=== PATIENT | female | born 1950 | race Caucasian/White ===

== ENCOUNTER 2020-02-04 10:20 | Emergency (ER) | payer MEDICARE, MEDICAID ==
--- NOTE | 2020-02-04 10:50 | RAD ---
EXAM: Single view of the chest HISTORY: Chest pain COMPARISON: None FINDINGS: Single view of the chest shows a normal sized cardiomediastinal silhouette. There is no desmond dence of consolidation, mass, or pleural effusion. No acute osseous abnormality. IMPRESSION: No evidence of acute cardiopulmonary disease
[2020-02-04] MEDS ORDERED: Fentanyl 100 MCG/2 ML VIAL ONE (10:55)
[2020-02-04 10:56] LABS: #Eosinphils 0.1 thou/uL (0.0-0.7); #Lymphocytes 1.7 thou/uL (1.20-3.40); #Monocytes 0.6 thou/uL (0.11-0.59); #Neutrophils 3.3 thou/uL (1.40-6.50); %Basophils 0.5 % (0.0-1.0); %Eosinophils 1.7 % (0.0-10.0); %Lymphocytes 30.1 % (21.0-51.0); %Monocytes 9.7 % (0.0-10.0); Hemoglobin 11.1 g/dL (12.0-16.0); Mean Corpuscular HGB CONC 30.9 g/dL (32.0-36.0); Mean Corpuscular Hemoglobin 24.7 pg (27.0-31.0); Mean Corpuscular Volume 79.9 fL (78.0-98.0); Mean Platelet Volume 9.3 fL (7.4-10.4); Platelet Count 210 thou/uL (130-400); RBC Distribution Width 16.7 % (11.5-14.5); Red Blood Cell (RBC) Count 4.51 mill/uL (4.20-5.40); White Blood Cell (WBC) Count 5.6 thou/uL (4.8-10.8)
[2020-02-04] MEDS ORDERED: Ondansetron PF 4 MG/2 ML Vial ONE ×2 (10:59→11:54)
[2020-02-04 11:36] LABS: ALT (SGPT) 12 U/L (8-55); AST (SGOT) 12 U/L (5-34); Albumin 3.5 g/dL (3.4-4.8); Alkaline Phosphatase 180 U/L (40-110); Anion Gap 15 mmol/L (10-20); BUN (Urea Nitrogen) 20 mg/dL (9.8-20.1); Bilirubin, Total 0.2 mg/dL (0.2-1.2); Calc. Creatinine Clearance 0 mL/min (70-130); Calcium 9.7 mg/dL (7.8-10.44); Carbon Dioxide 22 mmol/L (23-31); Chloride 109 mmol/L (98-107); Estimated GFR-MDRD 78; Globulin 2.5 g/dL (2.4-3.5); Glucose 137 mg/dL (80-115); Sodium 142 mmol/L (136-145)
[2020-02-04] MEDS ORDERED: Pantoprazole 40 MG VIAL ONE (11:54)
[2020-02-04 12:13] LABS: Lipase 14 U/L (8-78)
[2020-02-04 13:41] LABS: Troponin I Less than 0.010 ng/mL (< 0.028)
== END 2020-02-04 14:50 | disposition left against medical advice (07) ==
LOC: ERS 10:20
DX: I11.0 Hypertensive heart disease with heart failure (principal); I50.9 Heart failure, unspecified; E78.00 Pure hypercholesterolemia, unspecified; E78.5 Hyperlipidemia, unspecified; J44.9 Chronic obstructive pulmonary disease, unspecified; F41.9 Anxiety disorder, unspecified; F32.9 Major depressive disorder, single episode, unspecified; E11.9 Type 2 diabetes mellitus without complications; Z87.442 Personal history of urinary calculi
CPT/HCPCS: 36415; 71045; 80053; 83690; 83880; 84484; 85025; 93005; 96374; 96375; 96376; C9113; J2405; J3010

== ENCOUNTER 2020-04-22 10:59 | Outpatient (CLI) | payer MEDICARE, MEDICAID ==
--- NOTE | 2020-04-22 12:01 | RAD ---
EXAM: XR Shoulder Lt 3 View STANDARD PROVIDED CLINICAL HISTORY: Pain COMPARISON: None FINDINGS: There is no evidence for fracture. Osteophyte formation is seen arising from the humeral head. Mild a cromioclavicular joint degenerative changes are seen. Glenohumeral relationship appears normal. Visualized left lung field appears clear. IMPRESSION: Acromioclavicular and glenohumeral degenerative change.
== END 2020-04-22 11:00 | disposition home or self-care (01) ==
LOC: RAD-FRANK 10:59
PROVIDERS: ATTEND Nurse Practitioner Family
DX: M25.512 Pain in left shoulder (principal); M19.012 Primary osteoarthritis, left shoulder

== ENCOUNTER 2020-06-10 05:35 | Inpatient (IN) | payer MEDICARE, MEDICAID ==
[2020-06-10] MEDS ORDERED: Vancomycin 1 GM/200 ML BAG ONE (05:53)
[2020-06-10] MEDS ORDERED: Sodium Chloride 0.9% 100 ML ONE (05:53)
[2020-06-10] MEDS ORDERED: Cefepime 2 GM VIAL ONE (05:53)
[2020-06-10] MEDS ORDERED: Acetaminophen 500 MG TAB ONE (05:53)
[2020-06-10] MEDS ORDERED: Sodium Chloride 0.9% 1,000 ML IV SCH ×3 (06:00→13:48)
[2020-06-10] MEDS ORDERED: Cefepime 2 GM in Sodium Chloride 0.9% 100 ML IVPB SCH (06:00)
[2020-06-10] MEDS ORDERED: Acetaminophen 500 MG TAB PO SCH (06:00)
[2020-06-10 06:36] LABS: Hemoglobin 10.3 g/dL (12.0-16.0); Mean Corpuscular HGB CONC 32.5 g/dL (32.0-36.0); Mean Corpuscular Hemoglobin 24.3 pg (27.0-31.0); Mean Corpuscular Volume 74.8 fL (78.0-98.0); Mean Platelet Volume 9.3 fL (7.4-10.4); Platelet Count 274 thou/uL (130-400); RBC Distribution Width 16.6 % (11.5-14.5); Red Blood Cell (RBC) Count 4.26 mill/uL (4.20-5.40)
[2020-06-10 06:53] LABS: #Lymphocytes 0.7 thou/uL (1.20-3.40); #Monocytes 0.8 thou/uL (0.11-0.59); #Neutrophils 13.5 thou/uL (1.40-6.50); %Basophils 0.1 % (0.0-1.0); %Eosinophils 0.2 % (0.0-10.0); %Lymphocytes 4.6 % (21.0-51.0); %Monocytes 5.3 % (0.0-10.0); %Neutrophils 89.9 % (42.0-75.0); MDiff Complete? YES; Microcytosis SLIGHT = 6-15 cells (100X) (0-5/hpf); Platelet Morphology Comment Appears Adequate
[2020-06-10 07:00] LABS: ALT (SGPT) 16 U/L (8-55); AST (SGOT) 22 U/L (5-34); Albumin 3.6 g/dL (3.4-4.8); Alkaline Phosphatase 269 U/L (40-110); Anion Gap 17 mmol/L (10-20); BUN (Urea Nitrogen) 13 mg/dL (9.8-20.1); Bilirubin, Total 0.3 mg/dL (0.2-1.2); Calc. Creatinine Clearance 0 mL/min (70-130); Calcium 8.7 mg/dL (7.8-10.44); Carbon Dioxide 18 mmol/L (23-31); Chloride 108 mmol/L (98-107); Globulin 2.7 g/dL (2.4-3.5); Glucose 208 mg/dL (83-110); Potassium 3.2 mmol/L (3.5-5.1); Protein, Total 6.3 g/dL (5.8-8.1); Sodium 140 mmol/L (136-145)
[2020-06-10 07:04] LABS: Actual Bicarbonate (HCO3a) 17.8 mEq/L (22-28); Analyzer IN Cardio ER; Base Excess (BEa) -6.7 mEq/L (-2.0 to +3.0); CO2 Tension 31.9 mmHg (35.0-45.0); Calcium, Ionized (arterial) 1.23 mmol/L (1.12-1.30); Hemoglobin (Hb) 10.7 g/dL (12.0-16.0); O2 Tension (PaO2), arterial 147.1 mmHg (> 70.0); Potassium - ABG Lab 3.22 mmol/L (3.70-5.30); pH, Arterial 7.36 (7.35-7.45)
[2020-06-10 07:07] LABS: Puncture Site LRA
[2020-06-10 07:08] LABS: ALV-art Gradient 169.525 mmHg (0-20)
[2020-06-10 07:16] LABS: CKMB 1.3 ng/mL (0-6.6)
[2020-06-10 07:38] LABS: SARS-CoV-2 NAA Rapid Test Not Detected (NotDetected)
--- NOTE | 2020-06-10 07:42 | RAD ---
Chest one view HISTORY: Dyspnea. COMPARISON: 02/04/2020. FINDINGS: Right cardiac margin is obscured by dense masslike infiltrate. Ill-defined infiltrate also projects to the right suprahilar level. Left lung well-inflated. Pulmonary vasculature are unremarkable. No evidence of pneumothorax. IMPRESSION : Right upper lobe and right middle lobe pneumonia. Appearance more typical for bacterial pneumonia serafin n COVID pneumonitis.
[2020-06-10] MEDS ORDERED: Potassium Chloride 20 MEQ in Premix Bag 1 BAG IVPB SCH (08:30)
[2020-06-10] MEDS ORDERED: Acetaminophen 325 MG TAB PO PRN (09:45)
[2020-06-10] MEDS ORDERED: Ondansetron PF 4 MG/2 ML Vial IVP PRN (09:45)
[2020-06-10] MEDS ORDERED: Dextrose 50% Abboject 50 ML SYRINGE SLOW IVP PRN (09:48)
[2020-06-10] MEDS ORDERED: Dextrose 5% in Water 1,000 ML IV PRN (09:48)
[2020-06-10] MEDS ORDERED: Albuterol Sulfate 2.5 mg/3 ml Neb NEB PRN (09:53)
--- NOTE | 2020-06-10 10:02 | PDOC.HHP ---
Hospitalist HPI MONIQUE History of Present Illness: Patient is 70-year-old female with PMH of chronic CHF, HTN, HLD, DM type II, COPD, chronic anemia, diabetic neuropathy, and anxiety/depression who presents to the ED with shortness of breath. Patient states she has been having shortness of breath for the past 2 months, however her shortness of breath got worse last night. She also reports chronic cough, sometimes she coughs up "melo ck stuff, like an old blood". She has also been having substernal chest pain since last night which she describes it as "like someone laying on my chest", non-radiating and associated with SOB, no chest pain at this time. She has chronic leg swelling, this has not changed. She also had nausea and vomiting this morning. She denies fever or chills. ED Course: Patient was noted to be in significant respiratory distress on arrival of EMS. She was given DuoNeb, Solu-Medrol, magnesium, and was placed on CPAP. On arrival to the ED, patient was tachycardic and febrile. Lab showed WBC: 15, Lactic acid: 5.6, Troponin: 0.059. CXR showed multilobar right-sided pneumonia. Patient was given IV fluid and started on antibiotics. Allergies/Adverse Reactions: Allergy/AdvReac Type Severity Reaction Status Date / Time aspirin Allergy Verified 06/10/20 08:28 pregabalin [From Lyrica] Allergy Verified 06/10/20 08:28 shellfish derived Allergy Verified 06/10/20 08:28 tramadol Allergy Verified 06/10/20 08:28 trazodone Allergy Verified 06/10/20 08:28 Past History: PMH: chronic CHF, HTN, HLD, DM type II, COPD, chronic anemia, diabetic neuropathy, and anxiety/depression Past surgical history: Cholecystectomy, appendectomy, hysterectomy, knee replacement x2 Family history: Father: Cancer mother: CVA Social history: Patient is never smoker. She denies alcohol or drug use. Hospitalist HPI FLOR Constitutional: denies: fever, chills Eyes: denies: vision change ENT: denies: throat pain Respiratory: reports: cough, shortness of breath Cardiovascular: reports: chest pain, edema Gastrointestinal: reports: nausea, vomiting. denies: diarrhea Genitourinary: denies: dysuria, frequency Musculoskeletal: reports: other (leg pain from neuropathy) Skin: denies: rash Other: Negative for DAVIDSON Hospitalist Exam Vitals: Vital Signs (12 hours) Pulse Resp Pulse Ox 06/10/20 09:13 109 H 28 H 99 General Appearance: NAD, awake alert Eye: PERRL ENT: dry oral mucosa ENT - other findings: CPAP in place Neck: supple, no JVD Heart: no murmur Heart - other findings: Regular rhythm, tachycardic Respiratory: tachypneic (Some respiratory distress with exertion, comfortable at rest) Respiratory - other findings: Crackles on the right side otherwise clear to auscultation Gastrointestinal: soft, non-tender, non-distended, normal bowel sounds Extremities: no edema Neurological - other findings: Decreased sensation on all extremities which she states is due to neuropath Musculoskeletal - other findings: Mild decrease in strength on the LE bilaterally but there was poor effort Psychiatric: normal affect, A&O x 3 Hospitalist Results Result Diagrams: 06/10/20 06:21 06/10/20 06:21 Lab results: Laboratory Last Values WBC 15.0 thou/uL (4.8-10.8) H 06/10/20 06:21 RBC 4.26 mill/uL (4.20-5.40) 06/10/20 06:21 Hgb 10.3 g/dL (12.0-16.0) L 06/10/20 06:21 Hct 31.9 % (36.0-47.0) L 06/10/20 06:21 MCV 74.8 fL (78.0-98.0) L 06/10/20 06:21 MCH 24.3 pg (27.0-31.0) L 06/10/20 06:21 MCHC 32.5 g/dL (32.0-36.0) 06/10/20 06:21 RDW 16.6 % (11.5-14.5) H 06/10/20 06:21 Plt Count 274 thou/uL (130-400) 06/10/20 06:21 MPV 9.3 fL (7.4-10.4) 06/10/20 06:21 Neutrophils % 89.9 % (42.0-75.0) H 06/10/20 06:21 Neutrophils % (Manual) Not Reportable 06/10/20 06:21 Lymphocytes % 4.6 % (21.0-51.0) L 06/10/20 06:21 Monocytes % 5.3 % (0.0-10.0) 06/10/20 06:21 Eosinophils % 0.2 % (0.0-10.0) 06/10/20 06:21 Basophils % 0.1 % (0.0-1.0) 06/10/20 06:21 Neutrophils # 13.5 thou/uL (1.40-6.50) H 06/10/20 06:21 Lymphocytes # 0.7 thou/uL (1.20-3.40) L 06/10/20 06:21 Monocytes # 0.8 thou/uL (0.11-0.59) H 06/10/20 06:21 Eosinophils # 0.0 thou/uL (0.0-0.7) 06/10/20 06:21 Basophils # 0.0 thou/uL (0.0-0.2) 06/10/20 06:21 Plt Morphology Comment Appears Adequate 06/10/20 06:21 Microcytosis SLIGHT = 6-15 cells (100X) (0-5/hpf) 06/10/20 06:21 Specimen Type ARTERIAL 06/10/20 06:35 Puncture Site LRA 06/10/20 06:35 Bicarbonate Actual 17.8 mEq/L (22-28) L 06/10/20 06:35 ABG pH 7.36 (7.35-7.45) 06/10/20 06:35 ABG pCO2 31.9 mmHg (35.0-45.0) L 06/10/20 06:35 ABG pO2 147.1 mmHg (> 70.0) H 06/10/20 06:35 ABG O2 Sat (Measured) 98.3 % (94.0-98.0) H 06/10/20 06:35 ABG O2 Content 15.0 vol% (18.0-21.0) L 06/10/20 06:35 ABG Base Excess -6.7 mEq/L (-2.0 to +3.0) L 06/10/20 06:35 ABG Hematocrit 31.0 % (36.0-47.0) L 06/10/20 06:35 ABG Hemoglobin 10.7 g/dL (12.0-16.0) L 06/10/20 06:35 ABG Oxyhemoglobin 97.7 % (94.0-98.0) 06/10/20 06:35 ABG Carboxyhemoglobin 0.0 gm% (0.0-3.0) 06/10/20 06:35 ABG Methemoglobin 0.60 gm% (0.04-1.52) 06/10/20 06:35 ABG Deoxyhemoglobin 1.7 % (0.0-2.9) 06/10/20 06:35 Owen Test Not Reportable 06/10/20 06:35 A-a O2 Gradient 169.525 mmHg (0-20) H 06/10/20 06:35 Sodium 140 mmol/L (135-148) 06/10/20 06:35 Potassium 3.22 mmol/L (3.70-5.30) L 06/10/20 06:35 Chloride 109 mmol/L (98-106) H 06/10/20 06:35 Ionized Calcium 1.23 mmol/L (1.12-1.30) 06/10/20 06:35 Mode of Support BIPAP 06/10/20 06:35 Inspired O2 50 % 06/10/20 06:35 Pressure Support 10 cmH2O 06/10/20 06:35 PEEP or CPAP 5.0 cmH2O 06/10/20 06:35 Sodium 140 mmol/L (136-145) 06/10/20 06:21 Potassium 3.2 mmol/L (3.5-5.1) L 06/10/20 06:21 Chloride 108 mmol/L (98-107) H 06/10/20 06:21 Carbon Dioxide 18 mmol/L (23-31) L 06/10/20 06:21 Anion Gap 17 mmol/L (10-20) 06/10/20 06:21 BUN 13 mg/dL (9.8-20.1) 06/10/20 06:21 Creatinine 0.71 mg/dL (0.6-1.1) 06/10/20 06:21 Estimated GFR (MDRD) 81 06/10/20 06:21 Glucose 208 mg/dL (83-110) H 06/10/20 06:21 Lactic Acid 5.6 mmol/L (0.5-2.2) H* 06/10/20 06:21 Calcium 8.7 mg/dL (7.8-10.44) 06/10/20 06:21 Total Bilirubin 0.3 mg/dL (0.2-1.2) 06/10/20 06:21 AST 22 U/L (5-34) 06/10/20 06:21 ALT 16 U/L (8-55) 06/10/20 06:21 Alkaline Phosphatase 269 U/L (40-110) H 06/10/20 06:21 CK-MB (CK-2) 1.3 ng/mL (0-6.6) 06/10/20 06:21 Troponin I 0.059 ng/mL (< 0.028) H 06/10/20 06:21 B-Natriuretic Peptide 102.6 pg/mL (0-100) H 06/10/20 06:21 Serum Total Protein 6.3 g/dL (5.8-8.1) 06/10/20 06:21 Albumin 3.6 g/dL (3.4-4.8) 06/10/20 06:21 Globulin 2.7 g/dL (2.4-3.5) 06/10/20 06:21 Albumin/Globulin Ratio 1.3 g/dL (1.2-2.2) 06/10/20 06:21 Influenza A RNA INAAT Not Detected (NotDetected) 06/10/20 06:04 Influenza B RNA INAAT Not Detected (NotDetected) 06/10/20 06:04 SARS-CoV-2 Rap RNA(RT-PCR) Not Detected (NotDetected) 06/10/20 06:04 Chest x-ray Status: image reviewed by ne Hospitalist H&P A/P (1) Severe sepsis Code(s): A41.9 - SEPSIS, UNSPECIFIED ORGANISM; R65.20 - SEVERE SEPSIS WITHOUT SEPTIC SHOCK Status: Acute Assessment and Plan: Tachycardic and febrile on arrival. Labs showed leukocytosis and lactic ac idosis. This is likely from her pneumonia seen on CXR. Plan: -f/u blood Cx -sputum Cx -IV fluid with caution due to hx of CHF -cont Cefepime and Vanc (2) Respiratory failure with hypoxia Code(s): J96.91 - RESPIRATORY FAILURE, UNSPECIFIED WITH HYPOXIA Status: Acute Assessment and Plan: Likely due to PNA. Symptom improved on CPAP Plan: -cont CPAP -treat sepsis as above (3) PNA (pneumonia) Code(s): J18.9 - PNEUMONIA, UNSPECIFIED ORGANISM Status: Acute Qualifiers: Pneumonia type: due to unspecified organism Laterality: right Lung location: lower lobe of lung Qualified Code(s): J18.9 - Pneumonia, unspecified organism Assessment and Plan: CXR showed multilobar right-sided PNA. No recent hospitalization. Plan: -management as above (4) Elevated troponin Code(s): R77.8 - OTHER SPECIFIED ABNORMALITIES OF PLASMA PROTEINS Status: Acute Assessment and Plan: This is likely secondary to demand ischemia from severe sepsis, however patient reports chest pain and EKG showed non-specific ST changes on the inferiolateral leads. Plan: -trend troponin -consult cardiology (5) CHF (congestive heart failure) Code(s): I50.9 - HEART FAILURE, UNSPECIFIED Status: Chronic Qualifiers: Heart failure type: unspecified Heart failure chronicity: chronic Quali fied Code(s): I50.9 - Heart failure, unspecified Assessment and Plan: Unspecified, no echo in the chart. Patient takes Lasix. Currently not volume overloaded. Plan: -Hold Lasix for now due to severe sepsis (6) COPD (chronic obstructive pulmonary disease) Status: Chronic Assessment and Plan: No wheezing on exam. Plan: -DuoNeb Q4H (7) DM type 2 (diabetes mellitus, type 2) Status: Chronic Qualifiers: Diabetes mellitus half-way insulin use: without half-way use Diabetes mellitus complication detail: with diabetic retinopathy Assessment and Plan: Patient takes Januvia at home. Plan: -SS insulin ACHS -hold Januvia while patient is NPO (8) HTN (hypertension) Code(s): I10 - ESSENTIAL (PRIMARY) HYPERTENSION Status: Chronic Assessment and Plan: Plan: -Hold home meds for now due to sepsis
[2020-06-10 10:03] LABS: Lactic Acid 5.4 mmol/L (0.5-2.2)
[2020-06-10 10:28] LABS: Troponin I 0.077 ng/mL (< 0.028)
[2020-06-10] MEDS: HumaLOG 300 UNITS/3 ML VIAL SC PRN ×3 (10:44→21:33)
[2020-06-10 13:05] LABS: Troponin I 0.057 ng/mL (< 0.028)
[2020-06-10] MEDS ORDERED: Clopidogrel Bisulfate 75 MG TAB PO SCH (13:45)
--- NOTE | 2020-06-10 15:16 | CON ---
DATE OF CONSULTATION: 06/10/2020 REASON FOR CONSULTATION: Slight increase in troponin (borderline troponin) chest pain in the setting of pneumonia and diabetes. HISTORY OF PRESENT ILLNESS: Ms. Rain is a 70-year-old woman. The patient was admitted to the hospital with shortness of breath and fatigue. She was found to have a high fever here and a right lower lobe pneumonia. The patient states she has been told in the past that she has heart disease. She has been followed by a bone plant supervisor previously. She said she has not seen a marine electrician helper. The patient has chest pain when she coughs and it is lower substernal with a cough. PAST HISTORY: 1. Diabetes for about five years, not on insulin. 2. No history of smoking. SOCIAL HISTORY: No alcohol or tobacco. REVIEW OF SYSTEMS: CONSTITUTIONAL: She feels weak and fatigued. No chest pain of angina, but she does have pain with a cough. PULMONARY: She has a cough. ABDOMEN AND GI: No nausea, vomiting, or diarrhea. SKIN: No rashes. NEUROLOGIC: No unilateral weakness or numbness. PSYCHIATRIC: No unusual depression or anxiety. PERTINENT LABORATORY DATA: The troponin is an indeterminate range, peaking at 0.077. BNP 102.6. White blood cell count 15,000. Chest x-ray shows a right lower lobe pneumonia. COVID serology negative. PHYSICAL EXAMINATION: GENERAL: This is a pleasant woman. She is quite overweight, 5 feet 4 inches tall, 229 pounds, 39.3 BMI. VITAL SIGNS: Blood pressure is 121/63, pulse 100 and it is sinus, temperature now is normal, but previously she was febrile with a temperature in the emergency room of 102.2. DIAGNOSTIC STUDIES: EKG, sinus rhythm, some nonspecific ST changes. ASSESSMENT: 1. Pneumonia. 2. Sepsis with increased lactic acid. 3. Possible underlying coronary disease, probably some element of demand ischemia. 4. Morbid obesity. 5. Diabetes. 6. Unknown cholesterol status. PLAN: 1. Agree with anticoagulation. DVT prophylaxis. 2. We will increase the Lovenox to 30 mg twice a day. 3. Echocardiogram ordered. 4. Cannot take aspirin. We will start clopidogrel. We will follow with you. Job ID: [id number]
[2020-06-10] MEDS: Cefepime 2 GM in Sodium Chloride 0.9% 100 ML IVPB SCH (17:50)
[2020-06-10] MEDS: methylPREDNISolone Sod Succ 40 MG VIAL IVP SCH (18:42)
[2020-06-10] MEDS: Vancomycin 1.5 GRAM/300 ML BAG 1.5 GM in Premix Bag 1 BAG IVPB SCH (18:43)
[2020-06-10] MEDS: Sodium Chloride 0.9% 1,000 ML IV SCH (19:00)
--- NOTE | 2020-06-10 20:31 | CON ---
DATE OF CONSULTATION: 06/10/2020 HISTORY OF PRESENT ILLNESS: Hannah Rain is a 70-year-old female. She recently moved out of the [place] area to . She presented with 2 months of a cough and shortness of breath. She has been told by her pulmonary doctor that she had COPD, but she has never been a smoker. She was told she had asthma when she was young. She also has a history of congestive heart failure. She was admitted with cough and chest congestion. I was consulted to see her. PAST MEDICAL HISTORY: 1. Remarkable for congestive heart failure, unclear whether it is systolic or diastolic. 2. History of hypertension. 3. History of diabetes. 4. History of a diabetic neuropathy. 5. Reported history of COPD with no history of smoking. 6. History of anxiety and depression. 7. History of cholecystectomy. 8. History of an appendectomy. 9. Status post hysterectomy. 10. History of 2 knee replacements. FAMILY HISTORY: Cancer and vascular disease. No history of lung disease in early age. SOCIAL HISTORY: She is a nonsmoker, nondrinker, and nondrug user. REVIEW OF SYSTEMS: Ten-point review of systems otherwise negative. Other than that, she says she has been coughing up black sputum. She denies oneil hemoptysis. PHYSICAL EXAMINATION: She was talking on the cellphone a mile a minute when I walked in the room and then continued to talk a mile a minute after she hung up on the cellphone. VITAL SIGNS: She is afebrile. Heart rate is 100, respiratory rate is in 20, blood pressure 116/59. HEENT: Pupils are equal. Sclerae anicteric. NECK: Supple. LUNGS: Remarkable for crackles at the right base. HEART: Regular rhythm. No S3. ABDOMEN: Soft and nontender. EXTREMITIES: Without clubbing, cyanosis, or edema. LABORATORY DATA: White count 15, hemoglobin 10, and platelets 274. Sodium 140, potassium 3.2, chloride 108, bicarb 18, anion gap is 14, and creatinine is 0.7. Chest radiograph shows a dense right middle lobe/possible lower lobe infiltrate, she may have a little bit of an infiltrate in the right upper lobe. IMPRESSION: 1. Pneumonia. 2. Underlying lung disease, possibly chronic persistent asthma given her lack of smoking. She does not have a history that is suggestive of chronic bronchitis. 3. I would like to have access to any of her medical records. 4. At this point in time, she needs nebulized treatments, steroids, and empiric antimicrobial therapy to cover for multiple pathogens. We will follow the other physicians caring for. TIME SPENT: 70-minute consult,greater than 50% of the time was spent on the unit coordinating care. Job ID: [id number]
[2020-06-10] MEDS ORDERED: Enoxaparin Sodium 30 MG/0.3 ML SYRINGE SC SCH (21:00)
[2020-06-10] MEDS: Famotidine 20 MG TAB PO SCH (21:36)
[2020-06-10] MEDS: Enoxaparin Sodium 40 MG/0.4 ML SYRINGE SC SCH (21:36)
[2020-06-10] MEDS ORDERED: Lidocaine 2% Viscous Solution 10 ML, Aluminum & Magnesium Hydroxide 30 ML SSW SCH (23:45)
[2020-06-11] MEDS: methylPREDNISolone Sod Succ 40 MG VIAL IVP SCH ×5 (00:05→23:19)
[2020-06-11 04:38] LABS: Band 25 % (5-11); Hemoglobin 8.8 g/dL (12.0-16.0); Hypochromia SLIGHT = 6-15 cells (100X) (0-5/hpf); Lymphocytes 6 % (21-51); MDiff Complete? YES; Mean Corpuscular HGB CONC 30.5 g/dL (32.0-36.0); Mean Corpuscular Hemoglobin 22.9 pg (27.0-31.0); Mean Corpuscular Volume 75.2 fL (78.0-98.0); Mean Platelet Volume 9.7 fL (7.4-10.4); Monocytes 11 % (0-10); Neutrophil 58 % (42-75); Platelet Count 272 thou/uL (130-400); Platelet Morphology Comment Appears Adequate; RBC Distribution Width 16.6 % (11.5-14.5); Red Blood Cell (RBC) Count 3.84 mill/uL (4.20-5.40); White Blood Cell (WBC) Count 22.4 thou/uL (4.8-10.8)
[2020-06-11 04:56] LABS: ALT (SGPT) 36 U/L (8-55); AST (SGOT) 59 U/L (5-34); Albumin 3.4 g/dL (3.4-4.8); Alkaline Phosphatase 205 U/L (40-110); Anion Gap 14 mmol/L (10-20); BUN (Urea Nitrogen) 19 mg/dL (9.8-20.1); Bilirubin, Total 0.4 mg/dL (0.2-1.2); Calc. Creatinine Clearance 130 mL/min (70-130); Calcium 9.4 mg/dL (7.8-10.44); Carbon Dioxide 20 mmol/L (23-31); Chloride 109 mmol/L (98-107); Globulin 2.8 g/dL (2.4-3.5); Glucose 188 mg/dL (83-110); Potassium 4.4 mmol/L (3.5-5.1); Protein, Total 6.2 g/dL (5.8-8.1); Sodium 139 mmol/L (136-145)
[2020-06-11] MEDS: Vancomycin 1.5 GRAM/300 ML BAG 1.5 GM in Premix Bag 1 BAG IVPB SCH ×2 (05:22→19:33)
[2020-06-11] MEDS: Cefepime 2 GM in Sodium Chloride 0.9% 100 ML IVPB SCH ×2 (05:23→18:09)
[2020-06-11] MEDS: Sodium Chloride 0.9% 1,000 ML IV SCH (07:20)
--- NOTE | 2020-06-11 08:28 | RAD ---
Portable upright frontal chest radiograph: 06/11/2020 COMPARISON: 06/10/2020 HISTORY: Pneumonia FINDINGS: There is patchy interstitial and alveolar opacity in the right suprahilar region, demonstra ting interval improvement. There is focal airspace disease in the medial right base/infrahilar region, demonstrating improvement as well. Left lung appears clear. No pneumothorax is evident. IMPRESSION: Residual right perihilar/suprahilar/infrahilar interstitial and alveolar opacity with foc al airspace disease in the right base. Findings are improved. Continued follow-up advised to document resolution. Findings suggest infectious pneumonitis or aspiration.
[2020-06-11] MEDS ORDERED: Enoxaparin Sodium 30 MG/0.3 ML SYRINGE SC SCH (09:00)
[2020-06-11] MEDS ORDERED: FLU VACC QS2020-21(65YR UP)/PF 240 MCG/0.7 ML SYRINGE IM ONE (09:00)
[2020-06-11] MEDS ORDERED: Sodium Chloride 0.9% 1,000 ML IV SCH (09:41)
[2020-06-11] MEDS ORDERED: Furosemide 20 MG/2 ML VIAL SLOW IVP SCH (09:45)
[2020-06-11] MEDS ORDERED: Spironolactone 25 MG TAB PO SCH (09:45)
--- NOTE | 2020-06-11 09:59 | PRG ---
DATE OF SERVICE: 06/11/2020 SUBJECTIVE: Ms. Rain feels better today. OBJECTIVE: VITAL SIGNS: Oxygen saturation is 98% on nasal cannula, blood pressure 145/83, pulse 100 and sinus with occasional PACs. LUNGS: Clear anteriorly and laterally. CARDIAC: Normal S1, normal S2, but she is tachycardic for rest. EXTREMITIES: There is moderate edema. DIAGNOSTIC STUDIES: Echocardiogram showed normal left ventricular systolic function with grade 1 diastolic dysfunction. ASSESSMENT: 1. Pneumonia. 2. Grade 1 diastolic dysfunction. 3. Normal left ventricular systolic function. 4. Looks volume overloaded now. PLAN: 1. Add spironolactone. 2. One dose of Lasix. 3. Recheck BNP tomorrow. Job ID: [id number]
[2020-06-11] MEDS: Clopidogrel Bisulfate 75 MG TAB PO SCH (10:36)
[2020-06-11] MEDS: Famotidine 20 MG TAB PO SCH ×2 (10:36→20:03)
[2020-06-11] MEDS: Enoxaparin Sodium 40 MG/0.4 ML SYRINGE SC SCH ×2 (10:37→20:02)
--- NOTE | 2020-06-11 10:53 | PQF ---
CLINICAL DOCUMENTATION CLARIFICATION FORM: Dear Dr. Perales Date: 06/11/20 Please exercise your independent, professional judgment in responding to the clarification form. Clinical indicators are provided on the bottom of this form for your review. Please check appropriate box(es): HEART FAILURE: TYPE: [ ] Systolic / HFrEF [ x] Diastolic / HFpEF [ ] Combined Systolic / Diastolic [ ] Hypertensive Heart and Kidney disease [ ] Hypertensive Heart Disease [ ] Hypertensive Kidney Disease [ ] Other diagnosis [ ] Unable to determine In addition, please specify: Present on Admission (POA): [ ] Yes [ ] No [ ] Unable to determine For continuity of documentation, please document condition throughout progress notes and discharge summary. Thank You. To be completed by CDI/Coding staff for physician review: CLINICAL INDICATORS - SIGNS / SYMPTOMS / LABS / RESULTS AND LOCATION IN EMR H&P: "CHF, CHRONIC- UNSPECIFIED" ECHO REPORT: "EJECTION FRACTION IS VISUALLY ESTIMATED AT 55-60%" "GRADE 1 DIASTOLIC DYSFUNCTION /LEFT ATRIUM IS MODERATELY TO SEVERELY DILATED" BNP 06/10: 102.6 RISKS FACTORS / RESULTS AND LOCATION IN EMR CHRONIC CHF (H&P) HTN (H&P) "SHORTNESS OF BREATH FOR THE PAST 2 MONTHS....REPORTS CHRONIC COUGH" (H&P) TREATMENTS / RESULTS AND LOCATION IN EMR CCU MONITORING CARDIOLOGY CONSULT HOLDING LASIX (SEE NOTE IN H&P) CDS Signature: Evelia Dietrich RN Phone #: [phone] Date: 06/11/20 This is a permanent part of the Medical Record [facility]
[2020-06-11] MEDS: HumaLOG 300 UNITS/3 ML VIAL SC PRN ×2 (12:18→18:02)
--- NOTE | 2020-06-11 15:34 | PDOC.HOSPP ---
- Subjective Encounter Date: 06/11/20 Encounter Time: 15:30 Subjective: f/u for sepsis due to PNA/resp failure on prior BiPAP now on NC @ 2L/min NC. Receiving Cefepime/Vancomycin/Solumedrol. - Objective Vital Signs & Weight: Vital Signs (12 hours) Temp Pulse Resp Pulse Ox 06/11/20 10:53 95 21 H 99 06/11/20 08:00 98.2 F 99 06/11/20 07:47 99 06/11/20 07:45 92 16 99 06/11/20 05:19 98 06/11/20 04:04 98 Weight Admit Weight 229 lb Weight 229 lb Most Recent Monitor Data Heart Rate from ECG 100 NIBP 165/87 NIBP BP-Mean 113 Respiration from ECG 23 SpO2 96 I&O: 06/10/20 06/11/20 06/12/20 06:59 06:59 06:59 Intake Total 1380 1320 Output Total 600 950 Balance 780 370 Result Diagrams: 06/11/20 03:30 06/11/20 03:30 Additional Labs: Accuchecks 06/11/20 06/11/20 06/10/20 11:30 00:24 20:20 POC Glucose 245 H 172 H 271 H 06/10/20 16:15 POC Glucose 207 H Microbiology 06/10/20 06:21 Venous blood - Right Arm Blood Culture - Preliminary Specimen has been received and culture in progress. No Growth to date. 06/10/20 06:10 Venous blood - Right Hand Blood Culture - Preliminary Specimen has been received and culture in progress. No Growth to date. Laboratory Tests 02/04/20 06/10/20 06/10/20 10:44 06:04 06:21 WBC Hgb Neutrophils % Neutrophils % (Manual) Band Neuts % (Manual) AST 22 Alkaline Phosphatase 269 H B-Natriuretic Peptide 171.6 H Vancomycin Trough Influenza A RNA INAAT Not Detected Influenza B RNA INAAT Not Detected SARS-CoV-2 Rap RNA(RT-PCR) Not Detected 06/10/20 06/10/20 06/11/20 06:21 06:21 03:30 WBC 15.0 H Hgb 10.3 L Neutrophils % 89.9 H Neutrophils % (Manual) Band Neuts % (Manual) AST 59 H Alkaline Phosphatase 205 H B-Natriuretic Peptide 102.6 H Vancomycin Trough Influenza A RNA INAAT Influenza B RNA INAAT SARS-CoV-2 Rap RNA(RT-PCR) 06/11/20 06/11/20 03:30 16:52 WBC Hgb Neutrophils % Neutrophils % (Manual) 58 Band Neuts % (Manual) 25 H AST Alkaline Phosphatase B-Natriuretic Peptide Vancomycin Trough 15.0 Influenza A RNA INAAT Influenza B RNA INAAT SARS-CoV-2 Rap RNA(RT-PCR) Radiology Reviewed by me: Yes (PCXR - infiltrates of R-hemithorax) EKG Reviewed by me: Yes (Tele - SR) Hospitalist ROS - Medication Medications: Active Medications Generic Name Dose Route Start Last Admin Trade Name Freq PRN Reason Stop Dose Admin Albuterol/Ipratropium 3 ml 06/10/20 10:30 06/11/20 14:23 Ipratropium/Albuterol Sulfate 3 Ml Neb NEB 3 ml [id number] MIKY Administration Clopidogrel Bisulfate 75 mg 06/11/20 09:00 06/11/20 10:36 Clopidogrel Bisulfate 75 Mg Tab PO 75 mg DAILY MIKY Administration Enoxaparin Sodium 40 mg 06/10/20 21:00 06/11/20 10:37 Enoxaparin Sodium 40 Mg/0.4 Ml Syringe SC 40 mg 0900,2100 MIKY Administration Famotidine 20 mg 06/10/20 21:00 06/11/20 10:36 Famotidine 20 Mg Tab PO 20 mg BID MIKY Administration Cefepime HCl 2 gm/ Sodium 100 mls @ 200 mls/hr 06/10/20 18:00 06/11/20 05:23 Chloride IVPB 100 mls 0600,1800 MIKY Administration Vancomycin HCl 1.5 gm/ Device 300 mls @ 200 mls/hr 06/10/20 18:00 06/11/20 05:22 IVPB 300 mls 0600,1800 MIKY Administration Sodium Chloride 1,000 mls @ 30 mls/hr 06/11/20 09:41 06/11/20 10:37 Normal Saline 0.9% IV 1,000 mls .Q24H MIKY Administration Insulin Human Lispro 0 units 06/10/20 09:48 06/11/20 12:18 Humalog 300 Units/3 Ml Vial SC 3 unit .MILD SLIDING SCALE PRN Administration Mild Correctional Scale Methylprednisolone Sodium Succinate 20 mg 06/10/20 18:00 06/11/20 12:18 Methylprednisolone Sod Succ 40 Mg Vial IVP 20 mg Q6HR MIKY Administration Hospitalist Exam Vitals: Vital Signs (12 hours) Temp Pulse Resp Pulse Ox 06/11/20 10:53 95 21 H 99 06/11/20 08:00 98.2 F 99 06/11/20 07:47 99 06/11/20 07:45 92 16 99 06/11/20 05:19 98 06/11/20 04:04 98 Weight Admit Weight 229 lb Weight 229 lb Most Recent Monitor Data Heart Rate from ECG 100 NIBP 165/87 NIBP BP-Mean 113 Respiration from ECG 23 SpO2 96 General Appearance: NAD, awake alert Eye: PERRL, anicteric sclera ENT: normocephalic atraumatic, no oropharyngeal lesions Neck: supple, symmetric, no JVD, no thyromegaly, no lymphadenopathy Heart: RRR, no gallops, no rubs, normal peripheral pulses Heart - other findings: S1, S2 Respiratory: rhonchi, tachypneic Respiratory - other findings: few scattered coarse sounds, diminished R>L Gastrointestinal: soft, non-tender, non-distended, normal bowel sounds, no palpable masses, no hepatomegaly Gastrointestinal - other findings: obese Extremities: no cyanosis, no clubbing, no edema Skin: normal turgor Neurological: cranial nerve grossly intact, no new deficit Musculoskeletal: normal tone, generalized weakness Psychiatric: normal affect, A&O x 3 Hosp A/P (1) Severe sepsis Code(s): A41.9 - SEPSIS, UNSPECIFIED ORGANISM; R65.20 - SEVERE SEPSIS WITHOUT SEPTIC SHOCK Status: Acute Plan: Suspect due to PNA, continue Cefepime/Vancomycin, monitor clinical progress (2) Acute respiratory failure with hypoxia Code(s): J96.01 - ACUTE RESPIRATORY FAILURE WITH HYPOXIA Status: Acute Plan: Improved, continue low-volume O2 (3) Demand ischemia of myocardium Code(s): I24.8 - OTHER FORMS OF ACUTE ISCHEMIC HEART DISEASE Status: Acute Plan: Continue to treat underlying infection, appreciate Cardiology assistance, Lovenox (4) PNA (pneumonia) Code(s): J18.9 - PNEUMONIA, UNSPECIFIED ORGANISM Status: Acute Qualifiers: Pneumonia type: due to unspecified organism Laterality: right Lung location: lower lobe of lung Qualified Code(s): J18.9 - Pneumonia, unspecified organism Plan: Suspected with gm + cocci, continue Cefepime/Vancomycin (5) DM type 2 (diabetes mellitus, type 2) Status: Chronic Qualifiers: Diabetes mellitus termite exterminator insulin use: without termite exterminator use Diabetes mellitus complication detail: with diabetic retinopathy (6) HTN (hypertension) Code(s): I10 - ESSENTIAL (PRIMARY) HYPERTENSION Status: Chronic - Plan continue antibiotics, respiratory therapy, out of bed/ambulate Consults: Palliative Care Stable currently Continue Cefepime/Vancomycin Continue Lovenox/Plavix OOB with PT Confirm home meds Continue O2 supplementation, ? home O2 AM lab: CMP, CBC, BNP
--- NOTE | 2020-06-11 16:12 | PRG ---
DATE OF SERVICE: 06/11/2020 SUBJECTIVE: Ms. Rain says she is feeling better. OBJECTIVE: VITAL SIGNS: Stable overnight. She has been afebrile, although has only one temperature documented today of 98 this morning. LUNGS: Clear anteriorly. HEART: Regular rhythm. ABDOMEN: Soft. EXTREMITIES: Without edema. She does have stasis changes. LABORATORY DATA: White count 22.4, hemoglobin 8.8, platelets 272. She still has 25% bands on her peripheral smear. Electrolytes are unremarkable. Cultures from yesterday are negative. IMPRESSION: 1. Pneumonia, community-acquired. 2. History of congestive heart failure. Her ejection fraction was normal on echocardiogram done this morning. She does have diastolic dysfunction. We will continue to follow the other physicians caring for her. She is stable to move out of Critical Care. Job ID: [id number]
[2020-06-11 18:46] LABS: Bacteria/HPF None Seen HPF (None Seen); Bilirubin Negative (Negative); Blood, Urine Negative (Negative); Clarity Clear (Clear); Glucose, Urine (Dipstick) Normal (Negative); Ketone, Urine Negative (Negative); Leukocyte Negative Leu/uL (Negative); Nitrite Negative (Negative); Protein, Urine (Dipstick) Negative (Neg-Trace); RBC/HPF 0-3 HPF (0-3); Specific Gravity, Urine 1.016 (1.002-1.036); Squamous Epithelial None Seen HPF (0-3); Urobilinogen Normal mg/dL (Less than 2); WBC/HPF 0-3 HPF (0-3); pH, Urine 5.5 (5.0-9.0)
[2020-06-11 18:59] LABS: Urine Culture Reflex No No
[2020-06-12] MEDS: Nitroglycerin 0.4 MG TAB (25 Tab Bottle) ONE ×2 (03:47→04:17)
[2020-06-12] MEDS: Nitroglycerin 0.4 MG TAB (25 Tab Bottle) SL PRN ×3 (03:47→03:57)
[2020-06-12 04:40] LABS: #Lymphocytes 3.1 thou/uL (1.20-3.40); #Monocytes 0.8 thou/uL (0.11-0.59); #Neutrophils 15.4 thou/uL (1.40-6.50); %Basophils 0.2 % (0.0-1.0); %Eosinophils 0.1 % (0.0-10.0); %Lymphocytes 15.9 % (21.0-51.0); %Monocytes 4.2 % (0.0-10.0); %Neutrophils 79.6 % (42.0-75.0); Hemoglobin 8.7 g/dL (12.0-16.0); Mean Corpuscular HGB CONC 30.6 g/dL (32.0-36.0); Mean Corpuscular Hemoglobin 22.6 pg (27.0-31.0); Mean Corpuscular Volume 73.9 fL (78.0-98.0); Mean Platelet Volume 9.4 fL (7.4-10.4); Platelet Count 313 thou/uL (130-400); RBC Distribution Width 16.5 % (11.5-14.5); Red Blood Cell (RBC) Count 3.86 mill/uL (4.20-5.40); White Blood Cell (WBC) Count 19.3 thou/uL (4.8-10.8)
[2020-06-12 04:55] LABS: ALT (SGPT) 33 U/L (8-55); AST (SGOT) 17 U/L (5-34); Albumin 3.6 g/dL (3.4-4.8); Alkaline Phosphatase 203 U/L (40-110); Anion Gap 16 mmol/L (10-20); BUN (Urea Nitrogen) 22 mg/dL (9.8-20.1); Bilirubin, Total 0.3 mg/dL (0.2-1.2); Calc. Creatinine Clearance 123 mL/min (70-130); Calcium 9.9 mg/dL (7.8-10.44); Carbon Dioxide 18 mmol/L (23-31); Chloride 106 mmol/L (98-107); Globulin 2.7 g/dL (2.4-3.5); Glucose 189 mg/dL (83-110); Magnesium 1.8 mg/dL (1.6-2.6); Protein, Total 6.3 g/dL (5.8-8.1); Sodium 136 mmol/L (136-145)
[2020-06-12] MEDS: methylPREDNISolone Sod Succ 40 MG VIAL IVP SCH ×2 (05:02→08:25)
[2020-06-12] MEDS: Cefepime 2 GM in Sodium Chloride 0.9% 100 ML IVPB SCH (05:03)
[2020-06-12 05:22] LABS: CKMB 0.8 ng/mL (0-6.6)
[2020-06-12] MEDS: Nitroglycerin 2% Ointment 1 INCH/1 GM Packet TOP SCH ×2 (05:42→17:45)
[2020-06-12 06:10] LABS: Troponin I 0.021 ng/mL (< 0.028)
[2020-06-12] MEDS: Vancomycin 1.5 GRAM/300 ML BAG 1.5 GM in Premix Bag 1 BAG IVPB SCH (06:14)
--- NOTE | 2020-06-12 07:54 | RAD ---
RADIOGRAPH CHEST 1 VIEW: DATE: 06/12/2020 TIME: 5:29 AM HISTORY: 70-year-old female with chest pain follow-up pneumonia COMPARISON: 06/11/2020 FINDINGS: Small patchy right upper lung zone suprahilar infiltrate appears smaller. Consolidation at infrahilar right medial base unchanged. No pulmonary edema or pneumothorax. Right perihilar densities unchanged. IMPRESSION: 1. The small right upper lobe infiltrate appears improved. 2. The rest of the right infiltrates are unchanged
[2020-06-12] MEDS ORDERED: hydrALAZINE 20 MG/ML VIAL SLOW IVP PRN (08:21)
[2020-06-12] MEDS: Enoxaparin Sodium 40 MG/0.4 ML SYRINGE SC SCH ×2 (08:21→20:41)
[2020-06-12] MEDS: Nortriptyline HCl 25 MG CAP PO SCH (08:21)
[2020-06-12] MEDS: Levothyroxine Sodium 75 MCG TAB PO SCH (08:21)
[2020-06-12] MEDS: Clopidogrel Bisulfate 75 MG TAB PO SCH (08:23)
[2020-06-12] MEDS: Famotidine 20 MG TAB PO SCH ×2 (08:23→20:36)
[2020-06-12] MEDS: Lorazepam 1 MG TAB PO SCH ×3 (08:23→20:39)
[2020-06-12] MEDS: Spironolactone 25 MG TAB PO SCH ×2 (08:24→12:42)
[2020-06-12] MEDS ORDERED: Spironolactone 25 MG TAB PO SCH (08:45)
[2020-06-12] MEDS ORDERED: Aripiprazole 10 MG TAB PO SCH (09:00)
[2020-06-12] MEDS ORDERED: Amlodipine 5 MG TAB PO SCH (09:00)
[2020-06-12] MEDS ORDERED: Furosemide 40 MG/4 ML VIAL SLOW IVP SCH (09:30)
--- NOTE | 2020-06-12 09:54 | PRG ---
DATE OF SERVICE: 06/12/2020 SUBJECTIVE: Ms. Rain had an episode of chest pressure. It was intense, took 3 nitroglycerin early this morning. EKG was unremarkable. No ischemic changes at that time. The patient was also hypertensive. She is also retaining tremendous amounts of fluid and is hypertensive. She is resting comfortably now, but very upset about the chest pain she had. OBJECTIVE: VITAL SIGNS: Her blood pressure 180/90, pulse is in the 90 range. LUNGS: Clear. CARDIAC: Normal S1, normal S2. ABDOMEN: Obese, nontender. EXTREMITIES: Moderate to severe edema. ASSESSMENT: 1. Chest pressure, possibly cardiac versus gastrointestinal. 2. Volume overload with hypertension. 3. Some element of diastolic heart failure with a BNP now up to 207. PLAN: 1. Give intravenous diuretics. 2. Stop intravenous fluids. 3. Continue spironolactone. 4. We will add aspirin for now. She is able to tolerate 81 mg coated without any problem. She is not truly aspirin allergic. 5. She is on Lovenox. 6. Add NELL inhibitors. 7. Stop amlodipine in view of the edema. Job ID: [id number]
[2020-06-12] MEDS: Aspirin 81 mg Enteric Coated Tablet PO SCH (11:21)
[2020-06-12] MEDS: Lisinopril 5 MG TAB PO SCH ×2 (11:21→20:38)
--- NOTE | 2020-06-12 11:46 | PRG ---
DATE OF SERVICE: 06/12/2020 SUBJECTIVE: Hannah Rain was hypertensive this morning. She also has some chest discomfort. Dr. Daniel is following this. She is not complaining of respiratory distress and her gas exchange certainly remained stable. There has been no other change in her exam. Chest radiograph has surprisingly improved already. IMPRESSION: 1. Pneumonia. 2. Diastolic heart failure. 3. Obesity. 4. Hypertension. 5. Chest discomfort, being followed by Cardiology. We will discontinue cefepime and vancomycin. Microbiology has been reviewed, no cultures are positive. She will be switched to p.o. antimicrobial therapy. She has no antibiotic allergies recorded. We will start her on Augmentin. Job ID: [id number]
--- NOTE | 2020-06-12 13:44 | PDOC.FMACP ---
Advance Care Planning - Problem (1) Palliative care encounter Status: Acute Code(s): Z51.5 - ENCOUNTER FOR PALLIATIVE CARE (2) Acute respiratory failure with hypoxia Status: Acute Code(s): J96.01 - ACUTE RESPIRATORY FAILURE WITH HYPOXIA (3) Severe sepsis Status: Acute Code(s): A41.9 - SEPSIS, UNSPECIFIED ORGANISM; R65.20 - SEVERE SEPSIS WITHOUT SEPTIC SHOCK (4) CHF (congestive heart failure) Status: Chronic Code(s): I50.9 - HEART FAILURE, UNSPECIFIED Qualifiers: Heart failure type: unspecified Heart failure chronicity: chronic Qualified Code(s): I50.9 - Heart failure, unspecified (5) COPD (chronic obstructive pulmonary disease) Status: Chronic - Note Participants: patient, palliative care Summary: Palliative care addressed Advanced Care Planning. The diagnosis, prognosis and goals of care were discussed. Appropriate forms and documentation to accomplish the goals of care were discussed. All questions were answered. MPOA and OOHDNAR completed Confirmed DNAR status. Discussed morbidities and decline. Patient states she lives independently and has a caregiver 3-4 hours a day Monday-Monday. States she believes this is currently adequate. Please refer to palliative care notes in note section. Palliative care will sign off as directives addressed goals discussed, hopeful to return to home setting with continuation of primary health care nurse. Time Spent (mins): 40
--- NOTE | 2020-06-12 13:53 | PDOC.HOSPP ---
- Subjective Encounter Date: 06/12/20 Encounter Time: 09:50 Subjective: Patient is doing well she is sitting in the chair. She does not have any acute complaints. Her white count is coming down her blood pressure is still high. She is off BiPAP transfer from the unit after being treated for pneumonia. - Objective Vital Signs & Weight: Vital Signs (12 hours) Temp Pulse Resp BP BP Pulse Ox 06/12/20 11:50 87 20 96 06/12/20 11:00 98.1 F 93 20 161/77 H 94 L 06/12/20 08:06 99 22 H 97 06/12/20 08:00 98.1 F 96 20 183/92 H 100 06/12/20 04:02 99 F 99 24 H 171/93 H 97 06/12/20 03:23 98 06/12/20 03:21 98 Weight Admit Weight 229 lb Weight 229 lb Most Recent Monitor Data Heart Rate from ECG 100 NIBP 165/87 NIBP BP-Mean 113 Respiration from ECG 23 SpO2 96 I&O: 06/11/20 06/12/20 06/13/20 06:59 06:59 06:59 Intake Total 1380 2200 Output Total 600 1400 Balance 780 800 Result Diagrams: 06/12/20 04:14 06/12/20 04:15 Additional Labs: Accuchecks 06/12/20 06/12/20 06/11/20 11:21 06:17 20:38 POC Glucose 219 H 170 H 200 H 06/11/20 17:01 POC Glucose 241 H Hospitalist ROS - Medication Medications: Active Medications Generic Name Dose Route Start Last Admin Trade Name Jessica PRN Reason Stop Dose Admin Albuterol/Ipratropium 3 ml 06/10/20 10:30 06/12/20 11:50 Ipratropium/Albuterol Sulfate 3 Ml Neb NEB 3 ml [id number] MIKY Administration Aripiprazole 5 mg 06/12/20 09:00 06/12/20 08:21 Aripiprazole 10 Mg Tab PO Not Given DAILY MIKY Aspirin 81 mg 06/12/20 09:00 06/12/20 11:21 Aspirin 81 Mg Enteric Coated Tablet PO 81 mg DAILY MIKY Administration Clopidogrel Bisulfate 75 mg 06/11/20 09:00 06/12/20 08:23 Clopidogrel Bisulfate 75 Mg Tab PO 75 mg DAILY MIKY Administration Enoxaparin Sodium 40 mg 06/10/20 21:00 06/12/20 08:21 Enoxaparin Sodium 40 Mg/0.4 Ml Syringe SC 40 mg 0900,2100 [facility] Administration Famotidine 20 mg 06/10/20 21:00 06/12/20 08:23 Famotidine 20 Mg Tab PO 20 mg BID MIKY Administration Furosemide 40 mg 06/12/20 09:30 06/12/20 11:21 Furosemide 40 Mg/4 Ml Vial SLOW IVP 06/12/20 14:00 40 mg NOW MIKY Administration Insulin Human Lispro 0 units 06/10/20 09:48 06/11/20 18:02 Humalog 300 Units/3 Ml Vial SC 3 unit .MILD SLIDING SCALE PRN Administration Mild Correctional Scale Levothyroxine Sodium 75 mcg 06/12/20 09:00 06/12/20 08:21 Levothyroxine Sodium 75 Mcg Tab PO 75 mcg DAILY [facility] Administration Lisinopril 5 mg 06/12/20 09:00 06/12/20 11:21 Lisinopril 5 Mg Tab PO 5 mg BID MIKY Administration Lorazepam 1 mg 06/12/20 09:00 06/12/20 08:23 Lorazepam 1 Mg Tab PO 1 mg TID MIKY Administration Methylprednisolone Sodium Succinate 20 mg 06/12/20 09:00 06/12/20 08:25 Methylprednisolone Sod Succ 40 Mg Vial IVP 20 mg DAILY MIKY Administration Nitroglycerin 0.4 mg 06/12/20 03:43 06/12/20 03:57 Nitroglycerin 0.4 Mg Tab (25 Tab Bottle) SL 1 tab Q5MIN PRN Administration Chest Pain Nitroglycerin 0.5 inch 06/12/20 06:00 06/12/20 05:42 Nitroglycerin 2% Ointment 1 Inch/1 Gm Packet TOP 0.5 inch 0600,1800 [facility] Administration Nortriptyline HCl 25 mg 06/12/20 09:00 06/12/20 08:21 Nortriptyline Hcl 25 Mg Cap PO 25 mg DAILY MIKY Administration Pantoprazole Sodium 40 mg 06/12/20 09:00 06/12/20 11:21 Pantoprazole 40 Mg Tab PO 40 mg DAILY [facility] Administration Hospitalist Exam Vitals: Vital Signs (12 hours) Temp Pulse Resp BP BP Pulse Ox 06/12/20 11:50 87 20 96 06/12/20 11:00 98.1 F 93 20 161/77 H 94 L 06/12/20 08:06 99 22 H 97 06/12/20 08:00 98.1 F 96 20 183/92 H 100 06/12/20 04:02 99 F 99 24 H 171/93 H 97 06/12/20 03:23 98 06/12/20 03:21 98 Weight Admit Weight 229 lb Weight 229 lb Most Recent Monitor Data Heart Rate from ECG 100 NIBP 165/87 NIBP BP-Mean 113 Respiration from ECG 23 SpO2 96 General Appearance: NAD, awake alert Eye: PERRL ENT: normocephalic atraumatic Neck: supple Heart: RRR, normal peripheral pulses Respiratory: CTAB, normal chest expansion Gastrointestinal: soft, normal bowel sounds Neurological: cranial nerve grossly intact, no focal deficits Psychiatric: A&O x 3 Hosp A/P - Plan Severe sepsis Code(s): A41.9 - SEPSIS, UNSPECIFIED ORGANISM; R65.20 - SEVERE SEPSIS WITHOUT SEPTIC SHOCK Status: Acute Plan: Suspect due to PNA, continue Cefepime/Vancomycin, monitor clinical progress (2) Acute respiratory failure with hypoxia Code(s): J96.01 - ACUTE RESPIRATORY FAILURE WITH HYPOXIA Status: Acute Plan: Improved, continue low-volume O2 (3) Demand ischemia of myocardium Code(s): I24.8 - OTHER FORMS OF ACUTE ISCHEMIC HEART DISEASE Status: Acute Plan: Continue to treat underlying infection, appreciate Cardiology assistance, Lovenox (4) PNA (pneumonia) Code(s): J18.9 - PNEUMONIA, UNSPECIFIED ORGANISM Status: Acute Qualifiers: Pneumonia type: due to unspecified organism Laterality: right Lung location: lower lobe of lung Qualified Code(s): J18.9 - Pneumonia, unspecified organism Plan: Suspected with gm + cocci, continue Cefepime/Vancomycin (5) DM type 2 (diabetes mellitus, type 2) Status: Chronic Qualifiers: Diabetes mellitus 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 If it continues to remain negative then will transition to p.o. Augmentin or fluoroquinolone. Continue Lovenox/Plavix OOB with PT Confirm home meds Continue O2 supplementation, ? home O2 AM lab: CMP, CBC, BNP
[2020-06-12] MEDS: HumaLOG 300 UNITS/3 ML VIAL SC PRN (17:49)
[2020-06-12] MEDS: Amoxicillin/Potassium Clav 875 MG TAB PO SCH (20:37)
--- NOTE | 2020-06-12 20:37 | EKG ---
Test Reason : CP Blood Pressure : / mmHG Vent. Rate : 088 BPM Atrial Rate : 088 BPM P-R Int : 150 ms QRS Dur : 076 ms QT Int : 340 ms P-R-T Axes : 059 017 058 degrees QTc Int : 411 ms Normal sinus rhythm ST abnormality, possible digitalis effect Abnormal ECG When compared with ECG of 10-JUN-2020 06:00, (Unconfirmed) T wave inversion no longer evident in Lateral leads Confirmed by Edison DICKENS ([id number]) on 06/12/2020 8:36:48 PM Referred By: Ronaldo SANTOS Confirmed By:Edison DICKENS
[2020-06-12] MEDS: Aripiprazole 10 MG TAB PO SCH (20:38)
[2020-06-12] MEDS: Gabapentin 300 MG CAP PO SCH (20:39)
[2020-06-12] MEDS: Tetrahydrozoline 0.05% OPTH 15 ML BOT EA EYE SCH (20:41)
[2020-06-13 04:37] LABS: #Lymphocytes 4.2 thou/uL (1.20-3.40); #Monocytes 0.8 thou/uL (0.11-0.59); #Neutrophils 9.4 thou/uL (1.40-6.50); %Basophils 0.3 % (0.0-1.0); %Eosinophils 0.3 % (0.0-10.0); %Monocytes 5.6 % (0.0-10.0); %Neutrophils 64.8 % (42.0-75.0); Hemoglobin 8.6 g/dL (12.0-16.0); Mean Corpuscular HGB CONC 31.5 g/dL (32.0-36.0); Mean Corpuscular Volume 72.9 fL (78.0-98.0); Mean Platelet Volume 9.3 fL (7.4-10.4); Platelet Count 304 thou/uL (130-400); RBC Distribution Width 16.6 % (11.5-14.5); Red Blood Cell (RBC) Count 3.74 mill/uL (4.20-5.40); White Blood Cell (WBC) Count 14.5 thou/uL (4.8-10.8)
[2020-06-13 05:06] LABS: ALT (SGPT) 22 U/L (8-55); AST (SGOT) 14 U/L (5-34); Albumin 3.4 g/dL (3.4-4.8); Alkaline Phosphatase 191 U/L (40-110); Anion Gap 14 mmol/L (10-20); BUN (Urea Nitrogen) 25 mg/dL (9.8-20.1); Bilirubin, Total 0.3 mg/dL (0.2-1.2); Calc. Creatinine Clearance 121 mL/min (70-130); Calcium 9.5 mg/dL (7.8-10.44); Carbon Dioxide 22 mmol/L (23-31); Chloride 104 mmol/L (98-107); Globulin 2.6 g/dL (2.4-3.5); Glucose 167 mg/dL (83-110); Magnesium 1.6 mg/dL (1.6-2.6); Sodium 137 mmol/L (136-145)
[2020-06-13] MEDS: Nitroglycerin 2% Ointment 1 INCH/1 GM Packet TOP SCH ×2 (05:30→18:23)
[2020-06-13] MEDS: Furosemide 20 MG/2 ML VIAL SLOW IVP SCH ×2 (05:30→13:16)
[2020-06-13] MEDS: HumaLOG 300 UNITS/3 ML VIAL SC PRN ×2 (05:39→13:17)
[2020-06-13] MEDS ORDERED: Spironolactone 25 MG TAB PO SCH (08:00)
[2020-06-13] MEDS: Enoxaparin Sodium 40 MG/0.4 ML SYRINGE SC SCH ×2 (08:43→20:31)
[2020-06-13] MEDS: Amoxicillin/Potassium Clav 875 MG TAB PO SCH ×2 (08:44→20:28)
[2020-06-13] MEDS: Aspirin 81 mg Enteric Coated Tablet PO SCH (08:44)
[2020-06-13] MEDS: Alogliptin 6.25 MG TAB PO SCH (08:44)
[2020-06-13] MEDS: Clopidogrel Bisulfate 75 MG TAB PO SCH (08:44)
[2020-06-13] MEDS: Nortriptyline HCl 25 MG CAP PO SCH (08:44)
[2020-06-13] MEDS: Lisinopril 5 MG TAB PO SCH ×2 (08:44→20:31)
[2020-06-13] MEDS: Famotidine 20 MG TAB PO SCH ×2 (08:44→20:31)
[2020-06-13] MEDS: Tetrahydrozoline 0.05% OPTH 15 ML BOT EA EYE SCH ×2 (08:45→20:32)
[2020-06-13] MEDS: Levothyroxine Sodium 75 MCG TAB PO SCH (08:45)
[2020-06-13] MEDS: Gabapentin 300 MG CAP PO SCH ×3 (08:45→20:30)
[2020-06-13] MEDS: Lorazepam 1 MG TAB PO SCH ×3 (08:45→20:31)
[2020-06-13] MEDS: methylPREDNISolone Sod Succ 40 MG VIAL IVP SCH (08:46)
[2020-06-13] MEDS ORDERED: sitaGLIPtin Phosphate 25 MG TAB PO SCH (09:00)
[2020-06-13] MEDS ORDERED: Potassium Chloride 20 MEQ TAB PO SCH (09:30)
[2020-06-13] MEDS ORDERED: Potassium Chloride 10 MEQ/100 ML PREMIX BAG IVPB SCH (09:45)
--- NOTE | 2020-06-13 15:34 | PDOC.CPN ---
- Subjective Date: 06/13/20 Time: 15:33 Interval history: She feel better since she has diuresed more. No more episodes of chest pain. - Review of Systems General: denies: fever/chills, weight/appetite/sleep changes, night sweats, fatigue Respiratory: denies: cough, congestion, shortness of breath, exercise intolerance Cardiovascular: reports: edema. denies: chest pain, palpitation, paroxysmal nocturnal dyspnea, orthopnea Gastrointestinal: denies: nausea, vomiting, diarrhea, constipation, abd pain, GI bleeding Musculoskeletal: denies: pain, tenderness, stiffness, swelling, arthritis/arthralgias Neurological: denies: numbness, syncope, seizure, weakness - Objective Allergies/Adverse Reactions: Allergies Allergy/AdvReac Type Severity Reaction Status Date / Time aspirin Allergy Verified 06/10/20 08:28 pregabalin [From Lyrica] Allergy Verified 06/10/20 08:28 shellfish derived Allergy Verified 06/10/20 08:28 tramadol Allergy Verified 06/10/20 08:28 trazodone Allergy Verified 06/10/20 08:28 Visit Medications: Current Medications Acetaminophen (Acetaminophen 325 Mg Tab) 650 mg PO Q4H PRN PRN Reason: Headache/Fever/Mild Pain (1-3) Albuterol Sulfate (Albuterol Sulfate 2.5 Mg/3 Ml Neb) 2.5 mg NEB Q2H PRN PRN Reason: Wheezing Albuterol/Ipratropium (Ipratropium/Albuterol Sulfate 3 Ml Neb) 3 ml NEB I3IN-YM [facility] Last Admin: 06/13/20 11:24 Dose: 3 ml Documented by: Alogliptin Benzoate (Alogliptin 6.25 Mg Tab) 12.5 mg PO DAILY [facility] Last Admin: 06/13/20 08:44 Dose: 12.5 mg Documented by: Amoxicillin/Clavulanate Potassium (Amoxicillin/Potassium Clav 875 Mg Tab) 875 mg PO Q12HR [facility] Last Admin: 06/13/20 08:44 Dose: 875 mg Documented by: Aripiprazole (Aripiprazole 10 Mg Tab) 5 mg PO 2100 [facility] Last Admin: 06/12/20 20:38 Dose: 5 mg Documented by: Aspirin (Aspirin 81 Mg Enteric Coated Tablet) 81 mg PO DAILY [facility] Last Admin: 06/13/20 08:44 Dose: 81 mg Documented by: Clopidogrel Bisulfate (Clopidogrel Bisulfate 75 Mg Tab) 75 mg PO DAILY [facility] Last Admin: 06/13/20 08:44 Dose: 75 mg Documented by: Dextrose/Water (Dextrose 50% Abboject 50 Ml Syringe) 25 gm SLOW IVP PRN PRN PRN Reason: Hypoglycemia Divalproex Sodium (Divalproex Sodium Er 500 Mg Tablet) 1,500 mg PO HS [facility] Last Admin: 06/12/20 20:58 Dose: 1,500 mg Documented by: Enoxaparin Sodium (Enoxaparin Sodium 40 Mg/0.4 Ml Syringe) 40 mg SC 0900,2100 [facility] Last Admin: 06/13/20 08:43 Dose: 40 mg Documented by: Famotidine (Famotidine 20 Mg Tab) 20 mg PO BID [facility] Last Admin: 06/13/20 08:44 Dose: 20 mg Documented by: Furosemide (Furosemide 20 Mg/2 Ml Vial) 20 mg SLOW IVP 0600,1400 [facility] Last Admin: 06/13/20 13:16 Dose: 20 mg Documented by: Gabapentin (Gabapentin 300 Mg Cap) 600 mg PO TID [facility] Last Admin: 06/13/20 15:10 Dose: 600 mg Documented by: Glucagon (Glucagon 1 Mg/Ml Vial) 1 mg IM PRN PRN PRN Reason: Hypoglycemia Hydralazine HCl (Hydralazine 20 Mg/Ml Vial) 10 mg SLOW IVP Q4H PRN PRN Reason: Blood Pressure Dextrose/Water (D5w) 1,000 mls @ 0 mls/hr IV .Q0M PRN PRN Reason: Hypoglycemia Insulin Human Lispro (Humalog 300 Units/3 Ml Vial) 0 units SC .MILD SLIDING SCALE PRN PRN Reason: Mild Correctional Scale Last Admin: 06/13/20 13:17 Dose: 4 unit Documented by: Levothyroxine Sodium (Levothyroxine Sodium 75 Mcg Tab) 75 mcg PO DAILY [facility] Last Admin: 06/13/20 08:45 Dose: 75 mcg Documented by: Lisinopril (Lisinopril 5 Mg Tab) 5 mg PO BID [facility] Last Admin: 06/13/20 08:44 Dose: 5 mg Documented by: Lorazepam (Lorazepam 1 Mg Tab) 1 mg PO TID [facility] Last Admin: 06/13/20 15:10 Dose: 1 mg Documented by: Methylprednisolone Sodium Succinate (Methylprednisolone Sod Succ 40 Mg Vial) 20 mg IVP DAILY [facility] Last Admin: 06/13/20 08:46 Dose: 20 mg Documented by: Nitroglycerin (Nitroglycerin 0.4 Mg Tab (25 Tab Bottle)) 0.4 mg SL Q5MIN PRN PRN Reason: Chest Pain Last Admin: 06/12/20 03:57 Dose: 1 tab Documented by: Nitroglycerin (Nitroglycerin 2% Ointment 1 Inch/1 Gm Packet) 0.5 inch TOP 0600,1800 [facility] Last Admin: 06/13/20 05:30 Dose: 0.5 inch Documented by: Nortriptyline HCl (Nortriptyline Hcl 25 Mg Cap) 25 mg PO DAILY [facility] Last Admin: 06/13/20 08:44 Dose: 25 mg Documented by: Ondansetron HCl (Ondansetron Pf 4 Mg/2 Ml Vial) 4 mg IVP Q6H PRN PRN Reason: Nausea/Vomiting Pantoprazole Sodium (Pantoprazole 40 Mg Tab) 40 mg PO DAILY [facility] Last Admin: 06/13/20 08:44 Dose: 40 mg Documented by: Tetrahydrozoline HCl (Tetrahydrozoline 0.05% Opth 15 Ml Bot) 2 drop EA EYE BID [facility] Last Admin: 06/13/20 08:45 Dose: 2 drp Documented by: Vital Signs & Weight: Vital Signs Temp Pulse Resp BP BP Pulse Ox 06/13/20 11:24 96 14 96 06/13/20 11:12 98.2 F 104 H 15 121/63 94 L 06/13/20 08:36 73 18 93 L 06/13/20 08:00 98.7 F 83 19 151/76 H 95 Admit Weight 229 lb Weight 225 lb 1.471 oz - Physical Exam General: alert & oriented x3 HEENT: mucus membranes moist Neck: supple neck Cardiac: regular rate and rhythm Lungs: normal breath sounds Neuro: no lateralizing findings Abdomen: active bowel sounds Extremities: 1+ LE edema Skin: clear Musculoskeletal: no pain - Labs Result Diagrams: 06/13/20 04:15 06/13/20 04:15 Troponin/CKMB CK-MB (CK-2) 0.8 ng/mL (0-6.6) 06/12/20 04:14 Troponin I 0.020 ng/mL (< 0.028) 06/12/20 09:24 - Telemetry Sinus rhythms and dysrhythmias: sinus rhythm - Assessment/Plan Assessment/Plan: 1. Acute on chronic diastolic CHF 2. HTN PLAN: - Continue IV lasix at current dose. - Diuresing well. - BP still somewhat labile likely from her level of anxiety mostly.
--- NOTE | 2020-06-13 17:17 | PDOC.BPN ---
- Brief Progress Note [id number] progress
[2020-06-13] MEDS: Aripiprazole 10 MG TAB PO SCH (20:29)
[2020-06-14] MEDS: Furosemide 20 MG/2 ML VIAL SLOW IVP SCH ×2 (06:01→15:03)
[2020-06-14] MEDS: Nitroglycerin 2% Ointment 1 INCH/1 GM Packet TOP SCH ×2 (06:01→17:14)
[2020-06-14 07:19] LABS: #Basophils 0.1 thou/uL (0.0-0.2); #Eosinphils 0.1 thou/uL (0.0-0.7); #Lymphocytes 5.6 thou/uL (1.20-3.40); #Monocytes 0.8 thou/uL (0.11-0.59); #Neutrophils 5.7 thou/uL (1.40-6.50); %Basophils 0.7 % (0.0-1.0); %Eosinophils 0.5 % (0.0-10.0); %Lymphocytes 45.6 % (21.0-51.0); %Monocytes 6.2 % (0.0-10.0); Hemoglobin 11.1 g/dL (12.0-16.0); Mean Corpuscular HGB CONC 30.9 g/dL (32.0-36.0); Mean Corpuscular Hemoglobin 22.7 pg (27.0-31.0); Mean Corpuscular Volume 73.4 fL (78.0-98.0); Mean Platelet Volume 9.6 fL (7.4-10.4); Platelet Count 358 thou/uL (130-400); RBC Distribution Width 16.9 % (11.5-14.5); Red Blood Cell (RBC) Count 4.91 mill/uL (4.20-5.40); White Blood Cell (WBC) Count 12.2 thou/uL (4.8-10.8)
[2020-06-14 07:32] LABS: Anion Gap 19 mmol/L (10-20); BUN (Urea Nitrogen) 25 mg/dL (9.8-20.1); Calc. Creatinine Clearance 100 mL/min (70-130); Calcium 10.1 mg/dL (7.8-10.44); Carbon Dioxide 25 mmol/L (23-31); Chloride 101 mmol/L (98-107); Glucose 161 mg/dL (83-110); Sodium 142 mmol/L (136-145)
--- NOTE | 2020-06-14 07:41 | PRG ---
DATE OF SERVICE: 06/13/2020 SUBJECTIVE: The patient is feeling better with less shortness of breath, less chest tightness. She has been diuresing, but her potassium level today is low at 3.0. PHYSICAL EXAMINATION: VITAL SIGNS: Temperature is 98.5, pulse is 88, blood pressure 140/69, oxygen saturation is 98% on 1 L/minute nasal cannula, respiratory rate is 20. HEAD AND NECK: Normocephalic. Neck is supple. CHEST: Fair bilateral air entry. Few bibasilar crackles. ABDOMEN: Soft, nontender. Bowel sounds present. NEUROLOGIC: Awake, alert, moving extremities. PSYCH: Normal mood. LABORATORY DATA: WBC is 14.5, hemoglobin 8.6, platelets 304. Sodium is 137, potassium 3.0, BUN is 25, creatinine is 0.7. ASSESSMENT AND PLAN: 1. Acute hypoxic respiratory failure, continue on oxygen. 2. Pneumonia/sepsis, improving, the patient was switched to oral Augmentin. 3. Acute on chronic diastolic heart failure, continue with diuresis. 4. Hypertension. The patient is on lisinopril, p.r.n. hydralazine. 5. Appreciate Pulmonary and Cardiology input and recommendations. Job ID: [id number]
[2020-06-14] MEDS: Clopidogrel Bisulfate 75 MG TAB PO SCH (08:44)
[2020-06-14] MEDS: Lisinopril 5 MG TAB PO SCH (08:44)
[2020-06-14] MEDS: Levothyroxine Sodium 75 MCG TAB PO SCH (08:44)
[2020-06-14] MEDS: Alogliptin 6.25 MG TAB PO SCH (08:44)
[2020-06-14] MEDS: Gabapentin 300 MG CAP PO SCH ×3 (08:44→20:37)
[2020-06-14] MEDS: Lorazepam 1 MG TAB PO SCH ×3 (08:45→20:40)
[2020-06-14] MEDS: Nortriptyline HCl 25 MG CAP PO SCH (08:45)
[2020-06-14] MEDS: Famotidine 20 MG TAB PO SCH (08:45)
[2020-06-14] MEDS: Amoxicillin/Potassium Clav 875 MG TAB PO SCH ×2 (08:45→20:35)
[2020-06-14] MEDS: Aspirin 81 mg Enteric Coated Tablet PO SCH (08:45)
[2020-06-14] MEDS: Tetrahydrozoline 0.05% OPTH 15 ML BOT EA EYE SCH ×2 (08:46→20:42)
[2020-06-14] MEDS: methylPREDNISolone Sod Succ 40 MG VIAL IVP SCH (08:46)
[2020-06-14] MEDS ORDERED: Potassium Chloride 20 MEQ TAB PO SCH (09:00)
[2020-06-14] MEDS: Enoxaparin Sodium 40 MG/0.4 ML SYRINGE SC SCH ×2 (10:39→20:38)
[2020-06-14] MEDS: HumaLOG 300 UNITS/3 ML VIAL SC PRN ×2 (12:35→17:17)
--- NOTE | 2020-06-14 15:24 | PDOC.BPN ---
- Brief Progress Note [id number]
--- NOTE | 2020-06-14 15:53 | PRG ---
DATE OF SERVICE: 06/14/2020 CURRENT MEDICATIONS: The patient is on: 1. Zofran. 2. Solu-Medrol 20 mg IV daily. 3. Tylenol p.r.n. 4. Gabapentin. 5. Lisinopril 5 mg p.o. b.i.d. 6. Lovenox 40 mg twice a day. 7. Depakote. 8. Nortriptyline. 9. Abilify. 10. Lorazepam p.r.n. 11. Albuterol. 12. DuoNeb. 13. Alogliptin. 14. Hydralazine p.r.n. 15. Pepcid. 16. Insulin. 17. Lasix 20 mg twice a day IV. 18. Nitroglycerin p.r.n. 19. Aspirin. 20. Augmentin 875 every 12 hours. 21. Plavix. 22. Pantoprazole. 23. Levothyroxine. SUBJECTIVE: The patient is feeling better. She said that the last night her breathing improved and she did not have any issues. Denies chest pain. PHYSICAL EXAMINATION: GENERAL: The patient is awake, not in acute distress. VITAL SIGNS: Blood pressure 133/58, temperature 97.8, pulse is 90, respiratory rate is 22, and oxygen saturation 94%. HEAD AND NECK: Normocephalic and atraumatic. NECK: Supple. CHEST: A few bibasilar crackles. HEART: S1 and S2. Regular. ABDOMEN: Soft and nontender. Bowel sounds present. NEUROLOGIC: Awake, alert, and oriented. No focal deficits. PSYCHIATRIC: Normal mood. LABORATORY DATA: Today, WBC is 12.3, hemoglobin 11.1, and platelets 358. Sodium is 140, potassium is 3.0, BUN is 25, creatinine 0.8, and glucose 161. ASSESSMENT AND PLAN: 1. Acute hypokalemia, will replace potassium. 2. [id number] hypoxic respiratory failure, continue with oxygen to keep saturation more than 92%. 3. Pneumonia?/sepsis, continue with Augmentin. 4. [id number] diastolic heart failure. Continue with diuresis, replace electrolytes, monitor kidney function and urine output. 5. Hypertension. The patient currently is on lisinopril, p.r.n. hydralazine. 6. Continue with gastrointestinal and deep vein thrombosis prophylaxis. Possible discharge in 1 or 2 days if the patient's condition continues to improve. Job ID: [id number]
--- NOTE | 2020-06-14 17:25 | PDOC.CPN ---
- Subjective Date: 06/14/20 Time: 17:24 Interval history: Doing better. Breathing better. Edema improved. - Review of Systems General: denies: fever/chills, weight/appetite/sleep changes, night sweats, fatigue Respiratory: denies: cough, congestion, shortness of breath, exercise intolerance Cardiovascular: denies: chest pain, palpitation, edema, paroxysmal nocturnal dyspnea, orthopnea Gastrointestinal: denies: nausea, vomiting, diarrhea, constipation, abd pain, GI bleeding Musculoskeletal: denies: pain, tenderness, stiffness, swelling, arthritis/arth ralgias Neurological: denies: numbness, syncope, seizure, weakness - Objective Allergies/Adverse Reactions: Allergies Allergy/AdvReac Type Severity Reaction Status Date / Time aspirin Allergy Verified 06/10/20 08:28 pregabalin [From Lyrica] Allergy Verified 06/10/20 08:28 shellfish derived Allergy Verified 06/10/20 08:28 tramadol Allergy Verified 06/10/20 08:28 trazodone Allergy Verified 06/10/20 08:28 Visit Medications: Current Medications Acetaminophen (Acetaminophen 325 Mg Tab) 650 mg PO Q4H PRN PRN Reason: Headache/Fever/Mild Pain (1-3) Albuterol Sulfate (Albuterol Sulfate 2.5 Mg/3 Ml Neb) 2.5 mg NEB Q2H PRN PRN Reason: Wheezing Albuterol/Ipratropium (Ipratropium/Albuterol Sulfate 3 Ml Neb) 3 ml NEB [id number] [facility] Last Admin: 06/14/20 14:24 Dose: 3 ml Documented by: Alogliptin Benzoate (Alogliptin 6.25 Mg Tab) 12.5 mg PO DAILY [facility] Last Admin: 06/14/20 08:44 Dose: 12.5 mg Documented by: Amoxicillin/Clavulanate Potassium (Amoxicillin/Potassium Clav 875 Mg Tab) 875 mg PO Q12HR [facility] Last Admin: 06/14/20 08:45 Dose: 875 mg Documented by: Aripiprazole (Aripiprazole 10 Mg Tab) 5 mg PO 2100 [facility] Last Admin: 06/13/20 20:29 Dose: 5 mg Documented by: Aspirin (Aspirin 81 Mg Enteric Coated Tablet) 81 mg PO DAILY [facility] Last Admin: 06/14/20 08:45 Dose: 81 mg Documented by: Clopidogrel Bisulfate (Clopidogrel Bisulfate 75 Mg Tab) 75 mg PO DAILY [facility] Last Admin: 06/14/20 08:44 Dose: 75 mg Documented by: Dextrose/Water (Dextrose 50% Abboject 50 Ml Syringe) 25 gm SLOW IVP PRN PRN PRN Reason: Hypoglycemia Divalproex Sodium (Divalproex Sodium Er 500 Mg Tablet) 1,500 mg PO HS [facility] Last Admin: 06/14/20 00:12 Dose: 1,500 mg Documented by: Enoxaparin Sodium (Enoxaparin Sodium 40 Mg/0.4 Ml Syringe) 40 mg SC 0900,2100 [facility] Last Admin: 06/14/20 10:39 Dose: 40 mg Documented by: Furosemide (Furosemide 20 Mg/2 Ml Vial) 20 mg SLOW IVP 0600,1400 [facility] Last Admin: 06/14/20 15:03 Dose: 20 mg Documented by: Gabapentin (Gabapentin 300 Mg Cap) 600 mg PO TID [facility] Last Admin: 06/14/20 15:03 Dose: 600 mg Documented by: Glucagon (Glucagon 1 Mg/Ml Vial) 1 mg IM PRN PRN PRN Reason: Hypoglycemia Hydralazine HCl (Hydralazine 20 Mg/Ml Vial) 10 mg SLOW IVP Q4H PRN PRN Reason: Blood Pressure Dextrose/Water (D5w) 1,000 mls @ 0 mls/hr IV .Q0M PRN PRN Reason: Hypoglycemia Insulin Human Lispro (Humalog 300 Units/3 Ml Vial) 0 units SC .MILD SLIDING SCALE PRN PRN Reason: Mild Correctional Scale Last Admin: 06/14/20 17:17 Dose: 3 unit Documented by: Levothyroxine Sodium (Levothyroxine Sodium 75 Mcg Tab) 75 mcg PO DAILY [facility] Last Admin: 06/14/20 08:44 Dose: 75 mcg Documented by: Lisinopril (Lisinopril 5 Mg Tab) 5 mg PO BID [facility] Last Admin: 06/14/20 08:44 Dose: 5 mg Documented by: Lorazepam (Lorazepam 1 Mg Tab) 1 mg PO TID [facility] Last Admin: 06/14/20 15:03 Dose: 1 mg Documented by: Methylprednisolone Sodium Succinate (Methylprednisolone Sod Succ 40 Mg Vial) 20 mg IVP DAILY [facility] Last Admin: 06/14/20 08:46 Dose: 20 mg Documented by: Nitroglycerin (Nitroglycerin 0.4 Mg Tab (25 Tab Bottle)) 0.4 mg SL Q5MIN PRN PRN Reason: Chest Pain Last Admin: 06/12/20 03:57 Dose: 1 tab Documented by: Nitroglycerin (Nitroglycerin 2% Ointment 1 Inch/1 Gm Packet) 0.5 inch TOP 0600,1800 [facility] Last Admin: 06/14/20 17:14 Dose: 0.5 inch Documented by: Nortriptyline HCl (Nortriptyline Hcl 25 Mg Cap) 25 mg PO DAILY [facility] Last Admin: 06/14/20 08:45 Dose: 25 mg Documented by: Ondansetron HCl (Ondansetron Pf 4 Mg/2 Ml Vial) 4 mg IVP Q6H PRN PRN Reason: Nausea/Vomiting Pantoprazole Sodium (Pantoprazole 40 Mg Tab) 40 mg PO DAILY [facility] Last Admin: 06/14/20 08:44 Dose: 40 mg Documented by: Tetrahydrozoline HCl (Tetrahydrozoline 0.05% Opth 15 Ml Bot) 2 drop EA EYE BID [facility] Last Admin: 06/14/20 08:46 Dose: 2 drp Documented by: Vital Signs & Weight: Vital Signs Temp Pulse Resp BP Pulse Ox 06/14/20 15:40 98.0 F 104 H 20 147/74 H 94 L 06/14/20 14:24 78 18 95 06/14/20 11:51 98.0 F 101 H 20 144/67 H 96 06/14/20 10:37 91 20 06/14/20 07:45 97.8 F 90 22 H 133/58 L 94 L 06/14/20 06:41 71 20 95 Admit Weight 229 lb Weight 222 lb 12.8 oz - Physical Exam General: alert & oriented x3 HEENT: mucus membranes moist Neck: supple neck Cardiac: regular rate and rhythm Lungs: clear to auscultation Neuro: grossly intact Abdomen: active bowel sounds Extremities: 1+ LE edema Skin: clear Musculoskeletal: normal range of motion - Labs Result Diagrams: 06/14/20 07:00 06/14/20 07:00 Troponin/CKMB CK-MB (CK-2) 0.8 ng/mL (0-6.6) 06/12/20 04:14 Troponin I 0.020 ng/mL (< 0.028) 06/12/20 09:24 - Telemetry Sinus rhythms and dysrhythmias: sinus rhythm - Assessment/Plan Assessment/Plan: 1. Acute on chronic diastolic CHF 2. HTN PLAN: - Continue diuresis. - BP still somewhat labile likely from her level of anxiety mostly. - Will increase ACEI for better BP control - Dr. Daniel to follow in AM.
[2020-06-14] MEDS ORDERED: Lisinopril 5 MG TAB PO SCH (17:45)
[2020-06-14] MEDS: Aripiprazole 10 MG TAB PO SCH (20:36)
[2020-06-14] MEDS ORDERED: Calcium Carbonate 500 MG ChewTAB PO PRN (21:57)
[2020-06-15 04:38] LABS: #Basophils 0.1 thou/uL (0.0-0.2); #Eosinphils 0.1 thou/uL (0.0-0.7); #Lymphocytes 4.7 thou/uL (1.20-3.40); #Monocytes 0.8 thou/uL (0.11-0.59); #Neutrophils 3.9 thou/uL (1.40-6.50); %Basophils 0.9 % (0.0-1.0); %Eosinophils 0.6 % (0.0-10.0); %Lymphocytes 49.1 % (21.0-51.0); %Monocytes 7.9 % (0.0-10.0); %Neutrophils 41.5 % (42.0-75.0); Hemoglobin 8.9 g/dL (12.0-16.0); Mean Corpuscular HGB CONC 31.1 g/dL (32.0-36.0); Mean Corpuscular Hemoglobin 22.8 pg (27.0-31.0); Mean Corpuscular Volume 73.5 fL (78.0-98.0); Mean Platelet Volume 9.4 fL (7.4-10.4); Platelet Count 324 thou/uL (130-400); RBC Distribution Width 16.9 % (11.5-14.5); White Blood Cell (WBC) Count 9.5 thou/uL (4.8-10.8)
[2020-06-15 04:59] LABS: Anion Gap 17 mmol/L (10-20); BUN (Urea Nitrogen) 28 mg/dL (9.8-20.1); Calc. Creatinine Clearance 108 mL/min (70-130); Calcium 9.6 mg/dL (7.8-10.44); Carbon Dioxide 23 mmol/L (23-31); Chloride 106 mmol/L (98-107); Glucose 156 mg/dL (83-110); Potassium 3.6 mmol/L (3.5-5.1); Sodium 142 mmol/L (136-145)
[2020-06-15] MEDS: Furosemide 20 MG/2 ML VIAL SLOW IVP SCH (06:07)
[2020-06-15] MEDS: Nitroglycerin 2% Ointment 1 INCH/1 GM Packet TOP SCH ×2 (06:12→06:19)
[2020-06-15] MEDS: Nortriptyline HCl 25 MG CAP PO SCH (09:35)
[2020-06-15] MEDS: Lisinopril 5 MG TAB PO SCH ×2 (09:35→20:17)
[2020-06-15] MEDS: Enoxaparin Sodium 40 MG/0.4 ML SYRINGE SC SCH ×2 (09:35→20:16)
[2020-06-15] MEDS: Clopidogrel Bisulfate 75 MG TAB PO SCH (09:35)
[2020-06-15] MEDS: Alogliptin 6.25 MG TAB PO SCH (09:36)
[2020-06-15] MEDS: Aspirin 81 mg Enteric Coated Tablet PO SCH (09:36)
[2020-06-15] MEDS: Levothyroxine Sodium 75 MCG TAB PO SCH (09:37)
[2020-06-15] MEDS: Lorazepam 1 MG TAB PO SCH ×3 (09:37→20:20)
[2020-06-15] MEDS: Amoxicillin/Potassium Clav 875 MG TAB PO SCH ×2 (09:37→20:16)
[2020-06-15] MEDS: Gabapentin 300 MG CAP PO SCH ×3 (09:37→20:18)
--- NOTE | 2020-06-15 09:37 | PDOC.HOSPP ---
- Subjective Encounter Date: 06/15/20 Encounter Time: 10:00 Subjective: Patient doing much better today. She is still requiring a small amount of oxygen especially when she gets up to walk around. Patient earlier was demanding to go home in spite of Dr. Daniel recommending 1 more day of diuresis and oxygen. I did discuss this with the patient at length and she eventually agreed to stay 1 more day. - Objective Vital Signs & Weight: Vital Signs (12 hours) Temp Pulse Resp BP BP Pulse Ox 06/15/20 07:50 98.0 F 88 20 121/60 94 L 06/15/20 04:00 98.2 F 96 20 187/86 H 95 06/15/20 03:52 95 06/14/20 23:53 96 Weight Admit Weight 229 lb Weight 222 lb 12.8 oz Most Recent Monitor Data Heart Rate from ECG 100 NIBP 165/87 NIBP BP-Mean 113 Respiration from ECG 23 SpO2 96 I&O: 06/14/20 06/15/20 06/16/20 06:59 06:59 06:59 Intake Total 2030 1450 Output Total 1100 2450 Balance 930 -1000 Result Diagrams: 06/15/20 03:21 06/15/20 03:21 Additional Labs: Accuchecks 06/15/20 06/14/20 06/14/20 05:51 20:12 11:13 POC Glucose 139 H 166 H 230 H Hospitalist ROS - Review of Systems Constitutional: denies: fever, sweats Respiratory: reports: SOB with excertion. denies: cough, shortness of breath (Not at rest) Cardiovascular: denies: chest pain, palpitations Gastrointestinal: denies: nausea, vomiting, abdominal pain Genitourinary: reports: incontinence (Had one episode of incontinence of the bed this morning which made her upset and was one of the reasons she wanted to leave) - Medication Medications: Active Medications Generic Name Dose Route Start Last Admin Trade Name Freq PRN Reason Stop Dose Admin Albuterol/Ipratropium 3 ml 06/10/20 10:30 06/15/20 07:40 Ipratropium/Albuterol Sulfate 3 Ml Neb NEB 3 ml [id number] [facility] Administration Alogliptin Benzoate 12.5 mg 06/13/20 09:00 06/14/20 08:44 Alogliptin 6.25 Mg Tab PO 12.5 mg DAILY [facility] Administration Amoxicillin/Clavulanate Potassium 875 mg 06/12/20 21:00 06/14/20 20:35 Amoxicillin/Potassium Clav 875 Mg Tab PO 875 mg Q12HR [facility] Administration Aripiprazole 5 mg 06/12/20 21:00 06/14/20 20:36 Aripiprazole 10 Mg Tab PO 5 mg 2100 [facility] Administration Aspirin 81 mg 06/12/20 09:00 06/14/20 08:45 Aspirin 81 Mg Enteric Coated Tablet PO 81 mg DAILY [facility] Administration Clopidogrel Bisulfate 75 mg 06/11/20 09:00 06/14/20 08:44 Clopidogrel Bisulfate 75 Mg Tab PO 75 mg DAILY [facility] Administration Divalproex Sodium 1,500 mg 06/12/20 21:00 06/14/20 20:39 Divalproex Sodium Er 500 Mg Tablet PO 1,500 mg HS [facility] Administration Enoxaparin Sodium 40 mg 06/10/20 21:00 06/14/20 20:38 Enoxaparin Sodium 40 Mg/0.4 Ml Syringe SC 40 mg 0900,2100 [facility] Administration Furosemide 20 mg 06/13/20 06:00 06/15/20 06:07 Furosemide 20 Mg/2 Ml Vial SLOW IVP 20 mg 0600,1400 [facility] Administration Gabapentin 600 mg 06/12/20 21:00 06/14/20 20:37 Gabapentin 300 Mg Cap PO 600 mg TID [facility] Administration Insulin Human Lispro 0 units 06/10/20 09:48 06/14/20 17:17 Humalog 300 Units/3 Ml Vial SC 3 unit .MILD SLIDING SCALE PRN Administration Mild Correctional Scale Levothyroxine Sodium 75 mcg 06/12/20 09:00 06/14/20 08:44 Levothyroxine Sodium 75 Mcg Tab PO 75 mcg DAILY [facility] Administration Lorazepam 1 mg 06/12/20 09:00 06/14/20 20:40 Lorazepam 1 Mg Tab PO 1 mg TID [facility] Administration Methylprednisolone Sodium Succinate 20 mg 06/12/20 09:00 06/14/20 08:46 Methylprednisolone Sod Succ 40 Mg Vial IVP 20 mg DAILY [facility] Administration Nitroglycerin 0.4 mg 06/12/20 03:43 06/12/20 03:57 Nitroglycerin 0.4 Mg Tab (25 Tab Bottle) SL 1 tab Q5MIN PRN Administration Chest Pain Nitroglycerin 0.5 inch 06/12/20 06:00 06/15/20 06:19 Nitroglycerin 2% Ointment 1 Inch/1 Gm Packet TOP 0.5 inch 0600,1800 [facility] Administration Nortriptyline HCl 25 mg 06/12/20 09:00 06/14/20 08:45 Nortriptyline Hcl 25 Mg Cap PO 25 mg DAILY [facility] Administration Pantoprazole Sodium 40 mg 06/12/20 09:00 06/14/20 08:44 Pantoprazole 40 Mg Tab PO 40 mg DAILY [facility] Administration Tetrahydrozoline HCl 2 drop 06/12/20 21:00 06/14/20 20:42 Tetrahydrozoline 0.05% Opth 15 Ml Bot EA EYE Not Given BID [facility] Hospitalist Exam Vitals: Vital Signs (12 hours) Temp Pulse Resp BP BP Pulse Ox 06/15/20 07:50 98.0 F 88 20 121/60 94 L 06/15/20 04:00 98.2 F 96 20 187/86 H 95 06/15/20 03:52 95 06/14/20 23:53 96 Weight Admit Weight 229 lb Weight 222 lb 12.8 oz Most Recent Monitor Data Heart Rate from ECG 100 NIBP 165/87 NIBP BP-Mean 113 Respiration from ECG 23 SpO2 96 General Appearance: NAD, awake alert ENT: moist mucosa Heart: RRR, no murmur, no gallops, no rubs Respiratory: CTAB, no wheezes, no rales, no ronchi Gastrointestinal: soft, non-tender, non-distended, normal bowel sounds Extremities - other findings: Trace edema bilateral lower extremities Musculoskeletal: normal tone, normal strength, no muscle wasting Psychiatric: normal affect, normal behavior, A&O x 3 Hosp A/P - Plan (1) Severe sepsis Code(s): A41.9 - SEPSIS, UNSPECIFIED ORGANISM; R65.20 - SEVERE SEPSIS WITHOUT SEPTIC SHOCK Status: Resolved Plan: Suspect due to PNA, was on Cefepime/Vancomycin now transitioned to Augmentin, monitor clinical progress (2) Acute respiratory failure with hypoxia Code(s): J96.01 - ACUTE RESPIRATORY FAILURE WITH HYPOXIA Status: Acute Plan: Improved, continue low-volume O2 (3) Demand ischemia of myocardium Code(s): I24.8 - OTHER FORMS OF ACUTE ISCHEMIC HEART DISEASE Status: Acute Plan: Continue to treat underlying infection, appreciate Cardiology assistance, Lovenox (4) PNA (pneumonia) Code(s): J18.9 - PNEUMONIA, UNSPECIFIED ORGANISM Status: Acute Qualifiers: Pneumonia type: due to unspecified organism Laterality: right Lung location: lower lobe of lung Qualified Code(s): J18.9 - Pneumonia, unspecified organism Plan: Suspected with gm + cocci, continue Cefepime/Vancomycin (5) DM type 2 (diabetes mellitus, type 2) Status: Chronic Qualifiers: Diabetes mellitus chcf insulin use: without chcf use Diabetes mellitus complication detail: with diabetic retinopathy (6) HTN (hypertension) Code(s): I10 - ESSENTIAL (PRIMARY) HYPERTENSION Status: Chronic - Plan continue antibiotics, respiratory therapy, out of bed/ambulate Consults: Palliative Care (7) Acute on Chronic diastolic congestive heart failure Stable currently Continue Augmentin. Continue Lovenox/Plavix Appreciate Dr. Daniel assistance. OOB with PT Confirm home meds Continue O2 supplementation, try to wean over the course the day Plan on discharging home tomorrow morning.
[2020-06-15] MEDS: Tetrahydrozoline 0.05% OPTH 15 ML BOT EA EYE SCH ×2 (09:38→20:20)
[2020-06-15] MEDS: methylPREDNISolone Sod Succ 40 MG VIAL IVP SCH (09:38)
--- NOTE | 2020-06-15 10:18 | PRG ---
DATE OF SERVICE: 06/15/2020 SUBJECTIVE: Ms. Rain is feeling much better now. The patient states that she wants to go home. She was under the understanding that she would be discharged this morning. She has not had any more chest pain and her breathing is improved. She responded well to the diuretics. OBJECTIVE: VITAL SIGNS: Her blood pressure now 121/60, but earlier this morning it is 180/86, and pulse rate 88. LUNGS: Clear. CARDIAC: Normal S1 and normal S2. ABDOMEN: Soft and nontender. EXTREMITIES: Only minimal edema now. ASSESSMENT: 1. Pneumonia. 2. Diastolic heart failure. 3. Possible underlying coronary artery disease. 4. History of hypercholesterolemia. cholesterol has been very high with a very high LDL, but she was not on statins because of "fatty liver." Her liver looks normal now. PLAN: 1. Resume statins in the form of Crestor. 2. Aspirin. 3. Plavix. 4. Lisinopril 10 mg twice a day. 5. Lasix 20 mg orally twice a day. 6. Isosorbide 30 mg a day. 7. Should get a single dose potassium today. 8. Nitroglycerin if needed. The patient will likely be discharged today. We have recommended that she stay another day, but she said she is not interested and she wants to go home. Job ID: [id number]
[2020-06-15] MEDS ORDERED: Potassium Chloride 20 MEQ TAB PO SCH (10:30)
[2020-06-15] MEDS: HumaLOG 300 UNITS/3 ML VIAL SC PRN ×2 (10:33→17:13)
[2020-06-15] MEDS: Furosemide 20 MG TAB PO SCH (14:45)
--- NOTE | 2020-06-15 14:51 | PRG ---
DATE OF SERVICE: 06/15/2020 SUBJECTIVE: Ms. Rain is hemodynamically stable. She is talking in complete sentences. Walked by room twice and she was talking on a cell phone when I went in the room and she is still talking on the cell phone several more minutes. She has absolutely no dyspnea. OBJECTIVE: VITAL SIGNS: She is afebrile. Heart rate is in 80s, respiratory rate 20, oximetry is 94% to 95% on room air. LUNGS: Unchanged. HEART: Unchanged. ABDOMEN: Unchanged. LABORATORY DATA: White count 9.5, hemoglobin 8.9, platelets 324. Electrolytes are normal. BUN 28, creatinine 0.7. IMPRESSION: 1. Pneumonia, community-acquired, now stable on p.o. medicines. 2. Diastolic heart failure. 3. Possible coronary artery disease. 4. Lipid disorder. 5. Obesity. 6. Deconditioning. 7. History of fatty liver. She can follow up with her primary care physician to document clearing of her chest x-ray in 4 to 6 weeks. Job ID: [id number]
[2020-06-15] MEDS: Nitroglycerin 0.4 MG TAB (25 Tab Bottle) SL PRN ×2 (18:57→19:02)
[2020-06-15] MEDS: Aripiprazole 10 MG TAB PO SCH (20:16)
[2020-06-15] MEDS ORDERED: Rosuvastatin 20 MG TAB PO SCH (21:00)
[2020-06-16 04:49] LABS: Cardiac Risk 4.6 (Less than 4.5)
[2020-06-16] MEDS: HumaLOG 300 UNITS/3 ML VIAL SC PRN (06:19)
[2020-06-16] MEDS: Lisinopril 5 MG TAB PO SCH (09:37)
[2020-06-16] MEDS: Tetrahydrozoline 0.05% OPTH 15 ML BOT EA EYE SCH (09:37)
[2020-06-16] MEDS: Aspirin 81 mg Enteric Coated Tablet PO SCH (09:37)
[2020-06-16] MEDS: Furosemide 20 MG TAB PO SCH (09:38)
[2020-06-16] MEDS: Lorazepam 1 MG TAB PO SCH (09:38)
[2020-06-16] MEDS: Clopidogrel Bisulfate 75 MG TAB PO SCH (09:38)
[2020-06-16] MEDS: Amoxicillin/Potassium Clav 875 MG TAB PO SCH (09:38)
[2020-06-16] MEDS: Alogliptin 6.25 MG TAB PO SCH (09:38)
[2020-06-16] MEDS: Nortriptyline HCl 25 MG CAP PO SCH (09:38)
[2020-06-16] MEDS: Enoxaparin Sodium 40 MG/0.4 ML SYRINGE SC SCH (09:38)
[2020-06-16] MEDS: Gabapentin 300 MG CAP PO SCH (09:38)
[2020-06-16] MEDS: Levothyroxine Sodium 75 MCG TAB PO SCH (09:38)
[2020-06-16] MEDS: methylPREDNISolone Sod Succ 40 MG VIAL IVP SCH (09:39)
--- NOTE | 2020-06-16 10:46 | PRG ---
DATE OF SERVICE: 06/16/2020 SUBJECTIVE: Ms. Rain is feeling better this morning. OBJECTIVE: VITAL SIGNS: She is on 1 L nasal cannula oxygen, her oxygen saturation is 98%. Blood pressure is variable, earlier 122/60, most recent 150/68; pulse 80 and it is regular. LUNGS: Clear. CARDIAC: Normal S1, normal S2. There is no murmur, rub, or gallop. ABDOMEN: Soft, nontender. EXTREMITIES: There is no edema. LABORATORY DATA: Cholesterol this morning was 192, LDL was 92, but she has been in the hospital now for a quite some time. I think if we measured her cholesterol on admission, it would be much higher, has been here about a week. Chest x-ray on the showed improvement in her infiltrate in the right lung. ASSESSMENT: 1. Pneumonia. 2. Diabetes. 3. Diastolic heart failure. 4. Possible underlying coronary artery disease. 5. Mixed hyperlipidemia. 6. Mild hypokalemia. PLAN: 1. She is on aspirin 81 mg a day. She is not allergic to aspirin. She is intolerant to high dose of aspirin. 2. Plavix 75 mg a day. 3. Lasix 20 mg twice a day. 4. Lisinopril 10 mg twice a day. 5. Isosorbide 30 mg a day. 6. Rosuvastatin 20 mg a day. The patient will be asked to see us in the office in 2 weeks with the basic metabolic panel. Job ID: [id number]
[2020-06-16 11:18] VITALS: BP 122/64; TEMP 98.5
[2020-06-16 11:33] VITALS: BMI 38.2
--- NOTE | 2020-06-16 14:38 | PDOC.DS.DS ---
Provider Date of Admission: 06/10/20 07:52 Date of Discharge: 06/16/20 Admitting Provider: Yoan Perales MD Consultations: Cardiology (Dr. Daniel), Pulmonary (Dr. Lopez) Primary Care Physician: LUCIA Thomason Course Hospital Course: This is a 70-year-old white female with a past medical history of chronic diastolic congestive heart failure, hypertension, hyperlipidemia, diabetes mellitus type 2, COPD not on home oxygen who presented to the emergency room with shortness of breath. And and going on for 2 months but worse the night before admission. Also with some cough productive of black stuff. Patient was found to be septic with a severely elevated white blood cell count and lactic acid. She was given IV fluids to treat the sepsis and started on broad-spectrum antibiotics. Patient was diagnosed with pneumonia. Dr. Lopez was consulted. Patient's pneumonia improved with antibiotics and she was eventually transitioned to oral Augmentin. However with fluid resuscitation patient did have exacerbation of her diastolic congestive heart failure. Dr. Daniel was consulted and patient was diuresed with IV Lasix. She was eventually able to be weaned off of her oxygen to room air. Patient was doing well with physical therapy and was eager to be discharged home. She is to follow-up with Dr. Lopez in with Dr. Daniel in their clinics. Pertinent Studies: Echocardiogram Findings: 1. Ejection fraction 55 to 60% 2. Grade 1 diastolic dysfunction Resuscitation Status: 06/12/20 10:00 Resuscitation Status Routine Resuscitation Status: DNAR: NO Resuscitation Discussed with: confirmed with pt Lab Results: 06/15/20 03:21 06/15/20 03:21 Abnormal Lab Results - Last 48 hrs 06/15/20 03:21: BUN 28 H 06/15/20 03:21: RBC 3.90 L, Hgb 8.9 L, Hct 28.7 L, MCV 73.5 L, MCH 22.8 L, MCHC 31.1 L, RDW 16.9 H, Neutrophils % 41.5 L, Lymphocytes # 4.7 H, Monocytes # 0.8 H 06/16/20 04:15: Triglycerides 292 H Microbiology - Entire Visit 06/10/20 06:21 Venous blood - Right Arm Blood Culture - Final NO GROWTH IN 5 DAYS 06/10/20 06:10 Venous blood - Right Hand Blood Culture - Final NO GROWTH IN 5 DAYS Vitals: Vital Signs (12 hours) Temp Pulse Resp BP Pulse Ox 06/16/20 11:17 98.5 F 86 18 122/64 94 L 06/16/20 07:31 98.2 F 83 20 150/68 H 98 06/16/20 03:55 97.9 F 85 17 122/60 96 06/16/20 02:58 95 Weight Admit Weight 229 lb Weight 222 lb 12.8 oz Most Recent Monitor Data Heart Rate from ECG 100 NIBP 165/87 NIBP BP-Mean 113 Respiration from ECG 23 SpO2 96 Physical Exam: The patient was seen and examined on the day of discharge. Problem Assessment: Acute on Chronic diastolic congestive heart failure Severe sepsisresolved Acute respiratory failure with hypoxiaresolved Demand ischemia of myocardium PNA (pneumonia) DM type 2 (diabetes mellitus, type 2) HTN (hypertension) Plan of Treatment: Continue 2 more days of Augmentin. Patient is to follow-up with Dr. Daniel and Dr. Lopez in the clinic. She needs to restrict her fluid intake and take her diuretics daily. Time Spent in discharge related activities (mins): 32 Plan Prescriptions: Amoxicillin/Potassium Clav [Augmentin] 875 mg PO Q12HR #4 tab Rosuvastatin [Crestor] 20 mg PO HS #30 tab Aspirin [Ecotrin Low Strength] 81 mg PO DAILY #30 tab Isosorbide Mononitrate [Imdur ER] 30 mg PO DAILY #30 tab Furosemide [Lasix] 20 mg PO 0900,1400 #60 tab Lisinopril 10 mg PO BID #60 tablet Clopidogrel Bisulfate [Plavix] 75 mg PO DAILY #30 tab Home Medications: Medication Instructions Recorded Confirmed Type Aripiprazole [Abilify] 5 mg PO DAILY 06/11/20 06/11/20 History Divalproex Sodium [Depakote ER] 1,500 mg PO HS 06/11/20 06/11/20 History Gabapentin 600 mg PO TID 06/11/20 06/11/20 History Levothyroxine Sodium 75 mcg PO DAILY 06/11/20 06/11/20 History Lorazepam [Ativan] 1 mg PO TID 06/11/20 06/11/20 History Mirtazapine 45 mg PO HS 06/11/20 06/11/20 History Nortriptyline [Pamelor] 25 mg PO DAILY 06/11/20 06/11/20 History sitaGLIPtin Phosphate [Januvia] 50 mg PO DAILY 06/11/20 06/11/20 History Amoxicillin/Potassium Clav 875 mg PO Q12HR #4 tab 06/16/20 Rx [Augmentin] Aspirin [Ecotrin Low Strength] 81 mg PO DAILY #30 tab 06/16/20 Rx Clopidogrel Bisulfate [Plavix] 75 mg PO DAILY #30 tab 06/16/20 Rx Furosemide [Lasix] 20 mg PO 0900,1400 #60 tab 06/16/20 Rx Isosorbide Mononitrate [Imdur ER] 30 mg PO DAILY #30 tab 06/16/20 Rx Lisinopril 10 mg PO BID #60 tablet 06/16/20 Rx Rosuvastatin [Crestor] 20 mg PO HS #30 tab 06/16/20 Rx Allergies: aspirin Allergy (Verified 06/10/20 08:28) pregabalin [From Lyrica] Allergy (Verified 06/10/20 08:28) shellfish derived Allergy (Verified 06/10/20 08:28) tramadol Allergy (Verified 06/10/20 08:28) trazodone Allergy (Verified 06/10/20 08:28) Activity:: Activity as Tolerated Nourishment:: Diabetic Diet Therapies:: Not Applicable Equipment/Supplies:: Not Applicable IV Therapy:: Not Applicable Referrals: Sandra Silverio FNP [Primary Care Provider] - 7 Days (Please call the office and schedule a follow up appointment. Please discuss need to get a repeat chest xray in 4-6 weeks to make sure your pneumonia has resolved. ) Boo Daniel MD [Active] - 14 Days (Please call the office and schedule a follow up appointment in 2 weeks ) Disposition: HOME Quality CORE MEASURES:: HF, PNE
== END 2020-06-16 13:23 | disposition home or self-care (01) | DRG 871 ==
LOC: ERS 05:35 → EEVIPCON 07:52 → CCU 07:52 → 2NO 06-11 12:58
PROVIDERS: ADMIT Internal Medicine; ATTEND Emergency Medicine
DX: A41.9 Sepsis, unspecified organism (principal); J18.9 Pneumonia, unspecified organism; J96.01 Acute respiratory failure with hypoxia; I50.33 Acute on chronic diastolic (congestive) heart failure; I24.8 Other forms of acute ischemic heart disease; J44.0 Chronic obstructive pulmonary disease with (acute) lower respiratory infection; I11.0 Hypertensive heart disease with heart failure; E11.40 Type 2 diabetes mellitus with diabetic neuropathy, unspecified; F41.9 Anxiety disorder, unspecified; F32.9 Major depressive disorder, single episode, unspecified; E66.01 Morbid (severe) obesity due to excess calories; E11.319 Type 2 diabetes mellitus with unspecified diabetic retinopathy without macular edema; E78.2 Mixed hyperlipidemia; E87.6 Hypokalemia; Z20.822 Contact with and (suspected) exposure to COVID-19; R65.20 Severe sepsis without septic shock; Z88.8 Allergy status to other drugs, medicaments and biological substances; Z91.013 Allergy to seafood; Z90.49 Acquired absence of other specified parts of digestive tract; Z90.710 Acquired absence of both cervix and uterus; Z68.38 Body mass index [BMI] 38.0-38.9, adult
CPT/HCPCS: 0240U; 36415; 36416; 36600; 71045; 80048; 80053; 80061; 80202; 81001; 82553; 82805; 83605; 83735; 83880; 84484; 85025; 87040; 93005; 93010; 93306; 94640; 94660; 96365; 96366; J0692; J1650; J1815; J1940; J2920; J3370; J3480; J3490; J7620

== ENCOUNTER 2020-07-09 12:50 | Emergency (ER) | payer MEDICARE, MEDICAID ==
[2020-07-09 13:37] LABS: #Eosinphils 0.1 thou/uL (0.0-0.7); #Lymphocytes 2.4 thou/uL (1.20-3.40); #Monocytes 0.6 thou/uL (0.11-0.59); #Neutrophils 3.2 thou/uL (1.40-6.50); %Basophils 0.3 % (0.0-1.0); %Eosinophils 1.9 % (0.0-10.0); %Lymphocytes 37.8 % (21.0-51.0); %Monocytes 9.3 % (0.0-10.0); %Neutrophils 50.7 % (42.0-75.0); Hemoglobin 9.6 g/dL (12.0-16.0); Mean Corpuscular HGB CONC 32.2 g/dL (32.0-36.0); Mean Corpuscular Hemoglobin 23.7 pg (27.0-31.0); Mean Corpuscular Volume 73.6 fL (78.0-98.0); Mean Platelet Volume 9.7 fL (7.4-10.4); Platelet Count 267 thou/uL (130-400); RBC Distribution Width 17.1 % (11.5-14.5); Red Blood Cell (RBC) Count 4.04 mill/uL (4.20-5.40); White Blood Cell (WBC) Count 6.3 thou/uL (4.8-10.8)
[2020-07-09 13:59] LABS: ALT (SGPT) Less than 7 U/L (8-55); AST (SGOT) 8 U/L (5-34); Albumin 3.6 g/dL (3.4-4.8); Alkaline Phosphatase 164 U/L (40-110); Anion Gap 17 mmol/L (10-20); BUN (Urea Nitrogen) 38 mg/dL (9.8-20.1); Bilirubin, Total 0.2 mg/dL (0.2-1.2); Calc. Creatinine Clearance 0 mL/min (70-130); Carbon Dioxide 20 mmol/L (23-31); Chloride 106 mmol/L (98-107); Globulin 2.4 g/dL (2.4-3.5); Glucose 153 mg/dL (83-110); Lipase 25 U/L (8-78); Potassium 4.4 mmol/L (3.5-5.1); Sodium 139 mmol/L (136-145)
[2020-07-09 16:53] LABS: Troponin I 0.023 ng/mL (< 0.028)
== END 2020-07-09 17:37 | disposition home or self-care (01) ==
LOC: ERS 12:50
DX: R07.9 Chest pain, unspecified (principal); E11.9 Type 2 diabetes mellitus without complications; I11.0 Hypertensive heart disease with heart failure; I50.9 Heart failure, unspecified; E78.00 Pure hypercholesterolemia, unspecified; J44.9 Chronic obstructive pulmonary disease, unspecified; Z79.82 Long term (current) use of aspirin; Z79.899 Other long term (current) drug therapy
CPT/HCPCS: 36415; 71045; 80053; 83690; 84484; 85025; 93005

== ENCOUNTER 2020-07-23 08:01 | Outpatient (CLI) | payer MEDICARE, MEDICAID | END 2020-07-23 08:02 | disposition home or self-care (01) | LOC: BICRAD 08:01 | PROVIDERS: ATTEND Nurse Practitioner Family | DX: J42 Unspecified chronic bronchitis (principal) | CPT/HCPCS: 71046 ==

== ENCOUNTER 2020-08-25 09:18 | Outpatient (CLI) | payer MEDICARE, MEDICAID | END 2020-08-25 09:19 | disposition home or self-care (01) | LOC: BICRAD 09:18 | PROVIDERS: ATTEND Internal Medicine Critical Care Medicine | DX: R06.00 Dyspnea, unspecified (principal) | CPT/HCPCS: 71046 ==

== ENCOUNTER 2020-09-15 13:47 | Emergency (ER) | payer MEDICARE, OTHER ==
[~2020-09-15 13:47] MED LIST: Iopamidol-370 76% 500 ML 1 ML ONE
[2020-09-15 14:24] LABS: Bacteria/HPF None Seen HPF (None Seen); Bilirubin Negative (Negative); Blood, Urine 1+ (Negative); Clarity Clear (Clear); Glucose, Urine (Dipstick) Normal (Negative); Ketone, Urine Negative (Negative); Leukocyte 25 Leu/uL (Negative); Nitrite Negative (Negative); Protein, Urine (Dipstick) Negative (Neg-Trace); RBC/HPF 0-3 HPF (0-3); Specific Gravity, Urine 1.008 (1.002-1.036); Squamous Epithelial 0-3 HPF (0-3); Urobilinogen Normal mg/dL (Less than 2); pH, Urine 5.5 (5.0-9.0)
[2020-09-15 14:57] LABS: #Eosinphils 0.2 thou/uL (0.0-0.7); #Lymphocytes 2.7 thou/uL (1.20-3.40); #Monocytes 0.6 thou/uL (0.11-0.59); #Neutrophils 3.8 thou/uL (1.40-6.50); %Basophils 0.4 % (0.0-1.0); %Eosinophils 2.5 % (0.0-10.0); %Lymphocytes 37.1 % (21.0-51.0); %Monocytes 8.2 % (0.0-10.0); %Neutrophils 51.9 % (42.0-75.0); Hemoglobin 9.3 g/dL (12.0-16.0); Mean Corpuscular HGB CONC 31.2 g/dL (32.0-36.0); Mean Corpuscular Hemoglobin 22.9 pg (27.0-31.0); Mean Corpuscular Volume 73.3 fL (78.0-98.0); Mean Platelet Volume 10.3 fL (7.4-10.4); Platelet Count 234 thou/uL (130-400); RBC Distribution Width 17.7 % (11.5-14.5); Red Blood Cell (RBC) Count 4.06 mill/uL (4.20-5.40); White Blood Cell (WBC) Count 7.3 thou/uL (4.8-10.8)
[2020-09-15 15:17] LABS: Anion Gap 15 mmol/L (10-20); BUN (Urea Nitrogen) 15 mg/dL (9.8-20.1); Calc. Creatinine Clearance 0 mL/min (70-130); Calcium 9.3 mg/dL (7.8-10.44); Carbon Dioxide 21 mmol/L (23-31); Chloride 108 mmol/L (98-107); Glucose 140 mg/dL (83-110); Lipase 21 U/L (8-78); Potassium 3.7 mmol/L (3.5-5.1); Sodium 140 mmol/L (136-145)
[2020-09-15] MEDS ORDERED: Morphine 4 MG/ML VIAL ONE (15:17)
[2020-09-15 15:19] LABS: Anisocytosis SLIGHT = 6-15 cells (100X) (0-5/hpf); Hypochromia SLIGHT = 6-15 cells (100X) (0-5/hpf); MDiff Complete? YES; Microcytosis SLIGHT = 6-15 cells (100X) (0-5/hpf); Ovalocytes SLIGHT = 2-5 cells (100X) (0-1/hpf); Platelet Morphology Comment Appears Adequate; Polychromasia MODERATE = 3-4 cells (100X) (0-2/hpf)
== END 2020-09-15 17:34 ==
LOC: ERS 13:47
DX: N20.0 Calculus of kidney (principal); K44.9 Diaphragmatic hernia without obstruction or gangrene; E11.9 Type 2 diabetes mellitus without complications; I11.0 Hypertensive heart disease with heart failure; I50.9 Heart failure, unspecified; E78.00 Pure hypercholesterolemia, unspecified; J44.9 Chronic obstructive pulmonary disease, unspecified; Z79.899 Other long term (current) drug therapy; Z79.82 Long term (current) use of aspirin; Z79.02 Long term (current) use of antithrombotics/antiplatelets
CPT/HCPCS: 36415; 74177; 80048; 81003; 81015; 83605; 83690; 85025; 93005; 96372; 96374; J0500; J2270; Q9967

== ENCOUNTER 2020-09-19 15:37 | Emergency (ER) | payer OTHER, MEDICARE, MEDICAID ==
[2020-09-19] MEDS ORDERED: Acetaminophen 500 MG TAB ONE (17:18)
== END 2020-09-19 18:35 | disposition home or self-care (01) ==
LOC: ERS 15:37
DX: S80.02XA Contusion of left knee, initial encounter (principal); S80.01XA Contusion of right knee, initial encounter; M54.5 Low back pain; E11.9 Type 2 diabetes mellitus without complications; I11.0 Hypertensive heart disease with heart failure; I50.9 Heart failure, unspecified; E78.00 Pure hypercholesterolemia, unspecified; J44.9 Chronic obstructive pulmonary disease, unspecified; Z79.899 Other long term (current) drug therapy; W01.0XXA Fall on same level from slipping, tripping and stumbling without subsequent striking against object, initial encounter
CPT/HCPCS: 72040; 72100

== ENCOUNTER 2020-10-17 00:07 | Inpatient (IN) | payer MEDICARE, MEDICAID ==
[2020-10-17 00:53] LABS: #Eosinphils 0.1 thou/uL (0.0-0.7); #Lymphocytes 2.8 thou/uL (1.20-3.40); #Monocytes 0.7 thou/uL (0.11-0.59); #Neutrophils 4.4 thou/uL (1.40-6.50); %Basophils 0.3 % (0.0-1.0); %Eosinophils 1.2 % (0.0-10.0); %Lymphocytes 34.8 % (21.0-51.0); %Monocytes 8.6 % (0.0-10.0); %Neutrophils 55.1 % (42.0-75.0); Hemoglobin 9.1 g/dL (12.0-16.0); Mean Corpuscular HGB CONC 31.8 g/dL (32.0-36.0); Mean Corpuscular Hemoglobin 23.6 pg (27.0-31.0); Mean Corpuscular Volume 74.2 fL (78.0-98.0); Mean Platelet Volume 10.1 fL (7.4-10.4); Platelet Count 220 thou/uL (130-400); RBC Distribution Width 17.8 % (11.5-14.5); Red Blood Cell (RBC) Count 3.84 mill/uL (4.20-5.40)
[2020-10-17 01:18] LABS: ALT (SGPT) 11 U/L (8-55); AST (SGOT) 10 U/L (5-34); Albumin 3.4 g/dL (3.4-4.8); Alkaline Phosphatase 258 U/L (40-110); Anion Gap 18 mmol/L (10-20); BUN (Urea Nitrogen) 9 mg/dL (9.8-20.1); Bilirubin, Total 0.2 mg/dL (0.2-1.2); CK (CPK) 29 U/L (29-168); Calc. Creatinine Clearance 0 mL/min (70-130); Calcium 9.4 mg/dL (7.8-10.44); Carbon Dioxide 21 mmol/L (23-31); Chloride 109 mmol/L (98-107); Globulin 2.6 g/dL (2.4-3.5); Glucose 217 mg/dL (83-110); Potassium 3.8 mmol/L (3.5-5.1); Sodium 144 mmol/L (136-145)
[2020-10-17 01:34] LABS: Bilirubin Negative (Negative); Blood, Urine Negative (Negative); Clarity Clear (Clear); Glucose, Urine (Dipstick) Normal (Negative); Ketone, Urine Trace mg/dL (Negative); Leukocyte 250 Leu/uL (Negative); Nitrite Negative (Negative); Protein, Urine (Dipstick) Negative (Neg-Trace); RBC/HPF 0-3 HPF (0-3); Specific Gravity, Urine 1.012 (1.002-1.036); Squamous Epithelial 0-3 HPF (0-3); Urobilinogen Normal mg/dL (Less than 2); WBC/HPF 21-50 HPF (0-3)
[2020-10-17 01:36] LABS: Bacteria/HPF 1+ HPF (None Seen)
[2020-10-17] MEDS ORDERED: Fentanyl 100 MCG/2 ML VIAL ONE (02:15)
[2020-10-17] MEDS ORDERED: Acetaminophen 500 MG TAB ONE (02:30)
[2020-10-17] MEDS ORDERED: cefTRIAXone\\ROCEPHIN 2 GM VIAL ONE (02:41)
[2020-10-17] MEDS ORDERED: Ondansetron ODT 4 MG TAB PO PRN (03:51)
[2020-10-17] MEDS ORDERED: Dextrose 50% Abboject 50 ML SYRINGE SLOW IVP PRN (03:51)
[2020-10-17] MEDS ORDERED: HumaLOG 300 UNITS/3 ML VIAL SC PRN ×2 (03:51)
[2020-10-17] MEDS ORDERED: Dextrose 5% in Water 1,000 ML IV PRN (03:51)
[2020-10-17 05:38] VITALS: BMI 38.7
[2020-10-17 07:34] LABS: PTT 25.5 sec (22.9-36.1); Prothrombin Time 13.1 sec (12.0-14.7)
[2020-10-17 07:47] LABS: Iron 24 ug/dL (50-170); Iron Binding Capacity, Total 429 mcg/dL (265-497)
[2020-10-17] MEDS: Alogliptin 25 MG TAB PO SCH (08:50)
[2020-10-17] MEDS: cycloSPORINE 0.05% Ophthalmic Droperette EA EYE SCH ×2 (08:50→20:39)
[2020-10-17] MEDS: Acetaminophen 325 MG TAB PO PRN ×3 (08:52→20:46)
[2020-10-17] MEDS ORDERED: Lisinopril 10 MG TAB PO SCH (09:00)
[2020-10-17] MEDS ORDERED: Gabapentin 300 MG CAP PO SCH ×2 (09:00→12:00)
[2020-10-17] MEDS ORDERED: tiZANidine HCl 4 MG TAB PO SCH (09:00)
[2020-10-17] MEDS ORDERED: Torsemide 20 MG TAB PO SCH (09:00)
[2020-10-17] MEDS ORDERED: Iopamidol-370 76% 500 ML 1 ML ONE (09:44)
[2020-10-17] MEDS ORDERED: Lorazepam 0.5 MG TAB PO SCH (10:00)
[2020-10-17] MEDS: Albuterol Sulfate 1.25 MG/3 ML NEB NEB SCH ×4 (10:18→19:33)
[2020-10-17] MEDS ORDERED: Lactated Ringer's 500 ML IV SCH (13:15)
[2020-10-17 14:39] LABS: Hemoglobin 8.1 g/dL (12.0-16.0); Platelet Count 217 thou/uL (130-400)
[2020-10-17 15:03] LABS: ALT (SGPT) 9 U/L (8-55); AST (SGOT) 9 U/L (5-34); Albumin 3.2 g/dL (3.4-4.8); Alkaline Phosphatase 214 U/L (40-110); Anion Gap 18 mmol/L (10-20); BUN (Urea Nitrogen) 12 mg/dL (9.8-20.1); Bilirubin, Total Less than 0.2 mg/dL (0.2-1.2); Calc. Creatinine Clearance 104 mL/min (70-130); Calcium 9.1 mg/dL (7.8-10.44); Carbon Dioxide 23 mmol/L (23-31); Chloride 105 mmol/L (98-107); Globulin 2.2 g/dL (2.4-3.5); Glucose 178 mg/dL (83-110); Magnesium 1.7 mg/dL (1.6-2.6); Potassium 3.8 mmol/L (3.5-5.1); Protein, Total 5.4 g/dL (5.8-8.1); Sodium 142 mmol/L (136-145)
[2020-10-17 15:06] LABS: Anisocytosis SLIGHT = 6-15 cells (100X) (0-5/hpf); Band 20 % (5-11); Eosinophils 2 % (0-10); Hemoglobin 8.1 g/dL (12.0-16.0); Hypochromia SLIGHT = 6-15 cells (100X) (0-5/hpf); Lymphocytes 22 % (21-51); MDiff Complete? YES; Mean Corpuscular Hemoglobin 22.9 pg (27.0-31.0); Mean Corpuscular Volume 76.2 fL (78.0-98.0); Mean Platelet Volume 9.7 fL (7.4-10.4); Microcytosis SLIGHT = 6-15 cells (100X) (0-5/hpf); Monocytes 3 % (0-10); Neutrophil 43 % (42-75); Platelet Count 217 thou/uL (130-400); Platelet Morphology Comment Appears Adequate; Polychromasia MODERATE = 3-4 cells (100X) (0-2/hpf); RBC Distribution Width 17.8 % (11.5-14.5); Reactive Lymphocytes 9 % (0-10); Red Blood Cell (RBC) Count 3.55 mill/uL (4.20-5.40); White Blood Cell (WBC) Count 6.9 thou/uL (4.8-10.8)
[2020-10-17] MEDS ORDERED: Magnesium 2 GM/50 ML 2 GM in Premix Bag 1 BAG IVPB SCH (15:45)
[2020-10-17] MEDS: Gabapentin 300 MG CAP PO SCH ×2 (16:19→20:38)
[2020-10-17] MEDS ORDERED: Piperacillin/Tazobactam 3.375 GM in Sodium Chloride 0.9% 100 ML IVPB SCH (16:30)
[2020-10-17] MEDS ORDERED: Azithromycin 500 MG in Sodium Chloride 0.9% 250 ML 250 ML IVPB SCH (17:00)
[2020-10-17] MEDS ORDERED: Piperacillin/Tazobactam 4.5 GM in Sodium Chloride 0.9% 100 ML IVPB SCH (18:00)
[2020-10-17] MEDS: Mometasone 100 MCG/Formoterol 5 MCG 120 PUFF INHALER INH SCH (19:34)
[2020-10-17] MEDS: Piperacillin/Tazobactam 3.375 GM in Sodium Chloride 0.9% 100 ML IVPB SCH (20:39)
[2020-10-17] MEDS ORDERED: Lantus 1000 UNITS/10 ML VIAL SC SCH (21:00)
[2020-10-17] MEDS ORDERED: Aripiprazole 10 MG TAB PO SCH (21:00)
[2020-10-17] MEDS ORDERED: Mirtazapine 30 MG TAB PO SCH (21:00)
[2020-10-18] MEDS ORDERED: cefTRIAXone\\ROCEPHIN 1 GM in Sodium Chloride 0.9% 100 ML IVPB SCH (03:00)
[2020-10-18] MEDS: Piperacillin/Tazobactam 3.375 GM in Sodium Chloride 0.9% 100 ML IVPB SCH ×2 (04:01→14:10)
[2020-10-18] MEDS ORDERED: Levothyroxine Sodium 100 MCG TAB PO SCH (06:00)
[2020-10-18] MEDS: Albuterol Sulfate 1.25 MG/3 ML NEB NEB SCH ×2 (07:44→11:05)
[2020-10-18] MEDS: Mometasone 100 MCG/Formoterol 5 MCG 120 PUFF INHALER INH SCH (07:44)
[2020-10-18] MEDS ORDERED: Ferrous Fumarate 324 MG TAB PO SCH (08:00)
[2020-10-18] MEDS: Alogliptin 25 MG TAB PO SCH (08:16)
[2020-10-18] MEDS: Gabapentin 300 MG CAP PO SCH (08:16)
[2020-10-18] MEDS: cycloSPORINE 0.05% Ophthalmic Droperette EA EYE SCH (08:18)
[2020-10-18 12:02] VITALS: BP 114/54; TEMP 97.8
[2020-10-18] MEDS ORDERED: Azithromycin 250 MG in Sodium Chloride 0.9% 250 ML 250 ML IVPB SCH (17:00)
== END 2020-10-18 14:15 | disposition left against medical advice (07) | DRG 689 ==
LOC: ERS 00:07 → 2SE 03:08 → OBSVTOIN 10-18 09:41
PROVIDERS: ADMIT Family Medicine; ATTEND Family Medicine
DX: N39.0 Urinary tract infection, site not specified (principal); J96.01 Acute respiratory failure with hypoxia; J69.0 Pneumonitis due to inhalation of food and vomit; S22.32XA Fracture of one rib, left side, initial encounter for closed fracture; I50.32 Chronic diastolic (congestive) heart failure; K92.1 Melena; E78.5 Hyperlipidemia, unspecified; E03.9 Hypothyroidism, unspecified; J44.9 Chronic obstructive pulmonary disease, unspecified; F31.9 Bipolar disorder, unspecified; G43.909 Migraine, unspecified, not intractable, without status migrainosus; G47.33 Obstructive sleep apnea (adult) (pediatric); Z96.653 Presence of artificial knee joint, bilateral; S30.1XXA Contusion of abdominal wall, initial encounter; E11.40 Type 2 diabetes mellitus with diabetic neuropathy, unspecified; I11.0 Hypertensive heart disease with heart failure; D64.9 Anemia, unspecified; I20.8 Other forms of angina pectoris; Z66 Do not resuscitate; S09.90XA Unspecified injury of head, initial encounter; W19.XXXA Unspecified fall, initial encounter; Z88.8 Allergy status to other drugs, medicaments and biological substances; Z91.013 Allergy to seafood; Z79.82 Long term (current) use of aspirin; Z79.4 Long term (current) use of insulin; Z79.51 Long term (current) use of inhaled steroids; Z79.899 Other long term (current) drug therapy; Z90.710 Acquired absence of both cervix and uterus; Z90.49 Acquired absence of other specified parts of digestive tract; Z91.81 History of falling; Y92.002 Bathroom of unspecified non-institutional (private) residence as the place of occurrence of the external cause
CPT/HCPCS: 36415; 36416; 70450; 70486; 70551; 71045; 71250; 72125; 74177; 80053; 81003; 81015; 82550; 82728; 83540; 83550; 83735; 83880; 84443; 84484; 85025; 85060; 85610; 85730; 87040; 87077; 87086; 87186; 93005; 93010; 94640; 94664; 96365; 96367; 96375; 96376; G0378; J0696; J1815; J2543; J3010; J3475; J3490; Q9967

== ENCOUNTER 2020-11-02 14:14 | Emergency (ER) | payer MEDICARE, MEDICAID | END 2020-11-02 17:43 | disposition home or self-care (01) | LOC: ERS 14:14 | DX: R60.0 Localized edema (principal); I11.0 Hypertensive heart disease with heart failure; I50.9 Heart failure, unspecified; E11.9 Type 2 diabetes mellitus without complications; E78.00 Pure hypercholesterolemia, unspecified; J44.9 Chronic obstructive pulmonary disease, unspecified; Z79.82 Long term (current) use of aspirin; Z79.899 Other long term (current) drug therapy | CPT/HCPCS: 36415; 71045; 80053; 81003; 81015; 83880; 84484; 85025; 87086; 93005; 96372; J1885 ==

== ENCOUNTER 2020-12-27 23:03 | Emergency (ER) | payer OTHER, MEDICARE, MEDICAID ==
[2020-12-28 00:01] LABS: #Eosinphils 0.1 thou/uL (0.0-0.7); #Lymphocytes 2.4 thou/uL (1.20-3.40); #Monocytes 0.6 thou/uL (0.11-0.59); #Neutrophils 3.4 thou/uL (1.40-6.50); %Basophils 0.4 % (0.0-1.0); %Eosinophils 2.1 % (0.0-10.0); %Monocytes 9.7 % (0.0-10.0); %Neutrophils 51.9 % (42.0-75.0); Hemoglobin 11.8 g/dL (12.0-16.0); Mean Corpuscular HGB CONC 31.4 g/dL (32.0-36.0); Mean Corpuscular Hemoglobin 25.2 pg (27.0-31.0); Mean Corpuscular Volume 80.2 fL (78.0-98.0); Mean Platelet Volume 10.4 fL (7.4-10.4); Platelet Count 206 thou/uL (130-400); RBC Distribution Width 19.9 % (11.5-14.5); Red Blood Cell (RBC) Count 4.68 mill/uL (4.20-5.40); White Blood Cell (WBC) Count 6.6 thou/uL (4.8-10.8)
[2020-12-28 01:02] LABS: Albumin 3.2 g/dL (3.4-4.8)
[2020-12-28 01:03] LABS: Chloride 107 mmol/L (98-107); Potassium 3.6 mmol/L (3.5-5.1)
[2020-12-28 01:04] LABS: Calcium 9.4 mg/dL (7.8-10.44); Sodium 146 mmol/L (136-145)
[2020-12-28 01:05] LABS: Globulin 2.5 g/dL (2.4-3.5); Glucose 108 mg/dL (83-110); Protein, Total 5.7 g/dL (5.8-8.1)
[2020-12-28 01:06] LABS: Anion Gap 15 mmol/L (10-20); Carbon Dioxide 28 mmol/L (23-31)
[2020-12-28 01:07] LABS: Alkaline Phosphatase 265 U/L (40-110); Bilirubin, Total 0.2 mg/dL (0.2-1.2)
[2020-12-28 01:08] LABS: Calc. Creatinine Clearance 0 mL/min (70-130)
[2020-12-28 01:09] LABS: BUN (Urea Nitrogen) 12 mg/dL (9.8-20.1)
[2020-12-28 01:10] LABS: AST (SGOT) 20 U/L (5-34)
[2020-12-28 01:11] LABS: ALT (SGPT) 17 U/L (8-55)
[2020-12-28] MEDS ORDERED: Acetaminophen 500 MG TAB ONE (01:17)
== END 2020-12-28 02:33 | disposition home or self-care (01) ==
LOC: ERS 23:03
DX: S09.90XA Unspecified injury of head, initial encounter (principal); M54.5 Low back pain; I11.0 Hypertensive heart disease with heart failure; I50.9 Heart failure, unspecified; E11.9 Type 2 diabetes mellitus without complications; E78.00 Pure hypercholesterolemia, unspecified; N20.0 Calculus of kidney; J44.9 Chronic obstructive pulmonary disease, unspecified; W01.10XA Fall on same level from slipping, tripping and stumbling with subsequent striking against unspecified object, initial encounter; Z79.82 Long term (current) use of aspirin; Z79.84 Long term (current) use of oral hypoglycemic drugs; Z79.899 Other long term (current) drug therapy
CPT/HCPCS: 36415; 70450; 71045; 72125; 72131; 80053; 83880; 84484; 85025; 93005

== ENCOUNTER 2021-03-19 12:31 | Inpatient (IN) | payer MEDICARE, MEDICAID ==
[2021-03-19 13:58] LABS: #Eosinphils 0.1 thou/uL (0.0-0.7); #Lymphocytes 1.9 thou/uL (1.20-3.40); #Monocytes 0.6 thou/uL (0.11-0.59); #Neutrophils 4.7 thou/uL (1.40-6.50); %Basophils 0.2 % (0.0-1.0); %Eosinophils 1.1 % (0.0-10.0); %Lymphocytes 26.7 % (21.0-51.0); %Monocytes 7.8 % (0.0-10.0); %Neutrophils 64.3 % (42.0-75.0); Hemoglobin 11.9 g/dL (12.0-16.0); Mean Corpuscular Volume 81.3 fL (78.0-98.0); Mean Platelet Volume 8.5 fL (7.4-10.4); Platelet Count 210 thou/uL (130-400); RBC Distribution Width 15.7 % (11.5-14.5); Red Blood Cell (RBC) Count 4.56 mill/uL (4.20-5.40); White Blood Cell (WBC) Count 7.3 thou/uL (4.8-10.8)
[2021-03-19 14:14] LABS: ALT (SGPT) 14 U/L (8-55); AST (SGOT) 19 U/L (5-34); Albumin 3.5 g/dL (3.4-4.8); Alkaline Phosphatase 261 U/L (40-110); Anion Gap 15 mmol/L (10-20); BUN (Urea Nitrogen) 9 mg/dL (9.8-20.1); Bilirubin, Total 0.2 mg/dL (0.2-1.2); Calc. Creatinine Clearance 0 mL/min (70-130); Calcium 9.3 mg/dL (7.8-10.44); Carbon Dioxide 22 mmol/L (23-31); Chloride 107 mmol/L (98-107); Globulin 2.8 g/dL (2.4-3.5); Glucose 176 mg/dL (83-110); Potassium 3.2 mmol/L (3.5-5.1); Protein, Total 6.3 g/dL (5.8-8.1); Sodium 141 mmol/L (136-145)
[2021-03-19] MEDS ORDERED: Acetaminophen 500 MG TAB ONE (15:25)
[2021-03-19] MEDS ORDERED: Acetaminophen 325 MG TAB PO PRN (16:46)
[2021-03-19] MEDS ORDERED: HumaLOG 300 UNITS/3 ML VIAL SC PRN ×2 (16:46→16:55)
[2021-03-19] MEDS ORDERED: Dextrose 5% in Water 1,000 ML IV PRN (16:46)
[2021-03-19] MEDS ORDERED: Dextrose 50% Abboject 50 ML SYRINGE SLOW IVP PRN (16:46)
[2021-03-19] MEDS ORDERED: Ondansetron ODT 4 MG TAB PO PRN (16:48)
[2021-03-19 17:07] LABS: Magnesium 1.6 mg/dL (1.6-2.6); Phosphorus 3.1 mg/dL (2.3-4.7)
[2021-03-19 17:12] LABS: Troponin I 0.012 ng/mL (< 0.028)
[2021-03-19] MEDS ORDERED: Magnesium Sulfate 2 GM in Sodium Chloride 0.9% 100 ML IVPB SCH (17:30)
[2021-03-19] MEDS ORDERED: Pantoprazole 40 MG VIAL IVP SCH (17:33)
[2021-03-19] MEDS ORDERED: Magnesium 2 GM/50 ML 2 GM in Premix Bag 1 BAG IVPB SCH (18:30)
[2021-03-19] MEDS ORDERED: Potassium Chloride 20 MEQ in Premix Bag 1 BAG IVPB SCH ×2 (18:30)
[2021-03-19] MEDS: Furosemide 40 MG/4 ML VIAL SLOW IVP SCH ×2 (18:41→23:44)
[2021-03-19] MEDS: Pantoprazole 40 MG VIAL IVP SCH ×2 (18:42→20:37)
[2021-03-19] MEDS ORDERED: Albuterol 200 PUFF (6.7GM INHALER) INH SCH (19:00)
[2021-03-19 20:41] LABS: Troponin I 0.224 ng/mL (< 0.028)
[2021-03-19] MEDS: Potassium Chloride 20 MEQ in Premix Bag 1 BAG IVPB SCH ×2 (21:31→23:44)
[2021-03-19 23:02] LABS: SARS-CoV-2 NAA Rapid Test Not Detected (NotDetected)
[2021-03-20] MEDS ORDERED: Clopidogrel Bisulfate 75 MG TAB PO SCH (01:15)
[2021-03-20] MEDS ORDERED: Lorazepam 1 MG TAB PO SCH (01:30)
[2021-03-20 04:25] LABS: #Eosinphils 0.1 thou/uL (0.0-0.7); #Lymphocytes 1.9 thou/uL (1.20-3.40); #Monocytes 0.4 thou/uL (0.11-0.59); #Neutrophils 2.2 thou/uL (1.40-6.50); %Basophils 0.8 % (0.0-1.0); %Eosinophils 1.7 % (0.0-10.0); %Lymphocytes 40.7 % (21.0-51.0); %Monocytes 8.9 % (0.0-10.0); %Neutrophils 47.9 % (42.0-75.0); Hemoglobin 11.7 g/dL (12.0-16.0); Mean Corpuscular HGB CONC 31.8 g/dL (32.0-36.0); Mean Corpuscular Volume 81.8 fL (78.0-98.0); Mean Platelet Volume 8.5 fL (7.4-10.4); Platelet Count 189 thou/uL (130-400); RBC Distribution Width 15.8 % (11.5-14.5); Red Blood Cell (RBC) Count 4.52 mill/uL (4.20-5.40); White Blood Cell (WBC) Count 4.7 thou/uL (4.8-10.8)
[2021-03-20 04:43] LABS: ALT (SGPT) 13 U/L (8-55); AST (SGOT) 15 U/L (5-34); Albumin 3.4 g/dL (3.4-4.8); Alkaline Phosphatase 243 U/L (40-110); Anion Gap 12 mmol/L (10-20); BUN (Urea Nitrogen) 8 mg/dL (9.8-20.1); Bilirubin, Total 0.3 mg/dL (0.2-1.2); Calc. Creatinine Clearance 108 mL/min (70-130); Calcium 9.3 mg/dL (7.8-10.44); Carbon Dioxide 25 mmol/L (23-31); Chloride 107 mmol/L (98-107); Globulin 2.5 g/dL (2.4-3.5); Glucose 135 mg/dL (83-110); Potassium 3.2 mmol/L (3.5-5.1); Protein, Total 5.9 g/dL (5.8-8.1); Sodium 141 mmol/L (136-145)
[2021-03-20 04:46] LABS: Troponin I 0.014 ng/mL (< 0.028)
[2021-03-20] MEDS ORDERED: Aripiprazole 15 MG TAB PO SCH (05:00)
[2021-03-20] MEDS ORDERED: Mometasone 100 MCG/PUFF (1 INHALER) INH SCH (06:30)
[2021-03-20] MEDS ORDERED: Potassium Chloride 20 MEQ in Premix Bag 1 BAG IVPB SCH (07:15)
[2021-03-20 07:29] LABS: Hemoglobin A1c 6.8 % (4.0-6.0)
[2021-03-20 07:54] LABS: Bacteria/HPF None Seen HPF (None Seen); Bilirubin Negative (Negative); Blood, Urine Trace (Negative); Clarity Clear (Clear); Glucose, Urine (Dipstick) Normal (Negative); Ketone, Urine Negative (Negative); Leukocyte 25 Leu/uL (Negative); Nitrite Negative (Negative); Protein, Urine (Dipstick) Negative (Neg-Trace); Specific Gravity, Urine 1.015 (1.002-1.036); Squamous Epithelial 0-3 HPF (0-3); Urobilinogen Normal mg/dL (Less than 2); WBC/HPF 0-3 HPF (0-3); pH, Urine 6.5 (5.0-9.0)
[2021-03-20 07:55] LABS: Urine Culture Reflex Yes Yes
[2021-03-20] MEDS ORDERED: Lorazepam 1 MG TAB PO PRN (07:55)
[2021-03-20] MEDS ORDERED: Non-Formulary Item 1 EACH (Tizanidine Hcl [Tizanidine Hcl] 2 MG Tablet) PO PRN (07:55)
[2021-03-20] MEDS ORDERED: Lorazepam 2 MG/ML VIAL SLOW IVP SCH (08:47)
[2021-03-20] MEDS ORDERED: Alogliptin 25 MG TAB PO SCH (09:00)
[2021-03-20] MEDS ORDERED: Non-Formulary Item 1 EACH (Fluticasone/Umeclidin/Vilanter [Trelegy Ellipta 100-62.5-25] 1 IH SCH (09:00)
[2021-03-20] MEDS ORDERED: Torsemide 20 MG TAB PO SCH (09:00)
[2021-03-20] MEDS ORDERED: Pantoprazole 40 MG VIAL IVP SCH ×2 (09:00)
[2021-03-20] MEDS ORDERED: Lisinopril 10 MG TAB PO SCH (09:00)
[2021-03-20] MEDS ORDERED: cycloSPORINE 0.05% Ophthalmic Droperette EA EYE SCH (09:00)
[2021-03-20] MEDS ORDERED: Gabapentin 300 MG CAP PO SCH (09:00)
[2021-03-20] MEDS ORDERED: PROPOFOL 200 MG/20 ML VIAL ONE (09:45)
[2021-03-20 11:24] VITALS: BMI 37.0
[2021-03-20 12:33] VITALS: BP 183/82; TEMP 97.8
[2021-03-20] MEDS ORDERED: Metoclopramide 10 MG/10 ML UDCUP PO SCH (15:00)
[2021-03-20] MEDS ORDERED: Aripiprazole 10 MG TAB PO SCH (21:00)
[2021-03-21] MEDS ORDERED: Levothyroxine Sodium 125 MCG TAB PO SCH (06:00)
[2021-03-21] MEDS ORDERED: Clopidogrel Bisulfate 75 MG TAB PO SCH (09:00)
[2021-03-21] MEDS ORDERED: Aspirin 81 mg Enteric Coated Tablet PO SCH (09:00)
== END 2021-03-20 12:56 | disposition left against medical advice (07) | DRG 312 ==
LOC: ERS 12:31 → 2SW 16:04 → OBSVTOIN 03-20 12:12
PROVIDERS: ADMIT Family Medicine; ATTEND Family Medicine
PROC: 0DJ08ZZ Inspection of Upper Intestinal Tract, Via Natural or Artificial Opening Endoscopic (ICD-10-PCS; principal; 2021-03-20)
DX: R55 Syncope and collapse (principal); S06.9X9A Unspecified intracranial injury with loss of consciousness of unspecified duration, initial encounter; K92.0 Hematemesis; W18.30XA Fall on same level, unspecified, initial encounter; Z20.822 Contact with and (suspected) exposure to COVID-19; Z60.2 Problems related to living alone; I50.9 Heart failure, unspecified; R07.89 Other chest pain; I11.0 Hypertensive heart disease with heart failure; R29.6 Repeated falls; E11.42 Type 2 diabetes mellitus with diabetic polyneuropathy; Z66 Do not resuscitate; R79.89 Other specified abnormal findings of blood chemistry; Z96.653 Presence of artificial knee joint, bilateral; G43.909 Migraine, unspecified, not intractable, without status migrainosus; E87.6 Hypokalemia; J44.9 Chronic obstructive pulmonary disease, unspecified; F41.9 Anxiety disorder, unspecified; K21.9 Gastro-esophageal reflux disease without esophagitis; E83.42 Hypomagnesemia; R31.9 Hematuria, unspecified; F31.9 Bipolar disorder, unspecified; Z88.6 Allergy status to analgesic agent; Z88.5 Allergy status to narcotic agent; Z87.11 Personal history of peptic ulcer disease; Z90.710 Acquired absence of both cervix and uterus; Z91.041 Radiographic dye allergy status; Z88.8 Allergy status to other drugs, medicaments and biological substances; Z91.013 Allergy to seafood; Z79.899 Other long term (current) drug therapy; Z79.82 Long term (current) use of aspirin; Z79.890 Hormone replacement therapy; Z79.4 Long term (current) use of insulin; Z90.49 Acquired absence of other specified parts of digestive tract; Y92.009 Unspecified place in unspecified non-institutional (private) residence as the place of occurrence of the external cause; Z79.02 Long term (current) use of antithrombotics/antiplatelets; Z87.442 Personal history of urinary calculi
CPT/HCPCS: 36415; 36416; 70450; 70551; 71045; 72125; 80053; 81001; 83036; 83735; 83880; 84100; 84443; 84484; 85025; 87086; 93005; 93010; 93880; 94640; 96374; 96375; 96376; C9113; G0378; J1940; J2704; J3475; J3480; J7620; U0002; U0003; U0005

== ENCOUNTER 2021-03-29 17:58 | Emergency (ER) | payer MEDICARE, MEDICAID ==
[2021-03-29] MEDS ORDERED: Acetaminophen 500 MG TAB ONE (19:02)
== END 2021-03-29 20:45 | disposition home or self-care (01) ==
LOC: ERS 17:58
DX: S80.02XA Contusion of left knee, initial encounter (principal); M25.531 Pain in right wrist; M25.511 Pain in right shoulder; V00.831A Fall from motorized mobility scooter, initial encounter; I11.0 Hypertensive heart disease with heart failure; I50.9 Heart failure, unspecified; E78.00 Pure hypercholesterolemia, unspecified; J44.9 Chronic obstructive pulmonary disease, unspecified; E11.9 Type 2 diabetes mellitus without complications; Z79.82 Long term (current) use of aspirin; Z79.4 Long term (current) use of insulin; Z79.899 Other long term (current) drug therapy
CPT/HCPCS: 99283

== ENCOUNTER 2021-03-31 10:41 | Inpatient (IN) | payer MEDICARE, MEDICAID ==
[2021-03-31 11:36] LABS: #Eosinphils 0.1 thou/uL (0.0-0.7); #Lymphocytes 2.1 thou/uL (1.20-3.40); #Monocytes 0.7 thou/uL (0.11-0.59); #Neutrophils 5.2 thou/uL (1.40-6.50); %Basophils 0.5 % (0.0-1.0); %Eosinophils 0.9 % (0.0-10.0); %Lymphocytes 25.9 % (21.0-51.0); %Neutrophils 63.8 % (42.0-75.0); Hemoglobin 10.8 g/dL (12.0-16.0); Mean Corpuscular HGB CONC 31.7 g/dL (32.0-36.0); Mean Corpuscular Hemoglobin 26.3 pg (27.0-31.0); Mean Corpuscular Volume 82.8 fL (78.0-98.0); Platelet Count 244 thou/uL (130-400); RBC Distribution Width 16.4 % (11.5-14.5); Red Blood Cell (RBC) Count 4.11 mill/uL (4.20-5.40); White Blood Cell (WBC) Count 8.2 thou/uL (4.8-10.8)
[2021-03-31 11:49] LABS: PTT 25.1 sec (22.9-36.1); Prothrombin Time 13.7 sec (12.0-14.7)
[2021-03-31 12:01] LABS: ALT (SGPT) 10 U/L (8-55); AST (SGOT) 14 U/L (5-34); Albumin 3.3 g/dL (3.4-4.8); Alkaline Phosphatase 202 U/L (40-110); Anion Gap 17 mmol/L (10-20); BUN (Urea Nitrogen) 18 mg/dL (9.8-20.1); Bilirubin, Total 0.3 mg/dL (0.2-1.2); Calc. Creatinine Clearance 0 mL/min (70-130); Calcium 8.8 mg/dL (7.8-10.44); Carbon Dioxide 22 mmol/L (23-31); Chloride 105 mmol/L (98-107); Globulin 1.9 g/dL (2.4-3.5); Glucose 151 mg/dL (83-110); Lipase 11 U/L (8-78); Protein, Total 5.2 g/dL (5.8-8.1); Sodium 141 mmol/L (136-145)
[2021-03-31] MEDS ORDERED: Fentanyl 100 MCG/2 ML VIAL ONE ×2 (12:03→16:23)
[2021-03-31 12:09] LABS: Potassium 2.7 mmol/L (3.5-5.1)
[2021-03-31 12:16] LABS: CKMB 1.1 ng/mL (0-6.6)
[2021-03-31] MEDS ORDERED: Magnesium 2 GM/50 ML BAG (IN WATER) ONE (12:54)
[2021-03-31] MEDS ORDERED: Potassium Chloride 20 MEQ TAB ONE (12:54)
[2021-03-31] MEDS ORDERED: Potassium Chloride 20 MEQ/100 ML PREMIX BAG ONE (12:54)
[2021-03-31 13:16] LABS: Magnesium 1.7 mg/dL (1.6-2.6)
[2021-03-31 14:46] LABS: Lactic Acid 2.7 mmol/L (0.5-2.2)
[2021-03-31] MEDS ORDERED: Acetaminophen 325 MG TAB PO PRN (14:48)
[2021-03-31 15:07] LABS: Troponin I 0.014 ng/mL (< 0.028)
[2021-03-31] MEDS ORDERED: Potassium Chloride 20 MEQ TAB PO SCH (17:15)
[2021-03-31 17:28] LABS: SARS-CoV-2 NAA Rapid Test Not Detected (NotDetected)
[2021-03-31 18:25] LABS: Troponin I 0.012 ng/mL (< 0.028)
[2021-03-31 19:16] VITALS: BMI 33.7
[2021-03-31 19:31] LABS: Lactic Acid 3.7 mmol/L (0.5-2.2)
[2021-03-31] MEDS ORDERED: tiZANidine HCl 4 MG TAB PO PRN (19:54)
[2021-03-31] MEDS: Aripiprazole 15 MG TAB PO SCH (20:27)
[2021-03-31] MEDS: cycloSPORINE 0.05% Ophthalmic Droperette EA EYE SCH (20:28)
[2021-03-31] MEDS: Lorazepam 1 MG TAB PO PRN (20:39)
[2021-03-31] MEDS: Albuterol 200 PUFF (6.7GM INHALER) INH SCH (21:49)
[2021-03-31] MEDS: Lantus 1000 UNITS/10 ML VIAL SC SCH (22:43)
[2021-04-01 05:05] LABS: Anion Gap 15 mmol/L (10-20); BUN (Urea Nitrogen) 17 mg/dL (9.8-20.1); Calc. Creatinine Clearance 82 mL/min (70-130); Calcium 9.2 mg/dL (7.8-10.44); Carbon Dioxide 22 mmol/L (23-31); Chloride 107 mmol/L (98-107); Glucose 127 mg/dL (83-110); Potassium 3.6 mmol/L (3.5-5.1); Sodium 140 mmol/L (136-145)
[2021-04-01] MEDS: Levothyroxine Sodium 125 MCG TAB PO SCH (05:49)
[2021-04-01] MEDS: Albuterol 200 PUFF (6.7GM INHALER) INH SCH ×4 (07:08→22:52)
[2021-04-01] MEDS: Mometasone 100 MCG/PUFF (1 INHALER) INH SCH ×2 (07:09→19:04)
[2021-04-01] MEDS: Alogliptin 6.25 MG TAB PO SCH (08:18)
[2021-04-01] MEDS: Clopidogrel Bisulfate 75 MG TAB PO SCH (08:18)
[2021-04-01] MEDS: Aspirin 81 mg Enteric Coated Tablet PO SCH (08:18)
[2021-04-01] MEDS ORDERED: Ibuprofen 600 MG TAB PO PRN (08:24)
[2021-04-01 08:44] LABS: Hemoglobin 10.4 g/dL (12.0-16.0); Platelet Count 234 thou/uL (130-400)
[2021-04-01] MEDS ORDERED: FLU VACC QS2021-22(65YR UP)/PF 240 MCG/0.7 ML SYRINGE IM ONE (09:00)
[2021-04-01] MEDS ORDERED: Non-Formulary Item 1 EACH (Fluticasone/Umeclidin/Vilanter [Trelegy Ellipta 100-62.5-25] 1 IH SCH (09:00)
[2021-04-01] MEDS: Lactated Ringer's 1,000 ML IV SCH (11:21)
[2021-04-01] MEDS: cycloSPORINE 0.05% Ophthalmic Droperette EA EYE SCH ×2 (11:21→22:07)
[2021-04-01] MEDS: Lidocaine 5% Patch TD SCH (11:21)
[2021-04-01] MEDS: Acetaminophen 500 MG TAB PO SCH ×2 (15:10→21:56)
[2021-04-01] MEDS: Lantus 1000 UNITS/10 ML VIAL SC SCH (21:54)
[2021-04-01] MEDS: Aripiprazole 15 MG TAB PO SCH (22:06)
[2021-04-01] MEDS: Transdermal Patch Removal TOP SCH (22:08)
[2021-04-01] MEDS: Lorazepam 1 MG TAB PO PRN (22:21)
[2021-04-02] MEDS: Acetaminophen 500 MG TAB PO SCH ×4 (02:00→20:27)
[2021-04-02] MEDS: Levothyroxine Sodium 125 MCG TAB PO SCH (05:30)
[2021-04-02] MEDS: Albuterol 200 PUFF (6.7GM INHALER) INH SCH ×4 (05:39→18:50)
[2021-04-02] MEDS ORDERED: Ketorolac Tromethamine 30 MG/ML VIAL IVP SCH (06:30)
[2021-04-02] MEDS: Mometasone 100 MCG/PUFF (1 INHALER) INH SCH ×2 (07:43→18:57)
[2021-04-02] MEDS: Gabapentin 300 MG CAP PO SCH ×7 (09:51→20:28)
[2021-04-02] MEDS: Clopidogrel Bisulfate 75 MG TAB PO SCH (09:52)
[2021-04-02] MEDS: Alogliptin 6.25 MG TAB PO SCH (09:52)
[2021-04-02] MEDS: Aspirin 81 mg Enteric Coated Tablet PO SCH (09:52)
[2021-04-02] MEDS: Lorazepam 1 MG TAB PO PRN ×2 (09:59→20:38)
[2021-04-02] MEDS: Lidocaine 5% Patch TD SCH (09:59)
[2021-04-02] MEDS: cycloSPORINE 0.05% Ophthalmic Droperette EA EYE SCH ×2 (10:03→20:29)
[2021-04-02 12:46] LABS: Lactic Acid 2.5 mmol/L (0.5-2.2)
[2021-04-02] MEDS ORDERED: Ketorolac Tromethamine 30 MG/ML VIAL IVP PRN (14:00)
[2021-04-02] MEDS: Lactated Ringer's 1,000 ML IV SCH (16:31)
[2021-04-02] MEDS ORDERED: Acetaminophen 500 MG TAB ONE (20:23)
[2021-04-02] MEDS: Transdermal Patch Removal TOP SCH (20:25)
[2021-04-02] MEDS: Aripiprazole 15 MG TAB PO SCH (20:28)
[2021-04-02] MEDS: Lantus 1000 UNITS/10 ML VIAL SC SCH (20:29)
[2021-04-03] MEDS: Acetaminophen 500 MG TAB PO SCH ×4 (03:10→20:11)
[2021-04-03] MEDS: Levothyroxine Sodium 125 MCG TAB PO SCH (04:08)
[2021-04-03] MEDS: Mometasone 100 MCG/PUFF (1 INHALER) INH SCH ×2 (04:08→19:11)
[2021-04-03] MEDS: Albuterol 200 PUFF (6.7GM INHALER) INH SCH ×2 (08:01→14:08)
[2021-04-03] MEDS: Alogliptin 6.25 MG TAB PO SCH (08:14)
[2021-04-03] MEDS: Aspirin 81 mg Enteric Coated Tablet PO SCH (08:14)
[2021-04-03] MEDS: Lidocaine 5% Patch TD SCH (08:14)
[2021-04-03] MEDS: Gabapentin 300 MG CAP PO SCH ×3 (08:14→20:11)
[2021-04-03] MEDS: Clopidogrel Bisulfate 75 MG TAB PO SCH (08:14)
[2021-04-03] MEDS: cycloSPORINE 0.05% Ophthalmic Droperette EA EYE SCH ×2 (08:15→20:12)
[2021-04-03] MEDS ORDERED: Albuterol 200 PUFF (6.7GM INHALER) INH PRN ×2 (08:31→14:14)
[2021-04-03 11:18] LABS: Lactic Acid 3.2 mmol/L (0.5-2.2)
[2021-04-03] MEDS: Lorazepam 1 MG TAB PO PRN ×2 (14:13→20:11)
[2021-04-03] MEDS: Transdermal Patch Removal TOP SCH (19:59)
[2021-04-03] MEDS: Aripiprazole 15 MG TAB PO SCH (20:11)
[2021-04-03] MEDS: Lantus 1000 UNITS/10 ML VIAL SC SCH (20:12)
[2021-04-04] MEDS: Acetaminophen 500 MG TAB PO SCH ×4 (01:41→20:41)
[2021-04-04] MEDS: Levothyroxine Sodium 125 MCG TAB PO SCH (05:15)
[2021-04-04] MEDS: Ondansetron ODT 4 MG TAB PO PRN ×2 (05:15→15:31)
[2021-04-04] MEDS: Mometasone 100 MCG/PUFF (1 INHALER) INH SCH ×2 (05:26→19:18)
[2021-04-04] MEDS ORDERED: Lisinopril 10 MG TAB PO SCH (09:00)
[2021-04-04] MEDS ORDERED: Lisinopril 5 MG TAB PO SCH ×2 (09:00→21:00)
[2021-04-04] MEDS ORDERED: Ondansetron PF 4 MG/2 ML Vial IVP PRN (09:42)
[2021-04-04] MEDS: Aspirin 81 mg Enteric Coated Tablet PO SCH (09:51)
[2021-04-04] MEDS: Lidocaine 5% Patch TD SCH (09:51)
[2021-04-04] MEDS: Clopidogrel Bisulfate 75 MG TAB PO SCH (09:51)
[2021-04-04] MEDS: Gabapentin 300 MG CAP PO SCH ×3 (09:53→20:34)
[2021-04-04] MEDS: Alogliptin 6.25 MG TAB PO SCH (10:02)
[2021-04-04] MEDS: cycloSPORINE 0.05% Ophthalmic Droperette EA EYE SCH ×2 (12:19→20:44)
[2021-04-04] MEDS: Lactated Ringer's 1,000 ML IV SCH ×3 (12:40→20:32)
[2021-04-04] MEDS: Transdermal Patch Removal TOP SCH (20:52)
[2021-04-04] MEDS: Aripiprazole 15 MG TAB PO SCH (21:33)
[2021-04-04] MEDS: Lantus 1000 UNITS/10 ML VIAL SC SCH (21:35)
[2021-04-05] MEDS: Lactated Ringer's 1,000 ML IV SCH ×2 (02:18→05:59)
[2021-04-05] MEDS: Acetaminophen 500 MG TAB PO SCH (02:18)
[2021-04-05] MEDS: Levothyroxine Sodium 125 MCG TAB PO SCH (05:56)
[2021-04-05] MEDS ORDERED: Acetaminophen 500 MG TAB PO PRN (07:35)
[2021-04-05] MEDS: Mometasone 100 MCG/PUFF (1 INHALER) INH SCH (07:42)
[2021-04-05 08:42] VITALS: TEMP 97.8
[2021-04-05] MEDS: Aspirin 81 mg Enteric Coated Tablet PO SCH (08:56)
[2021-04-05] MEDS: Alogliptin 6.25 MG TAB PO SCH (08:56)
[2021-04-05] MEDS: Gabapentin 300 MG CAP PO SCH ×2 (08:56→15:00)
[2021-04-05] MEDS: Clopidogrel Bisulfate 75 MG TAB PO SCH (08:57)
[2021-04-05] MEDS: Lidocaine 5% Patch TD SCH (08:57)
[2021-04-05] MEDS: cycloSPORINE 0.05% Ophthalmic Droperette EA EYE SCH (08:57)
[2021-04-05] MEDS: Lorazepam 1 MG TAB PO PRN (15:00)
[2021-04-05 15:04] VITALS: BP 150/79
== END 2021-04-05 17:40 | DRG 683 ==
LOC: ERS 10:41 → 2NO 14:09 → T4-B 04-02 15:28
PROVIDERS: ADMIT Student in an Organized Health Care Education/Training Program; ATTEND Student in an Organized Health Care Education/Training Program
DX: N17.9 Acute kidney failure, unspecified (principal); E87.2 Acidosis; Z66 Do not resuscitate; Z20.822 Contact with and (suspected) exposure to COVID-19; I11.0 Hypertensive heart disease with heart failure; I50.9 Heart failure, unspecified; E11.9 Type 2 diabetes mellitus without complications; Z96.653 Presence of artificial knee joint, bilateral; R29.6 Repeated falls; E87.6 Hypokalemia; F31.9 Bipolar disorder, unspecified; K76.0 Fatty (change of) liver, not elsewhere classified; I95.9 Hypotension, unspecified; Z88.6 Allergy status to analgesic agent; Z88.5 Allergy status to narcotic agent; Z91.041 Radiographic dye allergy status; Z91.013 Allergy to seafood; Z79.82 Long term (current) use of aspirin; Z79.51 Long term (current) use of inhaled steroids; Z79.4 Long term (current) use of insulin; Z79.890 Hormone replacement therapy; Z79.899 Other long term (current) drug therapy; Z90.710 Acquired absence of both cervix and uterus; Z90.49 Acquired absence of other specified parts of digestive tract
CPT/HCPCS: 36415; 36416; 70450; 71250; 72125; 74177; 80048; 80053; 82553; 83605; 83690; 83735; 84484; 85014; 85018; 85025; 85049; 85610; 85730; 86850; 86900; 86901; 93005; 94640; 94760; J1815; J1885; J3010; J3475; J3480; J7120; J7620; Q0162; U0002

== ENCOUNTER 2021-04-19 19:57 | Emergency (ER) | payer OTHER, MEDICARE, MEDICAID ==
[2021-04-19] MEDS ORDERED: Fentanyl 100 MCG/2 ML VIAL ONE (21:00)
[2021-04-19 21:34] LABS: #Eosinphils 0.1 thou/uL (0.0-0.7); #Lymphocytes 2.5 thou/uL (1.20-3.40); #Monocytes 0.5 thou/uL (0.11-0.59); #Neutrophils 3.2 thou/uL (1.40-6.50); %Basophils 0.5 % (0.0-1.0); %Eosinophils 0.9 % (0.0-10.0); %Lymphocytes 39.2 % (21.0-51.0); %Monocytes 8.5 % (0.0-10.0); %Neutrophils 50.8 % (42.0-75.0); Hemoglobin 11.6 g/dL (12.0-16.0); Mean Corpuscular HGB CONC 32.1 g/dL (32.0-36.0); Mean Corpuscular Hemoglobin 26.4 pg (27.0-31.0); Mean Corpuscular Volume 82.1 fL (78.0-98.0); Mean Platelet Volume 8.1 fL (7.4-10.4); Platelet Count 237 thou/uL (130-400); RBC Distribution Width 16.5 % (11.5-14.5); Red Blood Cell (RBC) Count 4.38 mill/uL (4.20-5.40); White Blood Cell (WBC) Count 6.4 thou/uL (4.8-10.8)
[2021-04-19 21:55] LABS: ALT (SGPT) 13 U/L (8-55); AST (SGOT) 24 U/L (5-34); Albumin 3.9 g/dL (3.4-4.8); Alkaline Phosphatase 169 U/L (40-110); Anion Gap 13 mmol/L (10-20); BUN (Urea Nitrogen) 13 mg/dL (9.8-20.1); Bilirubin, Total 0.5 mg/dL (0.2-1.2); Calc. Creatinine Clearance 0 mL/min (70-130); Calcium 10.3 mg/dL (7.8-10.44); Carbon Dioxide 27 mmol/L (23-31); Chloride 108 mmol/L (98-107); Globulin 2.7 g/dL (2.4-3.5); Glucose 114 mg/dL (83-110); Potassium 3.1 mmol/L (3.5-5.1); Protein, Total 6.6 g/dL (5.8-8.1); Sodium 145 mmol/L (136-145)
[2021-04-19] MEDS ORDERED: Potassium Chloride 20 MEQ TAB ONE (22:36)
== END 2021-04-19 22:56 | disposition home or self-care (01) ==
LOC: ERS 19:57
DX: S70.02XA Contusion of left hip, initial encounter (principal); E87.6 Hypokalemia; J98.4 Other disorders of lung; I11.0 Hypertensive heart disease with heart failure; I50.9 Heart failure, unspecified; E11.9 Type 2 diabetes mellitus without complications; E78.00 Pure hypercholesterolemia, unspecified; J44.9 Chronic obstructive pulmonary disease, unspecified; Z79.82 Long term (current) use of aspirin; Z79.02 Long term (current) use of antithrombotics/antiplatelets; Z79.899 Other long term (current) drug therapy; W01.0XXA Fall on same level from slipping, tripping and stumbling without subsequent striking against object, initial encounter
CPT/HCPCS: 70450; 72125; 72128; 72131; 80053; 85025; 93005; 96374; J3010

== ENCOUNTER 2021-04-23 04:17 | Emergency (ER) | payer MEDICARE, MEDICAID ==
[2021-04-24] MEDS ORDERED: HYDROmorphone 0.5 MG/0.5 ML SYRINGE ONE (11:06)
[2021-04-24] MEDS ORDERED: Haloperidol Lactate 5 MG/ML VIAL ONE (11:07)
[2021-04-24] MEDS ORDERED: diphenhydrAMINE 25 MG CAP ONE (11:07)
== END 2021-04-23 08:57 | disposition home or self-care (01) ==
LOC: ERS 04:17
DX: S70.02XA Contusion of left hip, initial encounter (principal); S70.01XA Contusion of right hip, initial encounter; S09.90XA Unspecified injury of head, initial encounter; W19.XXXA Unspecified fall, initial encounter; I11.0 Hypertensive heart disease with heart failure; I50.9 Heart failure, unspecified; E11.9 Type 2 diabetes mellitus without complications; E78.00 Pure hypercholesterolemia, unspecified; J44.9 Chronic obstructive pulmonary disease, unspecified; Z79.82 Long term (current) use of aspirin
CPT/HCPCS: 70450; 72192; J1170; J1630

== ENCOUNTER 2021-04-30 22:33 | Emergency (ER) | payer MEDICARE, MEDICAID ==
[2021-04-30 23:13] LABS: #Eosinphils 0.1 thou/uL (0.0-0.7); #Lymphocytes 2.1 thou/uL (1.20-3.40); #Monocytes 0.6 thou/uL (0.11-0.59); #Neutrophils 2.1 thou/uL (1.40-6.50); %Basophils 0.7 % (0.0-1.0); %Eosinophils 1.7 % (0.0-10.0); %Lymphocytes 43.1 % (21.0-51.0); %Monocytes 12.1 % (0.0-10.0); %Neutrophils 42.4 % (42.0-75.0); Hemoglobin 11.7 g/dL (12.0-16.0); Mean Corpuscular HGB CONC 31.3 g/dL (32.0-36.0); Mean Corpuscular Hemoglobin 25.8 pg (27.0-31.0); Mean Corpuscular Volume 82.4 fL (78.0-98.0); Mean Platelet Volume 9.5 fL (7.4-10.4); Platelet Count 169 thou/uL (130-400); RBC Distribution Width 16.2 % (11.5-14.5); Red Blood Cell (RBC) Count 4.55 mill/uL (4.20-5.40)
[2021-04-30 23:22] LABS: INR-International Normal Ratio 1.1; PTT 24.4 sec (22.9-36.1); Prothrombin Time 13.8 sec (12.0-14.7)
[2021-04-30 23:37] LABS: ALT (SGPT) 9 U/L (8-55); AST (SGOT) 28 U/L (5-34); Albumin 3.7 g/dL (3.4-4.8); Alkaline Phosphatase 134 U/L (40-110); Anion Gap 18 mmol/L (10-20); BUN (Urea Nitrogen) 14 mg/dL (9.8-20.1); Bilirubin, Total 0.3 mg/dL (0.2-1.2); CK (CPK) 59 U/L (29-168); Calc. Creatinine Clearance 0 mL/min (70-130); Calcium 10.2 mg/dL (7.8-10.44); Carbon Dioxide 20 mmol/L (23-31); Chloride 107 mmol/L (98-107); Glucose 151 mg/dL (83-110); Lipase 9 U/L (8-78); Potassium 3.4 mmol/L (3.5-5.1); Protein, Total 6.7 g/dL (5.8-8.1); Sodium 142 mmol/L (136-145)
== END 2021-05-01 01:01 ==
LOC: ERS 22:33
DX: S00.03XA Contusion of scalp, initial encounter (principal); W07.XXXA Fall from chair, initial encounter; I11.0 Hypertensive heart disease with heart failure; I50.9 Heart failure, unspecified; E11.9 Type 2 diabetes mellitus without complications; E78.00 Pure hypercholesterolemia, unspecified; J44.9 Chronic obstructive pulmonary disease, unspecified; Z79.82 Long term (current) use of aspirin
CPT/HCPCS: 70450; 71045; 72125; 80053; 82550; 83690; 83880; 84484; 85025; 85610; 85730; 93005

== ENCOUNTER 2021-05-01 17:35 | Emergency (ER) | payer MEDICARE, MEDICAID ==
[2021-05-01 18:35] LABS: Hemoglobin 11.5 g/dL (12.0-16.0); Mean Corpuscular HGB CONC 30.9 g/dL (32.0-36.0); Mean Corpuscular Volume 84.3 fL (78.0-98.0); Mean Platelet Volume 9.7 fL (7.4-10.4); Platelet Count 131 thou/uL (130-400); RBC Distribution Width 16.1 % (11.5-14.5); Red Blood Cell (RBC) Count 4.41 mill/uL (4.20-5.40)
[2021-05-01 18:53] LABS: Band 2 % (5-11); Eosinophils 3 % (0-10); Hypochromia SLIGHT = 6-15 cells (100X) (0-5/hpf); Lymphocytes 42 % (21-51); MDiff Complete? YES; Monocytes 6 % (0-10); Neutrophil 46 % (42-75); Platelet Morphology Comment Appears Adequate; Polychromasia SLIGHT = 2-3 cells (100X) (0-2/hpf); Reactive Lymphocytes 1 % (0-10)
[2021-05-01 18:58] LABS: ALT (SGPT) 9 U/L (8-55); AST (SGOT) 17 U/L (5-34); Albumin 3.6 g/dL (3.4-4.8); Alkaline Phosphatase 128 U/L (40-110); Anion Gap 17 mmol/L (10-20); BUN (Urea Nitrogen) 14 mg/dL (9.8-20.1); Bilirubin, Total 0.4 mg/dL (0.2-1.2); Calc. Creatinine Clearance 0 mL/min (70-130); Calcium 9.7 mg/dL (7.8-10.44); Carbon Dioxide 21 mmol/L (23-31); Chloride 106 mmol/L (98-107); Globulin 2.5 g/dL (2.4-3.5); Glucose 127 mg/dL (83-110); Protein, Total 6.1 g/dL (5.8-8.1); Sodium 141 mmol/L (136-145)
[2021-05-01 19:01] LABS: Potassium 2.9 mmol/L (3.5-5.1)
[2021-05-01] MEDS ORDERED: Potassium Chloride 20 MEQ TAB ONE (19:04)
== END 2021-05-01 18:58 | disposition home or self-care (01) ==
LOC: ERS 17:35
DX: S40.011A Contusion of right shoulder, initial encounter (principal); E87.6 Hypokalemia; W06.XXXA Fall from bed, initial encounter; I11.0 Hypertensive heart disease with heart failure; I50.9 Heart failure, unspecified; E78.00 Pure hypercholesterolemia, unspecified; J44.9 Chronic obstructive pulmonary disease, unspecified; E11.9 Type 2 diabetes mellitus without complications
CPT/HCPCS: 80053; 85025; 93005

== ENCOUNTER 2021-05-02 08:32 | Inpatient (IN) | payer MEDICARE, OTHER ==
[2021-05-02 09:45] LABS: ALT (SGPT) 10 U/L (8-55); AST (SGOT) 18 U/L (5-34); Albumin 3.7 g/dL (3.4-4.8); Alkaline Phosphatase 138 U/L (40-110); Anion Gap 15 mmol/L (10-20); BUN (Urea Nitrogen) 13 mg/dL (9.8-20.1); Bilirubin, Total 0.5 mg/dL (0.2-1.2); CK (CPK) 86 U/L (29-168); Calc. Creatinine Clearance 0 mL/min (70-130); Calcium 10.3 mg/dL (7.8-10.44); Carbon Dioxide 24 mmol/L (23-31); Chloride 107 mmol/L (98-107); Globulin 2.7 g/dL (2.4-3.5); Glucose 114 mg/dL (83-110); Magnesium 1.6 mg/dL (1.6-2.6); Potassium 3.1 mmol/L (3.5-5.1); Protein, Total 6.4 g/dL (5.8-8.1); Sodium 143 mmol/L (136-145)
[2021-05-02] MEDS ORDERED: Acetaminophen 500 MG TAB ONE (10:20)
[2021-05-02 10:39] LABS: Hemoglobin 12.2 g/dL (12.0-16.0); Mean Corpuscular HGB CONC 31.1 g/dL (32.0-36.0); Mean Corpuscular Hemoglobin 25.8 pg (27.0-31.0); Mean Corpuscular Volume 82.9 fL (78.0-98.0); Mean Platelet Volume 9.8 fL (7.4-10.4); Platelet Count 142 thou/uL (130-400); RBC Distribution Width 16.1 % (11.5-14.5); Red Blood Cell (RBC) Count 4.72 mill/uL (4.20-5.40); White Blood Cell (WBC) Count 5.1 thou/uL (4.8-10.8)
[2021-05-02 11:00] LABS: Band 6 % (5-11); Eosinophils 3 % (0-10); Hypochromia SLIGHT = 6-15 cells (100X) (0-5/hpf); Lymphocytes 23 % (21-51); MDiff Complete? YES; Monocytes 13 % (0-10); Neutrophil 40 % (42-75); Platelet Morphology Comment Appears Adequate; Polychromasia SLIGHT = 2-3 cells (100X) (0-2/hpf); Reactive Lymphocytes 15 % (0-10)
[2021-05-02 13:40] LABS: Bilirubin Negative (Negative); Blood, Urine Negative (Negative); Calcium Oxalate Crystals 1+ HPF (None Seen); Clarity Clear (Clear); Glucose, Urine (Dipstick) Normal (Negative); Ketone, Urine 10 mg/dL (Negative); Leukocyte Negative Leu/uL (Negative); Nitrite Negative (Negative); Protein, Urine (Dipstick) 30 mg/dL (Neg-Trace); Specific Gravity, Urine 1.026 (1.002-1.036); Squamous Epithelial None Seen HPF (0-3)
[2021-05-02 13:42] LABS: Bacteria/HPF Rare-Few HPF (None Seen)
[2021-05-02] MEDS ORDERED: Acetaminophen 650 MG Suppository PR PRN (15:38)
[2021-05-02] MEDS ORDERED: Calcium Carbonate 500 MG ChewTAB PO PRN (15:38)
[2021-05-02] MEDS ORDERED: Dextrose 50% Abboject 50 ML SYRINGE SLOW IVP PRN (15:46)
[2021-05-02] MEDS ORDERED: Dextrose 5% in Water 1,000 ML IV PRN (15:46)
[2021-05-02] MEDS ORDERED: HumaLOG 300 UNITS/3 ML VIAL SC PRN ×2 (15:46)
[2021-05-02] MEDS ORDERED: Lorazepam 1 MG TAB PO PRN (16:01)
[2021-05-02] MEDS ORDERED: Potassium Chloride 20 MEQ TAB ONE (16:03)
[2021-05-02 17:14] LABS: Phosphorus 3.1 mg/dL (2.3-4.7)
[2021-05-03] MEDS: Mometasone 100 MCG/PUFF (1 INHALER) INH SCH ×3 (00:24→20:35)
[2021-05-03] MEDS: Albuterol 200 PUFF (6.7GM INHALER) INH SCH ×4 (00:25→20:34)
[2021-05-03 04:13] VITALS: BMI 34.0
[2021-05-03 05:04] LABS: #Eosinphils 0.2 thou/uL (0.0-0.7); #Lymphocytes 1.5 thou/uL (1.20-3.40); #Monocytes 0.6 thou/uL (0.11-0.59); #Neutrophils 1.9 thou/uL (1.40-6.50); %Basophils 0.8 % (0.0-1.0); %Eosinophils 3.8 % (0.0-10.0); %Lymphocytes 35.9 % (21.0-51.0); %Monocytes 13.7 % (0.0-10.0); %Neutrophils 45.9 % (42.0-75.0); Hemoglobin 11.7 g/dL (12.0-16.0); Mean Corpuscular HGB CONC 31.5 g/dL (32.0-36.0); Mean Corpuscular Hemoglobin 26.6 pg (27.0-31.0); Mean Corpuscular Volume 84.3 fL (78.0-98.0); Mean Platelet Volume 9.5 fL (7.4-10.4); Platelet Count 150 thou/uL (130-400); RBC Distribution Width 16.2 % (11.5-14.5); White Blood Cell (WBC) Count 4.1 thou/uL (4.8-10.8)
[2021-05-03] MEDS ORDERED: Ibuprofen 800 MG TAB PO SCH (05:15)
[2021-05-03] MEDS: Aripiprazole 10 MG TAB PO SCH ×2 (05:15→21:30)
[2021-05-03] MEDS: Gabapentin 300 MG CAP PO SCH ×4 (05:15→21:37)
[2021-05-03] MEDS: Torsemide 20 MG TAB PO SCH ×3 (05:16→21:32)
[2021-05-03] MEDS: cycloSPORINE 0.05% Ophthalmic Droperette EA EYE SCH ×3 (05:16→23:54)
[2021-05-03] MEDS: Lantus 1000 UNITS/10 ML VIAL SC SCH ×2 (05:16→21:34)
[2021-05-03 05:23] LABS: Anion Gap 16 mmol/L (10-20); BUN (Urea Nitrogen) 14 mg/dL (9.8-20.1); Calc. Creatinine Clearance 106 mL/min (70-130); Calcium 9.8 mg/dL (7.8-10.44); Carbon Dioxide 21 mmol/L (23-31); Chloride 108 mmol/L (98-107); Glucose 133 mg/dL (83-110); Sodium 142 mmol/L (136-145)
[2021-05-03] MEDS: Levothyroxine 150 MCG TAB PO SCH (05:57)
[2021-05-03] MEDS ORDERED: Levothyroxine Sodium 125 MCG TAB PO SCH (06:00)
[2021-05-03] MEDS ORDERED: Magnesium Sulfate 2 GM in Sodium Chloride 0.9% 100 ML IVPB SCH (07:00)
[2021-05-03] MEDS ORDERED: Magnesium 2 GM/50 ML 2 GM in Premix Bag 1 BAG IVPB SCH (07:00)
[2021-05-03] MEDS ORDERED: Potassium Chloride 20 MEQ TAB PO SCH (07:00)
[2021-05-03] MEDS ORDERED: Non-Formulary Item 1 EACH (Fluticasone/Umeclidin/Vilanter [Trelegy Ellipta 100-62.5-25] 1 IH SCH (09:00)
[2021-05-03] MEDS: Enoxaparin Sodium 40 MG/0.4 ML SYRINGE SC SCH (09:43)
[2021-05-03] MEDS: Lisinopril 10 MG TAB PO SCH (09:44)
[2021-05-03] MEDS: Clopidogrel Bisulfate 75 MG TAB PO SCH (09:44)
[2021-05-03] MEDS: Alogliptin 25 MG TAB PO SCH (09:45)
[2021-05-03] MEDS: Aspirin Chewable 81 MG TAB PO SCH (09:45)
[2021-05-03 13:32] LABS: SARS-CoV-2 PCR by NAA Not Detected (NotDetected)
[2021-05-04] MEDS: Acetaminophen 325 MG TAB PO PRN ×3 (01:37→21:38)
[2021-05-04 05:17] LABS: Anion Gap 16 mmol/L (10-20); BUN (Urea Nitrogen) 17 mg/dL (9.8-20.1); Calc. Creatinine Clearance 74 mL/min (70-130); Calcium 9.2 mg/dL (7.8-10.44); Carbon Dioxide 23 mmol/L (23-31); Chloride 104 mmol/L (98-107); Glucose 126 mg/dL (83-110); Sodium 140 mmol/L (136-145)
[2021-05-04] MEDS: Levothyroxine 150 MCG TAB PO SCH (05:21)
[2021-05-04] MEDS: Albuterol 200 PUFF (6.7GM INHALER) INH SCH ×3 (07:22→19:34)
[2021-05-04] MEDS: Mometasone 100 MCG/PUFF (1 INHALER) INH SCH ×2 (07:24→19:34)
[2021-05-04 07:32] LABS: Magnesium 1.6 mg/dL (1.6-2.6); Phosphorus 3.3 mg/dL (2.3-4.7)
[2021-05-04] MEDS ORDERED: Potassium Chloride 20 MEQ TAB PO SCH ×2 (08:00→15:00)
[2021-05-04] MEDS: Gabapentin 300 MG CAP PO SCH ×3 (08:44→21:39)
[2021-05-04] MEDS: Aspirin Chewable 81 MG TAB PO SCH (08:44)
[2021-05-04] MEDS: Lisinopril 10 MG TAB PO SCH (08:45)
[2021-05-04] MEDS: cycloSPORINE 0.05% Ophthalmic Droperette EA EYE SCH ×2 (08:46→21:39)
[2021-05-04] MEDS: Clopidogrel Bisulfate 75 MG TAB PO SCH (08:46)
[2021-05-04] MEDS: Torsemide 20 MG TAB PO SCH ×2 (08:46→21:39)
[2021-05-04] MEDS: Alogliptin 25 MG TAB PO SCH (08:46)
[2021-05-04] MEDS: Enoxaparin Sodium 40 MG/0.4 ML SYRINGE SC SCH (08:46)
[2021-05-04] MEDS ORDERED: Magnesium Sulfate 2 GM in Sodium Chloride 0.9% 100 ML IVPB SCH (10:45)
[2021-05-04] MEDS ORDERED: Magnesium 2 GM/50 ML 2 GM in Premix Bag 1 BAG IVPB SCH (11:00)
[2021-05-04] MEDS: Lantus 1000 UNITS/10 ML VIAL SC SCH (21:29)
[2021-05-04] MEDS: Aripiprazole 10 MG TAB PO SCH (21:39)
[2021-05-05] MEDS: Levothyroxine 150 MCG TAB PO SCH (05:10)
[2021-05-05 05:48] LABS: Anion Gap 16 mmol/L (10-20); BUN (Urea Nitrogen) 17 mg/dL (9.8-20.1); Calc. Creatinine Clearance 64 mL/min (70-130); Calcium 9.2 mg/dL (7.8-10.44); Carbon Dioxide 23 mmol/L (23-31); Chloride 103 mmol/L (98-107); Glucose 136 mg/dL (83-110); Potassium 3.6 mmol/L (3.5-5.1); Sodium 138 mmol/L (136-145)
[2021-05-05] MEDS: Enoxaparin Sodium 40 MG/0.4 ML SYRINGE SC SCH (10:58)
[2021-05-05] MEDS: cycloSPORINE 0.05% Ophthalmic Droperette EA EYE SCH ×2 (10:58→21:26)
[2021-05-05] MEDS: Lisinopril 10 MG TAB PO SCH (10:58)
[2021-05-05] MEDS: Gabapentin 300 MG CAP PO SCH ×3 (10:59→21:25)
[2021-05-05] MEDS: Alogliptin 25 MG TAB PO SCH (11:01)
[2021-05-05] MEDS: Clopidogrel Bisulfate 75 MG TAB PO SCH (11:01)
[2021-05-05] MEDS: Torsemide 20 MG TAB PO SCH ×2 (11:01→21:26)
[2021-05-05] MEDS: Aspirin Chewable 81 MG TAB PO SCH (11:02)
[2021-05-05] MEDS: Albuterol 200 PUFF (6.7GM INHALER) INH SCH ×3 (18:41→19:54)
[2021-05-05] MEDS: Mometasone 100 MCG/PUFF (1 INHALER) INH SCH ×2 (18:42→19:53)
[2021-05-05] MEDS: Aripiprazole 10 MG TAB PO SCH (21:24)
[2021-05-05 22:30] LABS: Bilirubin Negative (Negative); Blood, Urine Negative (Negative); Clarity Clear (Clear); Glucose, Urine (Dipstick) Normal (Negative); Ketone, Urine Negative (Negative); Leukocyte 75 Leu/uL (Negative); Nitrite Negative (Negative); Protein, Urine (Dipstick) Negative (Neg-Trace); RBC/HPF 0-3 HPF (0-3); Specific Gravity, Urine 1.011 (1.002-1.036); Squamous Epithelial 0-3 HPF (0-3); Urobilinogen Normal mg/dL (Less than 2)
[2021-05-05 22:38] LABS: Bacteria/HPF 1+ HPF (None Seen)
[2021-05-05 22:39] LABS: Urine Culture Reflex Yes Yes
[2021-05-05 22:54] LABS: Creatinine, Urine 64.74 mg/dL (47-110)
[2021-05-06 05:46] LABS: Anion Gap 17 mmol/L (10-20); BUN (Urea Nitrogen) 27 mg/dL (9.8-20.1); Calc. Creatinine Clearance 57 mL/min (70-130); Carbon Dioxide 26 mmol/L (23-31); Chloride 98 mmol/L (98-107); Glucose 169 mg/dL (83-110); Potassium 3.2 mmol/L (3.5-5.1); Sodium 138 mmol/L (136-145)
[2021-05-06] MEDS: Levothyroxine 150 MCG TAB PO SCH (05:48)
[2021-05-06] MEDS: Acetaminophen 325 MG TAB PO PRN (05:50)
[2021-05-06] MEDS ORDERED: Lidocaine 5% Patch TD SCH (06:15)
[2021-05-06] MEDS ORDERED: Potassium Chloride 20 MEQ TAB PO SCH (06:45)
[2021-05-06] MEDS ORDERED: Magnesium 2 GM/50 ML 2 GM in Premix Bag 1 BAG IVPB SCH (07:15)
[2021-05-06] MEDS: Mometasone 100 MCG/PUFF (1 INHALER) INH SCH ×2 (07:23→18:50)
[2021-05-06] MEDS: Enoxaparin Sodium 40 MG/0.4 ML SYRINGE SC SCH (09:38)
[2021-05-06] MEDS: cycloSPORINE 0.05% Ophthalmic Droperette EA EYE SCH ×2 (09:38→20:21)
[2021-05-06] MEDS: Alogliptin 25 MG TAB PO SCH (09:38)
[2021-05-06] MEDS: Aspirin Chewable 81 MG TAB PO SCH (09:39)
[2021-05-06] MEDS: Gabapentin 300 MG CAP PO SCH ×3 (09:39→20:20)
[2021-05-06] MEDS: Clopidogrel Bisulfate 75 MG TAB PO SCH (09:40)
[2021-05-06] MEDS: Torsemide 20 MG TAB PO SCH ×2 (09:40→20:23)
[2021-05-06 09:41] LABS: Magnesium 1.6 mg/dL (1.6-2.6); Phosphorus 4.8 mg/dL (2.3-4.7)
[2021-05-06] MEDS: Albuterol 200 PUFF (6.7GM INHALER) INH SCH ×4 (11:05→19:09)
[2021-05-06] MEDS ORDERED: Lactated Ringer's 1,000 ML IV SCH (12:45)
[2021-05-06] MEDS ORDERED: Benztropine 1 MG TAB PO SCH (13:15)
[2021-05-06] MEDS ORDERED: Transdermal Patch Removal TOP SCH (18:15)
[2021-05-06] MEDS: Aripiprazole 10 MG TAB PO SCH (20:21)
[2021-05-07] MEDS: Levothyroxine 150 MCG TAB PO SCH (05:22)
[2021-05-07] MEDS ORDERED: Benztropine 1 MG TAB PO SCH (09:00)
[2021-05-07] MEDS: Ondansetron PF 4 MG/2 ML Vial IVP PRN ×2 (09:12→15:53)
[2021-05-07] MEDS: Lidocaine 5% Patch TD SCH (09:15)
[2021-05-07] MEDS: Albuterol 200 PUFF (6.7GM INHALER) INH SCH ×4 (09:21→18:30)
[2021-05-07] MEDS: Mometasone 100 MCG/PUFF (1 INHALER) INH SCH ×2 (09:21→18:30)
[2021-05-07] MEDS: Alogliptin 25 MG TAB PO SCH ×2 (09:21→16:03)
[2021-05-07] MEDS: Aspirin Chewable 81 MG TAB PO SCH (09:21)
[2021-05-07] MEDS: Gabapentin 300 MG CAP PO SCH ×3 (09:22→21:08)
[2021-05-07] MEDS: Clopidogrel Bisulfate 75 MG TAB PO SCH ×2 (09:22→17:37)
[2021-05-07] MEDS: Enoxaparin Sodium 40 MG/0.4 ML SYRINGE SC SCH (09:22)
[2021-05-07] MEDS: cycloSPORINE 0.05% Ophthalmic Droperette EA EYE SCH ×3 (09:23→21:04)
[2021-05-07] MEDS: Torsemide 20 MG TAB PO SCH ×3 (09:23→21:10)
[2021-05-07] MEDS ORDERED: Glycerin Adult Supp. (24 ct jar) PR PRN (09:30)
[2021-05-07] MEDS ORDERED: Senokot S 8.6-50 MG TAB PO SCH (10:15)
[2021-05-07] MEDS: Polyethylene Glycol 3350 17 GM Packet PO SCH (10:37)
[2021-05-07 14:31] LABS: #Eosinphils 0.2 thou/uL (0.0-0.7); #Lymphocytes 1.9 thou/uL (1.20-3.40); #Monocytes 0.9 thou/uL (0.11-0.59); #Neutrophils 4.6 thou/uL (1.40-6.50); %Basophils 0.1 % (0.0-1.0); %Eosinophils 2.6 % (0.0-10.0); %Lymphocytes 24.6 % (21.0-51.0); %Monocytes 12.3 % (0.0-10.0); %Neutrophils 60.4 % (42.0-75.0); Hemoglobin 11.8 g/dL (12.0-16.0); Mean Corpuscular HGB CONC 30.4 g/dL (32.0-36.0); Mean Corpuscular Hemoglobin 25.6 pg (27.0-31.0); Mean Platelet Volume 9.1 fL (7.4-10.4); Platelet Count 204 thou/uL (130-400); Red Blood Cell (RBC) Count 4.62 mill/uL (4.20-5.40); White Blood Cell (WBC) Count 7.6 thou/uL (4.8-10.8)
[2021-05-07 14:41] LABS: Anion Gap 16 mmol/L (10-20); BUN (Urea Nitrogen) 35 mg/dL (9.8-20.1); Calc. Creatinine Clearance 71 mL/min (70-130); Calcium 9.8 mg/dL (7.8-10.44); Carbon Dioxide 25 mmol/L (23-31); Chloride 101 mmol/L (98-107); Glucose 133 mg/dL (83-110); Potassium 4.2 mmol/L (3.5-5.1); Sodium 138 mmol/L (136-145)
[2021-05-07] MEDS: Aripiprazole 10 MG TAB PO SCH (21:06)
[2021-05-07] MEDS: Senokot S 8.6-50 MG TAB PO SCH (21:09)
[2021-05-07] MEDS: Transdermal Patch Removal TOP SCH (21:11)
[2021-05-07] MEDS: Ondansetron ODT 4 MG TAB PO PRN (21:26)
[2021-05-08] MEDS: Levothyroxine 150 MCG TAB PO SCH (06:19)
[2021-05-08] MEDS: Mometasone 100 MCG/PUFF (1 INHALER) INH SCH ×2 (07:55→18:50)
[2021-05-08] MEDS: Albuterol 200 PUFF (6.7GM INHALER) INH SCH (07:55)
[2021-05-08] MEDS ORDERED: Glycerin Adult Supp. (24 ct jar) PR SCH (08:00)
[2021-05-08] MEDS: Aspirin Chewable 81 MG TAB PO SCH (08:34)
[2021-05-08] MEDS: Ondansetron ODT 4 MG TAB PO PRN ×2 (08:34→19:28)
[2021-05-08] MEDS: Polyethylene Glycol 3350 17 GM Packet PO SCH (08:34)
[2021-05-08] MEDS: Alogliptin 25 MG TAB PO SCH (08:34)
[2021-05-08] MEDS: Lidocaine 5% Patch TD SCH (08:34)
[2021-05-08] MEDS: Gabapentin 300 MG CAP PO SCH ×3 (08:35→21:26)
[2021-05-08] MEDS: Torsemide 20 MG TAB PO SCH ×2 (08:35→21:26)
[2021-05-08] MEDS: cycloSPORINE 0.05% Ophthalmic Droperette EA EYE SCH ×2 (08:35→21:24)
[2021-05-08] MEDS: Senokot S 8.6-50 MG TAB PO SCH ×2 (08:35→21:26)
[2021-05-08] MEDS: Clopidogrel Bisulfate 75 MG TAB PO SCH (08:35)
[2021-05-08] MEDS: Enoxaparin Sodium 40 MG/0.4 ML SYRINGE SC SCH (08:40)
[2021-05-08] MEDS: Acetaminophen 325 MG TAB PO PRN (13:36)
[2021-05-08] MEDS ORDERED: Menthol/Camphor Lotion 222 ml Bottle TOP PRN (16:25)
[2021-05-08 18:35] LABS: Anion Gap 17 mmol/L (10-20); BUN (Urea Nitrogen) 28 mg/dL (9.8-20.1); Calc. Creatinine Clearance 66 mL/min (70-130); Calcium 9.9 mg/dL (7.8-10.44); Carbon Dioxide 28 mmol/L (23-31); Chloride 95 mmol/L (98-107); Glucose 164 mg/dL (83-110); Potassium 3.7 mmol/L (3.5-5.1); Sodium 136 mmol/L (136-145)
[2021-05-08] MEDS: Aripiprazole 10 MG TAB PO SCH (21:24)
[2021-05-08] MEDS: Transdermal Patch Removal TOP SCH (21:26)
[2021-05-09] MEDS: Levothyroxine 150 MCG TAB PO SCH (05:50)
[2021-05-09 07:13] LABS: Anion Gap 17 mmol/L (10-20); BUN (Urea Nitrogen) 28 mg/dL (9.8-20.1); Calc. Creatinine Clearance 72 mL/min (70-130); Carbon Dioxide 29 mmol/L (23-31); Chloride 94 mmol/L (98-107); Glucose 138 mg/dL (83-110); Potassium 3.4 mmol/L (3.5-5.1); Sodium 137 mmol/L (136-145)
[2021-05-09] MEDS ORDERED: Potassium Chloride 20 MEQ TAB PO SCH (08:00)
[2021-05-09] MEDS: Mometasone 100 MCG/PUFF (1 INHALER) INH SCH ×2 (08:09→18:27)
[2021-05-09] MEDS: Torsemide 20 MG TAB PO SCH ×2 (08:45→20:49)
[2021-05-09] MEDS: Alogliptin 25 MG TAB PO SCH (08:45)
[2021-05-09] MEDS: Gabapentin 300 MG CAP PO SCH ×3 (08:45→20:45)
[2021-05-09] MEDS: Clopidogrel Bisulfate 75 MG TAB PO SCH (08:45)
[2021-05-09] MEDS: Aspirin Chewable 81 MG TAB PO SCH (08:45)
[2021-05-09] MEDS: Senokot S 8.6-50 MG TAB PO SCH ×2 (08:45→20:53)
[2021-05-09] MEDS: Polyethylene Glycol 3350 17 GM Packet PO SCH (08:46)
[2021-05-09] MEDS: cycloSPORINE 0.05% Ophthalmic Droperette EA EYE SCH ×2 (08:46→20:50)
[2021-05-09] MEDS: Lidocaine 5% Patch TD SCH (08:46)
[2021-05-09] MEDS: Diclofenac 1% 100 GM GEL TP SCH ×4 (08:47→20:51)
[2021-05-09] MEDS: Enoxaparin Sodium 40 MG/0.4 ML SYRINGE SC SCH (08:47)
[2021-05-09] MEDS: Acetaminophen 325 MG TAB PO PRN (11:21)
[2021-05-09 14:29] LABS: Magnesium 1.8 mg/dL (1.6-2.6)
[2021-05-09] MEDS ORDERED: Magnesium 2 GM/50 ML 2 GM in Premix Bag 1 BAG IVPB SCH (15:45)
[2021-05-09] MEDS: Aripiprazole 10 MG TAB PO SCH (20:46)
[2021-05-09] MEDS: Transdermal Patch Removal TOP SCH (20:53)
[2021-05-10] MEDS: Levothyroxine 150 MCG TAB PO SCH (05:50)
[2021-05-10] MEDS: Mometasone 100 MCG/PUFF (1 INHALER) INH SCH ×2 (07:38→19:00)
[2021-05-10] MEDS: Torsemide 20 MG TAB PO SCH ×2 (08:29→20:51)
[2021-05-10] MEDS: cycloSPORINE 0.05% Ophthalmic Droperette EA EYE SCH ×2 (08:29→20:51)
[2021-05-10] MEDS: Clopidogrel Bisulfate 75 MG TAB PO SCH (08:29)
[2021-05-10] MEDS: Gabapentin 300 MG CAP PO SCH ×3 (08:29→20:51)
[2021-05-10] MEDS: Alogliptin 25 MG TAB PO SCH (08:29)
[2021-05-10] MEDS: Enoxaparin Sodium 40 MG/0.4 ML SYRINGE SC SCH (08:30)
[2021-05-10] MEDS: Lidocaine 5% Patch TD SCH (08:30)
[2021-05-10] MEDS: Diclofenac 1% 100 GM GEL TP SCH ×4 (08:30→20:52)
[2021-05-10] MEDS: Aspirin Chewable 81 MG TAB PO SCH (08:30)
[2021-05-10] MEDS: Polyethylene Glycol 3350 17 GM Packet PO SCH (08:31)
[2021-05-10] MEDS: Senokot S 8.6-50 MG TAB PO SCH ×2 (08:31→20:51)
[2021-05-10 11:00] LABS: SARS-CoV-2 PCR by NAA Not Detected (NotDetected)
[2021-05-10 11:21] LABS: Magnesium 2.1 mg/dL (1.6-2.6)
[2021-05-10] MEDS: Acetaminophen 325 MG TAB PO PRN (13:33)
[2021-05-10 20:05] VITALS: TEMP 97.9
[2021-05-10] MEDS: Aripiprazole 10 MG TAB PO SCH (20:52)
[2021-05-10] MEDS: Transdermal Patch Removal TOP SCH (21:18)
[2021-05-11] MEDS: Acetaminophen 325 MG TAB PO PRN (05:13)
[2021-05-11] MEDS: Levothyroxine 150 MCG TAB PO SCH (05:14)
[2021-05-11] MEDS: Mometasone 100 MCG/PUFF (1 INHALER) INH SCH (07:55)
[2021-05-11 08:54] VITALS: BP 105/69
[2021-05-11] MEDS: Polyethylene Glycol 3350 17 GM Packet PO SCH (10:26)
[2021-05-11] MEDS: Lidocaine 5% Patch TD SCH (10:37)
[2021-05-11] MEDS: Gabapentin 300 MG CAP PO SCH ×2 (10:37→15:57)
[2021-05-11] MEDS: Alogliptin 25 MG TAB PO SCH (10:38)
[2021-05-11] MEDS: Torsemide 20 MG TAB PO SCH (10:38)
[2021-05-11] MEDS: Aspirin Chewable 81 MG TAB PO SCH (10:38)
[2021-05-11] MEDS: Clopidogrel Bisulfate 75 MG TAB PO SCH (10:38)
[2021-05-11] MEDS: Diclofenac 1% 100 GM GEL TP SCH ×2 (10:39→16:00)
[2021-05-11] MEDS: cycloSPORINE 0.05% Ophthalmic Droperette EA EYE SCH (10:39)
[2021-05-11] MEDS: Senokot S 8.6-50 MG TAB PO SCH (10:40)
[2021-05-11] MEDS: Enoxaparin Sodium 40 MG/0.4 ML SYRINGE SC SCH (11:33)
== END 2021-05-11 22:06 | DRG 74 ==
LOC: ERS 08:32 → ERHOLD 14:57 → 2NO 05-03 03:18 → OBSVTOIN 05-04 13:16 → MSONC 05-05 23:17
PROVIDERS: ADMIT Family Medicine; ATTEND Family Medicine
DX: E11.40 Type 2 diabetes mellitus with diabetic neuropathy, unspecified (principal); I50.32 Chronic diastolic (congestive) heart failure; N17.9 Acute kidney failure, unspecified; N39.0 Urinary tract infection, site not specified; Z20.822 Contact with and (suspected) exposure to COVID-19; Z66 Do not resuscitate; R29.6 Repeated falls; E87.6 Hypokalemia; M17.0 Bilateral primary osteoarthritis of knee; I11.0 Hypertensive heart disease with heart failure; F31.9 Bipolar disorder, unspecified; H91.92 Unspecified hearing loss, left ear; Z96.653 Presence of artificial knee joint, bilateral; R79.89 Other specified abnormal findings of blood chemistry; E03.9 Hypothyroidism, unspecified; J44.9 Chronic obstructive pulmonary disease, unspecified; H04.123 Dry eye syndrome of bilateral lacrimal glands; K21.9 Gastro-esophageal reflux disease without esophagitis; E78.5 Hyperlipidemia, unspecified; R25.1 Tremor, unspecified; E78.00 Pure hypercholesterolemia, unspecified; K59.00 Constipation, unspecified; E83.42 Hypomagnesemia; Z28.21 Immunization not carried out because of patient refusal; Z91.81 History of falling; Z88.8 Allergy status to other drugs, medicaments and biological substances; Z88.6 Allergy status to analgesic agent; Z91.041 Radiographic dye allergy status; Z91.013 Allergy to seafood; Z79.899 Other long term (current) drug therapy; Z79.82 Long term (current) use of aspirin; Z79.4 Long term (current) use of insulin; Z79.84 Long term (current) use of oral hypoglycemic drugs; Z79.51 Long term (current) use of inhaled steroids; Z90.49 Acquired absence of other specified parts of digestive tract; Z90.710 Acquired absence of both cervix and uterus; S00.03XA Contusion of scalp, initial encounter; W07.XXXA Fall from chair, initial encounter
CPT/HCPCS: 36415; 36416; 70450; 71045; 72125; 72170; 80048; 80053; 80164; 81001; 81003; 81015; 82550; 82570; 83036; 83690; 83735; 83880; 84100; 84300; 84439; 84443; 84484; 84540; 85025; 85610; 85730; 87086; 93005; 93010; 96372; 96374; 96376; G0378; J1650; J1815; J2405; J3475; J7120; J7620; Q0162; U0003; U0005

== ENCOUNTER 2021-06-18 20:58 | Emergency (ER) | payer MEDICARE, MEDICAID | END 2021-06-19 00:10 | disposition home or self-care (01) | LOC: ERS 20:58 | DX: R42 Dizziness and giddiness (principal); G20 Parkinson's disease; E11.9 Type 2 diabetes mellitus without complications; I11.0 Hypertensive heart disease with heart failure; I50.9 Heart failure, unspecified; E78.00 Pure hypercholesterolemia, unspecified; J44.9 Chronic obstructive pulmonary disease, unspecified; R29.6 Repeated falls | CPT/HCPCS: 99284 ==

== ENCOUNTER 2021-06-19 13:11 | Emergency (ER) | payer MEDICARE, OTHER ==
[2021-06-19] MEDS ORDERED: Dexamethasone 10 MG/ML VIAL ONE (13:40)
[2021-06-19] MEDS ORDERED: Meclizine HCl 25 MG TAB ONE (13:40)
[2021-06-19 13:56] LABS: #Lymphocytes 3.4 thou/uL (1.20-3.40); #Monocytes 0.5 thou/uL (0.11-0.59); #Neutrophils 4.3 thou/uL (1.40-6.50); %Basophils 0.6 % (0.0-1.0); %Eosinophils 0.3 % (0.0-10.0); %Lymphocytes 41.2 % (21.0-51.0); %Monocytes 5.7 % (0.0-10.0); %Neutrophils 52.1 % (42.0-75.0); Hemoglobin 10.8 g/dL (12.0-16.0); Mean Corpuscular HGB CONC 31.9 g/dL (32.0-36.0); Mean Corpuscular Hemoglobin 27.3 pg (27.0-31.0); Mean Corpuscular Volume 85.4 fL (78.0-98.0); Mean Platelet Volume 7.8 fL (7.4-10.4); Platelet Count 278 thou/uL (130-400); RBC Distribution Width 15.7 % (11.5-14.5); Red Blood Cell (RBC) Count 3.96 mill/uL (4.20-5.40); White Blood Cell (WBC) Count 8.2 thou/uL (4.8-10.8)
[2021-06-19 14:21] LABS: ALT (SGPT) 13 U/L (8-55); AST (SGOT) 10 U/L (5-34); Albumin 3.9 g/dL (3.4-4.8); Alkaline Phosphatase 288 U/L (40-110); Anion Gap 13 mmol/L (10-20); BUN (Urea Nitrogen) 35 mg/dL (9.8-20.1); Bilirubin, Total 0.3 mg/dL (0.2-1.2); CK (CPK) 9 U/L (29-168); Calc. Creatinine Clearance 0 mL/min (70-130); Calcium 10.8 mg/dL (7.8-10.44); Carbon Dioxide 27 mmol/L (23-31); Chloride 104 mmol/L (98-107); Globulin 2.6 g/dL (2.4-3.5); Glucose 115 mg/dL (83-110); Lipase 12 U/L (8-78); Potassium 3.8 mmol/L (3.5-5.1); Protein, Total 6.5 g/dL (5.8-8.1); Sodium 140 mmol/L (136-145)
[2021-06-19 17:52] LABS: Acetaminophen Less than 6.0 mcg/mL (10.0-30.0); Alcohol Less than 10 mg/dL (Less than 10); Salicylate Less than 8.0 mg/dL (15.0-30.0)
[2021-06-19 18:29] LABS: Amphetamine Not Detected (NotDetected); Barbiturates Screen Not Detected (NotDetected); Benzodiazepine Screen Not Detected (NotDetected); Cocaine Metabolite Screen Not Detected (NotDetected); Methadone Not Detected (NotDetected); Methamphetamine Not Detected (NotDetected); Opiate Screen Not Detected (NotDetected); Oxycodone Screen Not Detected (NotDetected); Phencyclidine (PCP) Not Detected (NotDetected); THC/Cannabinoid Screen Not Detected (NotDetected); Tricyclic Screen Not Detected (NotDetected)
[2021-06-19] MEDS ORDERED: Aripiprazole 2 MG TAB PO SCH (20:45)
== END 2021-06-19 19:18 ==
LOC: ERS 13:11
DX: R45.851 Suicidal ideations (principal); R07.89 Other chest pain; R42 Dizziness and giddiness; R29.700 NIHSS score 0; I11.0 Hypertensive heart disease with heart failure; I50.9 Heart failure, unspecified; E11.9 Type 2 diabetes mellitus without complications; E78.00 Pure hypercholesterolemia, unspecified; J44.9 Chronic obstructive pulmonary disease, unspecified; Z87.442 Personal history of urinary calculi; Z79.82 Long term (current) use of aspirin; Z79.84 Long term (current) use of oral hypoglycemic drugs; Z79.899 Other long term (current) drug therapy
CPT/HCPCS: 70450; 80053; 80306; 80307; 82550; 83690; 84484; 85025; 93005; 96374; J1100

== ENCOUNTER 2021-09-03 09:20 | Outpatient (CLI) | payer MEDICARE | END 2021-09-03 09:21 | disposition home or self-care (01) | LOC: ULT 09:20 | PROVIDERS: ATTEND Internal Medicine Cardiovascular Disease | DX: E04.1 Nontoxic single thyroid nodule (principal) | CPT/HCPCS: 76536 ==

== ENCOUNTER 2021-09-17 09:10 | Outpatient (CLI) | payer MEDICARE, OTHER | END 2021-09-17 09:11 | disposition home or self-care (01) | LOC: ULT 09:10 | PROVIDERS: ATTEND Physician Assistant Medical | DX: K76.0 Fatty (change of) liver, not elsewhere classified (principal); K21.9 Gastro-esophageal reflux disease without esophagitis; R13.10 Dysphagia, unspecified; Z86.010 Personal history of colon polyps | CPT/HCPCS: 76705 ==

== ENCOUNTER 2021-10-14 10:44 | Inpatient (IN) | payer OTHER ==
[2021-10-14] MEDS ORDERED: EPINEPHrine 1 MG/10 ML Abboject SYRINGE ONE (11:12)
[2021-10-14] MEDS ORDERED: Piperacillin/Tazobactam 4.5 GM VIAL ONE (11:37)
[2021-10-14] MEDS ORDERED: Vancomycin 1 GM/200 ML BAG ONE (11:37)
[2021-10-14] MEDS ORDERED: Pantoprazole 40 MG VIAL ONE (11:49)
[2021-10-14 11:53] LABS: #Eosinphils 0.1 thou/uL (0.0-0.7); #Lymphocytes 1.8 thou/uL (1.20-3.40); #Monocytes 0.4 thou/uL (0.11-0.59); #Neutrophils 3.9 thou/uL (1.40-6.50); %Basophils 0.5 % (0.0-1.0); %Eosinophils 0.9 % (0.0-10.0); %Monocytes 6.6 % (0.0-10.0); Hemoglobin 7.7 g/dL (12.0-16.0); Mean Corpuscular HGB CONC 31.8 g/dL (32.0-36.0); Mean Corpuscular Hemoglobin 27.7 pg (27.0-31.0); Mean Corpuscular Volume 87.1 fL (78.0-98.0); Mean Platelet Volume 8.3 fL (7.4-10.4); Platelet Count 160 thou/uL (130-400); RBC Distribution Width 15.6 % (11.5-14.5); Red Blood Cell (RBC) Count 2.78 mill/uL (4.20-5.40); White Blood Cell (WBC) Count 6.3 thou/uL (4.8-10.8)
[2021-10-14 12:13] LABS: ALT (SGPT) 63 U/L (8-55); AST (SGOT) 82 U/L (5-34); Albumin 2.2 g/dL (3.4-4.8); Alkaline Phosphatase 259 U/L (40-110); Anion Gap 9 mmol/L (10-20); BUN (Urea Nitrogen) 23 mg/dL (9.8-20.1); Bilirubin, Total 0.2 mg/dL (0.2-1.2); Calc. Creatinine Clearance 0 mL/min (70-130); Calcium 6.9 mg/dL (7.8-10.44); Carbon Dioxide 18 mmol/L (23-31); Chloride 116 mmol/L (98-107); Estimated GFR 94; Globulin 1.3 g/dL (2.4-3.5); Glucose 120 mg/dL (83-110); Lipase 13 U/L (8-78); Potassium 4.3 mmol/L (3.5-5.1); Protein, Total 3.5 g/dL (5.8-8.1); Sodium 139 mmol/L (136-145)
[2021-10-14 12:47] LABS: SARS-CoV-2 NAA Rapid Test Not Detected (NotDetected)
[2021-10-14 12:49] LABS: Bilirubin Negative (Negative); Blood, Urine Negative (Negative); Clarity Clear (Clear); Glucose, Urine (Dipstick) Normal (Negative); Ketone, Urine Negative (Negative); Leukocyte Negative Leu/uL (Negative); Nitrite Negative (Negative); Protein, Urine (Dipstick) Negative (Neg-Trace); Specific Gravity, Urine 1.019 (1.002-1.036); Urobilinogen Normal mg/dL (Less than 2); pH, Urine 5.5 (5.0-9.0)
[2021-10-14] MEDS ORDERED: Dextrose 50% Abboject 50 ML SYRINGE SLOW IVP PRN (13:33)
[2021-10-14] MEDS ORDERED: Dextrose 5% in Water 1,000 ML IV PRN (13:33)
[2021-10-14] MEDS ORDERED: HumaLOG 300 UNITS/3 ML VIAL SC PRN ×2 (13:42→16:22)
[2021-10-14 15:06] LABS: Lactic Acid 1.8 mmol/L (0.5-2.2)
[2021-10-14] MEDS ORDERED: GoLYTELY 4,000 ml Bottle PO SCH (15:30)
[2021-10-14] MEDS ORDERED: Acetaminophen 500 MG TAB ONE (16:05)
[2021-10-14] MEDS ORDERED: Diclofenac 1% 100 GM GEL TP PRN (16:58)
[2021-10-14] MEDS ORDERED: Albuterol 200 PUFF (6.7GM INHALER) INH PRN (19:00)
[2021-10-14 19:07] LABS: Hemoglobin 9.1 g/dL (12.0-16.0)
[2021-10-14 19:45] VITALS: BMI 34.3
[2021-10-14] MEDS: Aripiprazole 10 MG TAB PO SCH (20:53)
[2021-10-14] MEDS: Insulin Glargine 30 UNITS/0.3 ML VIAL SC SCH (20:54)
[2021-10-14] MEDS: Artificial Tear Sol 15 ML BOT EA EYE SCH (20:54)
[2021-10-14] MEDS: Pantoprazole 40 MG VIAL IVP SCH (20:54)
[2021-10-14] MEDS: Transdermal Patch Removal TOP SCH (20:55)
[2021-10-15] MEDS: Lactated Ringer's 1,000 ML IV SCH ×3 (01:48→17:42)
[2021-10-15] MEDS ORDERED: Ondansetron PF 4 MG/2 ML Vial IVP SCH (02:00)
[2021-10-15] MEDS ORDERED: Mirtazapine 30 MG TAB PO SCH (02:00)
[2021-10-15 02:24] LABS: #Basophils 0.1 thou/uL (0.0-0.2); #Eosinphils 0.1 thou/uL (0.0-0.7); #Lymphocytes 2.2 thou/uL (1.20-3.40); #Monocytes 0.6 thou/uL (0.11-0.59); #Neutrophils 3.5 thou/uL (1.40-6.50); %Basophils 1.1 % (0.0-1.0); %Eosinophils 1.6 % (0.0-10.0); %Lymphocytes 33.5 % (21.0-51.0); %Neutrophils 54.9 % (42.0-75.0); Hemoglobin 8.4 g/dL (12.0-16.0); Mean Corpuscular HGB CONC 32.9 g/dL (32.0-36.0); Mean Corpuscular Hemoglobin 28.2 pg (27.0-31.0); Mean Corpuscular Volume 85.7 fL (78.0-98.0); Mean Platelet Volume 9.1 fL (7.4-10.4); Platelet Count 153 thou/uL (130-400); RBC Distribution Width 16.5 % (11.5-14.5); Red Blood Cell (RBC) Count 2.97 mill/uL (4.20-5.40); White Blood Cell (WBC) Count 6.4 thou/uL (4.8-10.8)
[2021-10-15 02:46] LABS: ALT (SGPT) 129 U/L (8-55); AST (SGOT) 205 U/L (5-34); Albumin 2.8 g/dL (3.4-4.8); Alkaline Phosphatase 347 U/L (40-110); Anion Gap 13 mmol/L (10-20); BUN (Urea Nitrogen) 20 mg/dL (9.8-20.1); Bilirubin, Total 0.7 mg/dL (0.2-1.2); Calc. Creatinine Clearance 105 mL/min (70-130); Calcium 8.6 mg/dL (7.8-10.44); Carbon Dioxide 19 mmol/L (23-31); Chloride 113 mmol/L (98-107); Estimated GFR 93; Globulin 1.7 g/dL (2.4-3.5); Glucose 163 mg/dL (83-110); Potassium 4.6 mmol/L (3.5-5.1); Protein, Total 4.5 g/dL (5.8-8.1); Sodium 140 mmol/L (136-145)
[2021-10-15] MEDS ORDERED: Ondansetron PF 4 MG/2 ML Vial IVP PRN (05:26)
[2021-10-15] MEDS: Levothyroxine Sodium 100 MCG TAB PO SCH (05:37)
[2021-10-15] MEDS: Artificial Tear Sol 15 ML BOT EA EYE SCH ×2 (08:26→20:40)
[2021-10-15] MEDS: Pantoprazole 40 MG VIAL IVP SCH ×2 (08:26→20:48)
[2021-10-15] MEDS ORDERED: PHENYLEPHRINE-NS 100 MCG/ML 10 ML SYRINGE ONE (10:26)
[2021-10-15] MEDS ORDERED: PROPOFOL 200 MG/20 ML VIAL ONE (10:26)
[2021-10-15] MEDS ORDERED: Promethazine HCl 25 MG/ML VIAL IVPB PRN (12:46)
[2021-10-15] MEDS ORDERED: Ondansetron HCl/PF 4 MG/2 ML Vial IVP PRN (12:46)
[2021-10-15] MEDS ORDERED: Promethazine HCl 25 MG/ML VIAL IM PRN (12:46)
[2021-10-15] MEDS: Aripiprazole 10 MG TAB PO SCH ×2 (13:51→20:43)
[2021-10-15] MEDS: Lidocaine 5% Patch TD SCH (13:57)
[2021-10-15 14:13] LABS: Hemoglobin 7.7 g/dL (12.0-16.0); Platelet Count 149 thou/uL (130-400)
[2021-10-15] MEDS: Gabapentin 300 MG CAP PO SCH ×2 (15:20→20:47)
[2021-10-15] MEDS: Metoclopramide HCl 10 MG TAB PO SCH (17:43)
[2021-10-15] MEDS: Mometasone 100 MCG/PUFF (1 INHALER) INH SCH (18:44)
[2021-10-15] MEDS ORDERED: Ipratropium/Albuterol Sulfate 4 GM AER IH SCH (19:00)
[2021-10-15] MEDS ORDERED: Albuterol Sulfate 2.5 mg/3 ml Neb NEB PRN (19:06)
[2021-10-15] MEDS ORDERED: Acetaminophen 325 MG TAB PO PRN (20:11)
[2021-10-15] MEDS: Insulin Glargine 30 UNITS/0.3 ML VIAL SC SCH (20:46)
[2021-10-15] MEDS: Mirtazapine 15 MG TAB PO SCH (20:46)
[2021-10-15 20:51] LABS: Hemoglobin 6.2 g/dL (12.0-16.0)
[2021-10-15] MEDS: Transdermal Patch Removal TOP SCH (20:52)
[2021-10-16] MEDS: Lactated Ringer's 1,000 ML IV SCH ×2 (02:33→10:11)
[2021-10-16 03:54] LABS: #Eosinphils 0.2 thou/uL (0.0-0.7); #Monocytes 0.6 thou/uL (0.11-0.59); #Neutrophils 3.9 thou/uL (1.40-6.50); %Basophils 0.5 % (0.0-1.0); %Eosinophils 2.5 % (0.0-10.0); %Lymphocytes 29.8 % (21.0-51.0); %Monocytes 9.2 % (0.0-10.0); Hemoglobin 7.2 g/dL (12.0-16.0); Mean Corpuscular HGB CONC 32.5 g/dL (32.0-36.0); Mean Corpuscular Hemoglobin 28.1 pg (27.0-31.0); Mean Corpuscular Volume 86.7 fL (78.0-98.0); Mean Platelet Volume 8.9 fL (7.4-10.4); Platelet Count 135 thou/uL (130-400); RBC Distribution Width 16.2 % (11.5-14.5); Red Blood Cell (RBC) Count 2.55 mill/uL (4.20-5.40); White Blood Cell (WBC) Count 6.7 thou/uL (4.8-10.8)
[2021-10-16 04:14] LABS: ALT (SGPT) 78 U/L (8-55); AST (SGOT) 54 U/L (5-34); Albumin 2.4 g/dL (3.4-4.8); Alkaline Phosphatase 247 U/L (40-110); Anion Gap 9 mmol/L (10-20); BUN (Urea Nitrogen) 11 mg/dL (9.8-20.1); Bilirubin, Total 0.4 mg/dL (0.2-1.2); Calc. Creatinine Clearance 118 mL/min (70-130); Calcium 8.4 mg/dL (7.8-10.44); Carbon Dioxide 21 mmol/L (23-31); Chloride 115 mmol/L (98-107); Estimated GFR 95; Globulin 1.6 g/dL (2.4-3.5); Glucose 127 mg/dL (83-110); Potassium 4.1 mmol/L (3.5-5.1); Sodium 141 mmol/L (136-145)
[2021-10-16] MEDS: Levothyroxine Sodium 100 MCG TAB PO SCH (05:36)
[2021-10-16] MEDS: Mometasone 100 MCG/PUFF (1 INHALER) INH SCH ×2 (06:52→18:34)
[2021-10-16] MEDS ORDERED: Non-Formulary Item 1 EACH (Fluticasone/Umeclidin/Vilanter [Trelegy Ellipta 100-62.5-25] 1 INH SCH (09:00)
[2021-10-16] MEDS: Aripiprazole 10 MG TAB PO SCH ×2 (09:45→22:54)
[2021-10-16] MEDS: Artificial Tear Sol 15 ML BOT EA EYE SCH ×2 (09:45→22:55)
[2021-10-16] MEDS: Rosuvastatin 20 MG TAB PO SCH (09:46)
[2021-10-16] MEDS: Ezetimibe 10 MG TAB PO SCH (09:46)
[2021-10-16] MEDS: Gabapentin 300 MG CAP PO SCH ×3 (09:46→22:54)
[2021-10-16] MEDS: Metoclopramide HCl 10 MG TAB PO SCH ×2 (09:46→16:57)
[2021-10-16] MEDS: Alogliptin 25 MG TAB PO SCH (09:46)
[2021-10-16] MEDS: Loratadine 10 MG TAB PO SCH (09:46)
[2021-10-16] MEDS: Lidocaine 5% Patch TD SCH (09:47)
[2021-10-16] MEDS: Pantoprazole 40 MG VIAL IVP SCH (09:47)
[2021-10-16 13:33] LABS: Hemoglobin 7.9 g/dL (12.0-16.0)
[2021-10-16] MEDS ORDERED: Furosemide 40 MG/4 ML VIAL SLOW IVP SCH (16:00)
[2021-10-16 21:46] LABS: Hemoglobin 7.3 g/dL (12.0-16.0)
[2021-10-16] MEDS: Insulin Glargine 30 UNITS/0.3 ML VIAL SC SCH (22:53)
[2021-10-16] MEDS: Mirtazapine 15 MG TAB PO SCH (22:53)
[2021-10-16] MEDS: Transdermal Patch Removal TOP SCH (22:53)
[2021-10-17 03:59] LABS: #Eosinphils 0.1 thou/uL (0.0-0.7); #Lymphocytes 1.8 thou/uL (1.20-3.40); #Monocytes 0.5 thou/uL (0.11-0.59); #Neutrophils 4.4 thou/uL (1.40-6.50); %Basophils 0.4 % (0.0-1.0); %Eosinophils 2.1 % (0.0-10.0); %Lymphocytes 25.8 % (21.0-51.0); %Monocytes 7.3 % (0.0-10.0); %Neutrophils 64.4 % (42.0-75.0); Hemoglobin 7.1 g/dL (12.0-16.0); Mean Corpuscular HGB CONC 35.7 g/dL (32.0-36.0); Mean Corpuscular Hemoglobin 29.9 pg (27.0-31.0); Mean Corpuscular Volume 83.7 fL (78.0-98.0); Mean Platelet Volume 8.7 fL (7.4-10.4); Platelet Count 160 thou/uL (130-400); RBC Distribution Width 16.3 % (11.5-14.5); Red Blood Cell (RBC) Count 2.39 mill/uL (4.20-5.40); White Blood Cell (WBC) Count 6.8 thou/uL (4.8-10.8)
[2021-10-17 04:18] LABS: ALT (SGPT) 57 U/L (8-55); AST (SGOT) 29 U/L (5-34); Albumin 2.7 g/dL (3.4-4.8); Alkaline Phosphatase 249 U/L (40-110); Anion Gap 11 mmol/L (10-20); BUN (Urea Nitrogen) 7 mg/dL (9.8-20.1); Bilirubin, Total 0.2 mg/dL (0.2-1.2); Calc. Creatinine Clearance 123 mL/min (70-130); Calcium 8.8 mg/dL (7.8-10.44); Carbon Dioxide 23 mmol/L (23-31); Chloride 112 mmol/L (98-107); Estimated GFR 96; Globulin 1.7 g/dL (2.4-3.5); Glucose 117 mg/dL (83-110); Potassium 3.4 mmol/L (3.5-5.1); Protein, Total 4.4 g/dL (5.8-8.1); Sodium 143 mmol/L (136-145)
[2021-10-17] MEDS: Levothyroxine Sodium 100 MCG TAB PO SCH (06:40)
[2021-10-17] MEDS ORDERED: Potassium Chloride 20 MEQ TAB PO SCH (07:15)
[2021-10-17] MEDS: Mometasone 100 MCG/PUFF (1 INHALER) INH SCH ×2 (07:42→18:42)
[2021-10-17] MEDS ORDERED: Simethicone Chewable 80 MG TAB PO SCH (07:45)
[2021-10-17] MEDS: Lidocaine 5% Patch TD SCH (08:34)
[2021-10-17] MEDS: Artificial Tear Sol 15 ML BOT EA EYE SCH ×2 (08:34→21:59)
[2021-10-17] MEDS: Furosemide 40 MG TAB PO SCH (08:34)
[2021-10-17] MEDS: Aripiprazole 10 MG TAB PO SCH ×2 (08:34→21:51)
[2021-10-17] MEDS: Loratadine 10 MG TAB PO SCH (08:34)
[2021-10-17] MEDS: Rosuvastatin 20 MG TAB PO SCH (08:34)
[2021-10-17] MEDS: Alogliptin 25 MG TAB PO SCH (08:35)
[2021-10-17] MEDS: Metoclopramide HCl 10 MG TAB PO SCH ×2 (08:35→18:12)
[2021-10-17] MEDS: Gabapentin 300 MG CAP PO SCH ×3 (08:35→21:57)
[2021-10-17] MEDS: Ezetimibe 10 MG TAB PO SCH (08:35)
[2021-10-17 13:13] LABS: Hemoglobin 7.7 g/dL (12.0-16.0)
[2021-10-17] MEDS: Ferrous Sulfate 325 MG TAB PO SCH (18:12)
[2021-10-17] MEDS: Mirtazapine 15 MG TAB PO SCH (21:56)
[2021-10-17] MEDS: Insulin Glargine 30 UNITS/0.3 ML VIAL SC SCH (21:58)
[2021-10-17] MEDS: Transdermal Patch Removal TOP SCH (22:00)
[2021-10-18 05:26] LABS: #Eosinphils 0.1 thou/uL (0.0-0.7); #Lymphocytes 1.7 thou/uL (1.20-3.40); #Monocytes 0.5 thou/uL (0.11-0.59); #Neutrophils 3.7 thou/uL (1.40-6.50); %Basophils 0.4 % (0.0-1.0); %Eosinophils 2.2 % (0.0-10.0); %Monocytes 8.3 % (0.0-10.0); %Neutrophils 61.2 % (42.0-75.0); Hemoglobin 6.7 g/dL (12.0-16.0); Mean Corpuscular HGB CONC 32.7 g/dL (32.0-36.0); Mean Corpuscular Hemoglobin 28.2 pg (27.0-31.0); Mean Corpuscular Volume 86.2 fL (78.0-98.0); Mean Platelet Volume 8.7 fL (7.4-10.4); Platelet Count 178 thou/uL (130-400); RBC Distribution Width 16.8 % (11.5-14.5); Red Blood Cell (RBC) Count 2.36 mill/uL (4.20-5.40); White Blood Cell (WBC) Count 6.1 thou/uL (4.8-10.8)
[2021-10-18] MEDS: Levothyroxine Sodium 100 MCG TAB PO SCH (05:39)
[2021-10-18 05:50] LABS: ALT (SGPT) 45 U/L (8-55); AST (SGOT) 30 U/L (5-34); Albumin 2.7 g/dL (3.4-4.8); Alkaline Phosphatase 271 U/L (40-110); Anion Gap 12 mmol/L (10-20); BUN (Urea Nitrogen) 8 mg/dL (9.8-20.1); Bilirubin, Total 0.2 mg/dL (0.2-1.2); Calc. Creatinine Clearance 110 mL/min (70-130); Calcium 8.6 mg/dL (7.8-10.44); Carbon Dioxide 25 mmol/L (23-31); Chloride 109 mmol/L (98-107); Estimated GFR 94; Globulin 1.8 g/dL (2.4-3.5); Glucose 151 mg/dL (83-110); Potassium 3.6 mmol/L (3.5-5.1); Protein, Total 4.5 g/dL (5.8-8.1); Sodium 142 mmol/L (136-145)
[2021-10-18] MEDS: Mometasone 100 MCG/PUFF (1 INHALER) INH SCH (07:45)
[2021-10-18] MEDS: Lidocaine 5% Patch TD SCH (08:55)
[2021-10-18] MEDS: Rosuvastatin 20 MG TAB PO SCH (08:56)
[2021-10-18] MEDS: Alogliptin 25 MG TAB PO SCH (08:56)
[2021-10-18] MEDS: Aripiprazole 10 MG TAB PO SCH (08:56)
[2021-10-18] MEDS: Artificial Tear Sol 15 ML BOT EA EYE SCH (08:56)
[2021-10-18] MEDS: Loratadine 10 MG TAB PO SCH (08:57)
[2021-10-18] MEDS: Gabapentin 300 MG CAP PO SCH (08:57)
[2021-10-18] MEDS: Ferrous Sulfate 325 MG TAB PO SCH (08:57)
[2021-10-18] MEDS: Metoclopramide HCl 10 MG TAB PO SCH (08:57)
[2021-10-18] MEDS: Ezetimibe 10 MG TAB PO SCH (08:57)
[2021-10-18] MEDS: Furosemide 40 MG TAB PO SCH (08:57)
[2021-10-18 09:40] LABS: Hemoglobin 7.4 g/dL (12.0-16.0)
[2021-10-18 12:03] VITALS: TEMP 98.2
[2021-10-18 12:29] VITALS: BP 109/60
[2021-10-18 13:32] LABS: Hemoglobin 7.9 g/dL (12.0-16.0)
== END 2021-10-18 16:20 | disposition home or self-care (01) | DRG 378 ==
LOC: ERS 10:44 → ERHOLD 13:11 → IMCU/EMU 17:41 → NEURO 10-17 20:15
PROVIDERS: ADMIT Student in an Organized Health Care Education/Training Program; ATTEND Family Medicine
PROC: 30233N1 Transfusion of Nonautologous Red Blood Cells into Peripheral Vein, Percutaneous Approach (ICD-10-PCS; principal; 2021-10-14)
PROC: 0W3P8ZZ Control Bleeding in Gastrointestinal Tract, Via Natural or Artificial Opening Endoscopic (ICD-10-PCS; 2021-10-15)
PROC: 0DJD8ZZ Inspection of Lower Intestinal Tract, Via Natural or Artificial Opening Endoscopic (ICD-10-PCS; 2021-10-15)
DX: K92.2 Gastrointestinal hemorrhage, unspecified (principal); E87.2 Acidosis; I13.0 Hypertensive heart and chronic kidney disease with heart failure and stage 1 through stage 4 chronic kidney disease, or unspecified chronic kidney disease; K63.3 Ulcer of intestine; I50.32 Chronic diastolic (congestive) heart failure; Z20.822 Contact with and (suspected) exposure to COVID-19; Z66 Do not resuscitate; E78.00 Pure hypercholesterolemia, unspecified; J44.9 Chronic obstructive pulmonary disease, unspecified; G20 Parkinson's disease; F41.9 Anxiety disorder, unspecified; F32.A Depression, unspecified; I48.91 Unspecified atrial fibrillation; R33.9 Retention of urine, unspecified; E03.9 Hypothyroidism, unspecified; E11.319 Type 2 diabetes mellitus with unspecified diabetic retinopathy without macular edema; K25.9 Gastric ulcer, unspecified as acute or chronic, without hemorrhage or perforation; K31.819 Angiodysplasia of stomach and duodenum without bleeding; K44.9 Diaphragmatic hernia without obstruction or gangrene; N18.30 Chronic kidney disease, stage 3 unspecified; Z88.2 Allergy status to sulfonamides; Z79.01 Long term (current) use of anticoagulants; Z79.899 Other long term (current) drug therapy; Z90.49 Acquired absence of other specified parts of digestive tract; Z88.5 Allergy status to narcotic agent; Z88.8 Allergy status to other drugs, medicaments and biological substances; Z91.041 Radiographic dye allergy status; Z91.013 Allergy to seafood; Z79.82 Long term (current) use of aspirin; Z79.84 Long term (current) use of oral hypoglycemic drugs
CPT/HCPCS: 36415; 36416; 36430; 71045; 74176; 80053; 81003; 83605; 83690; 84484; 85025; 86850; 86900; 86901; 93005; 94640; C1776; C9113; J0171; J1815; J1940; J2405; J2543; J2704; J3370; J7120; J7620; P9016; P9035; U0002

== ENCOUNTER 2021-10-28 10:54 | Outpatient (CLI) | payer OTHER | END 2021-10-28 10:55 | disposition home or self-care (01) | LOC: RAD 10:54 | PROVIDERS: ATTEND Internal Medicine Critical Care Medicine | DX: R06.00 Dyspnea, unspecified (principal) | CPT/HCPCS: 71046 ==

== ENCOUNTER 2021-12-03 12:07 | Observation (INO) | payer OTHER ==
[2021-12-03] MEDS ORDERED: Morphine 4 MG/ML VIAL ONE (12:43)
[2021-12-03 13:15] LABS: #Eosinphils 0.1 thou/uL (0.0-0.7); #Lymphocytes 1.1 thou/uL (1.20-3.40); #Monocytes 0.4 thou/uL (0.11-0.59); #Neutrophils 3.8 thou/uL (1.40-6.50); %Basophils 0.3 % (0.0-1.0); %Eosinophils 1.5 % (0.0-10.0); %Lymphocytes 20.7 % (21.0-51.0); %Monocytes 7.9 % (0.0-10.0); %Neutrophils 69.6 % (42.0-75.0); Hemoglobin 11.1 g/dL (12.0-16.0); Mean Corpuscular HGB CONC 31.4 g/dL (32.0-36.0); Mean Corpuscular Volume 86.2 fL (78.0-98.0); Mean Platelet Volume 9.8 fL (7.4-10.4); Platelet Count 177 thou/uL (130-400); RBC Distribution Width 15.3 % (11.5-14.5); Red Blood Cell (RBC) Count 4.09 mill/uL (4.20-5.40); White Blood Cell (WBC) Count 5.5 thou/uL (4.8-10.8)
[2021-12-03 13:37] LABS: ALT (SGPT) 175 U/L (8-55); AST (SGOT) 364 U/L (5-34); Albumin 3.8 g/dL (3.4-4.8); Alkaline Phosphatase 554 U/L (40-110); Anion Gap 13 mmol/L (10-20); BUN (Urea Nitrogen) 15 mg/dL (9.8-20.1); Bilirubin, Total 0.2 mg/dL (0.2-1.2); Calc. Creatinine Clearance 0 mL/min (70-130); Calcium 9.9 mg/dL (7.8-10.44); Carbon Dioxide 21 mmol/L (23-31); Chloride 111 mmol/L (98-107); Estimated GFR 83; Globulin 2.3 g/dL (2.4-3.5); Glucose 301 mg/dL (83-110); Potassium 3.9 mmol/L (3.5-5.1); Protein, Total 6.1 g/dL (5.8-8.1); Sodium 141 mmol/L (136-145)
[2021-12-03] MEDS ORDERED: Acetaminophen 325 MG TAB PO PRN (14:47)
[2021-12-03] MEDS ORDERED: Ondansetron ODT 4 MG TAB PO PRN (14:47)
[2021-12-03] MEDS ORDERED: Dextrose 5% in Water 1,000 ML IV PRN (15:26)
[2021-12-03] MEDS ORDERED: Dextrose 50% Abboject 50 ML SYRINGE SLOW IVP PRN (15:26)
[2021-12-03] MEDS ORDERED: HumaLOG 300 UNITS/3 ML VIAL SC PRN (15:26)
[2021-12-03] MEDS: Metoclopramide HCl 10 MG TAB PO SCH (17:52)
[2021-12-03] MEDS: Ferrous Sulfate 325 MG TAB PO SCH (17:52)
[2021-12-03 18:20] VITALS: BMI 32.3
[2021-12-03] MEDS ORDERED: Albuterol Sulfate 2.5 mg/3 ml Neb NEB SCH (19:00)
[2021-12-03] MEDS: Aripiprazole 10 MG TAB PO SCH (20:36)
[2021-12-03] MEDS: Gabapentin 300 MG CAP PO SCH (20:38)
[2021-12-03] MEDS ORDERED: Rosuvastatin 20 MG TAB PO SCH (21:00)
[2021-12-03] MEDS ORDERED: Insulin Glargine 30 UNITS/0.3 ML VIAL SC SCH (21:00)
[2021-12-03] MEDS ORDERED: Clopidogrel Bisulfate 75 MG TAB PO SCH (21:00)
[2021-12-03] MEDS ORDERED: Mirtazapine 30 MG TAB PO SCH (21:00)
[2021-12-03] MEDS ORDERED: Artificial Tear Sol 15 ML BOT EA EYE PRN (21:00)
[2021-12-03] MEDS: Mometasone 100 MCG/PUFF (1 INHALER) INH SCH (21:24)
[2021-12-04] MEDS: Nitroglycerin 0.4 MG TAB (25 Tab Bottle) SL PRN ×3 (05:15→05:30)
[2021-12-04] MEDS ORDERED: Levothyroxine Sodium 100 MCG TAB PO SCH (06:00)
[2021-12-04] MEDS: Mometasone 100 MCG/PUFF (1 INHALER) INH SCH (06:50)
[2021-12-04 07:43] LABS: #Eosinphils 0.1 thou/uL (0.0-0.7); #Lymphocytes 2.1 thou/uL (1.20-3.40); #Monocytes 0.3 thou/uL (0.11-0.59); #Neutrophils 2.8 thou/uL (1.40-6.50); %Basophils 0.2 % (0.0-1.0); %Eosinophils 1.5 % (0.0-10.0); %Lymphocytes 39.5 % (21.0-51.0); %Monocytes 6.3 % (0.0-10.0); %Neutrophils 52.5 % (42.0-75.0); Hemoglobin 11.2 g/dL (12.0-16.0); Mean Corpuscular HGB CONC 31.2 g/dL (32.0-36.0); Mean Corpuscular Hemoglobin 26.8 pg (27.0-31.0); Mean Corpuscular Volume 85.8 fL (78.0-98.0); Mean Platelet Volume 9.3 fL (7.4-10.4); Platelet Count 166 thou/uL (130-400); RBC Distribution Width 15.3 % (11.5-14.5); Red Blood Cell (RBC) Count 4.19 mill/uL (4.20-5.40); White Blood Cell (WBC) Count 5.4 thou/uL (4.8-10.8)
[2021-12-04 08:05] LABS: ALT (SGPT) 163 U/L (8-55); AST (SGOT) 219 U/L (5-34); Albumin 3.8 g/dL (3.4-4.8); Alkaline Phosphatase 534 U/L (40-110); Anion Gap 16 mmol/L (10-20); BUN (Urea Nitrogen) 14 mg/dL (9.8-20.1); Bilirubin, Total 0.3 mg/dL (0.2-1.2); Calc. Creatinine Clearance 95 mL/min (70-130); Calcium 9.8 mg/dL (7.8-10.44); Carbon Dioxide 21 mmol/L (23-31); Chloride 109 mmol/L (98-107); Estimated GFR 92; Globulin 2.2 g/dL (2.4-3.5); Glucose 143 mg/dL (83-110); Potassium 4.1 mmol/L (3.5-5.1); Sodium 142 mmol/L (136-145)
[2021-12-04] MEDS ORDERED: Regadenoson 0.4 MG/5 ML SYRINGE ONE (08:27)
[2021-12-04 08:55] LABS: Troponin I Less than 0.010 ng/mL (< 0.028)
[2021-12-04] MEDS ORDERED: Ezetimibe 10 MG TAB PO SCH (09:00)
[2021-12-04] MEDS ORDERED: Alogliptin 25 MG TAB PO SCH (09:00)
[2021-12-04] MEDS ORDERED: Allopurinol 100 MG TAB PO SCH (09:00)
[2021-12-04] MEDS ORDERED: Loratadine 10 MG TAB PO SCH (09:00)
[2021-12-04] MEDS ORDERED: Furosemide 40 MG TAB PO SCH (09:00)
[2021-12-04] MEDS ORDERED: Aspirin 81 mg Enteric Coated Tablet PO SCH (09:00)
[2021-12-04] MEDS ORDERED: Enoxaparin Sodium 40 MG/0.4 ML SYRINGE SC SCH (09:00)
[2021-12-04] MEDS ORDERED: Lisinopril 5 MG TAB PO SCH (09:00)
[2021-12-04] MEDS: Ferrous Sulfate 325 MG TAB PO SCH (13:58)
[2021-12-04] MEDS: Gabapentin 300 MG CAP PO SCH ×2 (14:00→14:16)
[2021-12-04] MEDS: Metoclopramide HCl 10 MG TAB PO SCH (14:00)
[2021-12-04] MEDS: Aripiprazole 10 MG TAB PO SCH (14:17)
[2021-12-04 16:20] VITALS: BP 153/72; TEMP 98.2
== END 2021-12-04 17:43 | disposition home or self-care (01) ==
LOC: ERS 12:07 → 2SW 16:58
PROVIDERS: ADMIT Student in an Organized Health Care Education/Training Program; ATTEND Family Medicine
DX: R07.89 Other chest pain (principal); Z20.822 Contact with and (suspected) exposure to COVID-19; E11.40 Type 2 diabetes mellitus with diabetic neuropathy, unspecified; I11.0 Hypertensive heart disease with heart failure; I50.30 Unspecified diastolic (congestive) heart failure; I48.91 Unspecified atrial fibrillation; I25.10 Atherosclerotic heart disease of native coronary artery without angina pectoris; E03.9 Hypothyroidism, unspecified; J44.9 Chronic obstructive pulmonary disease, unspecified; M10.9 Gout, unspecified; K21.9 Gastro-esophageal reflux disease without esophagitis; K76.0 Fatty (change of) liver, not elsewhere classified; D64.9 Anemia, unspecified; G20 Parkinson's disease; R74.01 Elevation of levels of liver transaminase levels; Z79.02 Long term (current) use of antithrombotics/antiplatelets; Z79.4 Long term (current) use of insulin; Z79.890 Hormone replacement therapy; Z79.899 Other long term (current) drug therapy; Z88.5 Allergy status to narcotic agent; Z88.6 Allergy status to analgesic agent; Z88.8 Allergy status to other drugs, medicaments and biological substances; Z91.013 Allergy to seafood; Z91.041 Radiographic dye allergy status; Z91.048 Other nonmedicinal substance allergy status
CPT/HCPCS: 71045; 78452; 80053 ×2; 82962 ×2; 83880; 84484 ×3; 85025 ×2; 93005; 93017; 94640 ×2; 94760 ×2; 96374; 99285; A9500; G0378 ×3; U0003; U0005; 36415; 36416; J1815; J2270; J2785; J7620

== ENCOUNTER 2021-12-16 08:30 | Inpatient (IN) | payer OTHER ==
[2021-12-16 09:03] LABS: #Basophils 0.1 thou/uL (0.0-0.2); #Eosinphils 0.1 thou/uL (0.0-0.7); #Lymphocytes 3.5 thou/uL (1.20-3.40); #Monocytes 0.5 thou/uL (0.11-0.59); %Basophils 1.2 % (0.0-1.0); %Eosinophils 0.7 % (0.0-10.0); %Lymphocytes 48.5 % (21.0-51.0); %Monocytes 7.3 % (0.0-10.0); %Neutrophils 42.3 % (42.0-75.0); Hemoglobin 12.2 g/dL (12.0-16.0); Mean Corpuscular HGB CONC 31.3 g/dL (32.0-36.0); Mean Corpuscular Hemoglobin 26.8 pg (27.0-31.0); Mean Corpuscular Volume 85.7 fL (78.0-98.0); Mean Platelet Volume 8.7 fL (7.4-10.4); Platelet Count 194 thou/uL (130-400); RBC Distribution Width 14.7 % (11.5-14.5); Red Blood Cell (RBC) Count 4.56 mill/uL (4.20-5.40); White Blood Cell (WBC) Count 7.1 thou/uL (4.8-10.8)
[2021-12-16 09:23] LABS: ALT (SGPT) 176 U/L (8-55); AST (SGOT) 112 U/L (5-34); Albumin 3.7 g/dL (3.4-4.8); Alkaline Phosphatase 362 U/L (40-110); Anion Gap 15 mmol/L (10-20); BUN (Urea Nitrogen) 15 mg/dL (9.8-20.1); Bilirubin, Total 0.3 mg/dL (0.2-1.2); CK (CPK) 18 U/L (29-168); Calc. Creatinine Clearance 0 mL/min (70-130); Calcium 9.6 mg/dL (7.8-10.44); Carbon Dioxide 21 mmol/L (23-31); Chloride 111 mmol/L (98-107); Estimated GFR 95; Globulin 2.2 g/dL (2.4-3.5); Glucose 121 mg/dL (83-110); Lipase 9 U/L (8-78); Potassium 3.4 mmol/L (3.5-5.1); Protein, Total 5.9 g/dL (5.8-8.1); Sodium 144 mmol/L (136-145)
[2021-12-16] MEDS ORDERED: Nitroglycerin 2% Ointment 1 INCH/1 GM Packet ONE (09:29)
[2021-12-16] MEDS ORDERED: Enoxaparin Sodium 80 MG/0.8 ML SYRINGE ONE (09:46)
[2021-12-16] MEDS ORDERED: Dextrose 50% Abboject 50 ML SYRINGE SLOW IVP PRN (11:29)
[2021-12-16] MEDS ORDERED: HumaLOG 300 UNITS/3 ML VIAL SC PRN ×2 (11:29)
[2021-12-16] MEDS ORDERED: Dextrose 5% in Water 1,000 ML IV PRN (11:29)
[2021-12-16] MEDS ORDERED: Potassium Chloride 20 MEQ TAB PO SCH (13:30)
[2021-12-16] MEDS ORDERED: Gabapentin 300 MG CAP PO SCH (15:00)
[2021-12-16] MEDS: Metoclopramide HCl 10 MG TAB PO SCH (17:15)
[2021-12-16] MEDS: Nitroglycerin 0.4 MG TAB (25 Tab Bottle) SL PRN ×2 (17:16→22:21)
[2021-12-16] MEDS: Ferrous Sulfate 325 MG TAB PO SCH (17:16)
[2021-12-16 17:23] VITALS: BMI 31.8
[2021-12-16 18:24] LABS: Troponin I Less than 0.010 ng/mL (< 0.028)
[2021-12-16] MEDS: Mometasone 100 MCG/PUFF (1 INHALER) INH SCH (19:11)
[2021-12-16] MEDS ORDERED: Communication Order-Pharmacy FS SCH (19:15)
[2021-12-16] MEDS: Albuterol Sulfate 2.5 mg/0.5 ml Neb NEB SCH ×2 (19:42→23:13)
[2021-12-16] MEDS ORDERED: Artificial Tear Sol 15 ML BOT EA EYE PRN (21:00)
[2021-12-16] MEDS: Aripiprazole 10 MG TAB PO SCH (22:22)
[2021-12-16] MEDS: Insulin Glargine 30 UNITS/0.3 ML VIAL SC SCH (22:22)
[2021-12-16] MEDS: Metoprolol Tartrate 25 MG TAB PO SCH (22:23)
[2021-12-16] MEDS: predniSONE 50 MG TAB PO SCH (22:23)
[2021-12-16] MEDS: Clopidogrel Bisulfate 75 MG TAB PO SCH (22:23)
[2021-12-16] MEDS: Mirtazapine 15 MG TAB PO SCH (22:23)
[2021-12-16 23:01] LABS: Troponin I 0.011 ng/mL (< 0.028)
[2021-12-16] MEDS ORDERED: Melatonin 3 MG TAB PO SCH (23:30)
[2021-12-16] MEDS ORDERED: Acetaminophen 325 MG TAB PO SCH (23:30)
[2021-12-17] MEDS ORDERED: Lactated Ringer's 1,000 ML IV SCH (00:01)
[2021-12-17] MEDS ORDERED: Sodium Chloride 0.9% 500 ML IV SCH ×2 (00:01→09:45)
[2021-12-17 05:05] LABS: #Lymphocytes 1.2 thou/uL (1.20-3.40); #Monocytes 0.1 thou/uL (0.11-0.59); #Neutrophils 5.2 thou/uL (1.40-6.50); %Basophils 0.1 % (0.0-1.0); %Eosinophils 0.2 % (0.0-10.0); %Lymphocytes 18.8 % (21.0-51.0); %Monocytes 1.6 % (0.0-10.0); %Neutrophils 79.2 % (42.0-75.0); Hemoglobin 12.3 g/dL (12.0-16.0); Mean Corpuscular HGB CONC 31.6 g/dL (32.0-36.0); Mean Corpuscular Hemoglobin 26.9 pg (27.0-31.0); Mean Corpuscular Volume 85.4 fL (78.0-98.0); Mean Platelet Volume 9.2 fL (7.4-10.4); Platelet Count 186 thou/uL (130-400); RBC Distribution Width 14.9 % (11.5-14.5); Red Blood Cell (RBC) Count 4.56 mill/uL (4.20-5.40); White Blood Cell (WBC) Count 6.6 thou/uL (4.8-10.8)
[2021-12-17 05:23] LABS: ALT (SGPT) 222 U/L (8-55); AST (SGOT) 206 U/L (5-34); Albumin 3.8 g/dL (3.4-4.8); Alkaline Phosphatase 430 U/L (40-110); Anion Gap 15 mmol/L (10-20); BUN (Urea Nitrogen) 17 mg/dL (9.8-20.1); Bilirubin, Total 0.3 mg/dL (0.2-1.2); Calc. Creatinine Clearance 96 mL/min (70-130); Calcium 9.7 mg/dL (7.8-10.44); Carbon Dioxide 19 mmol/L (23-31); Chloride 110 mmol/L (98-107); Estimated GFR 92; Globulin 2.4 g/dL (2.4-3.5); Glucose 207 mg/dL (83-110); Potassium 4.3 mmol/L (3.5-5.1); Protein, Total 6.2 g/dL (5.8-8.1); Sodium 140 mmol/L (136-145)
[2021-12-17] MEDS: Lisinopril 5 MG TAB PO SCH (05:41)
[2021-12-17] MEDS: Levothyroxine Sodium 100 MCG TAB PO SCH (05:41)
[2021-12-17] MEDS: Metoprolol Tartrate 25 MG TAB PO SCH ×2 (05:42→21:36)
[2021-12-17] MEDS: Allopurinol 100 MG TAB PO SCH (05:43)
[2021-12-17] MEDS: predniSONE 50 MG TAB PO SCH (05:43)
[2021-12-17] MEDS: Alogliptin 25 MG TAB PO SCH (05:43)
[2021-12-17] MEDS: Metoclopramide HCl 10 MG TAB PO SCH ×2 (05:43→17:25)
[2021-12-17] MEDS: Loratadine 10 MG TAB PO SCH (05:43)
[2021-12-17] MEDS: Rosuvastatin 20 MG TAB PO SCH (05:44)
[2021-12-17] MEDS: Furosemide 40 MG TAB PO SCH (05:44)
[2021-12-17] MEDS: Aripiprazole 10 MG TAB PO SCH ×2 (05:44→21:36)
[2021-12-17] MEDS: Ezetimibe 10 MG TAB PO SCH (05:44)
[2021-12-17] MEDS ORDERED: Acetaminophen 325 MG TAB PO SCH (06:15)
[2021-12-17] MEDS: Albuterol Sulfate 2.5 mg/0.5 ml Neb NEB SCH ×4 (07:28→23:41)
[2021-12-17] MEDS: Mometasone 100 MCG/PUFF (1 INHALER) INH SCH ×2 (07:39→19:03)
[2021-12-17] MEDS ORDERED: Fentanyl 100 MCG/2 ML VIAL ONE (08:35)
[2021-12-17] MEDS ORDERED: Hydrocortisone Sod Succ/PF 100 mg/2 ml Vial ONE (08:36)
[2021-12-17] MEDS ORDERED: Midazolam HCl 2 mg/2 ml Vial ONE (08:36)
[2021-12-17] MEDS ORDERED: Heparin 10,000 UNITS/ 10 ML VIAL ONE (08:36)
[2021-12-17] MEDS ORDERED: diphenhydrAMINE 50 MG/ML VIAL ONE (08:36)
[2021-12-17] MEDS ORDERED: Famotidine/PF 20 mg/2ml Vial ONE (08:37)
[2021-12-17] MEDS ORDERED: Nitroglycerin 100MG/250ML BOT 0 ML ONE (08:37)
[2021-12-17] MEDS ORDERED: Lidocaine 1% 50ML VIAL ONE (08:37)
[2021-12-17] MEDS ORDERED: Enoxaparin Sodium 40 MG/0.4 ML SYRINGE SC SCH (09:00)
[2021-12-17] MEDS ORDERED: Sodium Chloride 0.9% 200 ML IV PRN (09:36)
[2021-12-17] MEDS: Ferrous Sulfate 325 MG TAB PO SCH ×2 (11:57→17:26)
[2021-12-17 13:44] LABS: #Lymphocytes 1.2 thou/uL (1.20-3.40); #Monocytes 0.1 thou/uL (0.11-0.59); #Neutrophils 8.3 thou/uL (1.40-6.50); %Basophils 0.3 % (0.0-1.0); %Eosinophils 0.1 % (0.0-10.0); %Lymphocytes 12.4 % (21.0-51.0); %Monocytes 0.8 % (0.0-10.0); %Neutrophils 86.5 % (42.0-75.0); Mean Corpuscular HGB CONC 31.1 g/dL (32.0-36.0); Mean Corpuscular Hemoglobin 26.3 pg (27.0-31.0); Mean Corpuscular Volume 84.6 fL (78.0-98.0); Mean Platelet Volume 9.3 fL (7.4-10.4); Platelet Count 212 thou/uL (130-400); Red Blood Cell (RBC) Count 4.94 mill/uL (4.20-5.40); White Blood Cell (WBC) Count 9.6 thou/uL (4.8-10.8)
[2021-12-17 13:51] LABS: PTT 23.4 sec (22.9-36.1)
[2021-12-17] MEDS ORDERED: Fentanyl 100 MCG/2 ML VIAL SLOW IVP SCH (14:30)
[2021-12-17] MEDS ORDERED: Iopamidol 370 76% 100 ML VIAL ONE (15:06)
[2021-12-17] MEDS: Mirtazapine 15 MG TAB PO SCH (21:35)
[2021-12-17] MEDS: Insulin Glargine 30 UNITS/0.3 ML VIAL SC SCH (21:36)
[2021-12-17] MEDS: Clopidogrel Bisulfate 75 MG TAB PO SCH (21:36)
[2021-12-17] MEDS ORDERED: Acetaminophen 325 MG TAB PO PRN (21:39)
[2021-12-18 05:16] LABS: #Lymphocytes 3.3 thou/uL (1.20-3.40); #Monocytes 0.7 thou/uL (0.11-0.59); %Basophils 0.2 % (0.0-1.0); %Eosinophils 0.2 % (0.0-10.0); %Lymphocytes 32.9 % (21.0-51.0); %Monocytes 7.1 % (0.0-10.0); %Neutrophils 59.6 % (42.0-75.0); Hemoglobin 10.4 g/dL (12.0-16.0); Mean Corpuscular HGB CONC 32.1 g/dL (32.0-36.0); Mean Corpuscular Hemoglobin 27.4 pg (27.0-31.0); Mean Corpuscular Volume 85.4 fL (78.0-98.0); Mean Platelet Volume 9.1 fL (7.4-10.4); Platelet Count 186 thou/uL (130-400); Red Blood Cell (RBC) Count 3.79 mill/uL (4.20-5.40)
[2021-12-18 05:43] LABS: ALT (SGPT) 135 U/L (8-55); AST (SGOT) 48 U/L (5-34); Albumin 3.4 g/dL (3.4-4.8); Alkaline Phosphatase 315 U/L (40-110); Anion Gap 12 mmol/L (10-20); BUN (Urea Nitrogen) 18 mg/dL (9.8-20.1); Bilirubin, Total 0.2 mg/dL (0.2-1.2); Calc. Creatinine Clearance 90 mL/min (70-130); Calcium 9.6 mg/dL (7.8-10.44); Carbon Dioxide 23 mmol/L (23-31); Chloride 109 mmol/L (98-107); Estimated GFR 87; Glucose 210 mg/dL (83-110); Potassium 3.4 mmol/L (3.5-5.1); Protein, Total 5.4 g/dL (5.8-8.1); Sodium 141 mmol/L (136-145)
[2021-12-18] MEDS: Levothyroxine Sodium 100 MCG TAB PO SCH (06:09)
[2021-12-18] MEDS: Albuterol Sulfate 2.5 mg/0.5 ml Neb NEB SCH (07:16)
[2021-12-18] MEDS: Mometasone 100 MCG/PUFF (1 INHALER) INH SCH (07:16)
[2021-12-18] MEDS: Ferrous Sulfate 325 MG TAB PO SCH (10:55)
[2021-12-18] MEDS: Furosemide 40 MG TAB PO SCH (10:56)
[2021-12-18] MEDS: Loratadine 10 MG TAB PO SCH (10:56)
[2021-12-18] MEDS: Ezetimibe 10 MG TAB PO SCH (10:56)
[2021-12-18] MEDS: Allopurinol 100 MG TAB PO SCH (10:56)
[2021-12-18] MEDS: Metoprolol Tartrate 25 MG TAB PO SCH (10:56)
[2021-12-18] MEDS: Alogliptin 25 MG TAB PO SCH (10:56)
[2021-12-18] MEDS: Lisinopril 5 MG TAB PO SCH (10:56)
[2021-12-18] MEDS: Aripiprazole 10 MG TAB PO SCH (10:56)
[2021-12-18] MEDS: Metoclopramide HCl 10 MG TAB PO SCH (10:56)
[2021-12-18] MEDS: Rosuvastatin 20 MG TAB PO SCH (10:58)
[2021-12-18 12:28] VITALS: TEMP 99.3
[2021-12-18 12:30] VITALS: BP 132/62
== END 2021-12-18 15:25 | disposition home or self-care (01) | DRG 442 ==
LOC: ERS 08:30 → ERHOLD 09:54 → 2NO 15:29 → OBSVTOIN 12-18 11:54
PROVIDERS: ADMIT Student in an Organized Health Care Education/Training Program; ATTEND Student in an Organized Health Care Education/Training Program
PROC: 4A023N7 Measurement of Cardiac Sampling and Pressure, Left Heart, Percutaneous Approach (ICD-10-PCS; principal; 2021-12-18)
PROC: B2111ZZ Fluoroscopy of Multiple Coronary Arteries using Low Osmolar Contrast (ICD-10-PCS; 2021-12-18)
PROC: B2151ZZ Fluoroscopy of Left Heart using Low Osmolar Contrast (ICD-10-PCS; 2021-12-18)
DX: K72.00 Acute and subacute hepatic failure without coma (principal); L76.32 Postprocedural hematoma of skin and subcutaneous tissue following other procedure; F41.9 Anxiety disorder, unspecified; Z66 Do not resuscitate; Z20.822 Contact with and (suspected) exposure to COVID-19; K21.9 Gastro-esophageal reflux disease without esophagitis; E87.6 Hypokalemia; R74.01 Elevation of levels of liver transaminase levels; J44.9 Chronic obstructive pulmonary disease, unspecified; E11.40 Type 2 diabetes mellitus with diabetic neuropathy, unspecified; E11.51 Type 2 diabetes mellitus with diabetic peripheral angiopathy without gangrene; I10 Essential (primary) hypertension; D64.9 Anemia, unspecified; M10.9 Gout, unspecified; F31.9 Bipolar disorder, unspecified; E03.9 Hypothyroidism, unspecified; Z96.659 Presence of unspecified artificial knee joint; E78.5 Hyperlipidemia, unspecified; E11.42 Type 2 diabetes mellitus with diabetic polyneuropathy; Y84.0 Cardiac catheterization as the cause of abnormal reaction of the patient, or of later complication, without mention of misadventure at the time of the procedure; Z28.21 Immunization not carried out because of patient refusal; Z88.8 Allergy status to other drugs, medicaments and biological substances; Z88.6 Allergy status to analgesic agent; Z91.041 Radiographic dye allergy status; Z88.5 Allergy status to narcotic agent; Z91.013 Allergy to seafood; Z79.899 Other long term (current) drug therapy; Z79.02 Long term (current) use of antithrombotics/antiplatelets; Z79.51 Long term (current) use of inhaled steroids; Z79.890 Hormone replacement therapy; Z79.84 Long term (current) use of oral hypoglycemic drugs; Z90.49 Acquired absence of other specified parts of digestive tract; Z90.710 Acquired absence of both cervix and uterus; Z82.3 Family history of stroke; Z80.42 Family history of malignant neoplasm of prostate; Z80.1 Family history of malignant neoplasm of trachea, bronchus and lung; Z80.0 Family history of malignant neoplasm of digestive organs
CPT/HCPCS: 36415; 36416; 71045; 76705; 80053; 82550; 83690; 83880; 84484; 85025; 85610; 85730; 93005; 93010; 93306; 93458; 93970; 93976; 94640; 94760; 96372; 96374; 99152; C1769; G0378; J1200; J1644; J1650; J1720; J1815; J2250; J3010; J3490; J7030; J7120; J7512; J7620; Q9967; S0028; U0003; U0005

== ENCOUNTER 2021-12-31 08:31 | Outpatient (CLI) | payer OTHER ==
[2021-12-31] MEDS ORDERED: Magnevist 469MG/ML 20 ML VIAL ONE (09:28)
== END 2021-12-31 08:32 | disposition home or self-care (01) ==
LOC: MRI 08:31
PROVIDERS: ATTEND Physician Assistant Medical
DX: R89.0 Abnormal level of enzymes in specimens from other organs, systems and tissues (principal); R74.01 Elevation of levels of liver transaminase levels; K44.9 Diaphragmatic hernia without obstruction or gangrene; N28.1 Cyst of kidney, acquired; K86.89 Other specified diseases of pancreas
CPT/HCPCS: 74183; A9579

== ENCOUNTER 2022-02-14 07:45 | Outpatient (CLI) | payer OTHER | END 2022-02-14 07:46 | disposition home or self-care (01) | LOC: BICMAMMO 07:45 | PROVIDERS: ATTEND Student in an Organized Health Care Education/Training Program | DX: N63.20 Unspecified lump in the left breast, unspecified quadrant (principal); R92.8 Other abnormal and inconclusive findings on diagnostic imaging of breast | CPT/HCPCS: 76642; 77066; G0279 ==

== ENCOUNTER 2022-04-02 11:51 | Observation (INO) | payer OTHER ==
[2022-04-02 12:41] LABS: #Lymphocytes 1.1 thou/uL (1.20-3.40); #Monocytes 0.5 thou/uL (0.11-0.59); #Neutrophils 2.4 thou/uL (1.40-6.50); %Eosinophils 0.3 % (0.0-10.0); %Neutrophils 59.7 % (42.0-75.0); Hemoglobin 11.7 g/dL (12.0-16.0); Mean Corpuscular HGB CONC 32.4 g/dL (32.0-36.0); Mean Corpuscular Hemoglobin 27.9 pg (27.0-31.0); Mean Corpuscular Volume 86.1 fl (78.0-98.0); Mean Platelet Volume 9.4 fL (7.4-10.4); Platelet Count 126 10x3/uL (130-400); RBC Distribution Width 16.1 % (11.5-14.5); Red Blood Cell (RBC) Count 4.18 mill/uL (4.20-5.40); White Blood Cell (WBC) Count 4.1 10x3/uL (4.8-10.8)
[2022-04-02 13:02] LABS: ALT (SGPT) 134 U/L (8-55); AST (SGOT) 81 U/L (5-34); Albumin 3.7 g/dL (3.4-4.8); Alkaline Phosphatase 415 U/L (40-110); Anion Gap 13 mmol/L (10-20); BUN (Urea Nitrogen) 11 mg/dL (9.8-20.1); Bilirubin, Total 0.4 mg/dL (0.2-1.2); CK (CPK) 30 U/L (29-168); Calc. Creatinine Clearance 0 mL/min (70-130); Calcium 9.3 mg/dL (7.8-10.44); Carbon Dioxide 25 mmol/L (23-31); Chloride 106 mmol/L (98-107); Estimated GFR 76; Globulin 2.2 g/dL (2.4-3.5); Glucose 119 mg/dL (83-110); Lipase 10 U/L (8-78); Protein, Total 5.9 g/dL (5.8-8.1); Sodium 141 mmol/L (136-145)
[2022-04-02 13:24] LABS: CKMB 0.5 ng/mL (0-6.6)
[2022-04-02] MEDS ORDERED: Acetaminophen 500 MG TAB ONE (13:30)
[2022-04-02 13:57] LABS: Bilirubin Negative (Negative); Blood, Urine Negative (Negative); Clarity Clear (Clear); Glucose, Urine (Dipstick) Normal (Negative); Ketone, Urine Trace mg/dL (Negative); Leukocyte Negative Leu/uL (Negative); Nitrite Negative (Negative); Protein, Urine (Dipstick) 10 mg/dL (Neg-Trace); Specific Gravity, Urine 1.019 (1.002-1.036); Urobilinogen Normal mg/dL (Less than 2); pH, Urine 5.5 (5.0-9.0)
[2022-04-02] MEDS ORDERED: Ondansetron PF 4 MG/2 ML Vial ONE (16:07)
[2022-04-02] MEDS ORDERED: Ondansetron ODT 4 MG TAB PO PRN (16:13)
[2022-04-02] MEDS ORDERED: Acetaminophen 325 MG TAB PO PRN (16:13)
[2022-04-02] MEDS ORDERED: Furosemide 40 MG/4 ML VIAL SLOW IVP SCH ×2 (16:15→16:30)
[2022-04-02] MEDS ORDERED: Dextrose 50% Abboject 50 ML SYRINGE SLOW IVP PRN (16:42)
[2022-04-02] MEDS ORDERED: Dextrose 5% in Water 1,000 ML IV PRN (16:42)
[2022-04-02] MEDS ORDERED: HumaLOG 300 UNITS/3 ML VIAL SC PRN ×2 (16:42)
[2022-04-02] MEDS ORDERED: Potassium Chloride 20 MEQ TAB PO SCH (16:45)
[2022-04-02 17:18] LABS: Magnesium 1.1 mg/dL (1.6-2.6); Phosphorus 2.1 mg/dL (2.3-4.7)
[2022-04-02] MEDS ORDERED: Azithromycin 250 MG TAB PO SCH (17:45)
[2022-04-02] MEDS ORDERED: Artificial Tear Sol 15 ML BOT EA EYE PRN (18:26)
[2022-04-02] MEDS ORDERED: predniSONE 20 MG TAB PO SCH (18:30)
[2022-04-02 20:50] LABS: Troponin I 0.033 ng/mL (< 0.028)
[2022-04-02 20:54] VITALS: BMI 28.8
[2022-04-02] MEDS ORDERED: Clopidogrel Bisulfate 75 MG TAB PO SCH (21:00)
[2022-04-02] MEDS ORDERED: Mirtazapine 30 MG TAB PO SCH (21:00)
[2022-04-02] MEDS ORDERED: Electrolyte Replacement Protocol 1 EACH FS SCH (21:06)
[2022-04-02] MEDS: Ezetimibe 10 MG TAB PO SCH (21:11)
[2022-04-02] MEDS: Gabapentin 300 MG CAP PO SCH (21:12)
[2022-04-02] MEDS: Metoprolol Tartrate 25 MG TAB PO SCH (21:13)
[2022-04-02] MEDS: Magnesium 2 GM/50 ML(in water) 2 GM in Premix Bag 1 BAG IVPB SCH (22:17)
[2022-04-02] MEDS: Mometasone 100 MCG/PUFF (1 INHALER) INH SCH (22:53)
[2022-04-03] MEDS: Magnesium 2 GM/50 ML(in water) 2 GM in Premix Bag 1 BAG IVPB SCH (00:19)
[2022-04-03] MEDS ORDERED: Levothyroxine Sodium 100 MCG TAB PO SCH (06:00)
[2022-04-03] MEDS ORDERED: PROTEASE PO SCH (08:00)
[2022-04-03] MEDS ORDERED: Ferrous Sulfate 325 MG TAB PO SCH (08:00)
[2022-04-03] MEDS ORDERED: AMYLASE PO SCH (08:00)
[2022-04-03] MEDS ORDERED: LIPASE PO SCH (08:00)
[2022-04-03] MEDS ORDERED: Enoxaparin Sodium 40 MG/0.4 ML SYRINGE SC SCH (09:00)
[2022-04-03] MEDS ORDERED: Alogliptin 25 MG TAB PO SCH (09:00)
[2022-04-03] MEDS ORDERED: Rosuvastatin 20 MG TAB PO SCH (09:00)
[2022-04-03] MEDS ORDERED: Loratadine 10 MG TAB PO SCH (09:00)
[2022-04-03] MEDS ORDERED: Allopurinol 100 MG TAB PO SCH (09:00)
[2022-04-03] MEDS ORDERED: predniSONE 20 MG TAB PO SCH (09:00)
[2022-04-03] MEDS ORDERED: Non-Formulary Item 1 EACH (Oxybutynin Chloride [Oxybutynin Chloride Er] 15 MG Tab.Er.24) PO SCH (09:00)
[2022-04-03] MEDS ORDERED: Azithromycin 250 MG TAB PO SCH (09:00)
[2022-04-03] MEDS ORDERED: Non-Formulary Item 1 EACH (Fluticasone/Umeclidin/Vilanter [Trelegy Ellipta 100-62.5-25] 1 INH SCH (09:00)
[2022-04-03] MEDS ORDERED: Aripiprazole 10 MG TAB PO SCH (09:00)
[2022-04-03] MEDS: Gabapentin 300 MG CAP PO SCH (09:24)
[2022-04-03] MEDS: Ezetimibe 10 MG TAB PO SCH (09:26)
[2022-04-03] MEDS: Metoprolol Tartrate 25 MG TAB PO SCH (09:27)
[2022-04-03 09:29] LABS: #Lymphocytes 0.8 thou/uL (1.20-3.40); #Monocytes 0.2 thou/uL (0.11-0.59); #Neutrophils 2.5 thou/uL (1.40-6.50); %Eosinophils 0.3 % (0.0-10.0); %Lymphocytes 22.5 % (21.0-51.0); %Monocytes 5.5 % (0.0-10.0); %Neutrophils 71.7 % (42.0-75.0); Hemoglobin 12.1 g/dL (12.0-16.0); Mean Corpuscular HGB CONC 32.4 g/dL (32.0-36.0); Mean Corpuscular Hemoglobin 28.5 pg (27.0-31.0); Mean Corpuscular Volume 87.8 fl (78.0-98.0); Mean Platelet Volume 10.2 fL (7.4-10.4); Platelet Count 135 10x3/uL (130-400); RBC Distribution Width 16.3 % (11.5-14.5); Red Blood Cell (RBC) Count 4.27 mill/uL (4.20-5.40); White Blood Cell (WBC) Count 3.5 10x3/uL (4.8-10.8)
[2022-04-03] MEDS: Mometasone 100 MCG/PUFF (1 INHALER) INH SCH (09:29)
[2022-04-03 09:47] LABS: ALT (SGPT) 126 U/L (8-55); AST (SGOT) 88 U/L (5-34); Alkaline Phosphatase 425 U/L (40-110); Anion Gap 14 mmol/L (10-20); BUN (Urea Nitrogen) 14 mg/dL (9.8-20.1); Bilirubin, Total 0.4 mg/dL (0.2-1.2); Calc. Creatinine Clearance 78 mL/min (70-130); Calcium 9.8 mg/dL (7.8-10.44); Carbon Dioxide 26 mmol/L (23-31); Chloride 108 mmol/L (98-107); Estimated GFR 79; Globulin 2.5 g/dL (2.4-3.5); Glucose 211 mg/dL (83-110); Potassium 3.6 mmol/L (3.5-5.1); Protein, Total 6.5 g/dL (5.8-8.1); Sodium 144 mmol/L (136-145)
[2022-04-03 10:06] LABS: Phosphorus 2.6 mg/dL (2.3-4.7)
[2022-04-03] MEDS ORDERED: Magnesium 2 GM/50 ML(in water) 2 GM in Premix Bag 1 BAG IVPB SCH (12:00)
[2022-04-03 12:41] VITALS: BP 121/63; TEMP 97.6
== END 2022-04-03 14:54 | disposition home or self-care (01) ==
LOC: ERS 11:51 → 2SW 15:51
PROVIDERS: ADMIT Family Medicine; ATTEND Family Medicine
DX: U07.1 COVID-19 (principal); J12.82 Pneumonia due to coronavirus disease 2019; R77.8 Other specified abnormalities of plasma proteins; E87.6 Hypokalemia; J44.9 Chronic obstructive pulmonary disease, unspecified; I11.0 Hypertensive heart disease with heart failure; I50.31 Acute diastolic (congestive) heart failure; D64.9 Anemia, unspecified; E11.40 Type 2 diabetes mellitus with diabetic neuropathy, unspecified; E03.9 Hypothyroidism, unspecified; M10.9 Gout, unspecified; E11.51 Type 2 diabetes mellitus with diabetic peripheral angiopathy without gangrene; K21.9 Gastro-esophageal reflux disease without esophagitis; R74.01 Elevation of levels of liver transaminase levels; I25.10 Atherosclerotic heart disease of native coronary artery without angina pectoris; K86.2 Cyst of pancreas; E78.00 Pure hypercholesterolemia, unspecified; G20 Parkinson's disease; Z79.02 Long term (current) use of antithrombotics/antiplatelets; Z79.4 Long term (current) use of insulin; Z79.84 Long term (current) use of oral hypoglycemic drugs; Z79.890 Hormone replacement therapy; Z79.899 Other long term (current) drug therapy; Z88.5 Allergy status to narcotic agent; Z88.8 Allergy status to other drugs, medicaments and biological substances; Z91.013 Allergy to seafood; Z91.041 Radiographic dye allergy status; Z91.048 Other nonmedicinal substance allergy status
CPT/HCPCS: 51701; 71045; 80053 ×2; 81003; 82550; 82553; 82962; 83690; 83735 ×2; 83880; 84100 ×2; 84484 ×2; 85025 ×2; 87804 ×2; 93005; 96374; 96375; 99285; G0378 ×3; U0003; U0005; 36415; 36416; J1650; J1815; J1940; J2405; J3475; J7512

== ENCOUNTER 2022-05-05 10:53 | Observation (INO) | payer OTHER ==
[2022-05-05] MEDS ORDERED: Fentanyl 100 MCG/2 ML VIAL ONE ×2 (11:32→14:26)
[2022-05-05 11:51] LABS: #Lymphocytes 1.9 thou/uL (1.20-3.40); #Monocytes 0.6 thou/uL (0.11-0.59); #Neutrophils 4.2 thou/uL (1.40-6.50); %Basophils 0.5 % (0.0-1.0); %Eosinophils 0.3 % (0.0-10.0); %Lymphocytes 27.8 % (21.0-51.0); %Monocytes 9.2 % (0.0-10.0); %Neutrophils 62.2 % (42.0-75.0); Hemoglobin 10.4 g/dL (12.0-16.0); Mean Corpuscular HGB CONC 31.5 g/dL (32.0-36.0); Mean Corpuscular Hemoglobin 27.6 pg (27.0-31.0); Mean Corpuscular Volume 87.7 fl (78.0-98.0); Mean Platelet Volume 8.4 fL (7.4-10.4); Platelet Count 224 10x3/uL (130-400); RBC Distribution Width 14.4 % (11.5-14.5); Red Blood Cell (RBC) Count 3.78 mill/uL (4.20-5.40); White Blood Cell (WBC) Count 6.7 10x3/uL (4.8-10.8)
[2022-05-05 12:10] LABS: ALT (SGPT) 60 U/L (8-55); AST (SGOT) 145 U/L (5-34); Albumin 2.7 g/dL (3.4-4.8); Alkaline Phosphatase 439 U/L (40-110); Anion Gap 13 mmol/L (10-20); BUN (Urea Nitrogen) 10 mg/dL (9.8-20.1); Bilirubin, Total 0.3 mg/dL (0.2-1.2); Calc. Creatinine Clearance 0 mL/min (70-130); Calcium 9.2 mg/dL (7.8-10.44); Carbon Dioxide 27 mmol/L (23-31); Chloride 104 mmol/L (98-107); Estimated GFR 81; Globulin 2.7 g/dL (2.4-3.5); Glucose 294 mg/dL (83-110); Potassium 2.7 mmol/L (3.5-5.1); Protein, Total 5.4 g/dL (5.8-8.1); Sodium 141 mmol/L (136-145)
[2022-05-05 12:33] LABS: CKMB 0.7 ng/mL (0-6.6)
[2022-05-05] MEDS ORDERED: Potassium Chloride 20 MEQ TAB ONE (14:26)
[2022-05-05] MEDS ORDERED: Nitroglycerin 2% Ointment 1 INCH/1 GM Packet ONE (15:02)
[2022-05-05] MEDS ORDERED: Potassium Chloride 20 MEQ/100 ML PREMIX BAG ONE ×2 (15:02)
[2022-05-05 15:42] LABS: Troponin I 0.025 ng/mL (< 0.028)
[2022-05-05] MEDS ORDERED: Dextrose 5% in Water 1,000 ML IV PRN (16:02)
[2022-05-05] MEDS ORDERED: Dextrose 50% Abboject 50 ML SYRINGE SLOW IVP PRN (16:02)
[2022-05-05] MEDS ORDERED: HumaLOG 300 UNITS/3 ML VIAL SC PRN ×2 (16:04)
[2022-05-05] MEDS ORDERED: Nitroglycerin 0.4 MG TAB (25 Tab Bottle) SL PRN (16:38)
[2022-05-05 16:45] VITALS: BMI 29.2
[2022-05-05] MEDS ORDERED: SUMAtriptan Succinate 50 MG TAB PO PRN (17:15)
[2022-05-05] MEDS ORDERED: Artificial Tear Sol 15 ML BOT EA EYE PRN (17:17)
[2022-05-05 17:39] LABS: Hemoglobin A1c 6.9 % (4.0-6.0)
[2022-05-05] MEDS: Ferrous Sulfate 325 MG TAB PO SCH (17:40)
[2022-05-05 17:51] LABS: Cardiac Risk 2.9 (Less than 4.5)
[2022-05-05 18:18] LABS: Troponin I 0.022 ng/mL (< 0.028)
[2022-05-05] MEDS: Metoprolol Tartrate 25 MG TAB PO SCH (20:25)
[2022-05-05] MEDS: Gabapentin 300 MG CAP PO SCH (20:25)
[2022-05-05] MEDS: Ibuprofen 100 MG/5 ML UDCUP PO PRN (20:35)
[2022-05-05] MEDS ORDERED: Clopidogrel Bisulfate 75 MG TAB PO SCH (21:00)
[2022-05-05] MEDS ORDERED: Mirtazapine 30 MG TAB PO SCH (21:00)
[2022-05-05] MEDS ORDERED: Rosuvastatin 20 MG TAB PO SCH (21:00)
[2022-05-05] MEDS ORDERED: Insulin Glargine 30 UNITS/0.3 ML VIAL SC SCH (21:00)
[2022-05-06] MEDS: Ibuprofen 100 MG/5 ML UDCUP PO PRN (02:18)
[2022-05-06 04:56] LABS: #Eosinphils 0.1 thou/uL (0.0-0.7); #Lymphocytes 2.3 thou/uL (1.20-3.40); #Monocytes 0.5 thou/uL (0.11-0.59); #Neutrophils 2.7 thou/uL (1.40-6.50); %Basophils 0.9 % (0.0-1.0); %Lymphocytes 40.4 % (21.0-51.0); %Monocytes 9.1 % (0.0-10.0); %Neutrophils 47.7 % (42.0-75.0); Hemoglobin 9.2 g/dL (12.0-16.0); Mean Corpuscular HGB CONC 32.6 g/dL (32.0-36.0); Mean Corpuscular Hemoglobin 28.3 pg (27.0-31.0); Mean Corpuscular Volume 86.8 fl (78.0-98.0); Mean Platelet Volume 8.3 fL (7.4-10.4); Platelet Count 202 10x3/uL (130-400); RBC Distribution Width 14.5 % (11.5-14.5); Red Blood Cell (RBC) Count 3.26 mill/uL (4.20-5.40); White Blood Cell (WBC) Count 5.7 10x3/uL (4.8-10.8)
[2022-05-06 05:23] LABS: ALT (SGPT) 76 U/L (8-55); AST (SGOT) 195 U/L (5-34); Albumin 2.4 g/dL (3.4-4.8); Alkaline Phosphatase 439 U/L (40-110); Anion Gap 9 mmol/L (10-20); BUN (Urea Nitrogen) 10 mg/dL (9.8-20.1); Bilirubin, Total 0.3 mg/dL (0.2-1.2); Calc. Creatinine Clearance 89 mL/min (70-130); Calcium 8.9 mg/dL (7.8-10.44); Carbon Dioxide 28 mmol/L (23-31); Chloride 108 mmol/L (98-107); Estimated GFR 92; Globulin 2.5 g/dL (2.4-3.5); Glucose 126 mg/dL (83-110); Potassium 3.1 mmol/L (3.5-5.1); Protein, Total 4.9 g/dL (5.8-8.1); Sodium 142 mmol/L (136-145)
[2022-05-06] MEDS ORDERED: Levothyroxine Sodium 100 MCG TAB PO SCH (06:00)
[2022-05-06] MEDS ORDERED: Potassium Chloride 20 MEQ TAB PO SCH (08:30)
[2022-05-06] MEDS ORDERED: Ibuprofen 100 MG/5 ML UDCUP PO SCH (08:45)
[2022-05-06] MEDS ORDERED: Aspirin Chewable 81 MG TAB PO SCH (09:00)
[2022-05-06] MEDS ORDERED: Allopurinol 100 MG TAB PO SCH (09:00)
[2022-05-06] MEDS ORDERED: Ezetimibe 10 MG TAB PO SCH (09:00)
[2022-05-06] MEDS ORDERED: Aripiprazole 10 MG TAB PO SCH (09:00)
[2022-05-06] MEDS ORDERED: Alogliptin 25 MG TAB PO SCH (09:00)
[2022-05-06] MEDS ORDERED: Non-Formulary Item 1 EACH (Famotidine [Famotidine] 10 MG Tablet) PO SCH (09:00)
[2022-05-06] MEDS ORDERED: Oxybutynin ER 5 MG TAB PO SCH (09:00)
[2022-05-06] MEDS ORDERED: Lidocaine 5% Patch TD SCH (09:00)
[2022-05-06] MEDS ORDERED: Furosemide 40 MG TAB PO SCH (09:00)
[2022-05-06] MEDS ORDERED: Lisinopril 5 MG TAB PO SCH (09:00)
[2022-05-06] MEDS: Ferrous Sulfate 325 MG TAB PO SCH (09:25)
[2022-05-06] MEDS: Gabapentin 300 MG CAP PO SCH ×2 (09:31→15:02)
[2022-05-06] MEDS: Metoprolol Tartrate 25 MG TAB PO SCH (09:33)
[2022-05-06] MEDS ORDERED: Ibuprofen 200 MG TAB PO SCH (12:00)
[2022-05-06 12:05] VITALS: BP 105/61; TEMP 98.6
[2022-05-06] MEDS ORDERED: Transdermal Patch Removal TOP SCH (21:00)
[2022-05-07] MEDS ORDERED: Levothyroxine Sodium 88 MCG TAB PO SCH (06:00)
== END 2022-05-06 17:15 | disposition home or self-care (01) ==
LOC: ERS 10:53 → 2SW 14:42
PROVIDERS: ADMIT Family Medicine; ATTEND Family Medicine
DX: M94.0 Chondrocostal junction syndrome [Tietze] (principal); E87.6 Hypokalemia; E11.42 Type 2 diabetes mellitus with diabetic polyneuropathy; K21.9 Gastro-esophageal reflux disease without esophagitis; I13.0 Hypertensive heart and chronic kidney disease with heart failure and stage 1 through stage 4 chronic kidney disease, or unspecified chronic kidney disease; E11.22 Type 2 diabetes mellitus with diabetic chronic kidney disease; N18.9 Chronic kidney disease, unspecified; I50.30 Unspecified diastolic (congestive) heart failure; E03.9 Hypothyroidism, unspecified; G25.0 Essential tremor; M19.90 Unspecified osteoarthritis, unspecified site; R32 Unspecified urinary incontinence; M10.9 Gout, unspecified; R74.01 Elevation of levels of liver transaminase levels; K86.2 Cyst of pancreas; I25.10 Atherosclerotic heart disease of native coronary artery without angina pectoris; J44.9 Chronic obstructive pulmonary disease, unspecified; E78.00 Pure hypercholesterolemia, unspecified; Z86.14 Personal history of Methicillin resistant Staphylococcus aureus infection; Z79.02 Long term (current) use of antithrombotics/antiplatelets; Z79.4 Long term (current) use of insulin; Z79.82 Long term (current) use of aspirin; Z79.84 Long term (current) use of oral hypoglycemic drugs; Z79.899 Other long term (current) drug therapy; Z88.5 Allergy status to narcotic agent; Z88.8 Allergy status to other drugs, medicaments and biological substances; Z91.013 Allergy to seafood; Z91.041 Radiographic dye allergy status; Z91.048 Other nonmedicinal substance allergy status; Z20.822 Contact with and (suspected) exposure to COVID-19
CPT/HCPCS: 71045; 80053; 80061; 82553; 82962 ×2; 83036; 83690; 84439; 84484 ×2; 85025; 93005; 94640 ×2; 94760; 96372; 96374; 96375; 96376; 99285; G0378 ×3; U0003; U0005; 36415; 36416; 84443; J1650; J1815; J3010; J3480; J7611

== ENCOUNTER 2022-05-12 09:14 | Outpatient (CLI) | payer OTHER | END 2022-05-12 09:15 | disposition home or self-care (01) | LOC: MRI 09:14 | PROVIDERS: ATTEND Internal Medicine | DX: K86.2 Cyst of pancreas (principal); R79.89 Other specified abnormal findings of blood chemistry; R11.0 Nausea | CPT/HCPCS: 74183 ==

== ENCOUNTER 2022-05-25 09:24 | Observation (INO) | payer OTHER ==
[2022-05-25 10:12] LABS: #Eosinphils 0.1 thou/uL (0.0-0.7); #Lymphocytes 1.9 thou/uL (1.20-3.40); #Monocytes 0.3 thou/uL (0.11-0.59); #Neutrophils 3.6 thou/uL (1.40-6.50); %Basophils 0.7 % (0.0-1.0); %Eosinophils 1.1 % (0.0-10.0); %Lymphocytes 31.3 % (21.0-51.0); %Monocytes 5.7 % (0.0-10.0); %Neutrophils 61.2 % (42.0-75.0); Hemoglobin 12.1 g/dL (12.0-16.0); Mean Corpuscular HGB CONC 33.5 g/dL (32.0-36.0); Mean Corpuscular Hemoglobin 29.2 pg (27.0-31.0); Mean Corpuscular Volume 87.1 fl (78.0-98.0); Mean Platelet Volume 9.4 fL (7.4-10.4); Platelet Count 187 10x3/uL (130-400); RBC Distribution Width 14.5 % (11.5-14.5); Red Blood Cell (RBC) Count 4.13 mill/uL (4.20-5.40); White Blood Cell (WBC) Count 5.9 10x3/uL (4.8-10.8)
[2022-05-25] MEDS ORDERED: Nitroglycerin 2% Ointment 1 INCH/1 GM Packet ONE (10:19)
[2022-05-25] MEDS ORDERED: Acetaminophen 500 MG TAB ONE (10:19)
[2022-05-25 10:35] LABS: ALT (SGPT) 224 U/L (8-55); AST (SGOT) 246 U/L (5-34); Albumin 4.1 g/dL (3.4-4.8); Alkaline Phosphatase 693 U/L (40-110); Anion Gap 15 mmol/L (10-20); BUN (Urea Nitrogen) 16 mg/dL (9.8-20.1); Bilirubin, Total 0.4 mg/dL (0.2-1.2); Calc. Creatinine Clearance 0 mL/min (70-130); Calcium 10.9 mg/dL (7.8-10.44); Carbon Dioxide 21 mmol/L (23-31); Chloride 107 mmol/L (98-107); Estimated GFR 71; Globulin 3.2 g/dL (2.4-3.5); Glucose 241 mg/dL (83-110); Potassium 3.1 mmol/L (3.5-5.1); Protein, Total 7.3 g/dL (5.8-8.1); Sodium 140 mmol/L (136-145)
[2022-05-25] MEDS ORDERED: Potassium Bicarbonate/Cit Ac 25 MEQ TAB ONE (11:09)
[2022-05-25] MEDS ORDERED: Ondansetron PF 4 MG/2 ML Vial IVP PRN (14:45)
[2022-05-25] MEDS ORDERED: Acetaminophen 325 MG TAB PO PRN (14:45)
[2022-05-25] MEDS ORDERED: Ondansetron ODT 4 MG TAB SL PRN (14:45)
[2022-05-25 14:47] VITALS: BMI 28.7
[2022-05-25] MEDS ORDERED: Iopamidol-370 76% 500 ML 1 ML ONE (15:07)
[2022-05-25] MEDS ORDERED: Ondansetron ODT 4 MG TAB PO PRN (15:15)
[2022-05-25] MEDS ORDERED: Nitroglycerin 0.4 MG TAB (25 Tab Bottle) SL PRN (15:17)
[2022-05-25 15:20] LABS: Troponin I 0.012 ng/mL (< 0.028)
[2022-05-25 15:27] LABS: Troponin I Less than 0.010 ng/mL (< 0.028)
[2022-05-25 16:04] LABS: Bilirubin Negative (Negative); Blood, Urine 3+ (Negative); CAUTI Indications for Culture Dysuria,urgency,freq; Clarity Clear (Clear); Glucose, Urine (Dipstick) Normal (Negative); Ketone, Urine Negative (Negative); Leukocyte 500 Leu/uL (Negative); Nitrite Negative (Negative); Protein, Urine (Dipstick) 10 mg/dL (Neg-Trace); Squamous Epithelial 0-3 HPF (0-3); Urobilinogen Normal mg/dL (Less than 2); pH, Urine 5.5 (5.0-9.0)
[2022-05-25 16:07] LABS: Specific Gravity, Urine Greater than 1.046 (1.002-1.036)
[2022-05-25 16:12] LABS: Bacteria/HPF 2+ HPF (None Seen); WBC/HPF 21-50 HPF (0-3)
[2022-05-25 16:13] LABS: Urine Culture Reflex Yes Yes
[2022-05-25 16:17] LABS: Magnesium 1.4 mg/dL (1.6-2.6); Phosphorus 2.3 mg/dL (2.3-4.7)
[2022-05-25] MEDS: Acetaminophen 325 MG TAB PO PRN ×2 (17:44→21:55)
[2022-05-25] MEDS ORDERED: Magnesium 2 GM/50 ML(in water) 2 GM in Premix Bag 1 BAG IVPB SCH (18:15)
[2022-05-25] MEDS: Ipratropium/Albuterol 3 ML NEB NEB SCH (18:16)
[2022-05-25] MEDS ORDERED: cefTRIAXone\\ROCEPHIN 1 GM in Sodium Chloride 0.9% 100 ML IVPB SCH (20:00)
[2022-05-25] MEDS ORDERED: Insulin Glargine 30 UNITS/0.3 ML VIAL SC SCH (21:00)
[2022-05-25] MEDS ORDERED: Mirtazapine 15 MG TAB PO SCH (21:00)
[2022-05-25] MEDS: Artificial Tear Sol 15 ML BOT EA EYE SCH (21:40)
[2022-05-25] MEDS: Gabapentin 300 MG CAP PO SCH (21:48)
[2022-05-25] MEDS: Metoprolol Tartrate 25 MG TAB PO SCH (21:48)
[2022-05-25] MEDS: Aripiprazole 10 MG TAB PO SCH (21:48)
[2022-05-26] MEDS: Ipratropium/Albuterol 3 ML NEB NEB SCH ×3 (00:23→14:18)
[2022-05-26] MEDS ORDERED: Levothyroxine Sodium 88 MCG TAB PO SCH (06:00)
[2022-05-26 06:12] LABS: ALT (SGPT) 149 U/L (8-55); AST (SGOT) 157 U/L (5-34); Albumin 3.2 g/dL (3.4-4.8); Alkaline Phosphatase 537 U/L (40-110); Anion Gap 13 mmol/L (10-20); BUN (Urea Nitrogen) 15 mg/dL (9.8-20.1); Bilirubin, Total 0.3 mg/dL (0.2-1.2); Calc. Creatinine Clearance 76 mL/min (70-130); Calcium 9.9 mg/dL (7.8-10.44); Carbon Dioxide 21 mmol/L (23-31); Chloride 109 mmol/L (98-107); Estimated GFR 83; Globulin 2.7 g/dL (2.4-3.5); Glucose 111 mg/dL (83-110); Magnesium 1.8 mg/dL (1.6-2.6); Phosphorus 3.1 mg/dL (2.3-4.7); Potassium 4.1 mmol/L (3.5-5.1); Protein, Total 5.9 g/dL (5.8-8.1); Sodium 139 mmol/L (136-145)
[2022-05-26] MEDS ORDERED: Mometasone 100 MCG/PUFF (1 INHALER) INH SCH (06:30)
[2022-05-26 08:02] LABS: #Eosinphils 0.1 thou/uL (0.0-0.7); #Lymphocytes 1.9 thou/uL (1.20-3.40); #Monocytes 0.4 thou/uL (0.11-0.59); #Neutrophils 2.7 thou/uL (1.40-6.50); %Basophils 0.4 % (0.0-1.0); %Eosinophils 1.6 % (0.0-10.0); %Lymphocytes 37.5 % (21.0-51.0); %Monocytes 7.8 % (0.0-10.0); %Neutrophils 52.7 % (42.0-75.0); Hemoglobin 11.2 g/dL (12.0-16.0); Mean Corpuscular HGB CONC 32.5 g/dL (32.0-36.0); Mean Corpuscular Hemoglobin 29.1 pg (27.0-31.0); Mean Corpuscular Volume 89.4 fl (78.0-98.0); Platelet Count 180 10x3/uL (130-400); RBC Distribution Width 14.5 % (11.5-14.5); Red Blood Cell (RBC) Count 3.87 mill/uL (4.20-5.40)
[2022-05-26] MEDS: Acetaminophen 325 MG TAB PO PRN (08:11)
[2022-05-26] MEDS ORDERED: Lisinopril 5 MG TAB PO SCH (09:00)
[2022-05-26] MEDS ORDERED: Magnesium Oxide 400 MG TAB PO SCH (09:00)
[2022-05-26] MEDS ORDERED: Furosemide 40 MG TAB PO SCH (09:00)
[2022-05-26] MEDS ORDERED: Clopidogrel Bisulfate 75 MG TAB PO SCH (09:00)
[2022-05-26] MEDS ORDERED: Oxybutynin ER 5 MG TAB PO SCH (09:00)
[2022-05-26] MEDS ORDERED: Rosuvastatin 20 MG TAB PO SCH (09:00)
[2022-05-26] MEDS ORDERED: Allopurinol 100 MG TAB PO SCH (09:00)
[2022-05-26] MEDS ORDERED: Alogliptin 25 MG TAB PO SCH (09:00)
[2022-05-26] MEDS ORDERED: Aspirin Chewable 81 MG TAB PO SCH (09:00)
[2022-05-26] MEDS ORDERED: Ezetimibe 10 MG TAB PO SCH (09:00)
[2022-05-26] MEDS: Metoprolol Tartrate 25 MG TAB PO SCH (09:27)
[2022-05-26] MEDS: Gabapentin 300 MG CAP PO SCH ×2 (09:28→15:04)
[2022-05-26] MEDS: Artificial Tear Sol 15 ML BOT EA EYE SCH (09:29)
[2022-05-26] MEDS: Aripiprazole 10 MG TAB PO SCH (09:29)
[2022-05-26 11:53] VITALS: TEMP 98.1
[2022-05-26 16:09] VITALS: BP 101/57
== END 2022-05-26 15:51 | disposition home or self-care (01) ==
LOC: ERS 09:24 → 2SW 14:09
PROVIDERS: ADMIT Family Medicine; ATTEND Family Medicine
DX: M94.0 Chondrocostal junction syndrome [Tietze] (principal); R74.01 Elevation of levels of liver transaminase levels; K86.2 Cyst of pancreas; N28.1 Cyst of kidney, acquired; E87.6 Hypokalemia; E11.40 Type 2 diabetes mellitus with diabetic neuropathy, unspecified; J44.9 Chronic obstructive pulmonary disease, unspecified; I13.0 Hypertensive heart and chronic kidney disease with heart failure and stage 1 through stage 4 chronic kidney disease, or unspecified chronic kidney disease; E11.22 Type 2 diabetes mellitus with diabetic chronic kidney disease; N18.9 Chronic kidney disease, unspecified; I50.9 Heart failure, unspecified; D63.1 Anemia in chronic kidney disease; E03.9 Hypothyroidism, unspecified; M10.9 Gout, unspecified; E11.51 Type 2 diabetes mellitus with diabetic peripheral angiopathy without gangrene; K21.9 Gastro-esophageal reflux disease without esophagitis; K44.9 Diaphragmatic hernia without obstruction or gangrene; E78.00 Pure hypercholesterolemia, unspecified; N39.0 Urinary tract infection, site not specified; Z86.16 Personal history of COVID-19; Z79.02 Long term (current) use of antithrombotics/antiplatelets; Z79.4 Long term (current) use of insulin; Z79.82 Long term (current) use of aspirin; Z79.84 Long term (current) use of oral hypoglycemic drugs; Z79.890 Hormone replacement therapy; Z79.899 Other long term (current) drug therapy; Z88.5 Allergy status to narcotic agent; Z88.8 Allergy status to other drugs, medicaments and biological substances; Z91.013 Allergy to seafood; Z91.048 Other nonmedicinal substance allergy status; Z20.822 Contact with and (suspected) exposure to COVID-19
CPT/HCPCS: 71045; 71275; 76705; 80053 ×2; 81001; 82962; 83735 ×2; 84100 ×2; 84484 ×2; 85025 ×2; 87086; 93005; 94640; 94760; U0003; U0005; 36415; 36416; 87077; 96365; 96372; 96375; G0378; J0696; J1650; J1815; J3475; J3490; J7620; Q9967

== ENCOUNTER 2022-06-18 10:51 | Emergency (ER) | payer OTHER ==
[2022-06-18 12:38] LABS: #Basophils 0.1 thou/uL (0.0-0.2); #Eosinphils 0.1 thou/uL (0.0-0.7); #Lymphocytes 2.7 thou/uL (1.20-3.40); #Monocytes 0.7 thou/uL (0.11-0.59); #Neutrophils 3.7 thou/uL (1.40-6.50); %Basophils 0.8 % (0.0-1.0); %Eosinophils 1.2 % (0.0-10.0); %Lymphocytes 37.5 % (21.0-51.0); %Neutrophils 50.6 % (42.0-75.0); Mean Corpuscular HGB CONC 32.6 g/dL (32.0-36.0); Mean Corpuscular Hemoglobin 29.4 pg (27.0-31.0); Mean Platelet Volume 9.1 fL (7.4-10.4); Platelet Count 153 10x3/uL (130-400); RBC Distribution Width 14.6 % (11.5-14.5); Red Blood Cell (RBC) Count 3.73 mill/uL (4.20-5.40); White Blood Cell (WBC) Count 7.3 10x3/uL (4.8-10.8)
[2022-06-18 12:43] LABS: ALT (SGPT) 175 U/L (8-55); AST (SGOT) 115 U/L (5-34); Albumin 3.5 g/dL (3.4-4.8); Alkaline Phosphatase 334 U/L (40-110); Anion Gap 12 mmol/L (10-20); BUN (Urea Nitrogen) 24 mg/dL (9.8-20.1); Bilirubin, Total 0.2 mg/dL (0.2-1.2); Calc. Creatinine Clearance 0 mL/min (70-130); Calcium 9.3 mg/dL (7.8-10.44); Carbon Dioxide 21 mmol/L (23-31); Chloride 109 mmol/L (98-107); Estimated GFR 68; Globulin 2.2 g/dL (2.4-3.5); Glucose 133 mg/dL (83-110); Lipase 27 U/L (8-78); Potassium 3.4 mmol/L (3.5-5.1); Protein, Total 5.7 g/dL (5.8-8.1); Sodium 139 mmol/L (136-145)
[2022-06-18] MEDS ORDERED: Ondansetron ODT 8 MG TAB ONE (13:08)
[2022-06-18] MEDS ORDERED: Acetaminophen 500 MG TAB ONE (13:08)
[2022-06-18 15:48] LABS: Troponin I 0.023 ng/mL (< 0.028)
== END 2022-06-18 16:13 | disposition home or self-care (01) ==
LOC: ERS 10:51
DX: R07.89 Other chest pain (principal); I11.0 Hypertensive heart disease with heart failure; I50.9 Heart failure, unspecified; E11.9 Type 2 diabetes mellitus without complications; E78.00 Pure hypercholesterolemia, unspecified; J44.9 Chronic obstructive pulmonary disease, unspecified; G20 Parkinson's disease; Z79.82 Long term (current) use of aspirin; Z79.84 Long term (current) use of oral hypoglycemic drugs; Z79.899 Other long term (current) drug therapy
CPT/HCPCS: 36415; 71045; 80053; 83690; 83880; 84484; 85025; 93005; 96360; 96361; Q0162

== ENCOUNTER 2022-08-05 07:37 | Day surgery (SDC) | payer OTHER, MEDICAID ==
[2022-08-05 07:36] LABS: #Basophils 0.1 thou/uL (0.0-0.2); #Lymphocytes 2.5 thou/uL (1.20-3.40); #Monocytes 0.5 thou/uL (0.11-0.59); #Neutrophils 3.4 thou/uL (1.40-6.50); %Basophils 1.1 % (0.0-1.0); %Eosinophils 0.8 % (0.0-10.0); %Lymphocytes 38.1 % (21.0-51.0); %Monocytes 6.9 % (0.0-10.0); %Neutrophils 53.1 % (42.0-75.0); Mean Corpuscular HGB CONC 32.5 g/dL (32.0-36.0); Mean Corpuscular Hemoglobin 28.9 pg (27.0-31.0); Mean Corpuscular Volume 88.8 fl (78.0-98.0); Mean Platelet Volume 8.5 fL (7.4-10.4); Platelet Count 134 10x3/uL (130-400); RBC Distribution Width 14.2 % (11.5-14.5); Red Blood Cell (RBC) Count 4.17 mill/uL (4.20-5.40); White Blood Cell (WBC) Count 6.4 10x3/uL (4.8-10.8)
[2022-08-05] MEDS ORDERED: fentaNYL 50 mcg/mL 1 mL Vial ONE (07:39)
[2022-08-05] MEDS ORDERED: Midazolam HCl 2 mg/2 ml Vial ONE (07:39)
[2022-08-05] MEDS ORDERED: Sodium Bicarbonate 2.5 MEQ/5 ML VIAL ONE (07:40)
[2022-08-05] MEDS ORDERED: Lidocaine 1% PF 5 ML VIAL ONE (07:40)
[2022-08-05 07:52] LABS: INR-International Normal Ratio 0.9; Prothrombin Time 12.2 sec (12.0-14.7)
[2022-08-05 07:53] LABS: PTT 26.4 sec (22.9-36.1)
[2022-08-05 11:40] VITALS: BP 122/57; TEMP 97.5; BMI 29.1
== END 2022-08-05 13:10 | disposition home or self-care (01) ==
LOC: ULT 07:37
PROVIDERS: ATTEND Internal Medicine
PROC: 0FB23ZX Excision of Left Lobe Liver, Percutaneous Approach, Diagnostic (ICD-10-PCS; principal; 2022-08-05)
DX: K74.01 Hepatic fibrosis, early fibrosis (principal); K83.1 Obstruction of bile duct; K75.9 Inflammatory liver disease, unspecified; G47.33 Obstructive sleep apnea (adult) (pediatric); J45.909 Unspecified asthma, uncomplicated; I13.0 Hypertensive heart and chronic kidney disease with heart failure and stage 1 through stage 4 chronic kidney disease, or unspecified chronic kidney disease; E11.22 Type 2 diabetes mellitus with diabetic chronic kidney disease; N18.9 Chronic kidney disease, unspecified; I50.9 Heart failure, unspecified; I48.91 Unspecified atrial fibrillation; K21.9 Gastro-esophageal reflux disease without esophagitis; M19.90 Unspecified osteoarthritis, unspecified site; E78.00 Pure hypercholesterolemia, unspecified; Z79.02 Long term (current) use of antithrombotics/antiplatelets; Z79.4 Long term (current) use of insulin; Z79.82 Long term (current) use of aspirin; Z79.84 Long term (current) use of oral hypoglycemic drugs; Z79.890 Hormone replacement therapy; Z79.899 Other long term (current) drug therapy; Z88.5 Allergy status to narcotic agent; Z88.8 Allergy status to other drugs, medicaments and biological substances; Z91.013 Allergy to seafood; Z91.048 Other nonmedicinal substance allergy status
CPT/HCPCS: 36415; 47000; 76942; 85025; 85610; 85730; 88307; 88313; J2250; J3010

== ENCOUNTER 2022-08-06 11:23 | Emergency (ER) | payer OTHER ==
[~2022-08-06 11:23] MED LIST changes: -Iopamidol-370 76% 500 ML 1 ML ONE; +Iopamidol-370 76% 500 ML MDV (1 ML CHARGE) ONE
[2022-08-06] MEDS ORDERED: Morphine 4 MG/ML VIAL ONE (12:25)
[2022-08-06 13:53] LABS: #Lymphocytes 1.5 thou/uL (1.20-3.40); #Monocytes 0.3 thou/uL (0.11-0.59); #Neutrophils 2.5 thou/uL (1.40-6.50); %Basophils 0.6 % (0.0-1.0); %Eosinophils 0.8 % (0.0-10.0); %Monocytes 5.8 % (0.0-10.0); %Neutrophils 57.9 % (42.0-75.0); Hemoglobin 11.5 g/dL (12.0-16.0); Mean Corpuscular HGB CONC 34.1 g/dL (32.0-36.0); Mean Corpuscular Hemoglobin 30.5 pg (27.0-31.0); Mean Corpuscular Volume 89.3 fl (78.0-98.0); Mean Platelet Volume 9.4 fL (7.4-10.4); Platelet Count 139 10x3/uL (130-400); RBC Distribution Width 14.2 % (11.5-14.5); Red Blood Cell (RBC) Count 3.78 mill/uL (4.20-5.40); White Blood Cell (WBC) Count 4.4 10x3/uL (4.8-10.8)
[2022-08-06 14:16] LABS: ALT (SGPT) 251 U/L (8-55); AST (SGOT) 164 U/L (5-34); Albumin 3.7 g/dL (3.4-4.8); Alkaline Phosphatase 384 U/L (40-110); Anion Gap 13 mmol/L (10-20); BUN (Urea Nitrogen) 18 mg/dL (9.8-20.1); Bilirubin, Total 0.2 mg/dL (0.2-1.2); CK (CPK) 29 U/L (29-168); Calc. Creatinine Clearance 0 mL/min (70-130); Calcium 10.4 mg/dL (7.8-10.44); Carbon Dioxide 21 mmol/L (23-31); Chloride 111 mmol/L (98-107); Estimated GFR 81; Globulin 2.4 g/dL (2.4-3.5); Glucose 215 mg/dL (83-110); Lipase 25 U/L (8-78); Potassium 3.2 mmol/L (3.5-5.1); Protein, Total 6.1 g/dL (5.8-8.1); Sodium 142 mmol/L (136-145)
== END 2022-08-06 15:39 | disposition home or self-care (01) ==
LOC: ERS 11:23
DX: R07.9 Chest pain, unspecified (principal); G89.18 Other acute postprocedural pain; I11.0 Hypertensive heart disease with heart failure; I50.9 Heart failure, unspecified; E11.9 Type 2 diabetes mellitus without complications; E78.5 Hyperlipidemia, unspecified; J44.9 Chronic obstructive pulmonary disease, unspecified; Z79.899 Other long term (current) drug therapy; Z79.84 Long term (current) use of oral hypoglycemic drugs
CPT/HCPCS: 36415; 71045; 74177; 80053; 82550; 83690; 83880; 84484; 85025; 93005; 96374; J2270; Q9967

== ENCOUNTER 2022-08-25 05:41 | Inpatient (IN) | payer OTHER ==
[2022-08-25 06:27] LABS: #Monocytes 1.1 thou/uL (0.11-0.59); #Neutrophils 8.6 thou/uL (1.40-6.50); %Basophils 0.3 % (0.0-1.0); %Eosinophils 0.2 % (0.0-10.0); %Lymphocytes 13.9 % (21.0-51.0); %Monocytes 9.9 % (0.0-10.0); Mean Corpuscular HGB CONC 30.5 g/dL (32.0-36.0); Mean Corpuscular Hemoglobin 26.6 pg (27.0-31.0); Mean Corpuscular Volume 87.2 fl (78.0-98.0); Mean Platelet Volume 10.3 fL (7.4-10.4); Platelet Count 188 10x3/uL (130-400); RBC Distribution Width 14.6 % (11.5-14.5); Red Blood Cell (RBC) Count 4.14 mill/uL (4.20-5.40); White Blood Cell (WBC) Count 11.4 10x3/uL (4.8-10.8)
[2022-08-25] MEDS ORDERED: Acetaminophen 500 MG TAB ONE (06:28)
[2022-08-25] MEDS ORDERED: Ipratropium/Albuterol 3 ML NEB ONE (06:39)
[2022-08-25 06:48] LABS: ALT (SGPT) 126 U/L (8-55); AST (SGOT) 63 U/L (5-34); Albumin 3.6 g/dL (3.4-4.8); Alkaline Phosphatase 335 U/L (40-110); Anion Gap 16 mmol/L (10-20); BUN (Urea Nitrogen) 17 mg/dL (9.8-20.1); Bilirubin, Total 0.4 mg/dL (0.2-1.2); Calc. Creatinine Clearance 0 mL/min (70-130); Calcium 10.6 mg/dL (7.8-10.44); Carbon Dioxide 21 mmol/L (23-31); Chloride 109 mmol/L (98-107); Estimated GFR 75; Globulin 3.4 g/dL (2.4-3.5); Glucose 105 mg/dL (83-110); Potassium 4.1 mmol/L (3.5-5.1); Sodium 142 mmol/L (136-145)
[2022-08-25 06:52] LABS: Bacteria/HPF 2+ HPF (None Seen); Bilirubin Negative (Negative); Blood, Urine 1+ (Negative); Clarity Clear (Clear); Glucose, Urine (Dipstick) Normal (Negative); Ketone, Urine Negative (Negative); Leukocyte 25 Leu/uL (Negative); Nitrite Negative (Negative); Protein, Urine (Dipstick) Negative (Neg-Trace); RBC/HPF 0-3 HPF (0-3); Specific Gravity, Urine 1.006 (1.002-1.036); Squamous Epithelial None Seen HPF (0-3); Urobilinogen Normal mg/dL (Less than 2)
[2022-08-25] MEDS ORDERED: cefTRIAXone (ROCEPHIN) 1 GM VIAL ONE (06:58)
[2022-08-25] MEDS ORDERED: Sodium Chloride 0.9% 100 ML ONE (06:58)
[2022-08-25] MEDS ORDERED: Azithromycin 500 MG VIAL ONE (07:13)
[2022-08-25] MEDS: Acetaminophen 325 MG TAB PO PRN ×2 (11:06→16:24)
[2022-08-25] MEDS ORDERED: Dextrose 50% Abboject 50 ML SYRINGE SLOW IVP PRN (11:26)
[2022-08-25] MEDS ORDERED: Dextrose 5% in Water 1,000 ML IV PRN (11:26)
[2022-08-25] MEDS ORDERED: Ipratropium/Albuterol 3 ML NEB NEB PRN (11:31)
[2022-08-25 12:50] LABS: Troponin I 0.024 ng/mL (< 0.028)
[2022-08-25] MEDS: HumaLOG 300 UNITS/3 ML VIAL SC PRN ×2 (13:19→21:24)
[2022-08-25] MEDS ORDERED: Ipratropium/Albuterol 3 ML NEB NEB SCH (14:30)
[2022-08-25] MEDS: Cefepime 2 GM in Sodium Chloride 0.9% 100 ML IVPB SCH ×2 (15:37→21:23)
[2022-08-25] MEDS: Benzonatate 100 MG CAP PO PRN (16:24)
[2022-08-25] MEDS ORDERED: predniSONE 20 MG TAB PO SCH (16:30)
[2022-08-25] MEDS ORDERED: Ketorolac Tromethamine 30 MG/ML VIAL IVP SCH (19:00)
[2022-08-25] MEDS: guaiFENesin ER 600 MG TAB PO SCH (19:44)
[2022-08-26] MEDS: Acetaminophen 325 MG TAB PO PRN (05:01)
[2022-08-26] MEDS: Benzonatate 100 MG CAP PO PRN (05:01)
[2022-08-26] MEDS: HumaLOG 300 UNITS/3 ML VIAL SC PRN ×3 (05:03→20:33)
[2022-08-26] MEDS: Cefepime 2 GM in Sodium Chloride 0.9% 100 ML IVPB SCH ×3 (05:03→22:30)
[2022-08-26 06:15] LABS: #Monocytes 0.2 thou/uL (0.11-0.59); #Neutrophils 7.4 thou/uL (1.40-6.50); %Basophils 0.2 % (0.0-1.0); %Lymphocytes 9.7 % (21.0-51.0); %Monocytes 2.3 % (0.0-10.0); %Neutrophils 86.5 % (42.0-75.0); Hemoglobin 11.3 g/dL (12.0-16.0); Mean Corpuscular HGB CONC 31.6 g/dL (32.0-36.0); Mean Corpuscular Hemoglobin 27.1 pg (27.0-31.0); Mean Corpuscular Volume 85.9 fl (78.0-98.0); Mean Platelet Volume 11.1 fL (7.4-10.4); Platelet Count 195 10x3/uL (130-400); RBC Distribution Width 14.8 % (11.5-14.5); Red Blood Cell (RBC) Count 4.17 mill/uL (4.20-5.40); White Blood Cell (WBC) Count 8.6 10x3/uL (4.8-10.8)
[2022-08-26 06:44] LABS: ALT (SGPT) 93 U/L (8-55); AST (SGOT) 36 U/L (5-34); Albumin 3.3 g/dL (3.4-4.8); Alkaline Phosphatase 326 U/L (40-110); Anion Gap 12 mmol/L (10-20); BUN (Urea Nitrogen) 24 mg/dL (9.8-20.1); Bilirubin, Total 0.2 mg/dL (0.2-1.2); Calc. Creatinine Clearance 64 mL/min (70-130); Calcium 10.3 mg/dL (7.8-10.44); Carbon Dioxide 23 mmol/L (23-31); Chloride 105 mmol/L (98-107); Estimated GFR 62; Globulin 2.9 g/dL (2.4-3.5); Potassium 4.1 mmol/L (3.5-5.1); Protein, Total 6.2 g/dL (5.8-8.1); Sodium 136 mmol/L (136-145)
[2022-08-26 07:00] LABS: Glucose 417 mg/dL (83-110)
[2022-08-26] MEDS: predniSONE 20 MG TAB PO SCH (08:30)
[2022-08-26] MEDS: guaiFENesin ER 600 MG TAB PO SCH ×2 (08:31→20:32)
[2022-08-26] MEDS ORDERED: Non-Formulary Item 1 EACH (Lipase/Protease/Amylase [Creon Dr 36,000 Units] 1 CAPSULE Caps PO SCH (09:15)
[2022-08-26] MEDS ORDERED: Pancrelipase DR 12,000 1 CAP PO PRN (09:20)
[2022-08-26] MEDS: Pancrelipase DR 12,000 1 CAP PO SCH ×2 (11:26→17:08)
[2022-08-26] MEDS: Gabapentin 300 MG CAP PO SCH ×2 (14:38→20:31)
[2022-08-26] MEDS: Ipratropium/Albuterol 3 ML NEB NEB SCH (18:51)
[2022-08-26] MEDS: Mirtazapine 30 MG Soltab PO SCH (20:31)
[2022-08-26] MEDS: Aripiprazole 15 MG TAB PO SCH (20:32)
[2022-08-26] MEDS: cycloSPORINE 0.05% Ophthalmic Droperette EA EYE SCH (20:43)
[2022-08-26] MEDS ORDERED: Non-Formulary Item 1 EACH (Insulin Glargine,Hum.Rec.Anlog [Basaglar Kwikpen U-100] 100 UN SQ SCH (21:00)
[2022-08-26] MEDS ORDERED: Insulin Glargine 30 UNITS/0.3 ML VIAL SC SCH (21:00)
[2022-08-26] MEDS ORDERED: cycloSPORINE 0.05% Ophthalmic Droperette EA EYE SCH (21:00)
[2022-08-26] MEDS: Mometasone 100 MCG HFA INHALER (RT USE) INH SCH (22:29)
[2022-08-27] MEDS: Ipratropium/Albuterol 3 ML NEB NEB SCH ×4 (01:59→18:30)
[2022-08-27] MEDS: HumaLOG 300 UNITS/3 ML VIAL SC PRN ×4 (05:01→20:07)
[2022-08-27] MEDS: Levothyroxine Sodium 88 MCG TAB PO SCH (05:02)
[2022-08-27] MEDS: Cefepime 2 GM in Sodium Chloride 0.9% 100 ML IVPB SCH (05:02)
[2022-08-27 05:08] VITALS: BMI 30.4
[2022-08-27] MEDS: Mometasone 100 MCG HFA INHALER (RT USE) INH SCH ×2 (06:29→18:32)
[2022-08-27 07:16] LABS: #Monocytes 0.6 thou/uL (0.11-0.59); #Neutrophils 7.3 thou/uL (1.40-6.50); %Basophils 0.2 % (0.0-1.0); %Lymphocytes 24.5 % (21.0-51.0); %Monocytes 5.7 % (0.0-10.0); %Neutrophils 67.4 % (42.0-75.0); Hemoglobin 10.6 g/dL (12.0-16.0); Mean Corpuscular HGB CONC 31.9 g/dL (32.0-36.0); Mean Corpuscular Hemoglobin 27.2 pg (27.0-31.0); Mean Corpuscular Volume 85.1 fl (78.0-98.0); Mean Platelet Volume 10.9 fL (7.4-10.4); Platelet Count 232 10x3/uL (130-400); RBC Distribution Width 14.6 % (11.5-14.5); White Blood Cell (WBC) Count 10.8 10x3/uL (4.8-10.8)
[2022-08-27 07:55] LABS: ALT (SGPT) 63 U/L (8-55); AST (SGOT) 14 U/L (5-34); Albumin 3.1 g/dL (3.4-4.8); Alkaline Phosphatase 269 U/L (40-110); Anion Gap 9 mmol/L (10-20); BUN (Urea Nitrogen) 24 mg/dL (9.8-20.1); Bilirubin, Total Less than 0.2 mg/dL (0.2-1.2); Calc. Creatinine Clearance 76 mL/min (70-130); Calcium 11.2 mg/dL (7.8-10.44); Carbon Dioxide 22 mmol/L (23-31); Chloride 109 mmol/L (98-107); Estimated GFR 77; Globulin 2.6 g/dL (2.4-3.5); Glucose 253 mg/dL (83-110); Potassium 3.2 mmol/L (3.5-5.1); Protein, Total 5.7 g/dL (5.8-8.1); Sodium 137 mmol/L (136-145)
[2022-08-27] MEDS ORDERED: Non-Formulary Item 1 EACH (Esomeprazole Magnesium [Nexium] 40 MG Cap) PO SCH (08:00)
[2022-08-27] MEDS ORDERED: Potassium Chloride 20 MEQ TAB PO SCH (08:15)
[2022-08-27] MEDS: Alogliptin 25 MG TAB PO SCH (08:48)
[2022-08-27] MEDS: guaiFENesin ER 600 MG TAB PO SCH ×2 (08:49→20:04)
[2022-08-27] MEDS: Loratadine 10 MG TAB PO SCH (08:49)
[2022-08-27] MEDS: Pancrelipase DR 12,000 1 CAP PO SCH ×3 (08:49→17:38)
[2022-08-27] MEDS: Rosuvastatin 20 MG TAB PO SCH (08:49)
[2022-08-27] MEDS: Lisinopril 5 MG TAB PO SCH (08:49)
[2022-08-27] MEDS: Ezetimibe 10 MG TAB PO SCH (08:49)
[2022-08-27] MEDS: Aspirin Chewable 81 MG TAB PO SCH (08:49)
[2022-08-27] MEDS: Gabapentin 300 MG CAP PO SCH ×3 (08:50→20:04)
[2022-08-27] MEDS: Ferrous Sulfate 325 MG TAB PO SCH (08:50)
[2022-08-27] MEDS: Clopidogrel Bisulfate 75 MG TAB PO SCH (08:50)
[2022-08-27] MEDS: Furosemide 40 MG TAB PO SCH (08:50)
[2022-08-27] MEDS: predniSONE 20 MG TAB PO SCH (08:51)
[2022-08-27] MEDS: Allopurinol 100 MG TAB PO SCH (08:51)
[2022-08-27] MEDS: Aripiprazole 15 MG TAB PO SCH ×2 (08:51→20:03)
[2022-08-27] MEDS: cycloSPORINE 0.05% Ophthalmic Droperette EA EYE SCH ×2 (08:54→21:09)
[2022-08-27] MEDS ORDERED: Lisinopril 10 MG TAB PO SCH (09:00)
[2022-08-27] MEDS ORDERED: Non-Formulary Item 1 EACH (Levothyroxine Sodium [Levothyroxine] 88 MCG Capsule) PO SCH (09:00)
[2022-08-27] MEDS ORDERED: Non-Formulary Item 1 EACH (Oxybutynin Chloride [Oxybutynin Chloride Er] 15 MG Tab.Er.24) PO SCH (09:00)
[2022-08-27] MEDS ORDERED: Non-Formulary Item 1 EACH (Ferrous Sulfate [Ferrous Sulfate] 325 MG Tab) PO SCH (09:00)
[2022-08-27] MEDS ORDERED: Oxybutynin ER 5 MG TAB PO SCH ×2 (09:00→09:15)
[2022-08-27] MEDS ORDERED: Non-Formulary Item 1 EACH (Fluticasone/Umeclidin/Vilanter [Trelegy Ellipta 100-62.5-25] 1 INH SCH (09:00)
[2022-08-27] MEDS ORDERED: predniSONE 20 MG TAB PO SCH (09:30)
[2022-08-27] MEDS: Mirtazapine 30 MG Soltab PO SCH (20:04)
[2022-08-27] MEDS: Amoxicillin/Potassium Clav 875 MG TAB PO SCH (20:04)
[2022-08-27 20:09] VITALS: TEMP 97.6
[2022-08-27] MEDS ORDERED: Insulin Glargine 30 UNITS/0.3 ML VIAL SC SCH (21:00)
[2022-08-28] MEDS: Ipratropium/Albuterol 3 ML NEB NEB SCH ×2 (00:28→06:33)
[2022-08-28] MEDS: Levothyroxine Sodium 88 MCG TAB PO SCH (05:46)
[2022-08-28] MEDS: Mometasone 100 MCG HFA INHALER (RT USE) INH SCH (06:35)
[2022-08-28 06:48] LABS: #Monocytes 0.6 thou/uL (0.11-0.59); #Neutrophils 5.5 thou/uL (1.40-6.50); %Basophils 0.3 % (0.0-1.0); %Eosinophils 0.2 % (0.0-10.0); %Lymphocytes 31.4 % (21.0-51.0); %Monocytes 5.9 % (0.0-10.0); %Neutrophils 56.6 % (42.0-75.0); Hemoglobin 10.1 g/dL (12.0-16.0); Mean Corpuscular HGB CONC 31.6 g/dL (32.0-36.0); Mean Corpuscular Hemoglobin 27.1 pg (27.0-31.0); Mean Corpuscular Volume 85.8 fl (78.0-98.0); Mean Platelet Volume 10.3 fL (7.4-10.4); Platelet Count 249 10x3/uL (130-400); RBC Distribution Width 14.7 % (11.5-14.5); Red Blood Cell (RBC) Count 3.73 mill/uL (4.20-5.40); White Blood Cell (WBC) Count 9.7 10x3/uL (4.8-10.8)
[2022-08-28 06:54] LABS: Manual Diff?? NO
[2022-08-28 07:29] LABS: ALT (SGPT) 66 U/L (8-55); AST (SGOT) 33 U/L (5-34); Albumin 3.1 g/dL (3.4-4.8); Alkaline Phosphatase 259 U/L (40-110); Anion Gap 12 mmol/L (10-20); BUN (Urea Nitrogen) 30 mg/dL (9.8-20.1); Bilirubin, Total 0.2 mg/dL (0.2-1.2); Calc. Creatinine Clearance 79 mL/min (70-130); Calcium 10.6 mg/dL (7.8-10.44); Carbon Dioxide 24 mmol/L (23-31); Chloride 108 mmol/L (98-107); Estimated GFR 80; Globulin 2.6 g/dL (2.4-3.5); Glucose 146 mg/dL (83-110); Potassium 3.5 mmol/L (3.5-5.1); Protein, Total 5.7 g/dL (5.8-8.1); Sodium 140 mmol/L (136-145)
[2022-08-28 07:54] VITALS: BP 153/85
[2022-08-28] MEDS ORDERED: predniSONE 20 MG TAB PO SCH (08:00)
[2022-08-28] MEDS: Pancrelipase DR 12,000 1 CAP PO SCH (08:48)
[2022-08-28] MEDS: Aspirin Chewable 81 MG TAB PO SCH (08:48)
[2022-08-28] MEDS: Alogliptin 25 MG TAB PO SCH (08:49)
[2022-08-28] MEDS: Rosuvastatin 20 MG TAB PO SCH (08:49)
[2022-08-28] MEDS: Gabapentin 300 MG CAP PO SCH (08:49)
[2022-08-28] MEDS: guaiFENesin ER 600 MG TAB PO SCH (08:49)
[2022-08-28] MEDS: Allopurinol 100 MG TAB PO SCH (08:49)
[2022-08-28] MEDS: Ferrous Sulfate 325 MG TAB PO SCH (08:49)
[2022-08-28] MEDS: Clopidogrel Bisulfate 75 MG TAB PO SCH (08:49)
[2022-08-28] MEDS: Lisinopril 5 MG TAB PO SCH (08:49)
[2022-08-28] MEDS: Amoxicillin/Potassium Clav 875 MG TAB PO SCH (08:49)
[2022-08-28] MEDS: Loratadine 10 MG TAB PO SCH (08:49)
[2022-08-28] MEDS: Ezetimibe 10 MG TAB PO SCH (08:49)
[2022-08-28] MEDS: Furosemide 40 MG TAB PO SCH (08:50)
[2022-08-28] MEDS: Aripiprazole 15 MG TAB PO SCH (08:51)
[2022-08-28] MEDS ORDERED: Azithromycin 250 MG TAB PO SCH (09:00)
[2022-08-28] MEDS ORDERED: Oxybutynin ER 5 MG TAB PO SCH (09:00)
[2022-08-28] MEDS ORDERED: Insulin Glargine 30 UNITS/0.3 ML VIAL SC SCH (21:00)
== END 2022-08-28 10:22 | disposition home or self-care (01) | DRG 871 ==
LOC: ERS 05:41 → T4-A 08:31 → OBSVTOIN 11:00
PROVIDERS: ADMIT Family Medicine; ATTEND Family Medicine
DX: A41.9 Sepsis, unspecified organism (principal); J18.9 Pneumonia, unspecified organism; J44.0 Chronic obstructive pulmonary disease with (acute) lower respiratory infection; N39.0 Urinary tract infection, site not specified; I13.0 Hypertensive heart and chronic kidney disease with heart failure and stage 1 through stage 4 chronic kidney disease, or unspecified chronic kidney disease; F31.9 Bipolar disorder, unspecified; K21.9 Gastro-esophageal reflux disease without esophagitis; G20 Parkinson's disease; E03.9 Hypothyroidism, unspecified; N18.31 Chronic kidney disease, stage 3a; F41.1 Generalized anxiety disorder; M10.9 Gout, unspecified; E11.40 Type 2 diabetes mellitus with diabetic neuropathy, unspecified; Z96.653 Presence of artificial knee joint, bilateral; E11.22 Type 2 diabetes mellitus with diabetic chronic kidney disease; E11.65 Type 2 diabetes mellitus with hyperglycemia; I50.9 Heart failure, unspecified; D63.1 Anemia in chronic kidney disease; Z88.5 Allergy status to narcotic agent; Z88.8 Allergy status to other drugs, medicaments and biological substances; Z91.013 Allergy to seafood; Z79.51 Long term (current) use of inhaled steroids; Z79.899 Other long term (current) drug therapy; Z79.890 Hormone replacement therapy; Z79.4 Long term (current) use of insulin; Z79.82 Long term (current) use of aspirin; Z90.710 Acquired absence of both cervix and uterus; Z90.49 Acquired absence of other specified parts of digestive tract
CPT/HCPCS: 36415; 36416; 71045; 80053; 81003; 81015; 83605; 83880; 84145; 84484; 85025; 87040; 87077; 87086; 87149; 87186; 87635; 93005; 94640; 94644; 96365; 96367; 96372; G0378; J0456; J0692; J0696; J1650; J1815; J1885; J3490; J7512; J7611; J7620

== ENCOUNTER 2022-08-29 06:31 | Emergency (ER) | payer OTHER ==
[2022-08-29 07:20] LABS: #Basophils 0.1 thou/uL (0.0-0.2); #Eosinphils 0.1 thou/uL (0.0-0.7); #Monocytes 0.8 thou/uL (0.11-0.59); #Neutrophils 8.1 thou/uL (1.40-6.50); %Basophils 0.7 % (0.0-1.0); %Eosinophils 0.8 % (0.0-10.0); %Lymphocytes 24.1 % (21.0-51.0); %Monocytes 5.9 % (0.0-10.0); %Neutrophils 64.1 % (42.0-75.0); Hemoglobin 10.9 g/dL (12.0-16.0); Mean Corpuscular HGB CONC 31.1 g/dL (32.0-36.0); Mean Corpuscular Hemoglobin 26.9 pg (27.0-31.0); Mean Corpuscular Volume 86.4 fl (78.0-98.0); Mean Platelet Volume 10.2 fL (7.4-10.4); Platelet Count 275 10x3/uL (130-400); RBC Distribution Width 14.6 % (11.5-14.5); Red Blood Cell (RBC) Count 4.05 mill/uL (4.20-5.40); White Blood Cell (WBC) Count 12.7 10x3/uL (4.8-10.8)
[2022-08-29 07:37] LABS: ALT (SGPT) 163 U/L (8-55); AST (SGOT) 168 U/L (5-34); Albumin 3.2 g/dL (3.4-4.8); Alkaline Phosphatase 303 U/L (40-110); Anion Gap 14 mmol/L (10-20); BUN (Urea Nitrogen) 31 mg/dL (9.8-20.1); Bilirubin, Total 0.2 mg/dL (0.2-1.2); Calc. Creatinine Clearance 0 mL/min (70-130); Calcium 10.1 mg/dL (7.8-10.44); Carbon Dioxide 20 mmol/L (23-31); Chloride 109 mmol/L (98-107); Estimated GFR 88; Globulin 2.6 g/dL (2.4-3.5); Glucose 84 mg/dL (83-110); Lipase 17 U/L (8-78); Potassium 3.6 mmol/L (3.5-5.1); Protein, Total 5.8 g/dL (5.8-8.1); Sodium 139 mmol/L (136-145)
[2022-08-29] MEDS ORDERED: Azithromycin 250 MG TAB ONE (08:36)
[2022-08-29] MEDS ORDERED: Amoxicillin/Potassium Clav 875 MG TAB ONE (08:44)
[2022-08-29 08:53] LABS: Bilirubin Negative (Negative); Blood, Urine Negative (Negative); Clarity Clear (Clear); Glucose, Urine (Dipstick) Normal (Negative); Ketone, Urine Negative (Negative); Leukocyte Negative Leu/uL (Negative); Nitrite Negative (Negative); Protein, Urine (Dipstick) Negative (Neg-Trace); Specific Gravity, Urine 1.016 (1.002-1.036); Urobilinogen Normal mg/dL (Less than 2); pH, Urine 5.5 (5.0-9.0)
== END 2022-08-29 12:16 ==
LOC: ERS 06:31
DX: J18.9 Pneumonia, unspecified organism (principal); E11.9 Type 2 diabetes mellitus without complications; I11.0 Hypertensive heart disease with heart failure; I50.9 Heart failure, unspecified; J44.9 Chronic obstructive pulmonary disease, unspecified; D72.829 Elevated white blood cell count, unspecified; Z79.899 Other long term (current) drug therapy
CPT/HCPCS: 36416; 80053; 81003; 82010; 83690; 84484; 85025; 93005

== ENCOUNTER 2022-10-06 09:32 | Outpatient (CLI) | payer OTHER | END 2022-10-06 09:33 | disposition home or self-care (01) | LOC: BICRAD 09:32 | PROVIDERS: ATTEND Student in an Organized Health Care Education/Training Program | DX: M25.551 Pain in right hip (principal); M16.0 Bilateral primary osteoarthritis of hip ==

== ENCOUNTER 2022-11-21 15:06 | Inpatient (IN) | payer OTHER ==
[2022-11-21 15:59] LABS: #Eosinphils 0.1 thou/uL (0.0-0.7); #Monocytes 0.5 thou/uL (0.11-0.59); #Neutrophils 2.9 thou/uL (1.40-6.50); %Basophils 0.5 % (0.0-1.0); %Eosinophils 1.2 % (0.0-10.0); %Lymphocytes 39.8 % (21.0-51.0); %Monocytes 8.3 % (0.0-10.0); %Neutrophils 49.7 % (42.0-75.0); Hematocrit 35.6 % (36.0-47.0); Hemoglobin 11.5 g/dL (12.0-16.0); Mean Corpuscular HGB CONC 32.3 g/dL (32.0-36.0); Mean Corpuscular Hemoglobin 28.9 pg (27.0-31.0); Mean Corpuscular Volume 89.4 fl (78.0-98.0); Platelet Count 184 10x3/uL (130-400); RBC Distribution Width 16.2 % (11.5-14.5); Red Blood Cell (RBC) Count 3.98 mill/uL (4.20-5.40); White Blood Cell (WBC) Count 5.8 10x3/uL (4.8-10.8)
[2022-11-21 16:25] LABS: ALT (SGPT) 62 U/L (8-55); AST (SGOT) 32 U/L (5-34); Albumin 3.8 g/dL (3.4-4.8); Alkaline Phosphatase 173 U/L (40-110); Anion Gap 15 mmol/L (10-20); BUN (Urea Nitrogen) 37 mg/dL (9.8-20.1); Bilirubin, Total 0.2 mg/dL (0.2-1.2); Calc. Creatinine Clearance 0 mL/min (70-130); Calcium 10.2 mg/dL (7.8-10.44); Carbon Dioxide 20 mmol/L (23-31); Chloride 104 mmol/L (98-107); Estimated GFR 37; Globulin 2.6 g/dL (2.4-3.5); Glucose 202 mg/dL (83-110); Lipase 23 U/L (8-78); Potassium 4.2 mmol/L (3.5-5.1); Protein, Total 6.4 g/dL (5.8-8.1); Sodium 135 mmol/L (136-145)
[2022-11-21] MEDS ORDERED: HYDROcodone/Acetaminophen 5/325 mg Tablet ONE (16:30)
[2022-11-21] MEDS ORDERED: Ondansetron ODT 4 MG TAB PO PRN (19:07)
[2022-11-21] MEDS ORDERED: Ondansetron PF 4 MG/2 ML Vial IVP PRN (19:07)
[2022-11-21] MEDS ORDERED: Dextrose 5% in Water 1,000 ML IV PRN (19:54)
[2022-11-21] MEDS ORDERED: Glucagon 1 MG/ML KIT IM PRN (19:54)
[2022-11-21] MEDS ORDERED: Dextrose 50% Abboject 50 ML SYRINGE SLOW IVP PRN (19:54)
[2022-11-21] MEDS ORDERED: HumaLOG 300 UNITS/3 ML VIAL SC PRN ×2 (19:54→21:43)
[2022-11-21] MEDS ORDERED: Insulin Glargine 30 UNITS/0.3 ML VIAL SC SCH (21:00)
[2022-11-21] MEDS ORDERED: fentaNYL 50 mcg/mL 1 mL Vial SLOW IVP PRN (21:10)
[2022-11-21 21:18] VITALS: BMI 31.4
[2022-11-21] MEDS: Mirtazapine 30 MG TAB PO SCH (21:30)
[2022-11-21] MEDS: Gabapentin 300 MG CAP PO SCH ×2 (21:30→22:19)
[2022-11-21] MEDS: Artificial Tear Sol 15 ML BOT EA EYE SCH (22:18)
[2022-11-21] MEDS: Albuterol 200 PUFF (6.7GM INHALER) INH SCH (22:19)
[2022-11-21] MEDS: Mometasone 100 MCG/PUFF (1 INHALER) INH SCH (22:20)
[2022-11-21] MEDS: HYDROcodone/Acetaminophen 5/325 mg Tablet PO PRN (22:24)
[2022-11-21] MEDS ORDERED: Calcium Carbonate 500 MG ChewTAB PO PRN (22:43)
[2022-11-21] MEDS ORDERED: Aripiprazole 10 MG TAB PO SCH (23:00)
[2022-11-21 23:37] LABS: Creatinine, Urine 91.76 mg/dL (47-110)
[2022-11-21 23:45] LABS: Bilirubin Negative (Negative); Blood, Urine Negative (Negative); CAUTI Indications for Culture Dysuria,urgency,freq; Clarity Clear (Clear); Glucose, Urine (Dipstick) Normal (Negative); Ketone, Urine Negative (Negative); Leukocyte 25 Leu/uL (Negative); Nitrite Negative (Negative); Protein, Urine (Dipstick) Negative (Neg-Trace); RBC/HPF 0-3 HPF (0-3); Specific Gravity, Urine 1.018 (1.002-1.036); Urobilinogen Normal mg/dL (Less than 2)
[2022-11-21 23:46] LABS: Bacteria/HPF None Seen HPF (None Seen); Squamous Epithelial 0-3 HPF (0-3)
[2022-11-21 23:54] LABS: Urine Culture Reflex No No
[2022-11-22] MEDS ORDERED: Furosemide 40 MG/4 ML VIAL SLOW IVP SCH (03:45)
[2022-11-22] MEDS: Levothyroxine Sodium 88 MCG TAB PO SCH (05:01)
[2022-11-22] MEDS: Albuterol 200 PUFF (6.7GM INHALER) INH SCH (05:01)
[2022-11-22] MEDS: Ipratropium/Albuterol 3 ML NEB NEB SCH ×3 (07:23→18:40)
[2022-11-22] MEDS: Mometasone 100 MCG/PUFF (1 INHALER) INH SCH ×2 (07:25→18:42)
[2022-11-22 07:27] LABS: ALT (SGPT) 55 U/L (8-55); AST (SGOT) 40 U/L (5-34); Albumin 3.7 g/dL (3.4-4.8); Alkaline Phosphatase 154 U/L (40-110); Anion Gap 16 mmol/L (10-20); BUN (Urea Nitrogen) 40 mg/dL (9.8-20.1); Bilirubin, Total 0.3 mg/dL (0.2-1.2); Calc. Creatinine Clearance 44 mL/min (70-130); Calcium 10.1 mg/dL (7.8-10.44); Carbon Dioxide 22 mmol/L (23-31); Chloride 105 mmol/L (98-107); Estimated GFR 38; Globulin 2.9 g/dL (2.4-3.5); Glucose 93 mg/dL (83-110); Potassium 4.6 mmol/L (3.5-5.1); Protein, Total 6.6 g/dL (5.8-8.1); Sodium 138 mmol/L (136-145)
[2022-11-22] MEDS: Alogliptin 25 MG TAB PO SCH (08:16)
[2022-11-22] MEDS: Pancrelipase DR 12,000 1 CAP PO SCH ×3 (08:16→17:07)
[2022-11-22] MEDS: Ezetimibe 10 MG TAB PO SCH (08:17)
[2022-11-22] MEDS: Ferrous Sulfate 325 MG TAB PO SCH (08:17)
[2022-11-22] MEDS: Allopurinol 100 MG TAB PO SCH (08:17)
[2022-11-22] MEDS: Oxybutynin ER 5 MG TAB PO SCH (08:17)
[2022-11-22] MEDS: Lisinopril 5 MG TAB PO SCH (08:18)
[2022-11-22] MEDS: Gabapentin 300 MG CAP PO SCH ×3 (08:18→20:46)
[2022-11-22] MEDS: Artificial Tear Sol 15 ML BOT EA EYE SCH ×2 (08:19→20:46)
[2022-11-22] MEDS ORDERED: Furosemide 40 MG TAB PO SCH (09:00)
[2022-11-22] MEDS ORDERED: Non-Formulary Item 1 EACH (Fluticasone/Umeclidin/Vilanter [Trelegy Ellipta 100-62.5-25] 1 INH SCH (09:00)
[2022-11-22] MEDS ORDERED: Aripiprazole 10 MG TAB PO SCH (09:00)
[2022-11-22] MEDS ORDERED: Nitrofurantoin Monohyd/M-Cryst 100 MG CAP PO SCH (09:00)
[2022-11-22] MEDS: HYDROcodone/Acetaminophen 5/325 mg Tablet PO PRN (10:35)
[2022-11-22] MEDS ORDERED: Lactated Ringer's 1,000 ML IV SCH (11:30)
[2022-11-22] MEDS: Mirtazapine 30 MG TAB PO SCH (20:44)
[2022-11-22] MEDS: Aripiprazole 10 MG TAB PO SCH (20:46)
[2022-11-22] MEDS: Lactated Ringer's 1,000 ML IV SCH (20:52)
[2022-11-23] MEDS: Levothyroxine Sodium 88 MCG TAB PO SCH (05:03)
[2022-11-23] MEDS: Lactated Ringer's 1,000 ML IV SCH ×3 (05:07→23:30)
[2022-11-23] MEDS: Ipratropium/Albuterol 3 ML NEB NEB SCH ×3 (07:10→18:51)
[2022-11-23] MEDS: Mometasone 100 MCG/PUFF (1 INHALER) INH SCH ×2 (07:13→18:53)
[2022-11-23 07:30] LABS: ALT (SGPT) 38 U/L (8-55); AST (SGOT) 21 U/L (5-34); Albumin 3.3 g/dL (3.4-4.8); Alkaline Phosphatase 141 U/L (40-110); Anion Gap 12 mmol/L (10-20); BUN (Urea Nitrogen) 42 mg/dL (9.8-20.1); Bilirubin, Total 0.2 mg/dL (0.2-1.2); Calc. Creatinine Clearance 50 mL/min (70-130); Calcium 9.9 mg/dL (7.8-10.44); Carbon Dioxide 24 mmol/L (23-31); Chloride 106 mmol/L (98-107); Estimated GFR 44; Globulin 2.3 g/dL (2.4-3.5); Glucose 91 mg/dL (83-110); Potassium 4.5 mmol/L (3.5-5.1); Protein, Total 5.6 g/dL (5.8-8.1); Sodium 137 mmol/L (136-145)
[2022-11-23] MEDS ORDERED: Iopamidol-370 76% 500 ML MDV (1 ML CHARGE) ONE (09:50)
[2022-11-23] MEDS: Allopurinol 100 MG TAB PO SCH (10:46)
[2022-11-23] MEDS: Ferrous Sulfate 325 MG TAB PO SCH (10:46)
[2022-11-23] MEDS: Pancrelipase DR 12,000 1 CAP PO SCH ×3 (10:46→21:04)
[2022-11-23] MEDS: Artificial Tear Sol 15 ML BOT EA EYE SCH ×2 (10:47→20:57)
[2022-11-23] MEDS: Ezetimibe 10 MG TAB PO SCH (10:47)
[2022-11-23] MEDS: Alogliptin 25 MG TAB PO SCH (10:47)
[2022-11-23] MEDS: Oxybutynin ER 5 MG TAB PO SCH (10:47)
[2022-11-23] MEDS: Gabapentin 300 MG CAP PO SCH ×3 (10:47→20:56)
[2022-11-23] MEDS: Aripiprazole 10 MG TAB PO SCH (20:55)
[2022-11-23] MEDS: Mirtazapine 30 MG TAB PO SCH (20:55)
[2022-11-24] MEDS: HYDROcodone/Acetaminophen 5/325 mg Tablet PO PRN (03:00)
[2022-11-24 05:13] LABS: #Eosinphils 0.1 thou/uL (0.0-0.7); #Monocytes 0.5 thou/uL (0.11-0.59); #Neutrophils 2.6 thou/uL (1.40-6.50); %Basophils 0.2 % (0.0-1.0); %Eosinophils 1.7 % (0.0-10.0); %Lymphocytes 32.5 % (21.0-51.0); %Monocytes 9.7 % (0.0-10.0); %Neutrophils 55.5 % (42.0-75.0); Hematocrit 36.9 % (36.0-47.0); Hemoglobin 11.4 g/dL (12.0-16.0); Mean Corpuscular HGB CONC 30.9 g/dL (32.0-36.0); Mean Corpuscular Hemoglobin 28.6 pg (27.0-31.0); Mean Corpuscular Volume 92.7 fl (78.0-98.0); Mean Platelet Volume 9.7 fL (7.4-10.4); Platelet Count 181 10x3/uL (130-400); RBC Distribution Width 16.4 % (11.5-14.5); Red Blood Cell (RBC) Count 3.98 mill/uL (4.20-5.40); White Blood Cell (WBC) Count 4.6 10x3/uL (4.8-10.8)
[2022-11-24 05:45] LABS: ALT (SGPT) 35 U/L (8-55); AST (SGOT) 24 U/L (5-34); Albumin 3.5 g/dL (3.4-4.8); Alkaline Phosphatase 142 U/L (40-110); Anion Gap 12 mmol/L (10-20); BUN (Urea Nitrogen) 26 mg/dL (9.8-20.1); Bilirubin, Total 0.2 mg/dL (0.2-1.2); Calc. Creatinine Clearance 73 mL/min (70-130); Calcium 10.4 mg/dL (7.8-10.44); Carbon Dioxide 23 mmol/L (23-31); Chloride 109 mmol/L (98-107); Estimated GFR 70; Globulin 2.4 g/dL (2.4-3.5); Glucose 111 mg/dL (83-110); Potassium 4.4 mmol/L (3.5-5.1); Protein, Total 5.9 g/dL (5.8-8.1); Sodium 140 mmol/L (136-145)
[2022-11-24] MEDS: Mometasone 100 MCG/PUFF (1 INHALER) INH SCH ×2 (06:28→18:24)
[2022-11-24] MEDS: Ipratropium/Albuterol 3 ML NEB NEB SCH ×3 (06:32→18:22)
[2022-11-24] MEDS: Levothyroxine Sodium 88 MCG TAB PO SCH (06:59)
[2022-11-24] MEDS: Lactated Ringer's 1,000 ML IV SCH ×2 (06:59→18:46)
[2022-11-24] MEDS ORDERED: Aspirin Chewable 81 MG TAB PO SCH (09:00)
[2022-11-24] MEDS: Pancrelipase DR 12,000 1 CAP PO SCH ×3 (09:08→22:56)
[2022-11-24] MEDS: Ezetimibe 10 MG TAB PO SCH (09:09)
[2022-11-24] MEDS: Alogliptin 25 MG TAB PO SCH (09:09)
[2022-11-24] MEDS: Allopurinol 100 MG TAB PO SCH (09:09)
[2022-11-24] MEDS: Oxybutynin ER 5 MG TAB PO SCH (09:09)
[2022-11-24] MEDS: Ferrous Sulfate 325 MG TAB PO SCH (09:10)
[2022-11-24] MEDS: Clopidogrel Bisulfate 75 MG TAB PO SCH (09:11)
[2022-11-24] MEDS: Gabapentin 300 MG CAP PO SCH ×3 (09:11→22:48)
[2022-11-24] MEDS: Artificial Tear Sol 15 ML BOT EA EYE SCH ×2 (14:16→22:49)
[2022-11-24] MEDS: Mirtazapine 30 MG TAB PO SCH (22:48)
[2022-11-24] MEDS: Aripiprazole 10 MG TAB PO SCH (22:48)
[2022-11-25] MEDS: Lactated Ringer's 1,000 ML IV SCH ×2 (04:12→07:41)
[2022-11-25] MEDS: Ipratropium/Albuterol 3 ML NEB NEB SCH ×2 (06:26→12:21)
[2022-11-25] MEDS: Mometasone 100 MCG/PUFF (1 INHALER) INH SCH (06:26)
[2022-11-25] MEDS: Levothyroxine Sodium 88 MCG TAB PO SCH (07:41)
[2022-11-25] MEDS ORDERED: Aspirin 81 mg Enteric Coated Tablet PO SCH (09:00)
[2022-11-25] MEDS ORDERED: PROPOFOL 200 MG/20 ML VIAL ONE (10:23)
[2022-11-25] MEDS: Pancrelipase DR 12,000 1 CAP PO SCH ×2 (12:06→12:09)
[2022-11-25] MEDS: Allopurinol 100 MG TAB PO SCH (12:06)
[2022-11-25] MEDS: Alogliptin 25 MG TAB PO SCH (12:06)
[2022-11-25] MEDS: Ezetimibe 10 MG TAB PO SCH (12:09)
[2022-11-25] MEDS: Ferrous Sulfate 325 MG TAB PO SCH (12:09)
[2022-11-25] MEDS: Lisinopril 5 MG TAB PO SCH (12:09)
[2022-11-25] MEDS: Gabapentin 300 MG CAP PO SCH ×2 (12:10→15:15)
[2022-11-25] MEDS: Oxybutynin ER 5 MG TAB PO SCH (12:11)
[2022-11-25] MEDS: Artificial Tear Sol 15 ML BOT EA EYE SCH (12:11)
[2022-11-25] MEDS: Clopidogrel Bisulfate 75 MG TAB PO SCH (12:11)
[2022-11-25 14:18] LABS: Cardiac Risk 3.6 (Less than 4.5)
[2022-11-25 15:37] VITALS: TEMP 98.6
[2022-11-25 16:13] VITALS: BP 132/83
== END 2022-11-25 16:14 | disposition home or self-care (01) | DRG 392 ==
LOC: ERS 15:06 → T4-A 17:12 → ERHOLD 19:05 → T4-A 20:06 → OBSVTOIN 11-22 16:23 → 2SE 11-23 15:30
PROVIDERS: ADMIT Family Medicine; ATTEND Family Medicine
PROC: 4A10X4Z Monitoring of Central Nervous Electrical Activity, External Approach (ICD-10-PCS; 2022-11-24)
PROC: 0D738ZZ Dilation of Lower Esophagus, Via Natural or Artificial Opening Endoscopic (ICD-10-PCS; principal; 2022-11-25)
PROC: 0DB78ZX Excision of Stomach, Pylorus, Via Natural or Artificial Opening Endoscopic, Diagnostic (ICD-10-PCS; 2022-11-25)
DX: K22.2 Esophageal obstruction (principal); N17.9 Acute kidney failure, unspecified; I50.32 Chronic diastolic (congestive) heart failure; J44.9 Chronic obstructive pulmonary disease, unspecified; K21.9 Gastro-esophageal reflux disease without esophagitis; F31.9 Bipolar disorder, unspecified; G20 Parkinson's disease; E78.5 Hyperlipidemia, unspecified; E03.9 Hypothyroidism, unspecified; N18.31 Chronic kidney disease, stage 3a; M10.9 Gout, unspecified; E11.40 Type 2 diabetes mellitus with diabetic neuropathy, unspecified; E11.22 Type 2 diabetes mellitus with diabetic chronic kidney disease; F41.1 Generalized anxiety disorder; Z96.653 Presence of artificial knee joint, bilateral; R13.10 Dysphagia, unspecified; N20.0 Calculus of kidney; I95.9 Hypotension, unspecified; G43.909 Migraine, unspecified, not intractable, without status migrainosus; Z88.5 Allergy status to narcotic agent; Z91.013 Allergy to seafood; Z91.09 Other allergy status, other than to drugs and biological substances; Z90.710 Acquired absence of both cervix and uterus; Z90.49 Acquired absence of other specified parts of digestive tract; Z98.890 Other specified postprocedural states; Z79.51 Long term (current) use of inhaled steroids; Z79.899 Other long term (current) drug therapy; Z79.82 Long term (current) use of aspirin; Z79.4 Long term (current) use of insulin
CPT/HCPCS: 36415; 36416; 70450; 70496; 74176; 80053; 80061; 81001; 82570; 83605; 83690; 83880; 84540; 85025; 87086; 88305; 88342; 93005; 93010; 94640; 95712; 95819; 95957; 96374; 96375; G0378; J1815; J1940; J2704; J3010; J7120; J7620; Q9967

== ENCOUNTER 2022-11-27 12:52 | Emergency (ER) | payer OTHER ==
[2022-11-27 13:37] LABS: #Basophils 0.1 thou/uL (0.0-0.2); #Eosinphils 0.1 thou/uL (0.0-0.7); #Monocytes 0.4 thou/uL (0.11-0.59); #Neutrophils 5.1 thou/uL (1.40-6.50); %Basophils 0.6 % (0.0-1.0); %Eosinophils 0.9 % (0.0-10.0); %Lymphocytes 28.7 % (21.0-51.0); %Monocytes 5.2 % (0.0-10.0); %Neutrophils 63.6 % (42.0-75.0); Hemoglobin 9.6 g/dL (12.0-16.0); Mean Corpuscular Hemoglobin 28.7 pg (27.0-31.0); Mean Corpuscular Volume 95.5 fl (78.0-98.0); Mean Platelet Volume 10.1 fL (7.4-10.4); Platelet Count 191 10x3/uL (130-400); RBC Distribution Width 16.2 % (11.5-14.5); Red Blood Cell (RBC) Count 3.35 mill/uL (4.20-5.40); White Blood Cell (WBC) Count 8.1 10x3/uL (4.8-10.8)
[2022-11-27 14:01] LABS: ALT (SGPT) 21 U/L (8-55); AST (SGOT) 17 U/L (5-34); Albumin 3.9 g/dL (3.4-4.8); Alkaline Phosphatase 134 U/L (40-110); Anion Gap 17 mmol/L (10-20); BUN (Urea Nitrogen) 57 mg/dL (9.8-20.1); Bilirubin, Total 0.2 mg/dL (0.2-1.2); Calc. Creatinine Clearance 0 mL/min (70-130); Calcium 9.4 mg/dL (7.8-10.44); Carbon Dioxide 17 mmol/L (23-31); Chloride 107 mmol/L (98-107); Estimated GFR 29; Globulin 1.8 g/dL (2.4-3.5); Glucose 135 mg/dL (83-110); Magnesium 1.4 mg/dL (1.6-2.6); Potassium 4.1 mmol/L (3.5-5.1); Protein, Total 5.7 g/dL (5.8-8.1); Sodium 137 mmol/L (136-145)
[2022-11-27 15:39] LABS: Bacteria/HPF None Seen HPF (None Seen); Bilirubin Negative (Negative); Blood, Urine Negative (Negative); CAUTI Indications for Culture Alt mental st,lethar; Clarity Clear (Clear); Glucose, Urine (Dipstick) Normal (Negative); Ketone, Urine Negative (Negative); Leukocyte 25 Leu/uL (Negative); Nitrite Negative (Negative); Protein, Urine (Dipstick) Negative (Neg-Trace); RBC/HPF 0-3 HPF (0-3); Specific Gravity, Urine 1.013 (1.002-1.036); Urobilinogen Normal mg/dL (Less than 2); WBC/HPF 0-3 HPF (0-3); pH, Urine 5.5 (5.0-9.0)
[2022-11-27 15:41] LABS: Urine Culture Reflex No No
[2022-11-27] MEDS ORDERED: Acetaminophen 325 MG TAB ONE (16:25)
== END 2022-11-27 17:19 | disposition home or self-care (01) ==
LOC: ERS 12:52
DX: R53.1 Weakness (principal); E86.0 Dehydration; E11.9 Type 2 diabetes mellitus without complications; I11.0 Hypertensive heart disease with heart failure; I50.9 Heart failure, unspecified; E78.5 Hyperlipidemia, unspecified; J44.9 Chronic obstructive pulmonary disease, unspecified; Z79.899 Other long term (current) drug therapy
CPT/HCPCS: 36415; 70450; 71045; 80053; 81001; 83605; 83735; 84484; 85025; 93005; 94760; 96360; 96361

== ENCOUNTER 2022-11-28 10:51 | Inpatient (IN) | payer OTHER ==
[2022-11-28 12:55] LABS: #Eosinphils 0.1 thou/uL (0.0-0.7); #Monocytes 0.4 thou/uL (0.11-0.59); #Neutrophils 3.1 thou/uL (1.40-6.50); %Basophils 0.7 % (0.0-1.0); %Eosinophils 1.5 % (0.0-10.0); %Lymphocytes 38.3 % (21.0-51.0); %Neutrophils 52.8 % (42.0-75.0); Hematocrit 29.5 % (36.0-47.0); Hemoglobin 8.9 g/dL (12.0-16.0); Mean Corpuscular HGB CONC 30.2 g/dL (32.0-36.0); Mean Corpuscular Volume 96.1 fl (78.0-98.0); Mean Platelet Volume 10.3 fL (7.4-10.4); Platelet Count 188 10x3/uL (130-400); RBC Distribution Width 16.3 % (11.5-14.5); Red Blood Cell (RBC) Count 3.07 mill/uL (4.20-5.40); White Blood Cell (WBC) Count 5.9 10x3/uL (4.8-10.8)
[2022-11-28 13:24] LABS: Magnesium 1.5 mg/dL (1.6-2.6)
[2022-11-28 13:27] LABS: ALT (SGPT) 19 U/L (8-55); AST (SGOT) 21 U/L (5-34); Albumin 3.5 g/dL (3.4-4.8); Alkaline Phosphatase 126 U/L (40-110); Anion Gap 15 mmol/L (10-20); BUN (Urea Nitrogen) 47 mg/dL (9.8-20.1); Bilirubin, Total 0.2 mg/dL (0.2-1.2); Calc. Creatinine Clearance 0 mL/min (70-130); Calcium 9.7 mg/dL (7.8-10.44); Carbon Dioxide 17 mmol/L (23-31); Chloride 113 mmol/L (98-107); Estimated GFR 44; Globulin 2.2 g/dL (2.4-3.5); Glucose 84 mg/dL (83-110); Potassium 3.7 mmol/L (3.5-5.1); Protein, Total 5.7 g/dL (5.8-8.1); Sodium 141 mmol/L (136-145)
[2022-11-28] MEDS ORDERED: Magnesium Oxide 400 MG TAB PO SCH (15:30)
[2022-11-28] MEDS ORDERED: HumaLOG 300 UNITS/3 ML VIAL SC PRN (16:30)
[2022-11-28] MEDS ORDERED: Dextrose 5% in Water 1,000 ML IV PRN (16:30)
[2022-11-28] MEDS ORDERED: Glucagon 1 MG/ML KIT IM PRN (16:30)
[2022-11-28] MEDS ORDERED: Dextrose 50% Abboject 50 ML SYRINGE SLOW IVP PRN (16:30)
[2022-11-28] MEDS ORDERED: Albuterol 200 PUFF (6.7GM INHALER) INH SCH (19:00)
[2022-11-28] MEDS: Ipratropium/Albuterol 3 ML NEB NEB SCH (19:06)
[2022-11-28] MEDS: Mometasone 100 MCG HFA INHALER (RT USE) INH SCH (19:07)
[2022-11-28 19:18] VITALS: BMI 32.3
[2022-11-28] MEDS: Mirtazapine 15 MG Soltab PO SCH (20:45)
[2022-11-28] MEDS: Gabapentin 300 MG CAP PO SCH (20:46)
[2022-11-28] MEDS: Aripiprazole 10 MG TAB PO SCH (20:46)
[2022-11-28] MEDS: Acetaminophen 325 MG TAB PO PRN (20:46)
[2022-11-28] MEDS: Insulin Glargine 30 UNITS/0.3 ML VIAL SC SCH (20:47)
[2022-11-28] MEDS ORDERED: Heparin 5,000 UNITS/ML VIAL SC SCH (21:00)
[2022-11-28] MEDS ORDERED: Artificial Tear Sol 15 ML BOT EA EYE PRN (21:00)
[2022-11-29] MEDS: Ipratropium/Albuterol 3 ML NEB NEB SCH ×4 (00:39→18:26)
[2022-11-29] MEDS: Levothyroxine Sodium 88 MCG TAB PO SCH (05:30)
[2022-11-29 05:58] LABS: #Eosinphils 0.1 thou/uL (0.0-0.7); #Monocytes 0.3 thou/uL (0.11-0.59); #Neutrophils 3.6 thou/uL (1.40-6.50); %Basophils 0.4 % (0.0-1.0); %Eosinophils 1.1 % (0.0-10.0); %Lymphocytes 27.9 % (21.0-51.0); %Monocytes 5.9 % (0.0-10.0); %Neutrophils 64.3 % (42.0-75.0); Hematocrit 26.6 % (36.0-47.0); Hemoglobin 8.3 g/dL (12.0-16.0); Mean Corpuscular HGB CONC 31.2 g/dL (32.0-36.0); Mean Corpuscular Hemoglobin 28.8 pg (27.0-31.0); Mean Platelet Volume 9.9 fL (7.4-10.4); Platelet Count 183 10x3/uL (130-400); RBC Distribution Width 16.4 % (11.5-14.5); Red Blood Cell (RBC) Count 2.88 mill/uL (4.20-5.40); White Blood Cell (WBC) Count 5.6 10x3/uL (4.8-10.8)
[2022-11-29 06:04] LABS: Mean Corpuscular Volume 92.4 fl (78.0-98.0)
[2022-11-29 06:46] LABS: ALT (SGPT) 17 U/L (8-55); AST (SGOT) 18 U/L (5-34); Albumin 3.2 g/dL (3.4-4.8); Alkaline Phosphatase 122 U/L (40-110); Anion Gap 11 mmol/L (10-20); BUN (Urea Nitrogen) 28 mg/dL (9.8-20.1); Bilirubin, Total Less than 0.2 mg/dL (0.2-1.2); Calc. Creatinine Clearance 60 mL/min (70-130); Calcium 9.4 mg/dL (7.8-10.44); Carbon Dioxide 20 mmol/L (23-31); Chloride 113 mmol/L (98-107); Estimated GFR 54; Globulin 1.9 g/dL (2.4-3.5); Glucose 124 mg/dL (83-110); Potassium 3.9 mmol/L (3.5-5.1); Protein, Total 5.1 g/dL (5.8-8.1); Sodium 140 mmol/L (136-145)
[2022-11-29] MEDS: Mometasone 100 MCG HFA INHALER (RT USE) INH SCH ×2 (07:07→18:28)
[2022-11-29] MEDS: Alogliptin 25 MG TAB PO SCH (08:39)
[2022-11-29] MEDS: Oxybutynin ER 5 MG TAB PO SCH (08:39)
[2022-11-29] MEDS: Pancrelipase DR 12,000 1 CAP PO SCH ×3 (08:39→17:24)
[2022-11-29] MEDS: Ferrous Sulfate 325 MG TAB PO SCH (08:40)
[2022-11-29] MEDS: Clopidogrel Bisulfate 75 MG TAB PO SCH (08:40)
[2022-11-29] MEDS: Furosemide 40 MG TAB PO SCH (08:40)
[2022-11-29] MEDS: Ezetimibe 10 MG TAB PO SCH (08:40)
[2022-11-29] MEDS: Allopurinol 100 MG TAB PO SCH (08:40)
[2022-11-29] MEDS: Aspirin Chewable 81 MG TAB PO SCH (08:40)
[2022-11-29] MEDS: Gabapentin 300 MG CAP PO SCH ×2 (08:41→15:28)
[2022-11-29] MEDS: Lisinopril 5 MG TAB PO SCH (12:57)
[2022-11-29] MEDS: Acetaminophen 325 MG TAB PO PRN ×2 (15:24→20:16)
[2022-11-29] MEDS ORDERED: Diclofenac 1% 100 GM GEL TP PRN (17:34)
[2022-11-29] MEDS: Aripiprazole 10 MG TAB PO SCH (20:14)
[2022-11-29] MEDS: Mirtazapine 15 MG Soltab PO SCH (20:15)
[2022-11-29] MEDS: Gabapentin 400 MG CAP PO SCH (20:16)
[2022-11-29] MEDS: Insulin Glargine 30 UNITS/0.3 ML VIAL SC SCH (20:23)
[2022-11-30] MEDS: Ipratropium/Albuterol 3 ML NEB NEB SCH ×5 (00:56→22:21)
[2022-11-30] MEDS: Levothyroxine Sodium 88 MCG TAB PO SCH (05:42)
[2022-11-30] MEDS: Acetaminophen 325 MG TAB PO PRN ×2 (05:45→21:51)
[2022-11-30] MEDS: Mometasone 100 MCG HFA INHALER (RT USE) INH SCH ×2 (07:13→19:01)
[2022-11-30] MEDS: Pancrelipase DR 12,000 1 CAP PO SCH ×3 (08:43→17:50)
[2022-11-30] MEDS: Alogliptin 25 MG TAB PO SCH (08:43)
[2022-11-30] MEDS: Furosemide 40 MG TAB PO SCH (08:44)
[2022-11-30] MEDS: Aspirin Chewable 81 MG TAB PO SCH (08:44)
[2022-11-30] MEDS: Allopurinol 100 MG TAB PO SCH (08:44)
[2022-11-30] MEDS: Gabapentin 400 MG CAP PO SCH ×3 (08:44→21:51)
[2022-11-30] MEDS: Oxybutynin ER 5 MG TAB PO SCH (08:45)
[2022-11-30] MEDS: Ferrous Sulfate 325 MG TAB PO SCH (08:45)
[2022-11-30] MEDS: Clopidogrel Bisulfate 75 MG TAB PO SCH (08:46)
[2022-11-30] MEDS: Ezetimibe 10 MG TAB PO SCH (08:46)
[2022-11-30] MEDS: Lisinopril 5 MG TAB PO SCH (08:46)
[2022-11-30] MEDS ORDERED: Ondansetron ORAL SOLN. 4 MG/5 ML UDCUP PO PRN (21:01)
[2022-11-30] MEDS: Ondansetron PF 4 MG/2 ML Vial IVP PRN (21:08)
[2022-11-30] MEDS: Mirtazapine 15 MG Soltab PO SCH (21:50)
[2022-11-30] MEDS: Aripiprazole 10 MG TAB PO SCH (21:51)
[2022-11-30] MEDS: Insulin Glargine 30 UNITS/0.3 ML VIAL SC SCH (21:52)
[2022-12-01] MEDS: Ondansetron PF 4 MG/2 ML Vial IVP PRN (05:49)
[2022-12-01] MEDS: Levothyroxine Sodium 88 MCG TAB PO SCH (05:49)
[2022-12-01] MEDS: Ipratropium/Albuterol 3 ML NEB NEB SCH ×2 (07:10→12:15)
[2022-12-01] MEDS: Mometasone 100 MCG HFA INHALER (RT USE) INH SCH (07:11)
[2022-12-01] MEDS: Alogliptin 25 MG TAB PO SCH (08:27)
[2022-12-01] MEDS: Allopurinol 100 MG TAB PO SCH (08:27)
[2022-12-01] MEDS: Pancrelipase DR 12,000 1 CAP PO SCH ×2 (08:27→12:31)
[2022-12-01] MEDS: Clopidogrel Bisulfate 75 MG TAB PO SCH (08:28)
[2022-12-01] MEDS: Aspirin Chewable 81 MG TAB PO SCH (08:28)
[2022-12-01] MEDS: Gabapentin 400 MG CAP PO SCH ×2 (08:29→14:58)
[2022-12-01] MEDS: Ferrous Sulfate 325 MG TAB PO SCH (08:29)
[2022-12-01] MEDS: Ezetimibe 10 MG TAB PO SCH (08:29)
[2022-12-01] MEDS: Lisinopril 5 MG TAB PO SCH (08:30)
[2022-12-01] MEDS: Oxybutynin ER 5 MG TAB PO SCH (08:30)
[2022-12-01] MEDS: Furosemide 40 MG TAB PO SCH (08:30)
[2022-12-01 12:06] VITALS: BP 104/66; TEMP 97.9
[2022-12-01] MEDS ORDERED: Aripiprazole 10 MG TAB PO SCH (21:00)
== END 2022-12-01 16:16 | DRG 948 ==
LOC: ERS 10:51 → T4-B 15:31 → OBSVTOIN 12-01 12:22
PROVIDERS: ADMIT Student in an Organized Health Care Education/Training Program; ATTEND Student in an Organized Health Care Education/Training Program
DX: R53.1 Weakness (principal); J44.9 Chronic obstructive pulmonary disease, unspecified; K21.9 Gastro-esophageal reflux disease without esophagitis; E11.40 Type 2 diabetes mellitus with diabetic neuropathy, unspecified; F31.9 Bipolar disorder, unspecified; G43.909 Migraine, unspecified, not intractable, without status migrainosus; G20 Parkinson's disease; E78.5 Hyperlipidemia, unspecified; E03.9 Hypothyroidism, unspecified; N18.31 Chronic kidney disease, stage 3a; M10.9 Gout, unspecified; F41.1 Generalized anxiety disorder; I50.9 Heart failure, unspecified; Z96.653 Presence of artificial knee joint, bilateral; D63.1 Anemia in chronic kidney disease; R79.89 Other specified abnormal findings of blood chemistry; E83.42 Hypomagnesemia; E11.22 Type 2 diabetes mellitus with diabetic chronic kidney disease; E86.0 Dehydration; Z88.5 Allergy status to narcotic agent; Z88.2 Allergy status to sulfonamides; Z91.013 Allergy to seafood; Z90.49 Acquired absence of other specified parts of digestive tract; Z90.710 Acquired absence of both cervix and uterus; Z91.048 Other nonmedicinal substance allergy status; Z91.09 Other allergy status, other than to drugs and biological substances; Z79.51 Long term (current) use of inhaled steroids; Z79.82 Long term (current) use of aspirin; Z79.4 Long term (current) use of insulin; Z79.899 Other long term (current) drug therapy
CPT/HCPCS: 36415; 36416; 70450; 71045; 80053; 81001; 83605; 83735; 84443; 84484; 85025; 93005; 94640; 94760; 96360; 96361; 96372; 96374; 96376; G0378; J1650; J1815; J2405; J7620

== ENCOUNTER 2022-12-03 05:19 | Inpatient (IN) | payer OTHER ==
[2022-12-03] MEDS ORDERED: Piperacillin/Tazobactam 4.5 GM VIAL ONE (06:13)
[2022-12-03 06:21] LABS: #Monocytes 0.7 thou/uL (0.11-0.59); #Neutrophils 6.6 thou/uL (1.40-6.50); %Basophils 0.2 % (0.0-1.0); %Lymphocytes 11.2 % (21.0-51.0); %Monocytes 8.7 % (0.0-10.0); %Neutrophils 78.9 % (42.0-75.0); Hematocrit 28.5 % (36.0-47.0); Mean Corpuscular HGB CONC 31.6 g/dL (32.0-36.0); Mean Corpuscular Volume 91.9 fl (78.0-98.0); Mean Platelet Volume 10.6 fL (7.4-10.4); Platelet Count 150 10x3/uL (130-400); RBC Distribution Width 16.7 % (11.5-14.5); White Blood Cell (WBC) Count 8.4 10x3/uL (4.8-10.8)
[2022-12-03] MEDS ORDERED: Morphine 4 MG/ML VIAL ONE (06:29)
[2022-12-03 06:45] LABS: ALT (SGPT) 222 U/L (8-55); AST (SGOT) 213 U/L (5-34); Albumin 3.4 g/dL (3.4-4.8); Alkaline Phosphatase 183 U/L (40-110); Anion Gap 14 mmol/L (10-20); BUN (Urea Nitrogen) 30 mg/dL (9.8-20.1); Bilirubin, Total 0.7 mg/dL (0.2-1.2); Calc. Creatinine Clearance 0 mL/min (70-130); Calcium 9.8 mg/dL (7.8-10.44); Carbon Dioxide 19 mmol/L (23-31); Chloride 106 mmol/L (98-107); Estimated GFR 55; Globulin 2.5 g/dL (2.4-3.5); Glucose 168 mg/dL (83-110); Potassium 3.4 mmol/L (3.5-5.1); Protein, Total 5.9 g/dL (5.8-8.1); Sodium 136 mmol/L (136-145)
[2022-12-03 06:54] LABS: Troponin I 0.041 ng/mL (< 0.028)
[2022-12-03] MEDS ORDERED: Vancomycin 1 GM/200 ML (FROZEN) BAG ONE (08:15)
[2022-12-03 09:14] LABS: SARS-CoV-2 NAA Rapid Test Not Detected (NotDetected)
[2022-12-03 10:31] LABS: ALT (SGPT) 195 U/L (8-55); AST (SGOT) 175 U/L (5-34); Albumin 3.3 g/dL (3.4-4.8); Alkaline Phosphatase 171 U/L (40-110); Anion Gap 15 mmol/L (10-20); BUN (Urea Nitrogen) 30 mg/dL (9.8-20.1); Bilirubin, Total 0.7 mg/dL (0.2-1.2); Calc. Creatinine Clearance 0 mL/min (70-130); Calcium 9.2 mg/dL (7.8-10.44); Carbon Dioxide 18 mmol/L (23-31); Chloride 107 mmol/L (98-107); Estimated GFR 49; Globulin 2.2 g/dL (2.4-3.5); Glucose 162 mg/dL (83-110); Potassium 3.6 mmol/L (3.5-5.1); Protein, Total 5.5 g/dL (5.8-8.1); Sodium 136 mmol/L (136-145)
[2022-12-03 11:26] LABS: Bacteria/HPF None Seen HPF (None Seen); Bilirubin Negative (Negative); Blood, Urine Negative (Negative); CAUTI Indications for Culture Alt mental st,lethar; Clarity Clear (Clear); Glucose, Urine (Dipstick) Normal (Negative); Ketone, Urine Negative (Negative); Leukocyte Negative Leu/uL (Negative); Nitrite Negative (Negative); Protein, Urine (Dipstick) Negative (Neg-Trace); RBC/HPF 0-3 HPF (0-3); Specific Gravity, Urine 1.049 (1.002-1.036); Squamous Epithelial 0-3 HPF (0-3); Urobilinogen Normal mg/dL (Less than 2); WBC/HPF 0-3 HPF (0-3); pH, Urine 5.5 (5.0-9.0)
[2022-12-03 11:32] LABS: Urine Culture Reflex No No
[2022-12-03] MEDS ORDERED: Iopamidol-370 76% 500 ML MDV (1 ML CHARGE) ONE (11:58)
[2022-12-03] MEDS ORDERED: Iopamidol 370 76% 100 ML VIAL ONE (11:58)
[2022-12-03 14:43] LABS: Troponin I 0.035 ng/mL (< 0.028)
[2022-12-03] MEDS ORDERED: Dextrose 5% in Water 1,000 ML IV PRN (15:03)
[2022-12-03] MEDS ORDERED: Glucagon 1 MG/ML KIT IM PRN (15:03)
[2022-12-03] MEDS ORDERED: Dextrose 50% Abboject 50 ML SYRINGE SLOW IVP PRN (15:03)
[2022-12-03] MEDS ORDERED: Artificial Tear Sol 15 ML BOT EA EYE PRN (15:25)
[2022-12-03 16:58] VITALS: BMI 31.5
[2022-12-03 17:15] LABS: Troponin I 0.015 ng/mL (< 0.028)
[2022-12-03] MEDS ORDERED: Albuterol 200 PUFF (6.7GM INHALER) INH SCH (18:00)
[2022-12-03] MEDS: Gabapentin 300 MG CAP PO SCH ×2 (18:29→21:40)
[2022-12-03] MEDS: Pancrelipase DR 12,000 1 CAP PO SCH (18:29)
[2022-12-03] MEDS: Ipratropium/Albuterol 3 ML NEB NEB SCH (18:45)
[2022-12-03] MEDS: Mometasone 100 MCG HFA INHALER (RT USE) INH SCH (18:46)
[2022-12-03] MEDS ORDERED: predniSONE 20 MG TAB PO SCH (20:45)
[2022-12-03] MEDS ORDERED: Insulin Glargine 30 UNITS/0.3 ML VIAL SC SCH (21:00)
[2022-12-03] MEDS: Ondansetron PF 4 MG/2 ML Vial IVP PRN (21:36)
[2022-12-03] MEDS: Acetaminophen 325 MG TAB PO PRN (21:39)
[2022-12-03] MEDS: Aripiprazole 10 MG TAB PO SCH (21:40)
[2022-12-03] MEDS: Mirtazapine 15 MG Soltab PO SCH (21:40)
[2022-12-03] MEDS: Lactated Ringer's 1,000 ML IV SCH (22:58)
[2022-12-03] MEDS ORDERED: Ibuprofen 600 MG TAB PO SCH (23:15)
[2022-12-04] MEDS: Ipratropium/Albuterol 3 ML NEB NEB SCH ×4 (00:24→18:52)
[2022-12-04] MEDS: Acetaminophen 325 MG TAB PO PRN ×4 (02:32→20:08)
[2022-12-04] MEDS: Lidocaine 4% Patch TD SCH (02:33)
[2022-12-04] MEDS ORDERED: Lactated Ringer's 1,000 ML IV SCH (03:15)
[2022-12-04] MEDS: VANCOMYCIN 1.25 GM/250 ML BAG 1.25 GM in Premix Bag 1 BAG IVPB SCH (03:33)
[2022-12-04] MEDS: Levothyroxine Sodium 88 MCG TAB PO SCH (05:18)
[2022-12-04] MEDS: Lactated Ringer's 1,000 ML IV SCH ×3 (05:18→23:46)
[2022-12-04] MEDS: Mometasone 100 MCG HFA INHALER (RT USE) INH SCH ×2 (07:04→18:53)
[2022-12-04] MEDS: Lactated Ringer's 500 ML IV SCH ×2 (07:45→08:00)
[2022-12-04] MEDS ORDERED: Vancomycin HCl 1.25 GM in Sodium Chloride 0.9% 250 ML 300 ML IVPB SCH (09:00)
[2022-12-04] MEDS ORDERED: Lidocaine 4% Patch TD SCH (09:00)
[2022-12-04 09:51] LABS: #Monocytes 0.2 thou/uL (0.11-0.59); #Neutrophils 3.7 thou/uL (1.40-6.50); %Basophils 0.2 % (0.0-1.0); %Neutrophils 79.3 % (42.0-75.0); Hematocrit 27.5 % (36.0-47.0); Hemoglobin 8.8 g/dL (12.0-16.0); Mean Corpuscular Hemoglobin 28.9 pg (27.0-31.0); Mean Corpuscular Volume 90.5 fl (78.0-98.0); RBC Distribution Width 16.2 % (11.5-14.5); Red Blood Cell (RBC) Count 3.04 mill/uL (4.20-5.40); White Blood Cell (WBC) Count 4.6 10x3/uL (4.8-10.8)
[2022-12-04 10:02] LABS: ALT (SGPT) 129 U/L (8-55); AST (SGOT) 62 U/L (5-34); Alkaline Phosphatase 141 U/L (40-110); Anion Gap 17 mmol/L (10-20); BUN (Urea Nitrogen) 32 mg/dL (9.8-20.1); Bilirubin, Total 0.4 mg/dL (0.2-1.2); Calc. Creatinine Clearance 60 mL/min (70-130); Calcium 9.6 mg/dL (7.8-10.44); Carbon Dioxide 17 mmol/L (23-31); Chloride 102 mmol/L (98-107); Estimated GFR 55; Globulin 2.4 g/dL (2.4-3.5); Glucose 391 mg/dL (83-110); Potassium 3.8 mmol/L (3.5-5.1); Protein, Total 5.4 g/dL (5.8-8.1); Sodium 132 mmol/L (136-145)
[2022-12-04] MEDS: Alogliptin 6.25 MG TAB PO SCH (10:30)
[2022-12-04] MEDS: Aripiprazole 10 MG TAB PO SCH ×2 (10:31→20:05)
[2022-12-04] MEDS: Clopidogrel Bisulfate 75 MG TAB PO SCH (10:31)
[2022-12-04] MEDS: Azithromycin 250 MG TAB PO SCH (10:31)
[2022-12-04] MEDS: Ezetimibe 10 MG TAB PO SCH (10:32)
[2022-12-04] MEDS: Furosemide 40 MG TAB PO SCH (10:32)
[2022-12-04] MEDS: Ferrous Sulfate 325 MG TAB PO SCH (10:32)
[2022-12-04] MEDS: Gabapentin 300 MG CAP PO SCH ×3 (10:32→20:05)
[2022-12-04] MEDS: Lisinopril 5 MG TAB PO SCH (10:33)
[2022-12-04] MEDS: Oxybutynin ER 5 MG TAB PO SCH (10:33)
[2022-12-04] MEDS: Allopurinol 100 MG TAB PO SCH (10:36)
[2022-12-04] MEDS: Pancrelipase DR 12,000 1 CAP PO SCH ×3 (10:39→17:50)
[2022-12-04] MEDS: HumaLOG 300 UNITS/3 ML VIAL SC PRN ×4 (13:20→20:09)
[2022-12-04] MEDS: Transdermal Patch Removal TOP SCH (16:19)
[2022-12-04] MEDS: Insulin Glargine 30 UNITS/0.3 ML VIAL SC SCH (20:06)
[2022-12-04] MEDS: Mirtazapine 15 MG Soltab PO SCH (20:06)
[2022-12-04] MEDS ORDERED: Transdermal Patch Removal TOP SCH (21:00)
[2022-12-04] MEDS: Ibuprofen 600 MG TAB PO PRN (22:17)
[2022-12-05] MEDS: Ipratropium/Albuterol 3 ML NEB NEB SCH ×5 (00:30→23:52)
[2022-12-05] MEDS ORDERED: Lactated Ringer's 500 ML IV SCH (01:15)
[2022-12-05] MEDS: Acetaminophen 325 MG TAB PO PRN ×2 (01:34→05:41)
[2022-12-05] MEDS: Lidocaine 4% Patch TD SCH (01:37)
[2022-12-05] MEDS: VANCOMYCIN 1.25 GM/250 ML BAG 1.25 GM in Premix Bag 1 BAG IVPB SCH (02:59)
[2022-12-05] MEDS: Levothyroxine Sodium 88 MCG TAB PO SCH (05:42)
[2022-12-05] MEDS: HumaLOG 300 UNITS/3 ML VIAL SC PRN (05:42)
[2022-12-05 05:56] LABS: #Monocytes 0.5 thou/uL (0.11-0.59); #Neutrophils 4.5 thou/uL (1.40-6.50); %Basophils 0.3 % (0.0-1.0); %Lymphocytes 12.6 % (21.0-51.0); %Neutrophils 78.1 % (42.0-75.0); Hematocrit 27.8 % (36.0-47.0); Hemoglobin 8.7 g/dL (12.0-16.0); Mean Corpuscular HGB CONC 31.3 g/dL (32.0-36.0); Mean Corpuscular Hemoglobin 29.3 pg (27.0-31.0); Mean Platelet Volume 11.6 fL (7.4-10.4); Platelet Count 124 10x3/uL (130-400); RBC Distribution Width 16.2 % (11.5-14.5); Red Blood Cell (RBC) Count 2.97 mill/uL (4.20-5.40); White Blood Cell (WBC) Count 5.7 10x3/uL (4.8-10.8)
[2022-12-05 06:07] LABS: Mean Corpuscular Volume 93.6 fl (78.0-98.0)
[2022-12-05 06:15] LABS: Anion Gap 15 mmol/L (10-20); BUN (Urea Nitrogen) 33 mg/dL (9.8-20.1); Calc. Creatinine Clearance 68 mL/min (70-130); Calcium 10.8 mg/dL (7.8-10.44); Carbon Dioxide 18 mmol/L (23-31); Chloride 108 mmol/L (98-107); Estimated GFR 61; Glucose 223 mg/dL (83-110); Potassium 3.4 mmol/L (3.5-5.1); Sodium 138 mmol/L (136-145)
[2022-12-05] MEDS: Mometasone 100 MCG HFA INHALER (RT USE) INH SCH ×2 (07:38→18:15)
[2022-12-05] MEDS: Oxybutynin ER 5 MG TAB PO SCH (09:06)
[2022-12-05] MEDS: Alogliptin 6.25 MG TAB PO SCH (09:06)
[2022-12-05] MEDS: Pancrelipase DR 12,000 1 CAP PO SCH ×3 (09:06→18:34)
[2022-12-05] MEDS: Ezetimibe 10 MG TAB PO SCH (09:06)
[2022-12-05] MEDS: Clopidogrel Bisulfate 75 MG TAB PO SCH (09:06)
[2022-12-05] MEDS: Gabapentin 300 MG CAP PO SCH ×3 (09:07→21:40)
[2022-12-05] MEDS: Ibuprofen 600 MG TAB PO PRN ×2 (09:07→21:41)
[2022-12-05] MEDS: Azithromycin 250 MG TAB PO SCH (09:07)
[2022-12-05] MEDS: Allopurinol 100 MG TAB PO SCH (09:07)
[2022-12-05] MEDS: Furosemide 40 MG TAB PO SCH (09:07)
[2022-12-05] MEDS: Lisinopril 5 MG TAB PO SCH (09:07)
[2022-12-05] MEDS: Ferrous Sulfate 325 MG TAB PO SCH (09:08)
[2022-12-05] MEDS: Aripiprazole 10 MG TAB PO SCH ×2 (09:08→21:40)
[2022-12-05] MEDS: Lactated Ringer's 1,000 ML IV SCH ×2 (09:08→18:34)
[2022-12-05] MEDS ORDERED: Potassium Chloride 20 MEQ TAB PO SCH (09:15)
[2022-12-05] MEDS: Ondansetron PF 4 MG/2 ML Vial IVP PRN (11:27)
[2022-12-05] MEDS: Lorazepam 1 MG TAB PO PRN (14:25)
[2022-12-05] MEDS: Transdermal Patch Removal TOP SCH (14:28)
[2022-12-05] MEDS: Insulin Glargine 30 UNITS/0.3 ML VIAL SC SCH (21:40)
[2022-12-05] MEDS: Mirtazapine 15 MG Soltab PO SCH (21:41)
[2022-12-06 05:09] LABS: Vancomycin, Trough 10.1 ug/mL
[2022-12-06] MEDS: Lactated Ringer's 1,000 ML IV SCH ×2 (05:16→22:28)
[2022-12-06] MEDS: Lidocaine 4% Patch TD SCH ×2 (05:17→05:55)
[2022-12-06] MEDS: VANCOMYCIN 1.25 GM/250 ML BAG 1.25 GM in Premix Bag 1 BAG IVPB SCH (05:39)
[2022-12-06] MEDS: Levothyroxine Sodium 88 MCG TAB PO SCH (05:51)
[2022-12-06] MEDS: VANCOMYCIN 1.75 GM/500 ML BAG 1.75 GM in Premix Bag 1 BAG IVPB SCH (05:51)
[2022-12-06] MEDS: Acetaminophen 325 MG TAB PO PRN (05:53)
[2022-12-06 07:30] LABS: Hematocrit 24.8 % (36.0-47.0); Hemoglobin 7.9 g/dL (12.0-16.0); Mean Corpuscular HGB CONC 31.9 g/dL (32.0-36.0); Mean Corpuscular Hemoglobin 28.8 pg (27.0-31.0); Mean Corpuscular Volume 90.5 fl (78.0-98.0); Mean Platelet Volume 11.5 fL (7.4-10.4); Platelet Count 105 10x3/uL (130-400); RBC Distribution Width 16.2 % (11.5-14.5); Red Blood Cell (RBC) Count 2.74 mill/uL (4.20-5.40); White Blood Cell (WBC) Count 6.8 10x3/uL (4.8-10.8)
[2022-12-06 07:41] LABS: Delete Auto Diff?? YES; Manual Diff?? YES
[2022-12-06] MEDS: Mometasone 100 MCG HFA INHALER (RT USE) INH SCH ×2 (07:48→18:09)
[2022-12-06] MEDS: Ipratropium/Albuterol 3 ML NEB NEB SCH ×4 (07:49→23:34)
[2022-12-06 07:51] LABS: ALT (SGPT) 68 U/L (8-55); AST (SGOT) 26 U/L (5-34); Albumin 2.7 g/dL (3.4-4.8); Alkaline Phosphatase 152 U/L (40-110); Anion Gap 11 mmol/L (10-20); BUN (Urea Nitrogen) 28 mg/dL (9.8-20.1); Bilirubin, Total 0.5 mg/dL (0.2-1.2); Calc. Creatinine Clearance 79 mL/min (70-130); Calcium 10.7 mg/dL (7.8-10.44); Carbon Dioxide 24 mmol/L (23-31); Chloride 110 mmol/L (98-107); Estimated GFR 73; Globulin 2.5 g/dL (2.4-3.5); Glucose 128 mg/dL (83-110); Potassium 3.7 mmol/L (3.5-5.1); Protein, Total 5.2 g/dL (5.8-8.1); Sodium 141 mmol/L (136-145)
[2022-12-06] MEDS: Lorazepam 1 MG TAB PO PRN ×2 (08:38→22:15)
[2022-12-06] MEDS: Ibuprofen 600 MG TAB PO PRN ×2 (08:38→21:46)
[2022-12-06] MEDS: Alogliptin 6.25 MG TAB PO SCH (08:38)
[2022-12-06] MEDS: Oxybutynin ER 5 MG TAB PO SCH (08:39)
[2022-12-06] MEDS: Allopurinol 100 MG TAB PO SCH (08:39)
[2022-12-06] MEDS: Gabapentin 300 MG CAP PO SCH ×3 (08:39→21:44)
[2022-12-06] MEDS: Furosemide 40 MG TAB PO SCH (08:40)
[2022-12-06] MEDS: Azithromycin 250 MG TAB PO SCH (08:40)
[2022-12-06] MEDS: Ferrous Sulfate 325 MG TAB PO SCH (08:40)
[2022-12-06] MEDS: Lisinopril 5 MG TAB PO SCH (08:41)
[2022-12-06] MEDS: Clopidogrel Bisulfate 75 MG TAB PO SCH (08:42)
[2022-12-06] MEDS: Pancrelipase DR 12,000 1 CAP PO SCH ×3 (08:53→16:10)
[2022-12-06] MEDS: Ezetimibe 10 MG TAB PO SCH (08:53)
[2022-12-06] MEDS: Aripiprazole 10 MG TAB PO SCH ×2 (08:56→21:44)
[2022-12-06] MEDS ORDERED: HYDROcodone/Acetaminophen 7.5/325 mg Tablet PO SCH (09:30)
[2022-12-06 09:46] LABS: Band 13 % (5-11); CellaVision Operator ID LAB.GE; Large Platelets 4.9 % (0-5); Lymphocytes 10 % (21-51); Monocytes 6 % (0-10); Neutrophil 72 % (42-75); Platelet Adequacy Comment Platelets Decreased; Polychromasia SLIGHT = 2-3 cells HPF (0-2); Total Cell Count 102
[2022-12-06] MEDS: Transdermal Patch Removal TOP SCH (15:52)
[2022-12-06] MEDS: Insulin Glargine 30 UNITS/0.3 ML VIAL SC SCH (21:45)
[2022-12-06] MEDS: Mirtazapine 15 MG Soltab PO SCH (21:45)
[2022-12-07] MEDS: Lidocaine 4% Patch TD SCH (06:10)
[2022-12-07] MEDS: Levothyroxine Sodium 88 MCG TAB PO SCH (06:10)
[2022-12-07] MEDS: VANCOMYCIN 1.75 GM/500 ML BAG 1.75 GM in Premix Bag 1 BAG IVPB SCH (06:36)
[2022-12-07] MEDS: Mometasone 100 MCG HFA INHALER (RT USE) INH SCH ×2 (06:56→18:37)
[2022-12-07] MEDS: Ipratropium/Albuterol 3 ML NEB NEB SCH ×4 (06:56→23:20)
[2022-12-07] MEDS: Pancrelipase DR 12,000 1 CAP PO SCH ×4 (08:15→17:15)
[2022-12-07] MEDS: Furosemide 40 MG TAB PO SCH (08:19)
[2022-12-07] MEDS: Ferrous Sulfate 325 MG TAB PO SCH (08:21)
[2022-12-07] MEDS: Alogliptin 6.25 MG TAB PO SCH ×2 (09:16→17:16)
[2022-12-07] MEDS: Gabapentin 300 MG CAP PO SCH ×3 (09:16→20:26)
[2022-12-07] MEDS: Lisinopril 5 MG TAB PO SCH (09:17)
[2022-12-07] MEDS: Allopurinol 100 MG TAB PO SCH (09:18)
[2022-12-07] MEDS: Oxybutynin ER 5 MG TAB PO SCH (09:18)
[2022-12-07] MEDS: Ezetimibe 10 MG TAB PO SCH (09:18)
[2022-12-07] MEDS: HYDROcodone/Acetaminophen 5/325 mg Tablet PO PRN ×2 (09:27→17:13)
[2022-12-07] MEDS ORDERED: PROPOFOL 20 ML ONE (13:46)
[2022-12-07] MEDS: Aripiprazole 10 MG TAB PO SCH ×2 (17:17→20:26)
[2022-12-07] MEDS: Clopidogrel Bisulfate 75 MG TAB PO SCH (17:19)
[2022-12-07] MEDS: Transdermal Patch Removal TOP SCH (17:23)
[2022-12-07 17:37] LABS: #Monocytes 0.9 thou/uL (0.11-0.59); #Neutrophils 7.3 thou/uL (1.40-6.50); %Basophils 0.3 % (0.0-1.0); %Eosinophils 0.3 % (0.0-10.0); %Lymphocytes 12.9 % (21.0-51.0); %Monocytes 9.3 % (0.0-10.0); %Neutrophils 76.2 % (42.0-75.0); Hematocrit 27.1 % (36.0-47.0); Hemoglobin 8.8 g/dL (12.0-16.0); Mean Corpuscular HGB CONC 32.5 g/dL (32.0-36.0); Mean Corpuscular Hemoglobin 28.7 pg (27.0-31.0); Mean Corpuscular Volume 88.3 fl (78.0-98.0); Mean Platelet Volume 11.3 fL (7.4-10.4); Platelet Count 122 10x3/uL (130-400); Red Blood Cell (RBC) Count 3.07 mill/uL (4.20-5.40); White Blood Cell (WBC) Count 9.6 10x3/uL (4.8-10.8)
[2022-12-07 18:02] LABS: ALT (SGPT) 51 U/L (8-55); AST (SGOT) 20 U/L (5-34); Alkaline Phosphatase 264 U/L (40-110); Anion Gap 14 mmol/L (10-20); BUN (Urea Nitrogen) 17 mg/dL (9.8-20.1); Bilirubin, Total 0.6 mg/dL (0.2-1.2); Calc. Creatinine Clearance 88 mL/min (70-130); Calcium 10.8 mg/dL (7.8-10.44); Carbon Dioxide 23 mmol/L (23-31); Chloride 107 mmol/L (98-107); Estimated GFR 81; Globulin 2.9 g/dL (2.4-3.5); Glucose 98 mg/dL (83-110); Potassium 3.3 mmol/L (3.5-5.1); Protein, Total 5.9 g/dL (5.8-8.1); Sodium 141 mmol/L (136-145)
[2022-12-07] MEDS ORDERED: Acetaminophen 325 MG TAB PO PRN (19:09)
[2022-12-07] MEDS ORDERED: Glucagon 1 MG/ML KIT IM PRN (19:12)
[2022-12-07] MEDS ORDERED: Dextrose 50% Abboject 50 ML SYRINGE SLOW IVP PRN (19:13)
[2022-12-07] MEDS: Mirtazapine 15 MG Soltab PO SCH (20:26)
[2022-12-07] MEDS: Insulin Glargine 30 UNITS/0.3 ML VIAL SC SCH (20:27)
[2022-12-08] MEDS: Lorazepam 1 MG TAB PO PRN ×3 (00:45→22:19)
[2022-12-08] MEDS: HYDROcodone/Acetaminophen 5/325 mg Tablet PO PRN ×3 (00:45→22:19)
[2022-12-08] MEDS: Lidocaine 4% Patch TD SCH (00:46)
[2022-12-08 05:49] LABS: #Neutrophils 6.3 thou/uL (1.40-6.50); %Basophils 0.2 % (0.0-1.0); %Eosinophils 0.3 % (0.0-10.0); %Lymphocytes 13.3 % (21.0-51.0); %Monocytes 11.1 % (0.0-10.0); %Neutrophils 73.4 % (42.0-75.0); Hematocrit 23.6 % (36.0-47.0); Hemoglobin 7.5 g/dL (12.0-16.0); Mean Corpuscular HGB CONC 31.8 g/dL (32.0-36.0); Mean Corpuscular Hemoglobin 28.7 pg (27.0-31.0); Mean Corpuscular Volume 90.4 fl (78.0-98.0); Mean Platelet Volume 11.7 fL (7.4-10.4); Platelet Count 122 10x3/uL (130-400); RBC Distribution Width 15.8 % (11.5-14.5); Red Blood Cell (RBC) Count 2.61 mill/uL (4.20-5.40); White Blood Cell (WBC) Count 8.6 10x3/uL (4.8-10.8)
[2022-12-08 06:07] LABS: Vancomycin, Trough 13.9 ug/mL
[2022-12-08 06:08] LABS: ALT (SGPT) 34 U/L (8-55); AST (SGOT) 16 U/L (5-34); Albumin 2.6 g/dL (3.4-4.8); Alkaline Phosphatase 239 U/L (40-110); Anion Gap 12 mmol/L (10-20); BUN (Urea Nitrogen) 13 mg/dL (9.8-20.1); Bilirubin, Total 0.4 mg/dL (0.2-1.2); Calc. Creatinine Clearance 95 mL/min (70-130); Calcium 9.9 mg/dL (7.8-10.44); Carbon Dioxide 23 mmol/L (23-31); Chloride 108 mmol/L (98-107); Estimated GFR 90; Globulin 2.4 g/dL (2.4-3.5); Glucose 93 mg/dL (83-110); Potassium 3.2 mmol/L (3.5-5.1); Sodium 140 mmol/L (136-145)
[2022-12-08] MEDS: Levothyroxine Sodium 88 MCG TAB PO SCH (06:18)
[2022-12-08] MEDS: VANCOMYCIN 1.75 GM/500 ML BAG 1.75 GM in Premix Bag 1 BAG IVPB SCH (06:20)
[2022-12-08] MEDS: Ipratropium/Albuterol 3 ML NEB NEB SCH ×4 (07:41→22:57)
[2022-12-08] MEDS: Mometasone 100 MCG HFA INHALER (RT USE) INH SCH ×2 (07:44→18:47)
[2022-12-08] MEDS ORDERED: Saccharomyces boulardii 250 MG CAP PO SCH (09:00)
[2022-12-08] MEDS: Aripiprazole 10 MG TAB PO SCH ×2 (09:07→21:13)
[2022-12-08] MEDS: Clopidogrel Bisulfate 75 MG TAB PO SCH (09:07)
[2022-12-08] MEDS: Allopurinol 100 MG TAB PO SCH (09:08)
[2022-12-08] MEDS: Saccharomyces boulardii 250 MG CAP PO SCH (09:08)
[2022-12-08] MEDS: Oxybutynin ER 5 MG TAB PO SCH (09:09)
[2022-12-08] MEDS: Gabapentin 300 MG CAP PO SCH ×3 (09:10→21:16)
[2022-12-08] MEDS: Lisinopril 5 MG TAB PO SCH (09:10)
[2022-12-08] MEDS: Ferrous Sulfate 325 MG TAB PO SCH (09:10)
[2022-12-08] MEDS: Ezetimibe 10 MG TAB PO SCH (09:12)
[2022-12-08] MEDS: Furosemide 40 MG TAB PO SCH (09:12)
[2022-12-08] MEDS: Alogliptin 6.25 MG TAB PO SCH (09:12)
[2022-12-08] MEDS ORDERED: Electrolyte Replacement Protocol FS PRN (09:30)
[2022-12-08] MEDS ORDERED: Potassium Chloride 20 MEQ TAB PO SCH (10:00)
[2022-12-08 10:24] LABS: Iron 12 ug/dL (50-170); Iron Binding Capacity, Total 190 mcg/dL (265-497)
[2022-12-08] MEDS ORDERED: Lorazepam 1 MG TAB PO SCH ×2 (10:30)
[2022-12-08] MEDS: Pancrelipase DR 12,000 1 CAP PO SCH ×3 (10:57→18:44)
[2022-12-08] MEDS ORDERED: Magnesium 2 GM/50 ML(in water) 2 GM in Premix Bag 1 BAG IVPB SCH (11:00)
[2022-12-08] MEDS: Transdermal Patch Removal TOP SCH (14:58)
[2022-12-08] MEDS: Mirtazapine 15 MG Soltab PO SCH (21:13)
[2022-12-08] MEDS: Insulin Glargine 30 UNITS/0.3 ML VIAL SC SCH (21:14)
[2022-12-08] MEDS: Ibuprofen 600 MG TAB PO PRN (21:15)
[2022-12-09] MEDS: Lidocaine 4% Patch TD SCH (02:40)
[2022-12-09] MEDS: Lorazepam 1 MG TAB PO PRN ×2 (06:02→13:49)
[2022-12-09] MEDS: Levothyroxine Sodium 88 MCG TAB PO SCH (06:02)
[2022-12-09] MEDS: HYDROcodone/Acetaminophen 5/325 mg Tablet PO PRN ×3 (06:02→21:46)
[2022-12-09 06:03] LABS: ALT (SGPT) 29 U/L (8-55); AST (SGOT) 30 U/L (5-34); Albumin 2.1 g/dL (3.4-4.8); Alkaline Phosphatase 254 U/L (40-110); Anion Gap 14 mmol/L (10-20); BUN (Urea Nitrogen) 12 mg/dL (9.8-20.1); Bilirubin, Total 0.4 mg/dL (0.2-1.2); Calc. Creatinine Clearance 94 mL/min (70-130); Calcium 9.5 mg/dL (7.8-10.44); Carbon Dioxide 22 mmol/L (23-31); Chloride 106 mmol/L (98-107); Estimated GFR 88; Globulin 2.9 g/dL (2.4-3.5); Glucose 92 mg/dL (83-110); Potassium 4.6 mmol/L (3.5-5.1); Sodium 137 mmol/L (136-145)
[2022-12-09] MEDS: VANCOMYCIN 1.75 GM/500 ML BAG 1.75 GM in Premix Bag 1 BAG IVPB SCH (06:15)
[2022-12-09] MEDS: Mometasone 100 MCG HFA INHALER (RT USE) INH SCH ×2 (06:51→18:24)
[2022-12-09] MEDS: Ipratropium/Albuterol 3 ML NEB NEB SCH ×4 (06:51→23:35)
[2022-12-09] MEDS: Ezetimibe 10 MG TAB PO SCH (10:19)
[2022-12-09] MEDS: Gabapentin 300 MG CAP PO SCH ×3 (10:19→20:32)
[2022-12-09] MEDS: Oxybutynin ER 5 MG TAB PO SCH (10:19)
[2022-12-09] MEDS: Ferrous Sulfate 325 MG TAB PO SCH (10:20)
[2022-12-09] MEDS: Clopidogrel Bisulfate 75 MG TAB PO SCH (10:20)
[2022-12-09] MEDS: Saccharomyces boulardii 250 MG CAP PO SCH (10:20)
[2022-12-09] MEDS: Furosemide 40 MG TAB PO SCH (10:20)
[2022-12-09] MEDS: Lisinopril 5 MG TAB PO SCH (10:21)
[2022-12-09] MEDS: Allopurinol 100 MG TAB PO SCH (10:21)
[2022-12-09 11:38] LABS: #Eosinphils 0.1 thou/uL (0.0-0.7); #Monocytes 0.7 thou/uL (0.11-0.59); #Neutrophils 4.9 thou/uL (1.40-6.50); %Basophils 0.3 % (0.0-1.0); %Eosinophils 0.9 % (0.0-10.0); %Lymphocytes 15.5 % (21.0-51.0); %Monocytes 10.4 % (0.0-10.0); %Neutrophils 70.2 % (42.0-75.0); Hematocrit 26.4 % (36.0-47.0); Hemoglobin 8.3 g/dL (12.0-16.0); Mean Corpuscular HGB CONC 31.4 g/dL (32.0-36.0); Mean Corpuscular Hemoglobin 28.6 pg (27.0-31.0); Mean Platelet Volume 12.2 fL (7.4-10.4); Platelet Count 151 10x3/uL (130-400); RBC Distribution Width 15.7 % (11.5-14.5); White Blood Cell (WBC) Count 6.9 10x3/uL (4.8-10.8)
[2022-12-09] MEDS: Pancrelipase DR 12,000 1 CAP PO SCH ×3 (11:58→17:04)
[2022-12-09] MEDS: Aripiprazole 10 MG TAB PO SCH ×2 (11:59→20:32)
[2022-12-09] MEDS: Alogliptin 6.25 MG TAB PO SCH (11:59)
[2022-12-09] MEDS: Transdermal Patch Removal TOP SCH (13:44)
[2022-12-09] MEDS ORDERED: Iopamidol 370 76% 100 ML VIAL ONE (14:38)
[2022-12-09] MEDS: Mirtazapine 15 MG Soltab PO SCH (20:33)
[2022-12-09] MEDS: Insulin Glargine 30 UNITS/0.3 ML VIAL SC SCH (20:33)
[2022-12-09] MEDS: Lorazepam 0.5 MG TAB PO PRN (21:47)
[2022-12-10] MEDS ORDERED: Ketorolac Tromethamine 30 MG/ML VIAL IVP SCH (03:00)
[2022-12-10] MEDS ORDERED: Acetaminophen 500 MG TAB PO SCH (03:00)
[2022-12-10] MEDS: Lidocaine 4% Patch TD SCH (03:19)
[2022-12-10] MEDS: Levothyroxine Sodium 88 MCG TAB PO SCH (06:34)
[2022-12-10] MEDS: Mometasone 100 MCG HFA INHALER (RT USE) INH SCH ×2 (07:57→18:10)
[2022-12-10] MEDS: Ipratropium/Albuterol 3 ML NEB NEB SCH ×4 (07:58→23:46)
[2022-12-10 08:55] LABS: #Eosinphils 0.1 thou/uL (0.0-0.7); #Monocytes 0.7 thou/uL (0.11-0.59); #Neutrophils 5.7 thou/uL (1.40-6.50); %Basophils 0.4 % (0.0-1.0); %Lymphocytes 17.7 % (21.0-51.0); %Neutrophils 69.4 % (42.0-75.0); Hematocrit 27.2 % (36.0-47.0); Hemoglobin 8.3 g/dL (12.0-16.0); Mean Corpuscular HGB CONC 30.5 g/dL (32.0-36.0); Mean Corpuscular Hemoglobin 28.5 pg (27.0-31.0); Mean Corpuscular Volume 93.5 fl (78.0-98.0); Mean Platelet Volume 11.5 fL (7.4-10.4); Platelet Count 133 10x3/uL (130-400); RBC Distribution Width 15.7 % (11.5-14.5); Red Blood Cell (RBC) Count 2.91 mill/uL (4.20-5.40); White Blood Cell (WBC) Count 8.1 10x3/uL (4.8-10.8)
[2022-12-10] MEDS ORDERED: Polyethylene Glycol 3350 17 GM Packet PO SCH (09:00)
[2022-12-10 09:18] LABS: Vancomycin, Trough 16.2 ug/mL
[2022-12-10 09:22] LABS: ALT (SGPT) 24 U/L (8-55); AST (SGOT) 17 U/L (5-34); Alkaline Phosphatase 305 U/L (40-110); Anion Gap 15 mmol/L (10-20); BUN (Urea Nitrogen) 11 mg/dL (9.8-20.1); Bilirubin, Total 0.4 mg/dL (0.2-1.2); Calc. Creatinine Clearance 77 mL/min (70-130); Calcium 10.5 mg/dL (7.8-10.44); Carbon Dioxide 25 mmol/L (23-31); Chloride 100 mmol/L (98-107); Estimated GFR 70; Glucose 184 mg/dL (83-110); Potassium 3.1 mmol/L (3.5-5.1); Sodium 137 mmol/L (136-145)
[2022-12-10] MEDS ORDERED: Potassium Chloride 20 MEQ TAB PO SCH (10:00)
[2022-12-10] MEDS: Ferrous Sulfate 325 MG TAB PO SCH (10:28)
[2022-12-10] MEDS: Lisinopril 5 MG TAB PO SCH (10:28)
[2022-12-10] MEDS: Oxybutynin ER 5 MG TAB PO SCH (10:28)
[2022-12-10] MEDS: Alogliptin 6.25 MG TAB PO SCH (10:28)
[2022-12-10] MEDS: Ezetimibe 10 MG TAB PO SCH (10:28)
[2022-12-10] MEDS: Gabapentin 300 MG CAP PO SCH ×3 (10:29→21:12)
[2022-12-10] MEDS: Clopidogrel Bisulfate 75 MG TAB PO SCH (10:29)
[2022-12-10] MEDS: Furosemide 40 MG TAB PO SCH (10:29)
[2022-12-10] MEDS: Saccharomyces boulardii 250 MG CAP PO SCH (10:29)
[2022-12-10] MEDS: VANCOMYCIN 1.75 GM/500 ML BAG 1.75 GM in Premix Bag 1 BAG IVPB SCH (10:30)
[2022-12-10] MEDS: Allopurinol 100 MG TAB PO SCH (10:30)
[2022-12-10] MEDS: Pancrelipase DR 12,000 1 CAP PO SCH ×3 (11:03→19:29)
[2022-12-10] MEDS: Aripiprazole 10 MG TAB PO SCH ×2 (11:03→21:12)
[2022-12-10] MEDS: Acetaminophen 500 MG TAB PO SCH ×2 (13:51→21:13)
[2022-12-10] MEDS: Lorazepam 0.5 MG TAB PO PRN (14:35)
[2022-12-10] MEDS: Transdermal Patch Removal TOP SCH (19:28)
[2022-12-10] MEDS: Senokot S 8.6-50 MG TAB PO SCH (21:12)
[2022-12-10] MEDS: Mirtazapine 15 MG Soltab PO SCH (21:14)
[2022-12-10] MEDS: Polyethylene Glycol 3350 17 GM Packet PO SCH (21:14)
[2022-12-10] MEDS: Insulin Glargine 30 UNITS/0.3 ML VIAL SC SCH (21:14)
[2022-12-10] MEDS: HYDROcodone/Acetaminophen 5/325 mg Tablet PO PRN (23:01)
[2022-12-11] MEDS: Lidocaine 4% Patch TD SCH (03:22)
[2022-12-11 04:27] LABS: #Eosinphils 0.1 thou/uL (0.0-0.7); #Monocytes 0.7 thou/uL (0.11-0.59); #Neutrophils 5.4 thou/uL (1.40-6.50); %Basophils 0.4 % (0.0-1.0); %Eosinophils 0.9 % (0.0-10.0); %Lymphocytes 15.8 % (21.0-51.0); %Monocytes 8.9 % (0.0-10.0); Hematocrit 23.8 % (36.0-47.0); Hemoglobin 7.4 g/dL (12.0-16.0); Mean Corpuscular HGB CONC 31.1 g/dL (32.0-36.0); Mean Corpuscular Hemoglobin 28.8 pg (27.0-31.0); Mean Corpuscular Volume 92.6 fl (78.0-98.0); Platelet Count 192 10x3/uL (130-400); RBC Distribution Width 15.7 % (11.5-14.5); Red Blood Cell (RBC) Count 2.57 mill/uL (4.20-5.40); White Blood Cell (WBC) Count 7.5 10x3/uL (4.8-10.8)
[2022-12-11 04:55] LABS: ALT (SGPT) 20 U/L (8-55); AST (SGOT) 17 U/L (5-34); Albumin 2.7 g/dL (3.4-4.8); Alkaline Phosphatase 286 U/L (40-110); Anion Gap 14 mmol/L (10-20); BUN (Urea Nitrogen) 12 mg/dL (9.8-20.1); Bilirubin, Total 0.3 mg/dL (0.2-1.2); Calc. Creatinine Clearance 89 mL/min (70-130); Calcium 10.1 mg/dL (7.8-10.44); Carbon Dioxide 26 mmol/L (23-31); Chloride 103 mmol/L (98-107); Estimated GFR 83; Globulin 2.8 g/dL (2.4-3.5); Glucose 144 mg/dL (83-110); Potassium 3.1 mmol/L (3.5-5.1); Protein, Total 5.5 g/dL (5.8-8.1); Sodium 140 mmol/L (136-145)
[2022-12-11] MEDS: Acetaminophen 500 MG TAB PO SCH ×3 (05:46→20:53)
[2022-12-11] MEDS: VANCOMYCIN 1.75 GM/500 ML BAG 1.75 GM in Premix Bag 1 BAG IVPB SCH (05:47)
[2022-12-11] MEDS: Levothyroxine Sodium 88 MCG TAB PO SCH (05:47)
[2022-12-11] MEDS ORDERED: Potassium Chloride 20 MEQ TAB PO SCH ×2 (08:30→10:30)
[2022-12-11] MEDS: Ipratropium/Albuterol 3 ML NEB NEB SCH ×4 (08:31→23:43)
[2022-12-11] MEDS: Mometasone 100 MCG HFA INHALER (RT USE) INH SCH ×2 (08:33→18:13)
[2022-12-11] MEDS: Gabapentin 300 MG CAP PO SCH ×3 (08:42→20:53)
[2022-12-11] MEDS: Allopurinol 100 MG TAB PO SCH (08:43)
[2022-12-11] MEDS: Senokot S 8.6-50 MG TAB PO SCH ×2 (08:43→20:53)
[2022-12-11] MEDS: Saccharomyces boulardii 250 MG CAP PO SCH (08:43)
[2022-12-11] MEDS: Ezetimibe 10 MG TAB PO SCH (08:44)
[2022-12-11] MEDS: Furosemide 40 MG TAB PO SCH (08:44)
[2022-12-11] MEDS: Ferrous Sulfate 325 MG TAB PO SCH (08:44)
[2022-12-11] MEDS: Clopidogrel Bisulfate 75 MG TAB PO SCH (08:45)
[2022-12-11] MEDS: Alogliptin 6.25 MG TAB PO SCH (08:45)
[2022-12-11] MEDS: Oxybutynin ER 5 MG TAB PO SCH (08:45)
[2022-12-11] MEDS: Lisinopril 5 MG TAB PO SCH (08:54)
[2022-12-11] MEDS: Polyethylene Glycol 3350 17 GM Packet PO SCH ×2 (08:55→20:54)
[2022-12-11] MEDS: Aripiprazole 10 MG TAB PO SCH ×2 (09:53→20:53)
[2022-12-11] MEDS: Pancrelipase DR 12,000 1 CAP PO SCH ×3 (09:56→17:31)
[2022-12-11] MEDS: HYDROcodone/Acetaminophen 5/325 mg Tablet PO PRN ×2 (10:00→15:10)
[2022-12-11] MEDS ORDERED: Iopamidol-370 76% 500 ML MDV (1 ML CHARGE) ONE (10:12)
[2022-12-11] MEDS: Ondansetron PF 4 MG/2 ML Vial IVP PRN (15:11)
[2022-12-11] MEDS: Transdermal Patch Removal TOP SCH (15:20)
[2022-12-11] MEDS: Mirtazapine 15 MG Soltab PO SCH (20:53)
[2022-12-11] MEDS: Insulin Glargine 30 UNITS/0.3 ML VIAL SC SCH (20:54)
[2022-12-12] MEDS: HYDROcodone/Acetaminophen 5/325 mg Tablet PO PRN ×2 (02:08→20:46)
[2022-12-12] MEDS: Lidocaine 4% Patch TD SCH (02:08)
[2022-12-12] MEDS: Lorazepam 0.5 MG TAB PO PRN (02:09)
[2022-12-12] MEDS: Levothyroxine Sodium 88 MCG TAB PO SCH (05:24)
[2022-12-12] MEDS: Acetaminophen 500 MG TAB PO SCH ×3 (05:24→20:46)
[2022-12-12] MEDS: Ipratropium/Albuterol 3 ML NEB NEB SCH ×4 (07:02→23:16)
[2022-12-12] MEDS: Mometasone 100 MCG HFA INHALER (RT USE) INH SCH ×2 (07:02→19:50)
[2022-12-12] MEDS: Gabapentin 300 MG CAP PO SCH ×3 (08:54→20:30)
[2022-12-12] MEDS: Ezetimibe 10 MG TAB PO SCH (08:54)
[2022-12-12] MEDS: Aripiprazole 10 MG TAB PO SCH ×2 (08:55→20:46)
[2022-12-12] MEDS: Alogliptin 6.25 MG TAB PO SCH (08:55)
[2022-12-12] MEDS: Allopurinol 100 MG TAB PO SCH (08:55)
[2022-12-12] MEDS: Ferrous Sulfate 325 MG TAB PO SCH (08:55)
[2022-12-12] MEDS: Pancrelipase DR 12,000 1 CAP PO SCH ×3 (08:57→17:41)
[2022-12-12] MEDS: Multivitamin W/ Minerals 1 TAB PO SCH (08:57)
[2022-12-12] MEDS: Clopidogrel Bisulfate 75 MG TAB PO SCH (08:58)
[2022-12-12] MEDS: Polyethylene Glycol 3350 17 GM Packet PO SCH ×2 (08:58→20:30)
[2022-12-12] MEDS: Lisinopril 5 MG TAB PO SCH (08:58)
[2022-12-12] MEDS: Oxybutynin ER 5 MG TAB PO SCH (08:58)
[2022-12-12] MEDS: Saccharomyces boulardii 250 MG CAP PO SCH (08:58)
[2022-12-12] MEDS: Senokot S 8.6-50 MG TAB PO SCH ×2 (08:58→20:30)
[2022-12-12] MEDS: Furosemide 40 MG TAB PO SCH (08:58)
[2022-12-12 10:23] LABS: Anion Gap 18 mmol/L (10-20); BUN (Urea Nitrogen) 11 mg/dL (9.8-20.1); CK (CPK) 156 U/L (29-168); Calc. Creatinine Clearance 95 mL/min (70-130); Calcium 10.1 mg/dL (7.8-10.44); Carbon Dioxide 22 mmol/L (23-31); Chloride 103 mmol/L (98-107); Estimated GFR 90; Glucose 106 mg/dL (83-110); Potassium 5.7 mmol/L (3.5-5.1); Sodium 137 mmol/L (136-145)
[2022-12-12] MEDS: Transdermal Patch Removal TOP SCH (14:59)
[2022-12-12] MEDS: Mirtazapine 15 MG Soltab PO SCH (20:29)
[2022-12-12] MEDS: Cholecalciferol 1,000 UNITS (25 MCG) TAB PO SCH (20:30)
[2022-12-12] MEDS: Insulin Glargine 30 UNITS/0.3 ML VIAL SC SCH (20:31)
[2022-12-12] MEDS: Ibuprofen 600 MG TAB PO PRN (23:22)
[2022-12-13] MEDS: Lidocaine 4% Patch TD SCH (02:36)
[2022-12-13] MEDS: Acetaminophen 500 MG TAB PO SCH ×3 (05:00→20:29)
[2022-12-13] MEDS: Levothyroxine Sodium 88 MCG TAB PO SCH (05:01)
[2022-12-13] MEDS: Ipratropium/Albuterol 3 ML NEB NEB SCH ×4 (06:50→23:49)
[2022-12-13] MEDS: Mometasone 100 MCG HFA INHALER (RT USE) INH SCH ×2 (06:51→19:11)
[2022-12-13 07:10] LABS: #Eosinphils 0.1 thou/uL (0.0-0.7); #Monocytes 0.6 thou/uL (0.11-0.59); #Neutrophils 6.3 thou/uL (1.40-6.50); %Basophils 0.5 % (0.0-1.0); %Eosinophils 0.7 % (0.0-10.0); %Lymphocytes 18.3 % (21.0-51.0); %Monocytes 6.3 % (0.0-10.0); %Neutrophils 72.9 % (42.0-75.0); Hematocrit 23.5 % (36.0-47.0); Hemoglobin 7.1 g/dL (12.0-16.0); Mean Corpuscular HGB CONC 30.2 g/dL (32.0-36.0); Mean Corpuscular Volume 92.5 fl (78.0-98.0); Mean Platelet Volume 11.6 fL (7.4-10.4); Platelet Count 238 10x3/uL (130-400); RBC Distribution Width 15.5 % (11.5-14.5); Red Blood Cell (RBC) Count 2.54 mill/uL (4.20-5.40); White Blood Cell (WBC) Count 8.7 10x3/uL (4.8-10.8)
[2022-12-13 07:33] LABS: Anion Gap 12 mmol/L (10-20); BUN (Urea Nitrogen) 14 mg/dL (9.8-20.1); Calc. Creatinine Clearance 81 mL/min (70-130); Calcium 9.9 mg/dL (7.8-10.44); Carbon Dioxide 28 mmol/L (23-31); Chloride 102 mmol/L (98-107); Estimated GFR 74; Glucose 136 mg/dL (83-110); Potassium 3.8 mmol/L (3.5-5.1); Sodium 138 mmol/L (136-145)
[2022-12-13] MEDS: Polyethylene Glycol 3350 17 GM Packet PO SCH ×2 (09:04→20:29)
[2022-12-13] MEDS: Lisinopril 5 MG TAB PO SCH (09:05)
[2022-12-13] MEDS: Furosemide 40 MG TAB PO SCH (09:05)
[2022-12-13] MEDS: Ezetimibe 10 MG TAB PO SCH (09:05)
[2022-12-13] MEDS: Pancrelipase DR 12,000 1 CAP PO SCH ×3 (09:05→17:28)
[2022-12-13] MEDS: Saccharomyces boulardii 250 MG CAP PO SCH (09:06)
[2022-12-13] MEDS: Ferrous Sulfate 325 MG TAB PO SCH (09:06)
[2022-12-13] MEDS: Oxybutynin ER 5 MG TAB PO SCH (09:06)
[2022-12-13] MEDS: Multivitamin W/ Minerals 1 TAB PO SCH (09:07)
[2022-12-13] MEDS: Clopidogrel Bisulfate 75 MG TAB PO SCH (09:07)
[2022-12-13] MEDS: Senokot S 8.6-50 MG TAB PO SCH ×2 (09:07→20:29)
[2022-12-13] MEDS: Gabapentin 300 MG CAP PO SCH ×3 (09:07→20:28)
[2022-12-13] MEDS: Aripiprazole 10 MG TAB PO SCH ×2 (09:08→20:28)
[2022-12-13] MEDS: Alogliptin 6.25 MG TAB PO SCH (09:08)
[2022-12-13] MEDS: Allopurinol 100 MG TAB PO SCH (09:08)
[2022-12-13] MEDS: HYDROcodone/Acetaminophen 5/325 mg Tablet PO PRN ×2 (14:48→22:19)
[2022-12-13] MEDS: Transdermal Patch Removal TOP SCH (14:51)
[2022-12-13] MEDS: HumaLOG 300 UNITS/3 ML VIAL SC PRN (17:27)
[2022-12-13] MEDS: Cholecalciferol 1,000 UNITS (25 MCG) TAB PO SCH (20:28)
[2022-12-13] MEDS: Mirtazapine 15 MG Soltab PO SCH (20:29)
[2022-12-13] MEDS: Insulin Glargine 30 UNITS/0.3 ML VIAL SC SCH (22:18)
[2022-12-14] MEDS: Lidocaine 4% Patch TD SCH (01:49)
[2022-12-14] MEDS: Acetaminophen 500 MG TAB PO SCH ×3 (05:39→21:33)
[2022-12-14] MEDS: Levothyroxine Sodium 88 MCG TAB PO SCH (05:39)
[2022-12-14] MEDS: HYDROcodone/Acetaminophen 5/325 mg Tablet PO PRN ×2 (05:39→17:12)
[2022-12-14] MEDS: Ipratropium/Albuterol 3 ML NEB NEB SCH ×4 (07:08→23:21)
[2022-12-14] MEDS: Mometasone 100 MCG HFA INHALER (RT USE) INH SCH ×2 (07:09→19:39)
[2022-12-14] MEDS: Furosemide 40 MG TAB PO SCH (10:36)
[2022-12-14] MEDS: Clopidogrel Bisulfate 75 MG TAB PO SCH (11:48)
[2022-12-14] MEDS ORDERED: EPINEPHrine 1 MG/ML AMP ONE (13:15)
[2022-12-14] MEDS ORDERED: Bupivacaine PF 0.5% 30 ML VIAL ONE (13:15)
[2022-12-14] MEDS ORDERED: fentaNYL 50 mcg/mL 1 mL Vial ONE ×2 (13:22→15:37)
[2022-12-14] MEDS ORDERED: Dexamethasone 20 MG/5 ML VIAL ONE (13:31)
[2022-12-14] MEDS ORDERED: Rocuronium Bromide 10 MG/ML (10ML VIAL) ONE (13:31)
[2022-12-14] MEDS ORDERED: NEOSTIGMINE 3 MG/3 ML SYR 3 MG/3 ML SYRINGE ONE (13:31)
[2022-12-14] MEDS ORDERED: Lidocaine 1% PF 5 ML VIAL ONE (13:31)
[2022-12-14] MEDS ORDERED: Glycopyrrolate 0.2 MG/ML 5 ML SYRINGE ONE (13:31)
[2022-12-14] MEDS ORDERED: Ondansetron PF 4 MG/2 ML Vial ONE (13:31)
[2022-12-14] MEDS ORDERED: PROPOFOL 200 MG/20 ML VIAL ONE (13:31)
[2022-12-14] MEDS ORDERED: Promethazine HCl 25 MG/ML VIAL IM PRN (15:01)
[2022-12-14] MEDS ORDERED: HYDROmorphone 2 MG/ML VIAL SLOW IVP PRN (15:01)
[2022-12-14] MEDS ORDERED: PACU-Morphine 4MG/ML VIAL SLOW IVP PRN (15:01)
[2022-12-14] MEDS ORDERED: Ondansetron HCl/PF 4 MG/2 ML Vial IVP PRN (15:01)
[2022-12-14] MEDS ORDERED: fentaNYL PF 100 MCG/2 ML SYRINGE ONE (15:03)
[2022-12-14 17:17] LABS: Hemoglobin 9.9 g/dL (12.0-16.0)
[2022-12-14 17:23] LABS: Hematocrit 32.8 % (36.0-47.0)
[2022-12-14 17:39] LABS: Anion Gap 16 mmol/L (10-20); BUN (Urea Nitrogen) 11 mg/dL (9.8-20.1); Calc. Creatinine Clearance 89 mL/min (70-130); Calcium 10.2 mg/dL (7.8-10.44); Carbon Dioxide 23 mmol/L (23-31); Chloride 102 mmol/L (98-107); Estimated GFR 83; Glucose 132 mg/dL (83-110); Potassium 3.7 mmol/L (3.5-5.1); Sodium 137 mmol/L (136-145)
[2022-12-14] MEDS: Pancrelipase DR 12,000 1 CAP PO SCH ×2 (17:42→17:43)
[2022-12-14] MEDS: Allopurinol 100 MG TAB PO SCH (17:43)
[2022-12-14] MEDS: Aripiprazole 10 MG TAB PO SCH ×2 (17:43→23:40)
[2022-12-14] MEDS: Gabapentin 300 MG CAP PO SCH ×3 (17:43→21:32)
[2022-12-14] MEDS: Ferrous Sulfate 325 MG TAB PO SCH (17:43)
[2022-12-14] MEDS: Ezetimibe 10 MG TAB PO SCH (17:43)
[2022-12-14] MEDS: Alogliptin 6.25 MG TAB PO SCH (17:43)
[2022-12-14] MEDS: Multivitamin W/ Minerals 1 TAB PO SCH (17:44)
[2022-12-14] MEDS: Lisinopril 5 MG TAB PO SCH (17:44)
[2022-12-14] MEDS: Oxybutynin ER 5 MG TAB PO SCH (17:44)
[2022-12-14] MEDS: Saccharomyces boulardii 250 MG CAP PO SCH (17:44)
[2022-12-14] MEDS: Polyethylene Glycol 3350 17 GM Packet PO SCH (17:44)
[2022-12-14] MEDS: Senokot S 8.6-50 MG TAB PO SCH ×2 (17:45→21:33)
[2022-12-14] MEDS: Transdermal Patch Removal TOP SCH (18:03)
[2022-12-14] MEDS: Cholecalciferol 1,000 UNITS (25 MCG) TAB PO SCH (21:32)
[2022-12-14] MEDS: Mirtazapine 15 MG Soltab PO SCH (21:33)
[2022-12-14] MEDS: Lorazepam 0.5 MG TAB PO PRN (21:33)
[2022-12-15] MEDS: Polyethylene Glycol 3350 17 GM Packet PO SCH ×3 (00:02→22:09)
[2022-12-15] MEDS: Insulin Glargine 30 UNITS/0.3 ML VIAL SC SCH ×2 (00:02→22:08)
[2022-12-15 04:42] LABS: #Monocytes 0.4 thou/uL (0.11-0.59); #Neutrophils 5.2 thou/uL (1.40-6.50); %Basophils 0.3 % (0.0-1.0); %Lymphocytes 17.6 % (21.0-51.0); %Monocytes 5.3 % (0.0-10.0); %Neutrophils 74.8 % (42.0-75.0); Hematocrit 29.2 % (36.0-47.0); Hemoglobin 8.9 g/dL (12.0-16.0); Mean Corpuscular HGB CONC 30.5 g/dL (32.0-36.0); Mean Corpuscular Hemoglobin 27.7 pg (27.0-31.0); Mean Platelet Volume 12.3 fL (7.4-10.4); Platelet Count 289 10x3/uL (130-400); RBC Distribution Width 15.4 % (11.5-14.5); Red Blood Cell (RBC) Count 3.21 mill/uL (4.20-5.40)
[2022-12-15 05:08] LABS: Anion Gap 13 mmol/L (10-20); BUN (Urea Nitrogen) 13 mg/dL (9.8-20.1); Calc. Creatinine Clearance 95 mL/min (70-130); Carbon Dioxide 25 mmol/L (23-31); Chloride 103 mmol/L (98-107); Estimated GFR 90; Glucose 130 mg/dL (83-110); Potassium 4.3 mmol/L (3.5-5.1); Sodium 137 mmol/L (136-145)
[2022-12-15] MEDS: Levothyroxine Sodium 88 MCG TAB PO SCH (06:14)
[2022-12-15] MEDS: Lidocaine 4% Patch TD SCH (06:14)
[2022-12-15] MEDS: Acetaminophen 500 MG TAB PO SCH ×3 (06:14→22:07)
[2022-12-15] MEDS: Ipratropium/Albuterol 3 ML NEB NEB SCH ×3 (06:54→18:30)
[2022-12-15] MEDS: Mometasone 100 MCG HFA INHALER (RT USE) INH SCH ×2 (06:56→18:34)
[2022-12-15] MEDS: Pancrelipase DR 12,000 1 CAP PO SCH ×3 (08:37→17:18)
[2022-12-15] MEDS: Allopurinol 100 MG TAB PO SCH (08:38)
[2022-12-15] MEDS: Ezetimibe 10 MG TAB PO SCH (08:38)
[2022-12-15] MEDS: Saccharomyces boulardii 250 MG CAP PO SCH (08:38)
[2022-12-15] MEDS: Gabapentin 300 MG CAP PO SCH ×3 (08:38→22:08)
[2022-12-15] MEDS: Alogliptin 6.25 MG TAB PO SCH (08:38)
[2022-12-15] MEDS: Lisinopril 5 MG TAB PO SCH (08:39)
[2022-12-15] MEDS: Furosemide 40 MG TAB PO SCH (08:39)
[2022-12-15] MEDS: Senokot S 8.6-50 MG TAB PO SCH ×2 (08:39→22:07)
[2022-12-15] MEDS: Multivitamin W/ Minerals 1 TAB PO SCH (08:39)
[2022-12-15] MEDS: Clopidogrel Bisulfate 75 MG TAB PO SCH (08:39)
[2022-12-15] MEDS: Ferrous Sulfate 325 MG TAB PO SCH (08:40)
[2022-12-15] MEDS: Aripiprazole 10 MG TAB PO SCH ×2 (08:50→22:08)
[2022-12-15] MEDS: Oxybutynin ER 5 MG TAB PO SCH (10:19)
[2022-12-15] MEDS: Transdermal Patch Removal TOP SCH (13:25)
[2022-12-15] MEDS: HumaLOG 300 UNITS/3 ML VIAL SC PRN (13:26)
[2022-12-15] MEDS: HYDROcodone/Acetaminophen 5/325 mg Tablet PO PRN (17:24)
[2022-12-15] MEDS: Cholecalciferol 1,000 UNITS (25 MCG) TAB PO SCH (22:08)
[2022-12-15] MEDS: Mirtazapine 15 MG Soltab PO SCH (22:08)
[2022-12-16] MEDS: Ipratropium/Albuterol 3 ML NEB NEB SCH ×4 (01:04→19:31)
[2022-12-16 05:43] LABS: #Eosinphils 0.1 thou/uL (0.0-0.7); #Monocytes 0.6 thou/uL (0.11-0.59); #Neutrophils 4.2 thou/uL (1.40-6.50); %Basophils 0.4 % (0.0-1.0); %Eosinophils 0.7 % (0.0-10.0); %Lymphocytes 26.2 % (21.0-51.0); %Monocytes 8.5 % (0.0-10.0); %Neutrophils 62.1 % (42.0-75.0); Hemoglobin 8.4 g/dL (12.0-16.0); Mean Corpuscular Hemoglobin 27.8 pg (27.0-31.0); Mean Corpuscular Volume 92.7 fl (78.0-98.0); Mean Platelet Volume 10.9 fL (7.4-10.4); Platelet Count 406 10x3/uL (130-400); RBC Distribution Width 15.5 % (11.5-14.5); Red Blood Cell (RBC) Count 3.02 mill/uL (4.20-5.40); White Blood Cell (WBC) Count 6.7 10x3/uL (4.8-10.8)
[2022-12-16] MEDS: Levothyroxine Sodium 88 MCG TAB PO SCH (05:45)
[2022-12-16] MEDS: Lidocaine 4% Patch TD SCH (05:46)
[2022-12-16] MEDS: Acetaminophen 500 MG TAB PO SCH ×3 (05:46→20:46)
[2022-12-16 06:14] LABS: Anion Gap 14 mmol/L (10-20); BUN (Urea Nitrogen) 17 mg/dL (9.8-20.1); Calc. Creatinine Clearance 68 mL/min (70-130); Calcium 10.2 mg/dL (7.8-10.44); Carbon Dioxide 26 mmol/L (23-31); Chloride 102 mmol/L (98-107); Estimated GFR 60; Glucose 129 mg/dL (83-110); Potassium 3.7 mmol/L (3.5-5.1); Sodium 138 mmol/L (136-145)
[2022-12-16] MEDS: Mometasone 100 MCG HFA INHALER (RT USE) INH SCH ×2 (07:02→19:34)
[2022-12-16] MEDS: Ezetimibe 10 MG TAB PO SCH (09:57)
[2022-12-16] MEDS: Oxybutynin ER 5 MG TAB PO SCH (09:58)
[2022-12-16] MEDS: Gabapentin 300 MG CAP PO SCH ×3 (09:59→20:45)
[2022-12-16] MEDS: Lisinopril 5 MG TAB PO SCH (09:59)
[2022-12-16] MEDS: Allopurinol 100 MG TAB PO SCH (09:59)
[2022-12-16] MEDS: Clopidogrel Bisulfate 75 MG TAB PO SCH (10:00)
[2022-12-16] MEDS: Multivitamin W/ Minerals 1 TAB PO SCH (10:00)
[2022-12-16] MEDS: Furosemide 40 MG TAB PO SCH (10:01)
[2022-12-16] MEDS: Ferrous Sulfate 325 MG TAB PO SCH (10:01)
[2022-12-16] MEDS: Saccharomyces boulardii 250 MG CAP PO SCH (10:01)
[2022-12-16] MEDS: Aripiprazole 10 MG TAB PO SCH ×2 (10:02→20:46)
[2022-12-16] MEDS: Polyethylene Glycol 3350 17 GM Packet PO SCH ×2 (10:03→20:45)
[2022-12-16] MEDS: Senokot S 8.6-50 MG TAB PO SCH ×2 (10:03→20:46)
[2022-12-16] MEDS: Alogliptin 6.25 MG TAB PO SCH (10:08)
[2022-12-16] MEDS: Pancrelipase DR 12,000 1 CAP PO SCH ×3 (10:08→17:37)
[2022-12-16] MEDS: Transdermal Patch Removal TOP SCH (14:56)
[2022-12-16] MEDS: Mirtazapine 15 MG Soltab PO SCH (20:45)
[2022-12-16] MEDS: Insulin Glargine 30 UNITS/0.3 ML VIAL SC SCH (20:46)
[2022-12-16] MEDS: Cholecalciferol 1,000 UNITS (25 MCG) TAB PO SCH (20:46)
[2022-12-17] MEDS: Ipratropium/Albuterol 3 ML NEB NEB SCH ×4 (00:30→19:13)
[2022-12-17] MEDS: Lidocaine 4% Patch TD SCH (02:00)
[2022-12-17 05:11] LABS: #Eosinphils 0.1 thou/uL (0.0-0.7); #Monocytes 0.5 thou/uL (0.11-0.59); #Neutrophils 3.5 thou/uL (1.40-6.50); %Basophils 0.7 % (0.0-1.0); %Eosinophils 1.4 % (0.0-10.0); %Lymphocytes 25.4 % (21.0-51.0); %Monocytes 9.2 % (0.0-10.0); %Neutrophils 60.1 % (42.0-75.0); Hematocrit 28.7 % (36.0-47.0); Hemoglobin 8.7 g/dL (12.0-16.0); Mean Corpuscular HGB CONC 30.3 g/dL (32.0-36.0); Mean Corpuscular Hemoglobin 28.4 pg (27.0-31.0); Mean Corpuscular Volume 93.8 fl (78.0-98.0); Mean Platelet Volume 10.7 fL (7.4-10.4); Platelet Count 434 10x3/uL (130-400); RBC Distribution Width 15.3 % (11.5-14.5); Red Blood Cell (RBC) Count 3.06 mill/uL (4.20-5.40); White Blood Cell (WBC) Count 5.9 10x3/uL (4.8-10.8)
[2022-12-17 05:39] LABS: Anion Gap 14 mmol/L (10-20); BUN (Urea Nitrogen) 14 mg/dL (9.8-20.1); Calc. Creatinine Clearance 77 mL/min (70-130); Calcium 10.3 mg/dL (7.8-10.44); Carbon Dioxide 25 mmol/L (23-31); Chloride 104 mmol/L (98-107); Estimated GFR 70; Glucose 116 mg/dL (83-110); Potassium 3.6 mmol/L (3.5-5.1); Sodium 139 mmol/L (136-145)
[2022-12-17] MEDS: Acetaminophen 500 MG TAB PO SCH ×3 (06:21→20:22)
[2022-12-17] MEDS: Levothyroxine Sodium 88 MCG TAB PO SCH (06:22)
[2022-12-17] MEDS: Mometasone 100 MCG HFA INHALER (RT USE) INH SCH ×2 (06:45→19:14)
[2022-12-17] MEDS: Alogliptin 6.25 MG TAB PO SCH (10:07)
[2022-12-17] MEDS: Ferrous Sulfate 325 MG TAB PO SCH (10:08)
[2022-12-17] MEDS: Oxybutynin ER 5 MG TAB PO SCH (10:08)
[2022-12-17] MEDS: Ezetimibe 10 MG TAB PO SCH (10:09)
[2022-12-17] MEDS: Multivitamin W/ Minerals 1 TAB PO SCH (10:09)
[2022-12-17] MEDS: Gabapentin 300 MG CAP PO SCH ×3 (10:09→20:21)
[2022-12-17] MEDS: Saccharomyces boulardii 250 MG CAP PO SCH (10:09)
[2022-12-17] MEDS: Furosemide 40 MG TAB PO SCH (10:10)
[2022-12-17] MEDS: Allopurinol 100 MG TAB PO SCH (10:10)
[2022-12-17] MEDS: Lisinopril 5 MG TAB PO SCH (10:10)
[2022-12-17] MEDS: Polyethylene Glycol 3350 17 GM Packet PO SCH ×2 (10:11→20:28)
[2022-12-17] MEDS: Aripiprazole 10 MG TAB PO SCH ×2 (10:12→20:28)
[2022-12-17] MEDS: Clopidogrel Bisulfate 75 MG TAB PO SCH (10:12)
[2022-12-17] MEDS: Pancrelipase DR 12,000 1 CAP PO SCH ×3 (10:15→17:18)
[2022-12-17] MEDS: Ibuprofen 600 MG TAB PO PRN (10:16)
[2022-12-17] MEDS: Senokot S 8.6-50 MG TAB PO SCH ×2 (10:18→20:22)
[2022-12-17] MEDS: Transdermal Patch Removal TOP SCH (15:16)
[2022-12-17] MEDS: HYDROcodone/Acetaminophen 5/325 mg Tablet PO PRN (20:20)
[2022-12-17] MEDS: Mirtazapine 15 MG Soltab PO SCH (20:21)
[2022-12-17] MEDS: Cholecalciferol 1,000 UNITS (25 MCG) TAB PO SCH (20:22)
[2022-12-17] MEDS: Insulin Glargine 30 UNITS/0.3 ML VIAL SC SCH (20:23)
[2022-12-18] MEDS: Ipratropium/Albuterol 3 ML NEB NEB SCH ×4 (00:35→18:43)
[2022-12-18] MEDS: Lidocaine 4% Patch TD SCH (02:00)
[2022-12-18 04:29] LABS: #Eosinphils 0.1 thou/uL (0.0-0.7); #Monocytes 0.5 thou/uL (0.11-0.59); #Neutrophils 3.1 thou/uL (1.40-6.50); %Basophils 0.5 % (0.0-1.0); %Lymphocytes 29.5 % (21.0-51.0); %Monocytes 9.1 % (0.0-10.0); %Neutrophils 55.5 % (42.0-75.0); Hematocrit 28.5 % (36.0-47.0); Hemoglobin 8.6 g/dL (12.0-16.0); Mean Corpuscular HGB CONC 30.2 g/dL (32.0-36.0); Mean Corpuscular Volume 92.8 fl (78.0-98.0); Mean Platelet Volume 10.2 fL (7.4-10.4); Platelet Count 464 10x3/uL (130-400); RBC Distribution Width 15.2 % (11.5-14.5); Red Blood Cell (RBC) Count 3.07 mill/uL (4.20-5.40); White Blood Cell (WBC) Count 5.6 10x3/uL (4.8-10.8)
[2022-12-18 04:56] LABS: Anion Gap 14 mmol/L (10-20); BUN (Urea Nitrogen) 17 mg/dL (9.8-20.1); Calc. Creatinine Clearance 79 mL/min (70-130); Calcium 10.1 mg/dL (7.8-10.44); Carbon Dioxide 26 mmol/L (23-31); Chloride 103 mmol/L (98-107); Estimated GFR 72; Glucose 113 mg/dL (83-110); Potassium 3.1 mmol/L (3.5-5.1); Sodium 140 mmol/L (136-145)
[2022-12-18] MEDS: Acetaminophen 500 MG TAB PO SCH ×3 (05:41→22:56)
[2022-12-18] MEDS: Levothyroxine Sodium 88 MCG TAB PO SCH (05:41)
[2022-12-18] MEDS: Mometasone 100 MCG HFA INHALER (RT USE) INH SCH ×2 (06:40→18:43)
[2022-12-18] MEDS ORDERED: Potassium Chloride 20 MEQ TAB PO SCH (07:00)
[2022-12-18] MEDS: Aripiprazole 10 MG TAB PO SCH ×2 (08:59→21:17)
[2022-12-18] MEDS: Pancrelipase DR 12,000 1 CAP PO SCH ×3 (08:59→16:56)
[2022-12-18] MEDS: Gabapentin 300 MG CAP PO SCH ×3 (08:59→21:18)
[2022-12-18] MEDS: Allopurinol 100 MG TAB PO SCH (09:00)
[2022-12-18] MEDS: Clopidogrel Bisulfate 75 MG TAB PO SCH (09:02)
[2022-12-18] MEDS: Furosemide 40 MG TAB PO SCH (09:02)
[2022-12-18] MEDS: Lisinopril 5 MG TAB PO SCH (09:03)
[2022-12-18] MEDS: Ferrous Sulfate 325 MG TAB PO SCH (09:03)
[2022-12-18] MEDS: Oxybutynin ER 5 MG TAB PO SCH (09:03)
[2022-12-18] MEDS: Polyethylene Glycol 3350 17 GM Packet PO SCH ×2 (09:04→21:20)
[2022-12-18] MEDS: Multivitamin W/ Minerals 1 TAB PO SCH (09:04)
[2022-12-18] MEDS: Saccharomyces boulardii 250 MG CAP PO SCH (09:04)
[2022-12-18] MEDS: Senokot S 8.6-50 MG TAB PO SCH ×2 (09:04→21:20)
[2022-12-18] MEDS: Ezetimibe 10 MG TAB PO SCH (09:04)
[2022-12-18] MEDS: Alogliptin 6.25 MG TAB PO SCH (09:04)
[2022-12-18] MEDS: Ondansetron PF 4 MG/2 ML Vial IVP PRN (09:06)
[2022-12-18] MEDS: Transdermal Patch Removal TOP SCH (15:40)
[2022-12-18] MEDS: HYDROcodone/Acetaminophen 5/325 mg Tablet PO PRN (17:00)
[2022-12-18] MEDS: Mirtazapine 15 MG Soltab PO SCH (21:17)
[2022-12-18] MEDS: Cholecalciferol 1,000 UNITS (25 MCG) TAB PO SCH (21:18)
[2022-12-18] MEDS: Insulin Glargine 30 UNITS/0.3 ML VIAL SC SCH (22:36)
[2022-12-18] MEDS ORDERED: Insulin Glargine 30 UNITS/0.3 ML VIAL SC SCH (22:45)
[2022-12-19] MEDS: Ipratropium/Albuterol 3 ML NEB NEB SCH ×5 (00:48→23:19)
[2022-12-19] MEDS: Lidocaine 4% Patch TD SCH (03:15)
[2022-12-19 05:09] LABS: #Eosinphils 0.1 thou/uL (0.0-0.7); #Monocytes 0.4 thou/uL (0.11-0.59); #Neutrophils 2.7 thou/uL (1.40-6.50); %Basophils 0.6 % (0.0-1.0); %Eosinophils 2.5 % (0.0-10.0); %Monocytes 7.7 % (0.0-10.0); %Neutrophils 52.3 % (42.0-75.0); Hematocrit 29.9 % (36.0-47.0); Hemoglobin 8.7 g/dL (12.0-16.0); Mean Corpuscular HGB CONC 29.1 g/dL (32.0-36.0); Mean Corpuscular Hemoglobin 27.4 pg (27.0-31.0); Mean Corpuscular Volume 94.3 fl (78.0-98.0); Mean Platelet Volume 9.9 fL (7.4-10.4); Platelet Count 490 10x3/uL (130-400); Red Blood Cell (RBC) Count 3.17 mill/uL (4.20-5.40); White Blood Cell (WBC) Count 5.2 10x3/uL (4.8-10.8)
[2022-12-19 05:34] LABS: Anion Gap 13 mmol/L (10-20); BUN (Urea Nitrogen) 19 mg/dL (9.8-20.1); Calc. Creatinine Clearance 72 mL/min (70-130); Calcium 10.5 mg/dL (7.8-10.44); Carbon Dioxide 27 mmol/L (23-31); Chloride 102 mmol/L (98-107); Estimated GFR 65; Glucose 91 mg/dL (83-110); Potassium 3.1 mmol/L (3.5-5.1); Sodium 139 mmol/L (136-145)
[2022-12-19] MEDS: Acetaminophen 500 MG TAB PO SCH ×3 (05:51→20:55)
[2022-12-19] MEDS: Levothyroxine Sodium 88 MCG TAB PO SCH (05:52)
[2022-12-19] MEDS: Mometasone 100 MCG HFA INHALER (RT USE) INH SCH ×2 (07:14→18:55)
[2022-12-19] MEDS ORDERED: Potassium Chloride 20 MEQ TAB PO SCH (08:00)
[2022-12-19] MEDS: Pancrelipase DR 12,000 1 CAP PO SCH ×3 (09:27→17:23)
[2022-12-19] MEDS: Ferrous Sulfate 325 MG TAB PO SCH (09:31)
[2022-12-19] MEDS: Saccharomyces boulardii 250 MG CAP PO SCH (09:31)
[2022-12-19] MEDS: Furosemide 40 MG TAB PO SCH (09:32)
[2022-12-19] MEDS: Clopidogrel Bisulfate 75 MG TAB PO SCH (09:32)
[2022-12-19] MEDS: Alogliptin 6.25 MG TAB PO SCH (09:32)
[2022-12-19] MEDS: Ezetimibe 10 MG TAB PO SCH (09:32)
[2022-12-19] MEDS: Allopurinol 100 MG TAB PO SCH (09:32)
[2022-12-19] MEDS: Gabapentin 300 MG CAP PO SCH ×3 (09:32→20:53)
[2022-12-19] MEDS ORDERED: Polyethylene Glycol 3350 17 GM Packet PO PRN (09:47)
[2022-12-19] MEDS: Multivitamin W/ Minerals 1 TAB PO SCH (09:51)
[2022-12-19] MEDS: Lisinopril 5 MG TAB PO SCH (09:52)
[2022-12-19] MEDS: Senokot S 8.6-50 MG TAB PO SCH ×2 (09:53→20:53)
[2022-12-19] MEDS: Aripiprazole 10 MG TAB PO SCH ×2 (09:53→20:53)
[2022-12-19] MEDS: Oxybutynin ER 5 MG TAB PO SCH (09:53)
[2022-12-19] MEDS: Polyethylene Glycol 3350 17 GM Packet PO SCH (09:54)
[2022-12-19 15:22] LABS: Magnesium 1.8 mg/dL (1.6-2.6); Phosphorus 3.3 mg/dL (2.3-4.7)
[2022-12-19] MEDS: Transdermal Patch Removal TOP SCH (15:28)
[2022-12-19 15:46] LABS: Potassium 4.2 mmol/L (3.5-5.1)
[2022-12-19] MEDS ORDERED: Magnesium 2 GM/50 ML(in water) 2 GM in Premix Bag 1 BAG IVPB SCH (17:15)
[2022-12-19] MEDS: Cholecalciferol 1,000 UNITS (25 MCG) TAB PO SCH (20:53)
[2022-12-19] MEDS: Insulin Glargine 30 UNITS/0.3 ML VIAL SC SCH (20:54)
[2022-12-19] MEDS: Mirtazapine 15 MG Soltab PO SCH (20:54)
[2022-12-20 05:58] LABS: #Eosinphils 0.1 thou/uL (0.0-0.7); #Monocytes 0.5 thou/uL (0.11-0.59); #Neutrophils 2.4 thou/uL (1.40-6.50); %Basophils 0.4 % (0.0-1.0); %Eosinophils 2.7 % (0.0-10.0); %Lymphocytes 36.8 % (21.0-51.0); %Monocytes 9.9 % (0.0-10.0); Hematocrit 28.7 % (36.0-47.0); Hemoglobin 8.6 g/dL (12.0-16.0); Mean Corpuscular Hemoglobin 27.8 pg (27.0-31.0); Mean Corpuscular Volume 92.9 fl (78.0-98.0); Mean Platelet Volume 9.9 fL (7.4-10.4); Platelet Count 484 10x3/uL (130-400); RBC Distribution Width 15.2 % (11.5-14.5); Red Blood Cell (RBC) Count 3.09 mill/uL (4.20-5.40); White Blood Cell (WBC) Count 4.9 10x3/uL (4.8-10.8)
[2022-12-20] MEDS: Acetaminophen 500 MG TAB PO SCH ×3 (06:17→21:21)
[2022-12-20] MEDS: Levothyroxine Sodium 88 MCG TAB PO SCH (06:17)
[2022-12-20 06:18] LABS: Anion Gap 13 mmol/L (10-20); BUN (Urea Nitrogen) 19 mg/dL (9.8-20.1); Calc. Creatinine Clearance 77 mL/min (70-130); Calcium 10.5 mg/dL (7.8-10.44); Carbon Dioxide 26 mmol/L (23-31); Chloride 106 mmol/L (98-107); Estimated GFR 70; Glucose 94 mg/dL (83-110); Magnesium 2.3 mg/dL (1.6-2.6); Potassium 4.1 mmol/L (3.5-5.1); Sodium 141 mmol/L (136-145)
[2022-12-20] MEDS ORDERED: Lidocaine 1% w/Epinephrine 1:100K 20 ML VIAL IJ SCH (06:30)
[2022-12-20] MEDS: Lidocaine 4% Patch TD SCH (06:33)
[2022-12-20] MEDS: Mometasone 100 MCG HFA INHALER (RT USE) INH SCH ×2 (07:04→18:40)
[2022-12-20] MEDS: Ipratropium/Albuterol 3 ML NEB NEB SCH ×4 (07:06→23:55)
[2022-12-20] MEDS: Ezetimibe 10 MG TAB PO SCH (08:37)
[2022-12-20] MEDS: Lisinopril 5 MG TAB PO SCH (08:37)
[2022-12-20] MEDS: Aripiprazole 10 MG TAB PO SCH ×2 (08:38→21:18)
[2022-12-20] MEDS: Saccharomyces boulardii 250 MG CAP PO SCH (08:38)
[2022-12-20] MEDS: Multivitamin W/ Minerals 1 TAB PO SCH (08:38)
[2022-12-20] MEDS: Oxybutynin ER 5 MG TAB PO SCH (08:38)
[2022-12-20] MEDS: Clopidogrel Bisulfate 75 MG TAB PO SCH (08:38)
[2022-12-20] MEDS: Senokot S 8.6-50 MG TAB PO SCH ×2 (08:38→21:19)
[2022-12-20] MEDS: Alogliptin 6.25 MG TAB PO SCH (08:39)
[2022-12-20] MEDS: Gabapentin 300 MG CAP PO SCH ×3 (08:39→21:17)
[2022-12-20] MEDS: Allopurinol 100 MG TAB PO SCH (08:39)
[2022-12-20] MEDS: Pancrelipase DR 12,000 1 CAP PO SCH ×3 (08:40→17:53)
[2022-12-20] MEDS: Ferrous Sulfate 325 MG TAB PO SCH (08:41)
[2022-12-20] MEDS: Furosemide 40 MG TAB PO SCH (10:18)
[2022-12-20] MEDS: Transdermal Patch Removal TOP SCH (14:49)
[2022-12-20 19:25] LABS: Anion Gap 12 mmol/L (10-20); BUN (Urea Nitrogen) 19 mg/dL (9.8-20.1); Calc. Creatinine Clearance 64 mL/min (70-130); Calcium 10.8 mg/dL (7.8-10.44); Carbon Dioxide 25 mmol/L (23-31); Chloride 104 mmol/L (98-107); Estimated GFR 55; Glucose 159 mg/dL (83-110); Phosphorus 3.7 mg/dL (2.3-4.7); Potassium 3.4 mmol/L (3.5-5.1); Sodium 138 mmol/L (136-145)
[2022-12-20] MEDS ORDERED: Potassium Chloride 20 MEQ TAB PO SCH (19:33)
[2022-12-20] MEDS: Insulin Glargine 30 UNITS/0.3 ML VIAL SC SCH (21:18)
[2022-12-20] MEDS: Mirtazapine 15 MG Soltab PO SCH (21:18)
[2022-12-20] MEDS: Cholecalciferol 1,000 UNITS (25 MCG) TAB PO SCH (21:18)
[2022-12-21 04:11] LABS: #Eosinphils 0.2 thou/uL (0.0-0.7); #Monocytes 0.5 thou/uL (0.11-0.59); #Neutrophils 3.1 thou/uL (1.40-6.50); %Basophils 0.4 % (0.0-1.0); %Eosinophils 2.8 % (0.0-10.0); %Lymphocytes 32.4 % (21.0-51.0); %Monocytes 8.7 % (0.0-10.0); %Neutrophils 54.5 % (42.0-75.0); Hematocrit 27.1 % (36.0-47.0); Hemoglobin 8.2 g/dL (12.0-16.0); Mean Corpuscular HGB CONC 30.3 g/dL (32.0-36.0); Mean Corpuscular Hemoglobin 27.7 pg (27.0-31.0); Mean Corpuscular Volume 91.6 fl (78.0-98.0); Mean Platelet Volume 9.9 fL (7.4-10.4); Platelet Count 491 10x3/uL (130-400); RBC Distribution Width 15.1 % (11.5-14.5); Red Blood Cell (RBC) Count 2.96 mill/uL (4.20-5.40); White Blood Cell (WBC) Count 5.6 10x3/uL (4.8-10.8)
[2022-12-21 04:38] LABS: Anion Gap 11 mmol/L (10-20); BUN (Urea Nitrogen) 16 mg/dL (9.8-20.1); Calc. Creatinine Clearance 70 mL/min (70-130); Calcium 10.8 mg/dL (7.8-10.44); Carbon Dioxide 26 mmol/L (23-31); Chloride 105 mmol/L (98-107); Estimated GFR 66; Glucose 85 mg/dL (83-110); Potassium 3.8 mmol/L (3.5-5.1); Sodium 138 mmol/L (136-145)
[2022-12-21] MEDS ORDERED: Levothyroxine Sodium 50 MCG TAB PO SCH ×2 (06:00→13:16)
[2022-12-21] MEDS: Lidocaine 4% Patch TD SCH (06:10)
[2022-12-21] MEDS: Acetaminophen 500 MG TAB PO SCH ×2 (06:15→12:26)
[2022-12-21] MEDS: Ipratropium/Albuterol 3 ML NEB NEB SCH ×2 (07:19→13:13)
[2022-12-21] MEDS: Mometasone 100 MCG HFA INHALER (RT USE) INH SCH (07:20)
[2022-12-21 10:13] VITALS: TEMP 97.6
[2022-12-21] MEDS: Aripiprazole 10 MG TAB PO SCH (10:18)
[2022-12-21] MEDS: Multivitamin W/ Minerals 1 TAB PO SCH (10:19)
[2022-12-21] MEDS: Oxybutynin ER 5 MG TAB PO SCH (10:19)
[2022-12-21] MEDS: Senokot S 8.6-50 MG TAB PO SCH (10:20)
[2022-12-21] MEDS: Alogliptin 6.25 MG TAB PO SCH (10:20)
[2022-12-21] MEDS: Saccharomyces boulardii 250 MG CAP PO SCH (10:20)
[2022-12-21] MEDS: Gabapentin 300 MG CAP PO SCH ×2 (10:21→14:45)
[2022-12-21] MEDS: Furosemide 40 MG TAB PO SCH (10:21)
[2022-12-21] MEDS: Ezetimibe 10 MG TAB PO SCH (10:22)
[2022-12-21] MEDS: Lisinopril 5 MG TAB PO SCH (10:22)
[2022-12-21] MEDS: Allopurinol 100 MG TAB PO SCH (10:22)
[2022-12-21] MEDS: Ferrous Sulfate 325 MG TAB PO SCH (10:22)
[2022-12-21] MEDS: Clopidogrel Bisulfate 75 MG TAB PO SCH (10:22)
[2022-12-21] MEDS: Pancrelipase DR 12,000 1 CAP PO SCH ×2 (10:33→12:36)
[2022-12-21 11:30] VITALS: BP 144/67
[2022-12-21] MEDS: Ondansetron PF 4 MG/2 ML Vial IVP PRN (12:26)
[2022-12-21] MEDS: Transdermal Patch Removal TOP SCH (14:35)
[2022-12-22] MEDS ORDERED: Levothyroxine Sodium 50 MCG TAB PO SCH (06:00)
[2022-12-22] MEDS ORDERED: Levothyroxine Sodium 75 MCG TAB PO SCH (06:00)
== END 2022-12-21 16:00 | DRG 853 ==
LOC: ERS 05:19 → UNDOADMOB 12:53 → 2NO 12:53 → INTOOBSV 12-04 08:31 → OBSVTOIN 12-04 08:31 → UNDODISIN 12-07 18:43
PROVIDERS: ADMIT Family Medicine; ATTEND Family Medicine
PROC: 3E03329 Introduction of Other Anti-infective into Peripheral Vein, Percutaneous Approach (ICD-10-PCS; 2022-12-04)
PROC: 0R910ZZ Drainage of Cervical Vertebral Joint, Open Approach (ICD-10-PCS; principal; 2022-12-14)
PROC: B246ZZ4 Ultrasonography of Right and Left Heart, Transesophageal (ICD-10-PCS; 2022-12-14)
PROC: 30233N1 Transfusion of Nonautologous Red Blood Cells into Peripheral Vein, Percutaneous Approach (ICD-10-PCS; 2022-12-14)
PROC: 02H633Z Insertion of Infusion Device into Right Atrium, Percutaneous Approach (ICD-10-PCS; 2022-12-20)
PROC: B5181ZA Fluoroscopy of Superior Vena Cava using Low Osmolar Contrast, Guidance (ICD-10-PCS; 2022-12-20)
PROC: B548ZZA Ultrasonography of Superior Vena Cava, Guidance (ICD-10-PCS; 2022-12-20)
DX: A41.02 Sepsis due to Methicillin resistant Staphylococcus aureus (principal); J12.9 Viral pneumonia, unspecified; J96.01 Acute respiratory failure with hypoxia; R65.21 Severe sepsis with septic shock; J98.51 Mediastinitis; J44.1 Chronic obstructive pulmonary disease with (acute) exacerbation; E87.20 Acidosis, unspecified; A18.01 Tuberculosis of spine; K92.0 Hematemesis; D62 Acute posthemorrhagic anemia; M46.23 Osteomyelitis of vertebra, cervicothoracic region; K21.9 Gastro-esophageal reflux disease without esophagitis; F31.9 Bipolar disorder, unspecified; G20 Parkinson's disease; E11.22 Type 2 diabetes mellitus with diabetic chronic kidney disease; N18.31 Chronic kidney disease, stage 3a; E78.5 Hyperlipidemia, unspecified; E03.9 Hypothyroidism, unspecified; M10.9 Gout, unspecified; E11.40 Type 2 diabetes mellitus with diabetic neuropathy, unspecified; F41.1 Generalized anxiety disorder; I50.9 Heart failure, unspecified; Z96.653 Presence of artificial knee joint, bilateral; D63.1 Anemia in chronic kidney disease; G43.909 Migraine, unspecified, not intractable, without status migrainosus; I08.1 Rheumatic disorders of both mitral and tricuspid valves; G89.29 Other chronic pain; E87.6 Hypokalemia; Z20.822 Contact with and (suspected) exposure to COVID-19; I80.9 Phlebitis and thrombophlebitis of unspecified site; Z98.890 Other specified postprocedural states; Z90.49 Acquired absence of other specified parts of digestive tract; Z79.4 Long term (current) use of insulin; Z79.51 Long term (current) use of inhaled steroids; Z90.710 Acquired absence of both cervix and uterus; Z91.09 Other allergy status, other than to drugs and biological substances; Z88.5 Allergy status to narcotic agent; Z88.2 Allergy status to sulfonamides; Z91.013 Allergy to seafood; Z79.899 Other long term (current) drug therapy; R53.81 Other malaise
CPT/HCPCS: 36415; 36416; 36430; 36569; 70488; 71045; 71260; 71275; 72127; 72146; 72148; 72156; 74177; 80048; 80053; 80202; 81001; 82271; 82274; 82550; 83540; 83550; 83605; 83735; 83880; 84100; 84145; 84439; 84443; 84484; 85014; 85018; 85025; 85379; 85652; 86140; 86850; 86900; 86901; 87040; 87070; 87077; 87086; 87149; 87186; 87205; 87633; 93005; 93010; 93306; 93312; 94640; 96365; 96366; 96367; 96375; 96376; G0306; G0378; J0171; J0878; J1100; J1650; J1815; J1885; J2270; J2405; J2543; J2704; J3010; J3370; J3370-JW; J3475; J7120; J7512; J7620; P9016; Q9967; S0020

== ENCOUNTER 2023-01-24 06:44 | Day surgery (SDC) | payer OTHER, MEDICAID ==
[2023-01-23 11:29] VITALS: BMI 27.3
[2023-01-24] MEDS ORDERED: Lidocaine 1% PF 5 ML VIAL ONE (09:16)
[2023-01-24] MEDS ORDERED: PROPOFOL 200 MG/20 ML VIAL ONE (09:16)
[2023-01-24] MEDS ORDERED: Sodium Chloride 0.9% 0 ML ONE (10:36)
== END 2023-01-24 10:48 ==
LOC: SDC 06:44
PROVIDERS: ATTEND Internal Medicine
PROC: 0DB58ZX Excision of Esophagus, Via Natural or Artificial Opening Endoscopic, Diagnostic (ICD-10-PCS; principal; 2023-01-24)
DX: K21.00 Gastro-esophageal reflux disease with esophagitis, without bleeding (principal); F41.9 Anxiety disorder, unspecified; M19.90 Unspecified osteoarthritis, unspecified site; J45.909 Unspecified asthma, uncomplicated; I48.91 Unspecified atrial fibrillation; I13.0 Hypertensive heart and chronic kidney disease with heart failure and stage 1 through stage 4 chronic kidney disease, or unspecified chronic kidney disease; N18.9 Chronic kidney disease, unspecified; I50.9 Heart failure, unspecified; E11.22 Type 2 diabetes mellitus with diabetic chronic kidney disease; F32.A Depression, unspecified; E07.9 Disorder of thyroid, unspecified; K76.0 Fatty (change of) liver, not elsewhere classified; E78.00 Pure hypercholesterolemia, unspecified; G47.30 Sleep apnea, unspecified; Z90.49 Acquired absence of other specified parts of digestive tract; Z98.49 Cataract extraction status, unspecified eye; Z90.710 Acquired absence of both cervix and uterus; Z88.5 Allergy status to narcotic agent; Z88.6 Allergy status to analgesic agent; Z91.013 Allergy to seafood; Z88.2 Allergy status to sulfonamides; Z79.890 Hormone replacement therapy; Z79.82 Long term (current) use of aspirin; Z79.899 Other long term (current) drug therapy; Z79.02 Long term (current) use of antithrombotics/antiplatelets
CPT/HCPCS: 36416; 88305; 88312; 88313; J2704

== ENCOUNTER 2023-03-02 11:21 | Outpatient (CLI) | payer OTHER | END 2023-03-02 11:22 | disposition home or self-care (01) | LOC: RAD 11:21 | PROVIDERS: ATTEND Internal Medicine Critical Care Medicine | DX: R06.00 Dyspnea, unspecified (principal) | CPT/HCPCS: 71046 ==

== ENCOUNTER 2023-03-28 11:44 | Outpatient (CLI) | payer MEDICARE, OTHER | END 2023-03-28 11:45 | disposition home or self-care (01) | LOC: RAD 11:44 | PROVIDERS: ATTEND Internal Medicine Critical Care Medicine | DX: R06.00 Dyspnea, unspecified (principal) | CPT/HCPCS: 71046 ==

== ENCOUNTER 2023-05-19 15:45 | Emergency (ER) | payer OTHER ==
[2023-05-19 18:13] LABS: #Basophils 0.1 thou/uL (0.0-0.2); #Eosinphils 0.1 thou/uL (0.0-0.7); #Monocytes 0.8 thou/uL (0.11-0.59); #Neutrophils 10.7 thou/uL (1.40-6.50); %Basophils 0.3 % (0.0-1.0); %Eosinophils 0.7 % (0.0-10.0); %Lymphocytes 21.7 % (21.0-51.0); %Monocytes 5.3 % (0.0-10.0); %Neutrophils 71.3 % (42.0-75.0); Hematocrit 35.1 % (36.0-47.0); Hemoglobin 11.2 g/dL (12.0-16.0); Mean Corpuscular HGB CONC 31.9 g/dL (32.0-36.0); Mean Corpuscular Hemoglobin 28.6 pg (27.0-31.0); Mean Corpuscular Volume 89.8 fl (78.0-98.0); Mean Platelet Volume 10.1 fL (7.4-10.4); Platelet Count 289 10x3/uL (130-400); RBC Distribution Width 17.2 % (11.5-14.5); Red Blood Cell (RBC) Count 3.91 mill/uL (4.20-5.40)
[2023-05-19 18:46] LABS: ALT (SGPT) 43 U/L (8-55); AST (SGOT) 31 U/L (5-34); Albumin 3.8 g/dL (3.4-4.8); Alkaline Phosphatase 172 U/L (40-110); Anion Gap 13 mmol/L (10-20); BUN (Urea Nitrogen) 15 mg/dL (9.8-20.1); Bilirubin, Total 0.4 mg/dL (0.2-1.2); Calc. Creatinine Clearance 0 mL/min (70-130); Calcium 10.5 mg/dL (7.8-10.44); Carbon Dioxide 23 mmol/L (23-31); Chloride 107 mmol/L (98-107); Estimated GFR 74; Glucose 166 mg/dL (83-110); Potassium 4.1 mmol/L (3.5-5.1); Protein, Total 6.8 g/dL (5.8-8.1); Sodium 139 mmol/L (136-145)
[2023-05-19] MEDS ORDERED: Lidocaine 1% PF 5 ML VIAL ONE (21:07)
== END 2023-05-19 21:52 | disposition home or self-care (01) ==
LOC: ERS 15:45
DX: L05.01 Pilonidal cyst with abscess (principal); D50.9 Iron deficiency anemia, unspecified; G43.909 Migraine, unspecified, not intractable, without status migrainosus; I11.0 Hypertensive heart disease with heart failure; I50.9 Heart failure, unspecified; E11.9 Type 2 diabetes mellitus without complications; M62.81 Muscle weakness (generalized); Z55.6 Problems related to health literacy
CPT/HCPCS: 10080; 36415; 74177; 80053; 85025; Q9967

== ENCOUNTER 2023-05-22 08:50 | Outpatient (CLI) | payer OTHER | END 2023-05-22 08:51 | disposition home or self-care (01) | LOC: BICMAMMO 08:50 | PROVIDERS: ATTEND Student in an Organized Health Care Education/Training Program | DX: Z12.31 Encounter for screening mammogram for malignant neoplasm of breast (principal); Z91.89 Other specified personal risk factors, not elsewhere classified; Z80.3 Family history of malignant neoplasm of breast; N63.20 Unspecified lump in the left breast, unspecified quadrant | CPT/HCPCS: 77063; 77067 ==

== ENCOUNTER 2023-05-22 09:32 | Outpatient (CLI) | payer OTHER | END 2023-05-22 09:33 | disposition home or self-care (01) | LOC: BICRAD 09:32 | PROVIDERS: ATTEND Internal Medicine Critical Care Medicine | DX: R06.00 Dyspnea, unspecified (principal); J98.11 Atelectasis | CPT/HCPCS: 71046 ==

== ENCOUNTER 2023-06-06 08:24 | Outpatient (CLI) | payer OTHER | END 2023-06-06 08:25 | disposition home or self-care (01) | LOC: BICMAMMO 08:24 | PROVIDERS: ATTEND Student in an Organized Health Care Education/Training Program | DX: N63.22 Unspecified lump in the left breast, upper inner quadrant (principal); N63.25 Unspecified lump in the left breast, overlapping quadrants | CPT/HCPCS: 76642; 77065; G0279 ==

== ENCOUNTER → 2023-06-21 | Day surgery (SDC) | payer OTHER | LOC: MAMMO 05:42 | PROVIDERS: ATTEND Student in an Organized Health Care Education/Training Program | PROC: 0H95XZX Drainage of Chest Skin, External Approach, Diagnostic (ICD-10-PCS; principal; 2023-06-21) | DX: N63.20 Unspecified lump in the left breast, unspecified quadrant (principal); R92.8 Other abnormal and inconclusive findings on diagnostic imaging of breast | CPT/HCPCS: 19081 ==

== ENCOUNTER 2023-07-13 11:04 | Outpatient (CLI) | payer OTHER, MEDICAID ==
[2023-07-13 13:02] LABS: #Basophils 0.05 10x3/uL (0.0-0.2); #Eosinphils 0.13 10x3/uL (0.0-0.5); #Monocytes 0.45 10x3/uL (0.0-1.1); #Neutrophils 4.38 10x3/uL (1.5-8.4); %Basophils 0.7 % (0.0-2.0); %Eosinophils 1.8 % (0.0-6.0); %Lymphocytes 31.3 % (18.0-47.0); %Monocytes 6.1 % (0.0-10.0); %Neutrophils 59.4 % (40.0-75.0); Hematocrit 37.9 % (34.9-44.5); Hemoglobin 12.4 g/dL (12.0-15.5); Mean Corpuscular HGB CONC 32.7 g/dL (32.0-36.0); Mean Corpuscular Hemoglobin 28.8 pg (27.0-33.0); Mean Corpuscular Volume 88.1 fl (81.6-98.3); Mean Platelet Volume 10.4 fl (7.4-10.4); Platelet Count 220 10x3/uL (150-450); White Blood Cell (WBC) Count 7.4 10x3/uL (3.5-10.5)
[2023-07-13 13:19] LABS: ALT (SGPT) 24 U/L (8-55); AST (SGOT) 26 U/L (5-34); Albumin 3.7 g/dL (3.4-4.8); Alkaline Phosphatase 190 U/L (40-110); Anion Gap 14 mmol/L (10-20); BUN (Urea Nitrogen) 21 mg/dL (9.8-20.1); Bilirubin, Total 0.2 mg/dL (0.2-1.2); Calc. Creatinine Clearance 0 mL/min (70-130); Calcium 10.1 mg/dL (7.8-10.44); Carbon Dioxide 23 mmol/L (23-31); Chloride 106 mmol/L (98-107); Estimated GFR 65; Globulin 2.6 g/dL (2.4-3.5); Glucose 127 mg/dL (83-110); Potassium 3.9 mmol/L (3.5-5.1); Protein, Total 6.3 g/dL (5.8-8.1); Sodium 139 mmol/L (136-145)
== END 2023-07-13 11:05 | disposition home or self-care (01) ==
LOC: LABBT 11:04
PROVIDERS: ATTEND Surgery
DX: Z01.818 Encounter for other preprocedural examination (principal); N63.20 Unspecified lump in the left breast, unspecified quadrant
CPT/HCPCS: 80053; 85025; 93005; 93010

== ENCOUNTER 2023-09-12 11:34 | Outpatient (CLI) | payer OTHER | END 2023-09-12 11:35 | disposition home or self-care (01) | LOC: RAD 11:34 | PROVIDERS: ATTEND Internal Medicine Critical Care Medicine | DX: R06.00 Dyspnea, unspecified (principal) | CPT/HCPCS: 71046 ==

== ENCOUNTER 2023-09-25 07:44 | Outpatient (CLI) | payer OTHER ==
[2023-09-25 09:27] LABS: #Basophils 0.06 10x3/uL (0.0-0.2); #Eosinphils 0.13 10x3/uL (0.0-0.5); #Neutrophils 4.85 10x3/uL (1.5-8.4); %Basophils 0.8 % (0.0-2.0); %Eosinophils 1.7 % (0.0-6.0); %Lymphocytes 27.5 % (18.0-47.0); %Monocytes 5.2 % (0.0-10.0); %Neutrophils 63.4 % (40.0-75.0); Hematocrit 37.5 % (34.9-44.5); Hemoglobin 12.4 g/dL (12.0-15.5); Mean Corpuscular HGB CONC 33.1 g/dL (32.0-36.0); Mean Corpuscular Hemoglobin 30.1 pg (27.0-33.0); Mean Platelet Volume 9.8 fL (7.4-10.4); Platelet Count 232 10x3/uL (150-450); RBC Distribution Width 14.3 % (11.5-14.5); Red Blood Cell (RBC) Count 4.12 10x6/uL (3.90-5.03); White Blood Cell (WBC) Count 7.7 10x3/uL (3.5-10.5)
[2023-09-25 09:35] LABS: INR-International Normal Ratio 0.9; PTT 25.2 sec (22.0-33.0); Prothrombin Time 10.2 sec (9.5-12.1)
[2023-09-25 09:48] LABS: ALT (SGPT) 19 U/L (8-55); AST (SGOT) 17 U/L (5-34); AST (SGOT) 18 U/L (5-34); Albumin 3.6 g/dL (3.4-4.8); Alkaline Phosphatase 204 U/L (40-110); Alkaline Phosphatase 205 U/L (40-110); Anion Gap 15 mmol/L (10-20); BUN (Urea Nitrogen) 20 mg/dL (9.8-20.1); Bilirubin, Direct 0.1 mg/dL (0.1-0.3); Bilirubin, Total 0.2 mg/dL (0.2-1.2); Calc. Creatinine Clearance 0 mL/min (70-130); Calcium 9.8 mg/dL (7.8-10.44); Carbon Dioxide 21 mmol/L (23-31); Chloride 110 mmol/L (98-107); Estimated GFR 66; Globulin 2.6 g/dL (2.4-3.5); Glucose 98 mg/dL (83-110); Potassium 3.3 mmol/L (3.5-5.1); Protein, Total 6.1 g/dL (5.8-8.1); Protein, Total 6.2 g/dL (5.8-8.1); Sodium 143 mmol/L (136-145)
== END 2023-09-25 07:45 | disposition home or self-care (01) ==
LOC: LABBT 07:44
PROVIDERS: ATTEND Surgery
DX: Z01.818 Encounter for other preprocedural examination (principal); N61.1 Abscess of the breast and nipple
CPT/HCPCS: 80053; 85025; 85610; 85730; 93005; 93010

== ENCOUNTER 2023-09-29 05:47 | Day surgery (SDC) | payer OTHER, MEDICAID ==
[2023-09-25 08:39] VITALS: BMI 34.0
[2023-09-29] MEDS ORDERED: PROPOFOL 20 ML ONE (07:26)
[2023-09-29] MEDS ORDERED: Sodium Chloride 0.9% 100 ML ONE (07:36)
[2023-09-29] MEDS ORDERED: CEFAZOLIN 2 GM VIAL ONE (07:36)
[2023-09-29] MEDS ORDERED: Ondansetron PF 4 MG/2 ML Vial ONE (07:42)
[2023-09-29] MEDS ORDERED: Lidocaine 1% PF 5 ML VIAL ONE (07:42)
[2023-09-29] MEDS ORDERED: fentaNYL 50 mcg/mL 1 mL Vial ONE ×4 (07:58→09:05)
[2023-09-29] MEDS ORDERED: Bupivacaine 0.25% HCL 30 ML VIAL ONE (07:59)
[2023-09-29] MEDS ORDERED: EPINEPHrine 1 MG/ML VIAL ONE (07:59)
[2023-09-29] MEDS ORDERED: Promethazine HCl 25 MG/ML VIAL ONE ×2 (09:07→09:43)
[2023-09-29] MEDS ORDERED: Promethazine HCl 6.25 MG in Sodium Chloride 0.9% 50 ML IVPB PRN (09:19)
[2023-09-29] MEDS ORDERED: Ondansetron HCl/PF 4 MG/2 ML Vial IVP PRN (09:30)
[2023-09-29] MEDS ORDERED: HYDROcodone/Acetaminophen 5/325 mg Tablet ONE ×2 (09:41→10:14)
== END 2023-09-29 12:29 | disposition home or self-care (01) ==
LOC: SDC 05:47
PROVIDERS: ATTEND Surgery
PROC: 0HBU0ZZ Excision of Left Breast, Open Approach (ICD-10-PCS; principal; 2023-09-29)
DX: N60.32 Fibrosclerosis of left breast (principal); N64.1 Fat necrosis of breast; N61.1 Abscess of the breast and nipple; Z88.2 Allergy status to sulfonamides; Z88.5 Allergy status to narcotic agent; Z88.6 Allergy status to analgesic agent; Z88.8 Allergy status to other drugs, medicaments and biological substances; Z91.048 Other nonmedicinal substance allergy status; Z91.013 Allergy to seafood
CPT/HCPCS: 19120; 71045; 82962; 87070; 87075; 87186; 87205; 96372; 99283; J0171; J0665; J1885; J2270; J2405; J2550; J2704; J3010; J3490; Q0162; 36416; 88305

== ENCOUNTER 2023-09-29 17:19 | Emergency (ER) | payer OTHER, MEDICAID ==
[2023-09-29] MEDS ORDERED: Ketorolac Tromethamine 30 MG (1 mL) VIAL ONE (19:17)
[2023-09-29] MEDS ORDERED: Ondansetron ODT 4 MG TAB ONE (20:30)
[2023-09-29] MEDS ORDERED: Morphine 4 MG/ML VIAL ONE (20:30)
== END 2023-09-29 22:20 | disposition home or self-care (01) ==
LOC: ERS 17:19
DX: G89.18 Other acute postprocedural pain (principal); I11.0 Hypertensive heart disease with heart failure; I50.9 Heart failure, unspecified; E11.9 Type 2 diabetes mellitus without complications; Z79.899 Other long term (current) drug therapy
CPT/HCPCS: 71045; 96372; 99283; J1885; J2270; Q0162

== ENCOUNTER 2023-10-24 08:20 | Outpatient (CLI) | payer OTHER ==
[2023-10-24] MEDS ORDERED: Magnevist 469MG/ML 20 ML VIAL ONE (13:24)
== END 2023-10-24 08:21 | disposition home or self-care (01) ==
LOC: MRI 08:20
PROVIDERS: ATTEND Physician Assistant Medical
DX: K21.00 Gastro-esophageal reflux disease with esophagitis, without bleeding (principal); K86.2 Cyst of pancreas; K76.0 Fatty (change of) liver, not elsewhere classified; R79.89 Other specified abnormal findings of blood chemistry; K86.89 Other specified diseases of pancreas
CPT/HCPCS: 74183; 76377; A9579

== ENCOUNTER 2023-12-08 06:47 | Outpatient (CLI) | payer OTHER | END 2023-12-08 06:48 | disposition home or self-care (01) | LOC: NM 06:47 | PROVIDERS: ATTEND Physician Assistant Medical | DX: R11.0 Nausea (principal); R68.81 Early satiety; K31.84 Gastroparesis | CPT/HCPCS: 78264; A9541 ==

== ENCOUNTER 2024-01-03 07:31 | Outpatient (CLI) | payer OTHER, MEDICAID | END 2024-01-03 07:32 | disposition home or self-care (01) | LOC: CT 07:31 | PROVIDERS: ATTEND Urology | DX: N20.0 Calculus of kidney (principal) | CPT/HCPCS: 74176 ==

== ENCOUNTER 2024-01-25 10:18 | Outpatient (CLI) | payer OTHER | END 2024-01-25 10:19 | disposition home or self-care (01) | LOC: MRI 10:18 | PROVIDERS: ATTEND Family Medicine | DX: M54.16 Radiculopathy, lumbar region (principal); M48.061 Spinal stenosis, lumbar region without neurogenic claudication | CPT/HCPCS: 72148 ==

== ENCOUNTER 2024-03-20 09:40 | Inpatient (IN) | payer OTHER ==
[2024-03-20] MEDS ORDERED: Tenecteplase 50 MG ONE (10:42)
[2024-03-20 11:56] LABS: INR-International Normal Ratio 0.8; PTT 23.7 sec (22.9-36.1)
[2024-03-20 11:59] LABS: #Basophils 0.05 10x3/uL (0.0-0.2); %Basophils 0.8 % (0.0-1.0); %Eosinophils 3.5 % (0.0-10.0); %Lymphocytes 31.3 % (21.0-51.0); %Neutrophils 56.7 % (42.0-75.0); Hematocrit 42.5 % (36.0-47.0); Hemoglobin 13.6 g/dL (12.0-16.0); Mean Corpuscular Hemoglobin 29.8 pg (27.0-31.0); Mean Corpuscular Volume 93.2 fL (78.0-98.0); Mean Platelet Volume 10.2 fL (7.4-10.4); Platelet Count 255 10x3/uL (130-400); RBC Distribution Width 14.1 % (11.5-14.5); Red Blood Cell (RBC) Count 4.56 mill/uL (4.20-5.40)
[2024-03-20 12:04] LABS: ALT (SGPT) 21 U/L (8-55); AST (SGOT) 27 U/L (5-34); Albumin 4.1 g/dL (3.4-4.8); Alkaline Phosphatase 195 U/L (40-110); Anion Gap 17 mmol/L (10-20); BUN (Urea Nitrogen) 19 mg/dL (9.8-20.1); Bilirubin, Total 0.2 mg/dL (0.2-1.2); Calc. Creatinine Clearance 0 mL/min (70-130); Calcium 10.4 mg/dL (7.8-10.44); Carbon Dioxide 23 mmol/L (23-31); Chloride 105 mmol/L (98-107); Estimated GFR 53; Globulin 3.1 g/dL (2.4-3.5); Glucose 105 mg/dL (83-110); Potassium 4.1 mmol/L (3.5-5.1); Protein, Total 7.2 g/dL (5.8-8.1); Sodium 141 mmol/L (136-145)
[2024-03-20 12:10] LABS: Troponin I Less than 0.010 ng/mL (< 0.028)
[2024-03-20] MEDS ORDERED: Morphine 4 MG/ML VIAL ONE (12:58)
[2024-03-20] MEDS ORDERED: Ondansetron PF 4 MG/2 ML Vial ONE (13:57)
[2024-03-20] MEDS ORDERED: Acetaminophen 650 MG Suppository PR PRN (14:03)
[2024-03-20] MEDS ORDERED: Labetalol HCl 100 MG/20 ML VIAL SLOW IVP PRN (14:03)
[2024-03-20] MEDS ORDERED: niCARdipine 25 MG in Sodium Chloride 0.9% 250 ML 250 ML IVPB PRN (14:03)
[2024-03-20] MEDS ORDERED: Ondansetron ODT 4 MG TAB PO PRN (14:03)
[2024-03-20] MEDS ORDERED: hydrALAZINE 20 MG/ML VIAL SLOW IVP PRN (14:03)
[2024-03-20] MEDS ORDERED: Glucagon 1 MG/ML KIT IM PRN (14:41)
[2024-03-20] MEDS ORDERED: Dextrose 50% Abboject 50 ML SYRINGE SLOW IVP PRN (14:41)
[2024-03-20] MEDS ORDERED: Dextrose 5% in Water 1,000 ML IV PRN (14:41)
[2024-03-20] MEDS ORDERED: Insulin Lispro 100 UNIT/ML 10 ML VIAL SC PRN ×2 (14:41)
[2024-03-20] MEDS: Mometasone 100 MCG/Formoterol 5 MCG 120 PUFF INHALER INH SCH (18:30)
[2024-03-20] MEDS: Gabapentin 300 MG CAP PO SCH (19:26)
[2024-03-20] MEDS: Ondansetron PF 4 MG/2 ML Vial IVP PRN (21:08)
[2024-03-20] MEDS: Sodium Chloride 0.9% 1,000 ML IV SCH (21:30)
[2024-03-20] MEDS: Morphine 4 MG/ML VIAL SLOW IVP SCH (21:45)
[2024-03-20 21:53] VITALS: BMI 33.5
[2024-03-20] MEDS: Aripiprazole 10 MG TAB PO SCH (22:59)
[2024-03-20] MEDS: Famotidine 20 MG TAB PO SCH (22:59)
[2024-03-20] MEDS: Morphine 4 MG/ML VIAL ONE (23:00)
[2024-03-21] MEDS: Communication Order-Pharmacy FS SCH (05:18)
[2024-03-21] MEDS: Morphine 2 MG/ML VIAL SLOW IVP SCH (05:18)
[2024-03-21] MEDS: Levothyroxine Sodium 75 MCG TAB PO SCH (09:03)
[2024-03-21] MEDS: Ezetimibe 10 MG TAB PO SCH (09:04)
[2024-03-21] MEDS: FLU (Fluad Triv) TS24-25 (65UP)/MF59C/PF 45 MCG/0.5 ML Syringe IM ONE (09:53)
[2024-03-21 10:50] LABS: #Basophils 0.04 10x3/uL (0.0-0.2); %Basophils 0.6 % (0.0-1.0); %Eosinophils 2.6 % (0.0-10.0); %Lymphocytes 17.9 % (21.0-51.0); %Monocytes 6.3 % (0.0-10.0); Hematocrit 40.8 % (36.0-47.0); Mean Corpuscular HGB CONC 31.9 g/dL (32.0-36.0); Mean Corpuscular Hemoglobin 30.4 pg (27.0-31.0); Mean Corpuscular Volume 95.6 fL (78.0-98.0); Mean Platelet Volume 9.8 fL (7.4-10.4); Platelet Count 206 10x3/uL (130-400); RBC Distribution Width 14.3 % (11.5-14.5); Red Blood Cell (RBC) Count 4.27 mill/uL (4.20-5.40)
[2024-03-21 11:11] LABS: ALT (SGPT) 28 U/L (8-55); AST (SGOT) 40 U/L (5-34); Albumin 3.4 g/dL (3.4-4.8); Alkaline Phosphatase 169 U/L (40-110); Anion Gap 13 mmol/L (10-20); BUN (Urea Nitrogen) 17 mg/dL (9.8-20.1); Bilirubin, Total 0.3 mg/dL (0.2-1.2); Calc. Creatinine Clearance 85 mL/min (70-130); Calcium 10.1 mg/dL (7.8-10.44); Carbon Dioxide 23 mmol/L (23-31); Cardiac Risk 4.4 (Less than 4.5); Chloride 112 mmol/L (98-107); Cholesterol 228 mg/dl (< 200 Desired); Estimated GFR 76; Globulin 2.7 g/dL (2.4-3.5); Glucose 134 mg/dL (83-110); HDL Cholesterol 52 mg/dL (>60 Neg Risk); LDL Cholesterol, Calculated 109 mg/dL; Potassium 3.8 mmol/L (3.5-5.1); Protein, Total 6.1 g/dL (5.8-8.1); Sodium 144 mmol/L (136-145); Triglycerides 336 mg/dL (Less than 150)
[2024-03-21 11:32] LABS: Free T4 (Free Thyroxine) 0.82 ng/dL (0.70-1.48); Thyroid Stimulating Hormone 1.8783 uIU/mL (0.35-4.94)
[2024-03-21] MEDS: ALPRAZolam 0.25 MG TAB PO SCH (11:44)
[2024-03-21] MEDS ORDERED: Albuterol 200 PUFF INH INH PRN (17:20)
[2024-03-21] MEDS: Insulin Glargine 30 UNITS/0.3 ML VIAL SC SCH (20:37)
[2024-03-21] MEDS: Ranolazine ER 500 MG TAB PO SCH (20:37)
[2024-03-21] MEDS: Pantoprazole DR 40 MG TAB PO SCH (20:37)
[2024-03-21] MEDS: carBAMazepine SR 300 mg Capsule PO SCH (20:37)
[2024-03-21] MEDS: Sodium Chloride 0.45% 1,000 ML IV SCH (20:38)
[2024-03-22] MEDS: Acetaminophen 500 MG TAB PO PRN (00:51)
[2024-03-22] MEDS ORDERED: Saxagliptin 2.5 MG TAB PO SCH (09:00)
[2024-03-22] MEDS: Enoxaparin 40 MG (0.4 mL) SYRINGE SC SCH (10:54)
[2024-03-22] MEDS: Clopidogrel Bisulfate 75 MG TAB PO SCH (10:55)
[2024-03-22] MEDS: Oxybutynin ER 5 MG TAB PO SCH (10:55)
[2024-03-22] MEDS: Allopurinol 100 MG TAB PO SCH (10:55)
[2024-03-22] MEDS: Ferrous Sulfate 325 MG TAB PO SCH (10:56)
[2024-03-22 14:10] VITALS: BP 138/78; TEMP 97.7
== END 2024-03-22 16:00 | disposition home health service (06) | DRG 62 ==
LOC: ERS 09:40 → ERHOLD 13:10 → CCU 20:59 → 2SE 03-21 15:08
PROVIDERS: ADMIT Family Medicine; ATTEND Internal Medicine
DX: I63.9 Cerebral infarction, unspecified (principal); G81.94 Hemiplegia, unspecified affecting left nondominant side; D50.9 Iron deficiency anemia, unspecified; I11.0 Hypertensive heart disease with heart failure; I50.9 Heart failure, unspecified; G43.909 Migraine, unspecified, not intractable, without status migrainosus; E11.9 Type 2 diabetes mellitus without complications; Z96.653 Presence of artificial knee joint, bilateral; F31.9 Bipolar disorder, unspecified; J44.9 Chronic obstructive pulmonary disease, unspecified; R29.719 NIHSS score 19; R29.711 NIHSS score 11; M06.9 Rheumatoid arthritis, unspecified; G20.A1 Parkinson's disease without dyskinesia, without mention of fluctuations; Z90.49 Acquired absence of other specified parts of digestive tract; Z90.710 Acquired absence of both cervix and uterus; Z88.5 Allergy status to narcotic agent; Z88.8 Allergy status to other drugs, medicaments and biological substances; Z91.013 Allergy to seafood; Z79.02 Long term (current) use of antithrombotics/antiplatelets; Z79.899 Other long term (current) drug therapy
CPT/HCPCS: 36415; 36416; 70450; 70496; 70498; 70551; 71045; 80053; 80061; 84439; 84443; 84484; 85025; 85610; 85730; 93005; 93306; 94664; 94760; 96374; 96375; 99292; J1650; J1815; J2272; J2405; J3101; J7030

== ENCOUNTER 2024-05-06 05:35 | Emergency (ER) | payer OTHER ==
[2024-05-06] MEDS ORDERED: Ondansetron PF 4 MG/2 ML Vial ONE (06:00)
[2024-05-06 06:06] LABS: #Basophils 0.03 10x3/uL (0.0-0.2); %Basophils 0.3 % (0.0-1.0); %Eosinophils 0.6 % (0.0-10.0); %Lymphocytes 6.6 % (21.0-51.0); %Monocytes 5.8 % (0.0-10.0); %Neutrophils 86.1 % (42.0-75.0); Hematocrit 42.1 % (36.0-47.0); Hemoglobin 13.6 g/dL (12.0-16.0); Mean Corpuscular HGB CONC 32.3 g/dL (32.0-36.0); Mean Corpuscular Hemoglobin 29.8 pg (27.0-31.0); Mean Corpuscular Volume 92.1 fL (78.0-98.0); Mean Platelet Volume 9.8 fL (7.4-10.4); Platelet Count 219 10x3/uL (130-400); RBC Distribution Width 13.5 % (11.5-14.5); Red Blood Cell (RBC) Count 4.57 mill/uL (4.20-5.40)
[2024-05-06 06:32] LABS: ALT (SGPT) 28 U/L (8-55); AST (SGOT) 57 U/L (5-34); Albumin 3.6 g/dL (3.4-4.8); Alkaline Phosphatase 136 U/L (40-110); Anion Gap 16 mmol/L (10-20); BUN (Urea Nitrogen) 27 mg/dL (9.8-20.1); Bilirubin, Total 0.3 mg/dL (0.2-1.2); Calc. Creatinine Clearance 0 mL/min (70-130); Calcium 10.1 mg/dL (7.8-10.44); Carbon Dioxide 21 mmol/L (23-31); Chloride 108 mmol/L (98-107); Estimated GFR 53; Globulin 3.1 g/dL (2.4-3.5); Glucose 189 mg/dL (83-110); Lipase 15 U/L (8-78); Potassium 3.9 mmol/L (3.5-5.1); Protein, Total 6.7 g/dL (5.8-8.1); Sodium 141 mmol/L (136-145)
[2024-05-06 06:34] LABS: Troponin I 0.028 ng/mL (< 0.028)
[2024-05-06 08:20] LABS: Bacteria/HPF None Seen HPF (None Seen); Bilirubin Negative (Negative); Blood, Urine Negative (Negative); CAUTI Indications for Culture Pelvic or flank pain; Clarity Clear (Clear); Glucose, Urine (Dipstick) 500 mg/dL (Negative); Ketone, Urine Negative (Negative); Leukocyte Negative Leu/uL (Negative); Nitrite Negative (Negative); Protein, Urine (Dipstick) Negative (Neg-Trace); RBC/HPF 0-3 HPF (0-3); Specific Gravity, Urine 1.017 (1.002-1.036); Squamous Epithelial None Seen HPF (0-3); Urobilinogen Normal mg/dL (Less than 2); WBC/HPF 0-3 HPF (0-3); pH, Urine 5.5 (5.0-9.0)
[2024-05-06 08:21] LABS: Urine Culture Reflex No No
[2024-05-06] MEDS ORDERED: cefTRIAXone (ROCEPHIN) 1 GM VIAL ONE (08:58)
[2024-05-06] MEDS ORDERED: Doxycycline 100 MG CAP ONE (08:58)
[2024-05-06] MEDS ORDERED: Sodium Chloride 0.9% 100 ML ONE (08:58)
== END 2024-05-06 10:09 | disposition home or self-care (01) ==
LOC: ERS 05:35
DX: J18.9 Pneumonia, unspecified organism (principal); I11.0 Hypertensive heart disease with heart failure; I50.9 Heart failure, unspecified; I12.9 Hypertensive chronic kidney disease with stage 1 through stage 4 chronic kidney disease, or unspecified chronic kidney disease; E11.22 Type 2 diabetes mellitus with diabetic chronic kidney disease; N18.9 Chronic kidney disease, unspecified; Z79.84 Long term (current) use of oral hypoglycemic drugs; W01.0XXA Fall on same level from slipping, tripping and stumbling without subsequent striking against object, initial encounter
CPT/HCPCS: 70450; 70486; 71260; 74177; 80053; 81001; 83690; 84484; 85025; 93005; J0696; J2405; 36415; 96365; 96375

== ENCOUNTER 2024-05-23 14:25 | Outpatient (CLI) | payer OTHER | END 2024-05-23 14:26 | disposition home or self-care (01) | LOC: RAD 14:25 | PROVIDERS: ATTEND Internal Medicine Critical Care Medicine | DX: R06.00 Dyspnea, unspecified (principal); J98.4 Other disorders of lung | CPT/HCPCS: 71046 ==

== ENCOUNTER 2024-12-02 09:25 | Day surgery (SDC) | payer OTHER, MEDICAID ==
[2024-11-29 12:59] VITALS: BMI 35.4
[2024-12-02 10:48] LABS: #Basophils 0.04 10x3/uL (0.0-0.2); #Eosinophils 0.08 10x3/uL (0.0-0.7); #Monocytes 0.54 10x3/uL (0.11-0.59); #Neutrophils 7.40 10x3/uL (1.40-6.50); %Basophils 0.4 % (0.0-1.0); %Eosinophils 0.8 % (0.0-10.0); %Lymphocytes 17.0 % (21.0-51.0); %Monocytes 5.5 % (0.0-10.0); %Neutrophils 75.3 % (42.0-75.0); Hematocrit 42.7 % (36.0-47.0); Hemoglobin 13.5 g/dL (12.0-16.0); Mean Corpuscular Hemoglobin 28.7 pg (27.0-31.0); Mean Corpuscular Volume 90.7 fL (78.0-98.0); Platelet Count 221 10x3/uL (130-400); Red Blood Cell (RBC) Count 4.71 mill/uL (4.20-5.40); White Blood Cell (WBC) Count 9.83 10x3/uL (4.8-10.8)
[2024-12-02 11:21] LABS: Anion Gap 17 mmol/L (10-20); BUN (Urea Nitrogen) 27 mg/dL (9.8-20.1); Calc. Creatinine Clearance 63 mL/min (70-130); Calcium 10.9 mg/dL (7.8-10.44); Carbon Dioxide 22 mmol/L (23-31); Chloride 107 mmol/L (98-107); Glucose 148 mg/dL (83-110); Potassium 4.0 mmol/L (3.5-5.1); Sodium 142 mmol/L (136-145)
[2024-12-02] MEDS ORDERED: Etomidate 40 MG (20 mL) VIAL ONE (12:00)
[2024-12-02] MEDS ORDERED: Sevoflurane 250 ML INH ANEST BOTTLE ONE (12:07)
[2024-12-02] MEDS ORDERED: PROPOFOL 200 MG/20 ML VIAL ONE (12:15)
[2024-12-02] MEDS ORDERED: Acetaminophen 500 MG TAB ONE (13:50)
== END 2024-12-02 14:25 | disposition home or self-care (01) ==
LOC: MRI 09:25
PROVIDERS: ATTEND Neurological Surgery
DX: M48.062 Spinal stenosis, lumbar region with neurogenic claudication (principal); M48.02 Spinal stenosis, cervical region; M54.6 Pain in thoracic spine; I48.91 Unspecified atrial fibrillation; I50.9 Heart failure, unspecified; E03.9 Hypothyroidism, unspecified; E11.22 Type 2 diabetes mellitus with diabetic chronic kidney disease; N18.9 Chronic kidney disease, unspecified; K76.0 Fatty (change of) liver, not elsewhere classified; Z86.73 Personal history of transient ischemic attack (TIA), and cerebral infarction without residual deficits; Z88.2 Allergy status to sulfonamides; Z88.8 Allergy status to other drugs, medicaments and biological substances; Z91.013 Allergy to seafood; Z91.048 Other nonmedicinal substance allergy status
CPT/HCPCS: 36415; 36416; 72146; 72148; 80048; 85025; J2704

== ENCOUNTER 2025-02-12 07:50 | Outpatient (CLI) | payer OTHER | END 2025-02-12 07:51 | disposition home or self-care (01) | LOC: RAD 07:50 | PROVIDERS: ATTEND Internal Medicine Critical Care Medicine | DX: R06.00 Dyspnea, unspecified (principal) | CPT/HCPCS: 71046 ==

== ENCOUNTER 2025-03-05 12:19 | Inpatient (IN) | payer OTHER ==
[2025-03-05 12:57] LABS: #Basophils Less than 0.03 10x3/uL (0.0-0.2); #Eosinophils 0.09 10x3/uL (0.0-0.7); #Monocytes 0.36 10x3/uL (0.11-0.59); #Neutrophils 3.33 10x3/uL (1.40-6.50); %Basophils 0.4 % (0.0-1.0); %Eosinophils 1.8 % (0.0-10.0); %Lymphocytes 21.5 % (21.0-51.0); %Monocytes 7.3 % (0.0-10.0); %Neutrophils 67.8 % (42.0-75.0); Hematocrit 36.8 % (36.0-47.0); Hemoglobin 11.4 g/dL (12.0-16.0); Mean Corpuscular Hemoglobin 28.5 pg (27.0-31.0); Mean Corpuscular Volume 92.0 fL (78.0-98.0); Platelet Count 174 10x3/uL (130-400); Red Blood Cell (RBC) Count 4.00 mill/uL (4.20-5.40); White Blood Cell (WBC) Count 4.92 10x3/uL (4.8-10.8)
[2025-03-05 13:14] LABS: ALT (SGPT) 24 U/L (Less than 34); AST (SGOT) 25 U/L (11-34); Albumin 3.6 g/dL (3.1-4.5); Alkaline Phosphatase 142 U/L (40-110); Anion Gap 13 mmol/L (10-20); BUN (Urea Nitrogen) 22 mg/dL (9.8-20.1); Bilirubin, Total 0.2 mg/dL (0.3-1.2); Calc. Creatinine Clearance 0 mL/min (70-130); Calcium 10.6 mg/dL (7.8-10.44); Carbon Dioxide 25 mmol/L (23-31); Chloride 108 mmol/L (98-107); Globulin 2.8 g/dL (2.4-3.5); Glucose 337 mg/dL (83-110); Lipase 18 U/L (8-78); Potassium 3.8 mmol/L (3.5-5.1); Sodium 142 mmol/L (136-145)
[2025-03-05 13:18] LABS: Actual Bicarbonate (HCO3v) 23.6 mEq/L (22-28); Analyzer IN Cardio ER; Base Excess -0.8 mEq/L (-2.0 to +3.0); Calcium, Ionized (venous) 1.37 mmol/L (1.16-1.32); Chloride (VBG) 107 mmol/L (98-106); Hematocrit-VBG 34 % (36.0-47.0); Hemoglobin (Hb) 11.7 g/dL (11.7-16.1); Potassium (VBG) 3.65 mmol/L (3.70-5.30); Sodium 141 mmol/L (133-146)
[2025-03-05] MEDS ORDERED: Acetaminophen 325 MG TAB ONE (14:26)
[2025-03-05 14:33] LABS: CAUTI Indications for Culture Dysuria,urgency,freq; Glucose, Urine (Dipstick) 150 mg/dL (Negative); Leukocyte Negative Leu/uL (Negative); Protein, Urine (Dipstick) Negative (Neg-Trace); Specific Gravity, Urine 1.020 (1.002-1.036)
[2025-03-05 14:43] LABS: Bacteria/HPF 4+ HPF (None Seen); RBC/HPF 0-3 HPF (0-3)
[2025-03-05 14:44] LABS: Urine Culture Reflex No No
[2025-03-05] MEDS ORDERED: Cefepime 2 GM VIAL ONE (14:57)
[2025-03-05] MEDS ORDERED: Ondansetron PF 4 MG/2 ML Vial IVP PRN (15:43)
[2025-03-05] MEDS ORDERED: Guaifenesin DM 100-10/5 ML UDCUP PO PRN (15:43)
[2025-03-05] MEDS ORDERED: Acetaminophen/Codeine 30-300mg Tablet PO PRN (15:43)
[2025-03-05] MEDS ORDERED: Acetaminophen 325 MG TAB PO PRN (15:43)
[2025-03-05] MEDS ORDERED: Electrolyte Replacement Protocol 1 EACH FS SCH (15:45)
[2025-03-05] MEDS ORDERED: Glucagon 1 MG/ML KIT IM PRN (15:49)
[2025-03-05] MEDS ORDERED: Dextrose 50% Abboject 50 ML SYRINGE SLOW IVP PRN (15:49)
[2025-03-05] MEDS ORDERED: Acetaminophen 500 MG TAB PO PRN (15:57)
[2025-03-05] MEDS ORDERED: VANCOMYCIN 2 GRAM/400 ML BAG ONE (15:57)
[2025-03-05] MEDS ORDERED: Albuterol 200 PUFF (6.7GM INHALER) INH PRN (15:57)
[2025-03-05] MEDS ORDERED: Magnesium 2 GM/50 ML(in water) 2 GM in Premix 1 BAG IVPB PRN (16:00)
[2025-03-05] MEDS ORDERED: Potassium Chloride 20 MEQ in Premix 1 BAG IVPB PRN (16:00)
[2025-03-05] MEDS ORDERED: PHOS-NAK 1 PKT PACK PO PRN (16:00)
[2025-03-05 18:16] VITALS: BMI 36.0
[2025-03-05] MEDS ORDERED: CARBAMAZEPINE 200 MG PO SCH ×2 (21:00)
[2025-03-05] MEDS ORDERED: Vancomycin 1 GM in Premix 1 BAG IVPB SCH (21:00)
[2025-03-05] MEDS: Famotidine/PF 20 mg/2ml Vial SLOW IVP SCH (23:12)
[2025-03-05] MEDS: Pantoprazole 40 MG DR.TAB PO SCH (23:12)
[2025-03-06 02:04] LABS: Influenza A by NAA Not Detected (NotDetected); Influenza B by NAA Not Detected (NotDetected); RSV by NAA Not Detected (NotDetected); SARS-CoV-2 NAA Rapid Test Not Detected (NotDetected)
[2025-03-06 04:23] LABS: #Basophils Less than 0.03 10x3/uL (0.0-0.2); #Eosinophils 0.13 10x3/uL (0.0-0.7); #Monocytes 0.39 10x3/uL (0.11-0.59); #Neutrophils 3.27 10x3/uL (1.40-6.50); %Basophils 0.4 % (0.0-1.0); %Eosinophils 2.6 % (0.0-10.0); %Lymphocytes 21.2 % (21.0-51.0); %Monocytes 7.9 % (0.0-10.0); %Neutrophils 66.7 % (42.0-75.0); Hematocrit 34.2 % (36.0-47.0); Hemoglobin 10.4 g/dL (12.0-16.0); Mean Corpuscular Hemoglobin 28.7 pg (27.0-31.0); Mean Corpuscular Volume 94.5 fL (78.0-98.0); Platelet Count 149 10x3/uL (130-400); Red Blood Cell (RBC) Count 3.62 mill/uL (4.20-5.40); White Blood Cell (WBC) Count 4.91 10x3/uL (4.8-10.8)
[2025-03-06 04:35] LABS: ALT (SGPT) 17 U/L (Less than 34); AST (SGOT) 22 U/L (11-34); Albumin 2.9 g/dL (3.1-4.5); Alkaline Phosphatase 104 U/L (40-110); Anion Gap 17 mmol/L (10-20); BUN (Urea Nitrogen) 19 mg/dL (9.8-20.1); Bilirubin, Total 0.2 mg/dL (0.3-1.2); Calc. Creatinine Clearance 83 mL/min (70-130); Calcium 9.8 mg/dL (7.8-10.44); Carbon Dioxide 17 mmol/L (23-31); Chloride 112 mmol/L (98-107); Globulin 2.7 g/dL (2.4-3.5); Glucose 151 mg/dL (83-110); Potassium 3.8 mmol/L (3.5-5.1); Sodium 142 mmol/L (136-145)
[2025-03-06 04:47] LABS: Vancomycin, Random 16.8 ug/mL (See Comment)
[2025-03-06] MEDS: Pantoprazole 40 MG VIAL IVP SCH (09:01)
[2025-03-06] MEDS: FLU (Fluad Triv) 25-26 (65UP)PF 45 MCG/0.5 ML Syringe IM ONE (09:02)
[2025-03-06] MEDS: Allopurinol 100 MG TAB PO SCH (09:02)
[2025-03-06] MEDS: Metoprolol Succinate XL 50 MG ER.TAB PO SCH ×2 (10:09)
[2025-03-06] MEDS: Gabapentin 300 MG CAP PO SCH ×2 (10:10→16:03)
[2025-03-06] MEDS: Aspirin 81 mg Enteric Coated Tablet PO SCH (10:11)
[2025-03-06] MEDS ORDERED: Pancrelipase DR 12,000 1 CAP PO PRN (12:09)
[2025-03-06] MEDS: carBAMazepine 200 MG TAB PO SCH ×2 (13:05→20:34)
[2025-03-06] MEDS ORDERED: Vancomycin 1.25 GM / NS 250 ML VIAL-2-BAG IVPB SCH (16:00)
[2025-03-06] MEDS: Pancrelipase DR 12,000 1 CAP PO SCH (16:03)
[2025-03-06] MEDS: HYDROcodone/Acetaminophen 7.5/325 mg Tablet PO PRN (18:26)
[2025-03-06] MEDS: Mometasone 100 MCG HFA INHALER (RT USE) INH SCH (19:40)
[2025-03-06] MEDS: cloNIDine 0.1 MG TAB PO SCH (20:35)
[2025-03-06] MEDS: Famotidine 20 MG TAB PO SCH (20:35)
[2025-03-06] MEDS: OLANZapine 5 MG TAB PO SCH (20:35)
[2025-03-07 08:03] VITALS: TEMP 98.1
[2025-03-07] MEDS ORDERED: Non-Formulary Item 1 EACH (Fluticasone/Umeclidin/Vilanter [Trelegy Ellipta 100-62.5-25] 1 INH SCH (09:00)
[2025-03-07] MEDS ORDERED: Non-Formulary Item 1 EACH (Sitagliptin Phosphate [Januvia] 50 MG Tab) PO SCH (09:00)
[2025-03-07] MEDS: Ferrous Sulfate 325 MG TAB PO SCH (09:17)
[2025-03-07] MEDS: Calcitriol 0.25 MCG CAP PO SCH (09:19)
[2025-03-07] MEDS: Aspirin 81 mg Enteric Coated Tablet PO SCH (09:19)
[2025-03-07] MEDS: Ezetimibe 10 MG TAB PO SCH (09:22)
[2025-03-07] MEDS: Spironolactone 25 MG TAB PO SCH (09:24)
[2025-03-07 11:19] VITALS: BP 142/81
[2025-03-07] MEDS ORDERED: Gabapentin 300 MG CAP PO PRN (12:00)
[2025-03-07 22:36] LABS: L.pneumophilia Abs Non Reactive (Non Reactive)
== END 2025-03-07 11:36 | disposition home health service (06) | DRG 194 ==
LOC: ERS 12:19 → SUATTDRO 12:19 → 2NO 15:43
PROVIDERS: ADMIT Internal Medicine; ATTEND Internal Medicine
PROC: 3E03329 Introduction of Other Anti-infective into Peripheral Vein, Percutaneous Approach (ICD-10-PCS; principal; 2025-03-05)
PROC: 3E0234Z Introduction of Serum, Toxoid and Vaccine into Muscle, Percutaneous Approach (ICD-10-PCS; 2025-03-05)
DX: J18.9 Pneumonia, unspecified organism (principal); I50.32 Chronic diastolic (congestive) heart failure; J44.0 Chronic obstructive pulmonary disease with (acute) lower respiratory infection; J44.1 Chronic obstructive pulmonary disease with (acute) exacerbation; E03.9 Hypothyroidism, unspecified; I11.0 Hypertensive heart disease with heart failure; E11.9 Type 2 diabetes mellitus without complications; I73.9 Peripheral vascular disease, unspecified; G47.33 Obstructive sleep apnea (adult) (pediatric); Z96.653 Presence of artificial knee joint, bilateral; Z90.49 Acquired absence of other specified parts of digestive tract; Z88.8 Allergy status to other drugs, medicaments and biological substances; Z88.5 Allergy status to narcotic agent; Z88.2 Allergy status to sulfonamides; Z91.013 Allergy to seafood; Z98.890 Other specified postprocedural states; Z90.710 Acquired absence of both cervix and uterus; Z23 Encounter for immunization
CPT/HCPCS: 36415; 36416; 71045; 71250; 74177; 80053; 80202; 81001; 82805; 83605; 83690; 83880; 84145; 84484; 85025; 86713; 87081; 87637; 90653; 93005; 94640; 94664; 96361; 96365; 96366; 96367; J0692; J1308; J2470; J2543; J3375; J7030; Q0162; Q9967

== ENCOUNTER 2025-03-18 07:58 | Inpatient (IN) | payer OTHER ==
[2025-03-18 08:28] LABS: #Basophils 0.06 10x3/uL (0.0-0.2); #Eosinophils 0.11 10x3/uL (0.0-0.7); #Monocytes 0.45 10x3/uL (0.11-0.59); #Neutrophils 3.82 10x3/uL (1.40-6.50); %Basophils 1.0 % (0.0-1.0); %Eosinophils 1.8 % (0.0-10.0); %Lymphocytes 28.3 % (21.0-51.0); %Monocytes 7.2 % (0.0-10.0); %Neutrophils 60.7 % (42.0-75.0); Hematocrit 39.3 % (36.0-47.0); Hemoglobin 12.1 g/dL (12.0-16.0); Mean Corpuscular Hemoglobin 28.2 pg (27.0-31.0); Mean Corpuscular Volume 91.6 fL (78.0-98.0); Platelet Count 268 10x3/uL (130-400); Red Blood Cell (RBC) Count 4.29 mill/uL (4.20-5.40); White Blood Cell (WBC) Count 6.28 10x3/uL (4.8-10.8)
[2025-03-18] MEDS ORDERED: CALCIUM GLUC 1 GM/NS 50 ML IV Bag ONE (08:43)
[2025-03-18 08:44] LABS: ALT (SGPT) 10 U/L (Less than 34); AST (SGOT) 28 U/L (11-34); Albumin 4.0 g/dL (3.1-4.5); Alkaline Phosphatase 139 U/L (40-110); Anion Gap 14 mmol/L (10-20); BUN (Urea Nitrogen) 26 mg/dL (9.8-20.1); Bilirubin, Total 0.1 mg/dL (0.3-1.2); Calc. Creatinine Clearance 0 mL/min (70-130); Calcium 11.0 mg/dL (7.8-10.44); Carbon Dioxide 25 mmol/L (23-31); Chloride 109 mmol/L (98-107); Globulin 2.9 g/dL (2.4-3.5); Glucose 162 mg/dL (83-110); Potassium 4.2 mmol/L (3.5-5.1); Sodium 144 mmol/L (136-145)
[2025-03-18 08:49] LABS: INR-International Normal Ratio 0.9; PTT 26.7 sec (22.9-36.1); Prothrombin Time 12.5 sec (12.0-14.7)
[2025-03-18] MEDS ORDERED: Ondansetron PF 4 MG/2 ML Vial ONE (08:58)
[2025-03-18] MEDS ORDERED: Glucagon 1 MG/ML KIT ONE ×3 (08:58→09:11)
[2025-03-18 09:38] LABS: Bacteria/HPF None Seen HPF (None Seen); CAUTI Indications for Culture Dysuria,urgency,freq; Glucose, Urine (Dipstick) Normal (Negative); Leukocyte Negative Leu/uL (Negative); Protein, Urine (Dipstick) Negative (Neg-Trace); RBC/HPF None Seen HPF (0-3); Specific Gravity, Urine 1.008 (1.002-1.036); WBC/HPF 0-3 HPF (0-3)
[2025-03-18 09:44] LABS: Urine Culture Reflex No No
[2025-03-18] MEDS ORDERED: Dextrose 50% Abboject 50 ML SYRINGE SLOW IVP PRN (10:15)
[2025-03-18] MEDS ORDERED: Glucagon 1 MG/ML KIT IM PRN (10:15)
[2025-03-18 11:27] VITALS: BMI 34.5
[2025-03-18] MEDS: Gabapentin 300 MG CAP PO SCH (15:08)
[2025-03-18] MEDS: Acetaminophen 325 MG TAB PO PRN (16:26)
[2025-03-18] MEDS: Pancrelipase DR 12,000 1 CAP PO SCH (16:41)
[2025-03-18] MEDS: Pantoprazole 40 MG DR.TAB PO SCH (20:41)
[2025-03-18] MEDS: Famotidine 20 MG TAB PO SCH (20:41)
[2025-03-18] MEDS: OLANZapine 5 MG TAB PO SCH (20:41)
[2025-03-18] MEDS: carBAMazepine 200 MG TAB PO SCH (20:42)
[2025-03-19 04:55] LABS: #Basophils 0.04 10x3/uL (0.0-0.2); #Eosinophils 0.09 10x3/uL (0.0-0.7); #Monocytes 0.43 10x3/uL (0.11-0.59); #Neutrophils 2.83 10x3/uL (1.40-6.50); %Basophils 0.8 % (0.0-1.0); %Eosinophils 1.7 % (0.0-10.0); %Lymphocytes 34.3 % (21.0-51.0); %Monocytes 8.2 % (0.0-10.0); %Neutrophils 54.2 % (42.0-75.0); Hematocrit 36.3 % (36.0-47.0); Hemoglobin 11.4 g/dL (12.0-16.0); Mean Corpuscular Hemoglobin 28.8 pg (27.0-31.0); Mean Corpuscular Volume 91.7 fL (78.0-98.0); Platelet Count 256 10x3/uL (130-400); Red Blood Cell (RBC) Count 3.96 mill/uL (4.20-5.40); White Blood Cell (WBC) Count 5.22 10x3/uL (4.8-10.8)
[2025-03-19 05:26] LABS: ALT (SGPT) 8 U/L (Less than 34); AST (SGOT) 15 U/L (11-34); Albumin 3.4 g/dL (3.1-4.5); Alkaline Phosphatase 109 U/L (40-110); Anion Gap 15 mmol/L (10-20); BUN (Urea Nitrogen) 23 mg/dL (9.8-20.1); Bilirubin, Total 0.2 mg/dL (0.3-1.2); Calc. Creatinine Clearance 59 mL/min (70-130); Calcium 10.7 mg/dL (7.8-10.44); Carbon Dioxide 23 mmol/L (23-31); Chloride 109 mmol/L (98-107); Globulin 2.4 g/dL (2.4-3.5); Glucose 127 mg/dL (83-110); Potassium 4.1 mmol/L (3.5-5.1); Sodium 143 mmol/L (136-145)
[2025-03-19] MEDS: Enoxaparin 40 MG (0.4 mL) SYRINGE SC SCH (07:36)
[2025-03-19] MEDS: Ferrous Sulfate 325 MG TAB PO SCH (07:38)
[2025-03-19] MEDS: Calcitriol 0.25 MCG CAP PO SCH (07:38)
[2025-03-19] MEDS: Allopurinol 100 MG TAB PO SCH (07:38)
[2025-03-19] MEDS: Spironolactone 25 MG TAB PO SCH (07:39)
[2025-03-19] MEDS: Furosemide 40 MG TAB PO SCH (07:39)
[2025-03-19] MEDS: Aspirin 81 mg Enteric Coated Tablet PO SCH (07:39)
[2025-03-19] MEDS ORDERED: Aspirin 81 mg Enteric Coated Tablet PO SCH (09:00)
[2025-03-19] MEDS ORDERED: DOBUTamine 500 mg/250 ml 500 MG in Premix 1 BAG IVPB SCH (11:30)
[2025-03-20 04:32] LABS: #Basophils Less than 0.03 10x3/uL (0.0-0.2); #Eosinophils 0.11 10x3/uL (0.0-0.7); #Monocytes 0.55 10x3/uL (0.11-0.59); #Neutrophils 2.82 10x3/uL (1.40-6.50); %Basophils 0.4 % (0.0-1.0); %Eosinophils 2.0 % (0.0-10.0); %Lymphocytes 34.9 % (21.0-51.0); %Monocytes 10.1 % (0.0-10.0); %Neutrophils 52.0 % (42.0-75.0); Hematocrit 38.5 % (36.0-47.0); Hemoglobin 11.8 g/dL (12.0-16.0); Mean Corpuscular Hemoglobin 28.5 pg (27.0-31.0); Mean Corpuscular Volume 93.0 fL (78.0-98.0); Platelet Count 255 10x3/uL (130-400); Red Blood Cell (RBC) Count 4.14 mill/uL (4.20-5.40); White Blood Cell (WBC) Count 5.42 10x3/uL (4.8-10.8)
[2025-03-20 05:11] LABS: Anion Gap 16 mmol/L (10-20); BUN (Urea Nitrogen) 29 mg/dL (9.8-20.1); Calc. Creatinine Clearance 51 mL/min (70-130); Calcium 11.3 mg/dL (7.8-10.44); Carbon Dioxide 26 mmol/L (23-31); Chloride 105 mmol/L (98-107); Glucose 179 mg/dL (83-110); Potassium 3.8 mmol/L (3.5-5.1); Sodium 143 mmol/L (136-145)
[2025-03-21 04:07] LABS: #Basophils 0.04 10x3/uL (0.0-0.2); #Eosinophils 0.12 10x3/uL (0.0-0.7); #Monocytes 0.51 10x3/uL (0.11-0.59); #Neutrophils 3.34 10x3/uL (1.40-6.50); %Basophils 0.7 % (0.0-1.0); %Eosinophils 2.1 % (0.0-10.0); %Lymphocytes 28.7 % (21.0-51.0); %Monocytes 9.0 % (0.0-10.0); %Neutrophils 59.0 % (42.0-75.0); Hematocrit 37.1 % (36.0-47.0); Hemoglobin 11.5 g/dL (12.0-16.0); Mean Corpuscular Hemoglobin 28.5 pg (27.0-31.0); Mean Corpuscular Volume 92.1 fL (78.0-98.0); Platelet Count 245 10x3/uL (130-400); Red Blood Cell (RBC) Count 4.03 mill/uL (4.20-5.40); White Blood Cell (WBC) Count 5.67 10x3/uL (4.8-10.8)
[2025-03-21 04:22] LABS: Anion Gap 14 mmol/L (10-20); BUN (Urea Nitrogen) 33 mg/dL (9.8-20.1); Calc. Creatinine Clearance 57 mL/min (70-130); Calcium 11.0 mg/dL (7.8-10.44); Carbon Dioxide 25 mmol/L (23-31); Chloride 108 mmol/L (98-107); Glucose 108 mg/dL (83-110); Potassium 4.1 mmol/L (3.5-5.1); Sodium 143 mmol/L (136-145)
[2025-03-21 12:01] VITALS: BP 143/65; TEMP 98.1
== END 2025-03-21 16:40 | disposition home or self-care (01) | DRG 309 ==
LOC: ERS 07:58 → CCU 09:46 → 2NO 03-19 15:17
PROVIDERS: ADMIT Internal Medicine; ATTEND Internal Medicine
DX: R00.1 Bradycardia, unspecified (principal); I50.32 Chronic diastolic (congestive) heart failure; I69.952 Hemiplegia and hemiparesis following unspecified cerebrovascular disease affecting left dominant side; D50.9 Iron deficiency anemia, unspecified; G43.909 Migraine, unspecified, not intractable, without status migrainosus; I11.0 Hypertensive heart disease with heart failure; E83.51 Hypocalcemia; E11.43 Type 2 diabetes mellitus with diabetic autonomic (poly)neuropathy; K31.84 Gastroparesis; J44.9 Chronic obstructive pulmonary disease, unspecified; I48.91 Unspecified atrial fibrillation; E03.9 Hypothyroidism, unspecified; G47.33 Obstructive sleep apnea (adult) (pediatric); Z98.890 Other specified postprocedural states; Z90.49 Acquired absence of other specified parts of digestive tract; Z90.710 Acquired absence of both cervix and uterus; Z88.8 Allergy status to other drugs, medicaments and biological substances; Z91.048 Other nonmedicinal substance allergy status; Z88.5 Allergy status to narcotic agent; Z91.013 Allergy to seafood; Z88.6 Allergy status to analgesic agent; Z88.2 Allergy status to sulfonamides; Z79.899 Other long term (current) drug therapy; Z79.890 Hormone replacement therapy; Z79.51 Long term (current) use of inhaled steroids
CPT/HCPCS: 36415; 36416; 71045; 80048; 80053; 81001; 83605; 84443; 84484; 85025; 85610; 85730; 93005; 93010; 93306; 96365; 96375; J0461; J0613; J1250; J1611; J1650; J1815; J2405

== ENCOUNTER 2025-04-15 12:21 | Emergency (ER) | payer OTHER ==
[2025-04-15 13:49] LABS: #Basophils 0.03 10x3/uL (0.0-0.2); #Eosinophils 0.08 10x3/uL (0.0-0.7); #Monocytes 0.39 10x3/uL (0.11-0.59); #Neutrophils 2.64 10x3/uL (1.40-6.50); %Basophils 0.7 % (0.0-1.0); %Eosinophils 1.8 % (0.0-10.0); %Lymphocytes 27.0 % (21.0-51.0); %Monocytes 9.0 % (0.0-10.0); %Neutrophils 61.0 % (42.0-75.0); Hematocrit 34.2 % (36.0-47.0); Hemoglobin 10.9 g/dL (12.0-16.0); Mean Corpuscular Hemoglobin 28.9 pg (27.0-31.0); Mean Corpuscular Volume 90.7 fL (78.0-98.0); Platelet Count 232 10x3/uL (130-400); Red Blood Cell (RBC) Count 3.77 mill/uL (4.20-5.40); White Blood Cell (WBC) Count 4.33 10x3/uL (4.8-10.8)
[2025-04-15] MEDS ORDERED: Acetaminophen 500 MG TAB ONE (14:13)
[2025-04-15 14:17] LABS: ALT (SGPT) 7 U/L (Less than 34); AST (SGOT) 16 U/L (11-34); Albumin 3.7 g/dL (3.1-4.5); Alkaline Phosphatase 129 U/L (40-110); Anion Gap 10 mmol/L (10-20); BUN (Urea Nitrogen) 13 mg/dL (9.8-20.1); Bilirubin, Total 0.2 mg/dL (0.3-1.2); Calc. Creatinine Clearance 0 mL/min (70-130); Calcium 10.2 mg/dL (7.8-10.44); Carbon Dioxide 28 mmol/L (23-31); Chloride 107 mmol/L (98-107); Globulin 2.6 g/dL (2.4-3.5); Glucose 222 mg/dL (83-110); Magnesium 1.9 mg/dL (1.6-2.6); Potassium 3.3 mmol/L (3.5-5.1); Sodium 142 mmol/L (136-145)
== END 2025-04-15 17:44 | disposition home or self-care (01) ==
LOC: ERS 12:21
DX: R07.9 Chest pain, unspecified (principal); E87.6 Hypokalemia; I11.0 Hypertensive heart disease with heart failure; I50.9 Heart failure, unspecified; E11.9 Type 2 diabetes mellitus without complications; Z79.899 Other long term (current) drug therapy
CPT/HCPCS: 70450; 71045; 80053; 83735; 83880; 84484; 85025; 93005